=== PATIENT | male | born 1960 | race Caucasian/White ===

== ENCOUNTER 2017-12-25 09:46 | Outpatient (CLI) | payer MEDICAID, SELFPAY ==
--- NOTE | 2017-12-25 09:30 | SATEXT_ITS ---
Assessment: Senthil presents for nutritional counseling for underweight. His dietary recall shows that he eats very inconsistently and eats foods with poor nutrient value. He drinks sugar sweetened beverages and may have just a bag of Milky Ways all day long. Once in a while, Juan reports that if he is hungry, he will have a sandwich. He does not have top dentures and cannot find any that fit well. He does not like any fruits whatsoever. He likes only a few vegetables. Juan is 73 and 121.3 lbs. Nutritional Diagnosis: Underweight related inadequate intake of energy as evidenced by BMI of 17 kg/m2. Intervention: Discussed with Juan and with his caregiver present the importance of increasing the nutrient value of what he consumes even if he doesn 't gain weight. Suggested not filling up on SSB's so that he would have room for foods. Suggested that Juan take leisurely walks throughout the day to help increase his appetite. Provided written guidelines with examples of what the right amount for him is with the right proportions (2000 calories). Also provided pictures of well balanced meals. Suggested some simple changes to start with for the best chance of success. Juan did not verbalize a high motivation to comply or to make any changes. He did however take my phone number should he have any questions or concerns regarding his nutrition therapy. Monitoring and Evaluation: Senthil did not want to make a follow up appointment at this time so he will self monitor and evaluate his progress. He is encouraged to follow up with me at any point for nutritional counseling. Thank you for the referral.
== END 2017-12-25 10:06 ==
PROVIDERS: PCP Specialist/Technologist Athletic Trainer; Visit Provider Dietitian, Registered
DX: R63.6 Underweight (principal); Z68.1 Body mass index [BMI] 19.9 or less, adult; Z71.3 Dietary counseling and surveillance
CPT/HCPCS: 97802

== ENCOUNTER 2018-02-20 09:01 | Outpatient (REF) | payer MEDICAID, SELFPAY ==
[2018-02-20 21:03] LABS: HCT 36.7 % (40.0-50.0); HGB 11.9 g/dL (13.5-17.5)
[2018-02-20 21:16] LABS: Anion Gap 7.3 mmol/L (3-11); BUN 31 mg/dL (7-18); CO2 30.7 mmol/L (21.0-32.0); CREATININE 2.22 mg/dL (0.70-1.30); Calcium 9.5 mg/dL (8.5-10.1); Chloride 103 mmol/L (98-107); Cholesterol 224 mg/dL (50-200); Estimated GFR 30.91 (mL/min/1.73m2); Glucose 94 mg/dL (70-100); HDL Cholesterol 64 mg/dL (40-60); LDL CHOLESTEROL 134 mg/dL (<100); Magnesium 1.6 mg/dL (1.8-2.4); Potassium 5.6 mmol/L (3.5-5.1); Sodium 141 mmol/L (136-145); TSH (W/Ref FT4) 2.42 uIU/mL (0.358-3.74); Triglyceride 165 mg/dL (30-150)
== END 2018-02-20 09:21 ==
LOC: NCHCN 09:01
PROVIDERS: PCP Specialist/Technologist Athletic Trainer; Visit Provider Specialist/Technologist Athletic Trainer
DX: R63.6 Underweight (principal); R79.89 Other specified abnormal findings of blood chemistry; E87.5 Hyperkalemia; E78.5 Hyperlipidemia, unspecified; K21.9 Gastro-esophageal reflux disease without esophagitis
CPT/HCPCS: 80048; 80061; 83721; 83735; 84443; 85014; 85018

== ENCOUNTER 2018-03-06 08:31 | Outpatient (REF) | payer MEDICAID, SELFPAY ==
[2018-03-06 20:17] LABS: Iron 95 ug/dL (50-175); Total Iron Binding Capacity 310 ug/dL (250-450); Transferrin Sat 31 % (20-55)
[2018-03-06 20:34] LABS: HCT 33.9 % (40.0-50.0); HGB 11.2 g/dL (13.5-17.5); Mean Corpuscular Volume 96.9 fL (80-95); Mean Platelet Volume 9.4 fL (8.0-11.0); Platelet Count 483 x1000/uL (130-400); RBC Distribution Width 15.2 % (11.8-14.1); White Blood Cell Count 6.62 k/cumm (4.4-10.8)
[2018-03-06 21:03] LABS: ALT 33 U/L (12-78); AST 23 U/L (15-37); Albumin 3.7 g/dL (3.4-5.0); Alkaline Phosphatase 69 U/L (46-116); Anion Gap 7.9 mmol/L (3-11); BUN 34 mg/dL (7-18); Bilirubin, Total 0.4 mg/dL (0.2-1.0); CO2 30.1 mmol/L (21.0-32.0); CREATININE 1.65 mg/dL (0.70-1.30); Calcium 9.5 mg/dL (8.5-10.1); Chloride 102 mmol/L (98-107); Estimated GFR 43.53 (mL/min/1.73m2); Ferritin 266 ng/mL (8-388); Glucose 80 mg/dL (70-100); Potassium 5.1 mmol/L (3.5-5.1); Sodium 140 mmol/L (136-145); Vitamin B12 414 pg/mL (193-986)
[2018-03-07 20:39] LABS: Reticulocyte 1.1 % (0.5-2.4)
[2018-03-11 16:36] LABS: Erythropoietin 16.3 mIU/mL (2.6 - 18.5)
== END 2018-03-06 08:51 ==
LOC: NCHCN 08:31
PROVIDERS: PCP Specialist/Technologist Athletic Trainer; Visit Provider Specialist/Technologist Athletic Trainer
DX: D64.9 Anemia, unspecified (principal); N28.9 Disorder of kidney and ureter, unspecified
CPT/HCPCS: 80053; 82668; 85027; 82607; 82728; 82746; 83540; 83550; 85045

== ENCOUNTER 2018-03-13 00:52 | Outpatient (CLI) | payer MEDICAID, SELFPAY ==
--- NOTE | 2018-03-13 13:20 | DI.US_ITS ---
SYMPTOM/DIAGNOSIS: RENAL INSUFFICIENCY N28.9 RENAL ULTRASOUND: The kidneys are normal in size and parenchymal thickness and show normal parenchymal echogenicity. No stones or hydronephrosis is seen. There is no evidence of a sb-nephric collection or mass. There is an 11 mm cyst at the lower pole of the left kidney. There is an 8 mm cyst at the upper pole of the right kidney and an 8 mm cyst near the mid portion of the right kidney. The bladder was empty. IMPRESSION: Small bilateral renal cysts.
== END 2018-03-13 01:12 ==
PROVIDERS: PCP Specialist/Technologist Athletic Trainer; Visit Provider Specialist/Technologist Athletic Trainer
DX: N28.9 Disorder of kidney and ureter, unspecified (principal); N28.1 Cyst of kidney, acquired
CPT/HCPCS: 76770

== ENCOUNTER 2018-04-30 00:46 | Outpatient (CLI) | payer MEDICAID, SELFPAY ==
--- NOTE | 2018-04-30 13:00 | DI.CTLCSR_ITS ---
SYMPTOMS/DIAGNOSIS: TOBACCO SMOKER, F17.200, [id number] HISTORY SMOKING, ASYMPTOMATIC CT SCAN OF THE CHEST: CT scan of the chest was performed according to the lung cancer screening protocol. There is atherosclerosis of the thoracic aorta. The heart size is within normal limits. No significant pericardial effusion is seen. No significant thoracic adenopathy, pleural effusion or pneumothorax is identified. Mild emphysematous changes are present in the lungs. No pulmonary nodules are seen. No infiltrates are present. The tracheobronchial tree is unremarkable. There are moderate degenerative changes seen in the thoracolumbar spine. IMPRESSION: 1. COPD. 2. No pulmonary nodules. Lung-RAD Category: 1- Negative Lung- RAD Management of Findings: Continue annual LDCT screening in 12 months
== END 2018-04-30 01:06 ==
PROVIDERS: PCP Specialist/Technologist Athletic Trainer; Visit Provider Specialist/Technologist Athletic Trainer
DX: Z12.2 Encounter for screening for malignant neoplasm of respiratory organs (principal); F17.200 Nicotine dependence, unspecified, uncomplicated; J44.9 Chronic obstructive pulmonary disease, unspecified
CPT/HCPCS: G0297

== ENCOUNTER 2018-07-06 12:03 | Emergency (ER) | payer MEDICAID, SELFPAY ==
--- NOTE | 2018-07-06 12:17 | NUR.NOTE ---
pt noticed drainage from his right ear 2 days ago ear pain 5/10 temp 99.5
[2018-07-06 12:18] VITALS: BP 129/91; PULSE 70; RESP 16; TEMP 37.5; O2SAT 98
--- NOTE | 2018-07-06 12:21 | W.ED.GENAD ---
Discharge Plan Disposition Patient Disposition: HOME Condition: Stable Discharge Details Chief Complaint: EarProblem Clinical Impression: Otitis media of right ear, Otitis externa of right ear Primary Care Provider: Musa Stewart ED Provider: Sabine Spann Home Meds and New Rx's Prescriptions: New amoxicillin-pot clavulanate [Augmentin] 875-125 mg tablet 1 tab PO BID 10 Days Qty: 20 RF: 0 Cipro HC 0.2-1 % drops,suspension 3 drp OT BID 10 Days RF: 0 Continued simvastatin 20 MG tablet 20 mg PO DAILY RF: 0 mirtazapine 30 MG tablet 60 mg PO DAILY RF: 0 albuterol sulfate [Proventil HFA] 6.7 GM HFA aerosol inhaler 2 puff Inhalation PRN PRNRF: 0 ranitidine HCl [Zantac] 150 MG tablet 150 mg PO BID Qty: 60 RF: 0 multivitamin [Daily Multi-Vitamin] 1 EACH tablet 1 tab PO DAILY RF: 0 quetiapine [Seroquel] 50 MG tablet 50 mg PO HS RF: 0 Combivent Respimat 120 PUFF mist 2 puff Inhalation QID RF: 0 omeprazole 20 MG capsule,delayed release(DR/EC) 40 mg PO DAILY RF: 0 metoprolol succinate [Toprol XL] 50 MG tablet extended release 24 hr 50 mg PO DAILY RF: 0 sucralfate 1 GM tablet 1 gm PO BID RF: 0 bupropion HCl 300 MG tablet extended release 24 hr 300 mg PO DAILY RF: 0 Symbicort 10.2 GM HFA aerosol inhaler 1 inh Inhalation BID RF: 0 cyclobenzaprine 10 MG tablet 10 mg PO Q8H Qty: 9 RF: 0 Ibuprofen 400 MG Tablet 400 mg PO Q4H PRNQty: 18 RF: 0 Discharge Instructions Instructions: Otitis Externa (ED), Otitis Media (ED) Additional Instructions: Alternate Tylenol and Motrin as needed and directed for pain. Take the antibiotics until finished. Follow-up with your primary care doctor next week for reevaluation and for referral to ENT if her symptoms do not improve or worsen. Return immediately to the emergency department with any new concerning symptoms. Referrals: Ziggy Alejo MD [ [facility] STAFF PHYSICIAN] - Discharge Data Discharge Physician: Sabine Spann Medical Decision Making 58-year-old male presents with right ear pain and drainage since yesterday. Recently finished amoxicillin for a right ear infection. Vitals within normal limits. Low-grade temp at 99.5. Right ear with tenderness palpation of the tragus as well as with pulling on the auricle. He has mild edema in the right ear canal as well as a serous effusion noted in the right TM. No lymphadenopathy. Remainder of ENT exam within normal limits. Right mastoid nontender to palpation. Appears consistent with likely an otitis media and otitis externa. As patient failed outpatient amoxicillin treatment, will give a prescription for Augmentin as well as for Cipro HC otic drops. Patient instructed to alternate Tylenol and Motrin, take the medication as directed, follow-up with primary care doctor next week and for referral to ENT if symptoms do not improve or worsen. He is instructed return to the emergency department any concerns per HPI General Mode of arrival: ambulatory. Date/Time Provider Initiated Documentation: 07/06/18 12:19. Limitations to Documentation: no limitations. Information obtained by: patient. HPI Narrative: Patient is a 58-year-old male presents with right ear pain and drainage since yesterday. Patient states he had a similar presentation of symptoms more than 1 month ago was seen by his primary care doctor and diagnosed with ear infection and given amoxicillin. He states after taking the amoxicillin the drainage improved but the ear pain never fully improved until it became worse yesterday and now the drainage returned. He states the drainage is yellow in color. He denies any known fever, coughing, sore throat, shortness of breath, vomiting or diarrhea. He states he has been eating and drinking normally. Related Data Home Medications Medication Instructions Recorded Confirmed albuterol sulfate [Proventil HFA] 2 puff INHALATION PRN PRN 05/15/14 07/06/18 mirtazapine 60 mg PO DAILY 05/15/14 07/06/18 simvastatin 20 mg PO DAILY 05/15/14 07/06/18 ranitidine HCl [Zantac] 150 mg PO BID #60 tab 02/07/15 07/06/18 Combivent Respimat 2 puff INHALATION QID 06/10/15 07/06/18 multivitamin [Daily Multi-Vitamin] 1 tab PO DAILY 06/10/15 07/06/18 omeprazole 40 mg PO DAILY 06/10/15 04/17/17 quetiapine [Seroquel] 50 mg PO HS 06/10/15 07/06/18 Symbicort 1 inh INHALATION BID 05/30/16 07/06/18 bupropion HCl 300 mg PO DAILY 05/30/16 04/17/17 metoprolol succinate [Toprol XL] 50 mg PO DAILY 06/17/16 07/06/18 Ibuprofen 400 mg PO Q4H PRN #18 tablet 04/03/17 04/17/17 cyclobenzaprine 10 mg PO Q8H #9 tab 04/03/17 07/06/18 sucralfate 1 gm PO BID 04/17/17 07/06/18 amoxicillin-pot clavulanate 1 tab PO BID 10 Days #20 tab 07/06/18 [Augmentin] ciprofloxacin-hydrocortisone 3 drp OT BID 10 Days ml 07/06/18 [Cipro HC] Previous Rx's Medication Instructions Recorded ranitidine HCl [Zantac] 150 mg PO BID #60 tab 02/07/15 Ibuprofen 400 mg PO Q4H PRN #18 tablet 04/03/17 cyclobenzaprine 10 mg PO Q8H #9 tab 04/03/17 amoxicillin-pot clavulanate 1 tab PO BID 10 Days #20 tab 07/06/18 [Augmentin] ciprofloxacin-hydrocortisone 3 drp OT BID 10 Days ml 07/06/18 [Cipro HC] Allergies Allergy/AdvReac Type Severity Reaction Status Date / Time No Known Allergies Allergy Unverified 07/06/18 12:20 General Stated Complaint: EarProblem KEVIN: 4 Review of Systems Review of Systems All systems reviewed & are unremarkable except as noted in HPI and below Constitutional Reports as per HPI, Denies chills and Denies fever(s) Eyes Denies blurry vision ENT Denies dizziness, Denies sore throat and Denies throat swelling Cardiovascular Denies chest pain and Denies dyspnea Respiratory Denies cough and Denies dyspnea Gastrointestinal Denies abdominal pain, Denies diarrhea and Denies vomiting Genitourinary Denies hematuria and Denies dysuria Musculoskeletal Denies back pain and Denies numbness Integumentary/Breasts Denies lesions and Denies rash Neurologic Denies dizziness, Denies focal weakness and Denies numbness Allergic/Immunologic Denies throat swelling PFSH Medical History Alcohol abuse (Chronic) COPD (chronic obstructive pulmonary disease) (Chronic) Depression (Chronic) SVT (supraventricular tachycardia) (Chronic) Surgical History No significant past surgical history (Acute) Social History Smoking/Tobacco Use Status: Current every day Tobacco Type: cigarettes Smoking cigarettes per day: 4 Years smoked: 30 Alcohol Intake: never Drug use: Never Do you feel safe at home: Yes Do you feel safe in your relationship?: Yes Exam Const General: cooperative, healthy appearing and no acute distress HENMT Head: normal to inspection Ears: EAC abnormal erythema on the right, edema on the right and otic discharge other (yellowish clear), TM abnormal wth effusion serous on the right, erythematous on the right and other and other (Tenderness to palpation of the tragus as well as with pulling on auricle.) General nose exam: external nose normal Face and sinus: normal facial exam Mouth: oral mucosae normal Teeth and gingiva: dentition normal Throat: posterior oropharynx normal Eyes General: appearance normal, both eyes and all related structures Neck Neck: normal visual inspection and no lymphadenopathy Resp Effort & Inspection: normal respiratory effort and able to speak in complete sentences Cardio Rate: regular rate Skin General skin exam: no rashes or lesions noted Neuro General: alert, awake and oriented x3 Motor: muscle tone normal throughout Extrem General: normal to inspection and full ROM Psych Appearance: grossly normal Affect: normal affect Course Vital Signs Temperature 99.5 F 07/06/18 12:18 Pulse 70 07/06/18 12:18 Respiratory Rate 16 07/06/18 12:18 Blood Pressure 129/91 H 07/06/18 12:18 Pulse Oximetry 98 07/06/18 12:18 Temperature 99.5 F 07/06/18 12:18 Temperature Source Skin 07/06/18 12:18 Pulse 70 07/06/18 12:18 Respiratory Rate 16 07/06/18 12:18 Blood Pressure 129/91 H 07/06/18 12:18 Blood Pressure Position Sitting 07/06/18 12:18 Pulse Oximetry 98 07/06/18 12:18 Oxygen Delivery Method Room Air 07/06/18 12:18 Oxygen Flow Rate 0 07/06/18 12:18 Pain Level 5 07/06/18 12:18
== END 2018-07-06 12:54 | disposition home or self-care (01) ==
PROVIDERS: Emergency Provider Physician Assistant; PCP Specialist/Technologist Athletic Trainer
DX: H66.91 Otitis media, unspecified, right ear (principal); H60.501 Unspecified acute noninfective otitis externa, right ear
CPT/HCPCS: 99283

== ENCOUNTER 2018-07-18 11:27 | Outpatient (REF) | payer MEDICAID, SELFPAY ==
[2018-07-18 21:29] LABS: Abs Immature Grans 0.02 k/cumm (0.0-0.09); Absolute Basophil Count 0.03 k/cumm (0.0-0.2); Absolute Eosinophil Count 0.15 k/cumm (0.0-0.7); Absolute Lymphocyte Count 1.64 k/cumm (1.2-3.4); Absolute Monocyte Count 0.71 k/cumm (0.11-0.7); Absolute Neutrophil Count 4.32 k/cumm (1.2-6.7); Basophils % 0.4; Eosinophils % 2.2; HGB 12.9 g/dL (13.5-17.5); Immature Grans % 0.3; Lymphocytes % 23.9; Mean Corp. HGB Concentration 33.1 g/dL (32.0-36.0); Mean Corpuscular Hemoglobin 31.5 pg (27.0-33.0); Mean Corpuscular Volume 95.1 fL (80-95); Mean Platelet Volume 9.1 fL (8.0-11.0); Monocytes % 10.3; Neutrophils % 62.9; Platelet Count 494 x1000/uL (130-400); RBC Distribution Width 13.9 % (11.8-14.1); White Blood Cell Count 6.87 k/cumm (4.4-10.8)
== END 2018-07-18 11:47 ==
LOC: NCHCN 11:27
PROVIDERS: PCP Specialist/Technologist Athletic Trainer; Visit Provider Specialist/Technologist Athletic Trainer
DX: D64.9 Anemia, unspecified (principal); H65.191 Other acute nonsuppurative otitis media, right ear; H61.22 Impacted cerumen, left ear
CPT/HCPCS: 85025

== ENCOUNTER 2018-12-12 16:39 | Outpatient (REF) | payer MEDICAID, SELFPAY | END 2018-12-12 16:59 | LOC: LBN 16:39 | PROVIDERS: PCP Specialist/Technologist Athletic Trainer; Visit Provider Otolaryngology | DX: H66.11 Chronic tubotympanic suppurative otitis media, right ear (principal) | CPT/HCPCS: 87077; 87070; 87186 ==

== ENCOUNTER 2018-12-27 09:45 | Outpatient (REF) | payer MEDICAID, SELFPAY ==
[2018-12-27 19:13] LABS: Abs Immature Grans 0.01 k/cumm (0.0-0.09); Absolute Basophil Count 0.05 k/cumm (0.0-0.2); Absolute Eosinophil Count 0.28 k/cumm (0.0-0.7); Absolute Lymphocyte Count 1.32 k/cumm (1.2-3.4); Absolute Monocyte Count 0.87 k/cumm (0.11-0.7); Absolute Neutrophil Count 4.72 k/cumm (1.2-6.7); Basophils % 0.7; Eosinophils % 3.9; HCT 34.1 % (40.0-50.0); HGB 11.2 g/dL (13.5-17.5); Immature Grans % 0.1; Lymphocytes % 18.2; Mean Corp. HGB Concentration 32.8 g/dL (32.0-36.0); Mean Corpuscular Hemoglobin 31.4 pg (27.0-33.0); Mean Corpuscular Volume 95.5 fL (80-95); Neutrophils % 65.1; Platelet Count 492 x1000/uL (130-400); RBC 3.57 m/cumm (4.50-6.00); RBC Distribution Width 15.4 % (11.8-14.1); White Blood Cell Count 7.25 k/cumm (4.4-10.8)
[2018-12-27 19:38] LABS: Anion Gap 11.1 mmol/L (3-11); BUN 26 mg/dL (7-18); CO2 25.9 mmol/L (21.0-32.0); CREATININE 2.13 mg/dL (0.70-1.30); Calcium 9.4 mg/dL (8.5-10.1); Chloride 105 mmol/L (98-107); Glucose 97 mg/dL (70-100); Magnesium 1.6 mg/dL (1.8-2.4); Potassium 4.9 mmol/L (3.5-5.1); Sodium 142 mmol/L (136-145); TSH (W/Ref FT4) 2.35 uIU/mL (0.36-3.74)
== END 2018-12-27 10:05 ==
LOC: NCHCN 09:45
PROVIDERS: PCP Specialist/Technologist Athletic Trainer; Visit Provider Specialist/Technologist Athletic Trainer
DX: D64.9 Anemia, unspecified (principal); I10 Essential (primary) hypertension; N28.9 Disorder of kidney and ureter, unspecified; E83.42 Hypomagnesemia
CPT/HCPCS: 80048; 83735; 84443; 85025

== ENCOUNTER 2019-04-04 13:53 | Outpatient (REF) | payer MEDICAID, SELFPAY ==
[2019-04-04 19:07] LABS: Abs Immature Grans 0.01 k/cumm (0.0-0.09); Absolute Basophil Count 0.03 k/cumm (0.0-0.2); Absolute Eosinophil Count 0.17 k/cumm (0.0-0.7); Absolute Lymphocyte Count 2.15 k/cumm (1.2-3.4); Absolute Monocyte Count 1.04 k/cumm (0.11-0.7); Absolute Neutrophil Count 4.98 k/cumm (1.2-6.7); Basophils % 0.4; HCT 37.4 % (40.0-50.0); HGB 12.4 g/dL (13.5-17.5); Immature Grans % 0.1; Lymphocytes % 25.7; Mean Corp. HGB Concentration 33.2 g/dL (32.0-36.0); Mean Corpuscular Hemoglobin 31.1 pg (27.0-33.0); Mean Corpuscular Volume 93.7 fL (80-95); Mean Platelet Volume 8.8 fL (8.0-11.0); Monocytes % 12.4; Neutrophils % 59.4; Platelet Count 528 x1000/uL (130-400); RBC 3.99 m/cumm (4.50-6.00); RBC Distribution Width 14.6 % (11.8-14.1); White Blood Cell Count 8.38 k/cumm (4.4-10.8)
[2019-04-04 19:12] LABS: ALT 26 U/L (16-63); AST 26 U/L (15-37); Albumin 4.1 g/dL (3.4-5.0); Alkaline Phosphatase 80 U/L (46-116); BUN 29 mg/dL (7-18); Bilirubin, Total 0.4 mg/dL (0.2-1.0); CREATININE 1.88 mg/dL (0.70-1.30); Calcium 9.7 mg/dL (8.5-10.1); Chloride 101 mmol/L (98-107); Estimated GFR 37.31 (mL/min/1.73m2); Glucose 67 mg/dL (74-106); Potassium 4.3 mmol/L (3.5-5.1); Sodium 140 mmol/L (136-145); Total Protein 7.7 g/dL (6.4-8.2)
== END 2019-04-04 14:13 ==
LOC: NCHCN 13:53
PROVIDERS: PCP Specialist/Technologist Athletic Trainer; Visit Provider Specialist/Technologist Athletic Trainer
DX: D64.9 Anemia, unspecified (principal); E83.42 Hypomagnesemia; R79.89 Other specified abnormal findings of blood chemistry; I10 Essential (primary) hypertension
CPT/HCPCS: 80053; 83735; 85025

== ENCOUNTER 2019-05-01 13:05 | Outpatient (REF) | payer MEDICAID, SELFPAY ==
[2019-05-01 19:32] LABS: HCT 38.4 % (40.0-50.0); HGB 12.4 g/dL (13.5-17.5); Mean Corp. HGB Concentration 32.3 g/dL (32.0-36.0); Mean Corpuscular Hemoglobin 30.8 pg (27.0-33.0); Mean Corpuscular Volume 95.3 fL (80-95); Mean Platelet Volume 9.3 fL (8.0-11.0); Platelet Count 543 x1000/uL (130-400); RBC 4.03 m/cumm (4.50-6.00); RBC Distribution Width 14.5 % (11.8-14.1); White Blood Cell Count 6.81 k/cumm (4.4-10.8)
[2019-05-01 19:37] LABS: Anion Gap 5.6 mmol/L (3-11); BUN 21 mg/dL (7-18); CO2 32.4 mmol/L (21.0-32.0); CREATININE 1.53 mg/dL (0.70-1.30); Calcium 9.4 mg/dL (8.5-10.1); Chloride 102 mmol/L (98-107); Estimated GFR 47.32 (mL/min/1.73m2); Glucose 86 mg/dL (74-106); Potassium 4.7 mmol/L (3.5-5.1); Sodium 140 mmol/L (136-145)
== END 2019-05-01 13:25 ==
LOC: NCHCN 13:05
PROVIDERS: PCP Specialist/Technologist Athletic Trainer; Visit Provider Specialist/Technologist Athletic Trainer
DX: D64.9 Anemia, unspecified (principal); R79.89 Other specified abnormal findings of blood chemistry
CPT/HCPCS: 80048; 85027; 83735

== ENCOUNTER 2019-09-19 09:42 | Outpatient (REF) | payer MEDICAID, SELFPAY ==
[2019-09-19 19:43] LABS: HCT 38.1 % (40.0-50.0); HGB 12.5 g/dL (13.5-17.5)
[2019-09-19 19:56] LABS: ALT 31 U/L (16-63); AST 25 U/L (15-37); Albumin 3.9 g/dL (3.4-5.0); Alkaline Phosphatase 95 U/L (46-116); Anion Gap 8.3 mmol/L (3-11); BUN 30 mg/dL (7-18); Bilirubin, Total 0.3 mg/dL (0.2-1.0); CO2 28.7 mmol/L (21.0-32.0); CREATININE 2.18 mg/dL (0.70-1.30); Calcium 9.2 mg/dL (8.5-10.1); Calculated LDL 144 mg/dL (<100); Chloride 106 mmol/L (98-107); Cholesterol 222 mg/dL (<200); Estimated GFR 31.33 (mL/min/1.73m2); Glucose 83 mg/dL (74-106); HDL Cholesterol 55 mg/dL (40-60); Potassium 4.4 mmol/L (3.5-5.1); Sodium 143 mmol/L (136-145); Total Protein 7.4 g/dL (6.4-8.2); Triglyceride 118 mg/dL (<150)
== END 2019-09-19 10:02 ==
LOC: NCHCN 09:42
PROVIDERS: PCP Specialist/Technologist Athletic Trainer; Visit Provider Nurse Practitioner Family
DX: D64.9 Anemia, unspecified (principal); E83.42 Hypomagnesemia; R79.89 Other specified abnormal findings of blood chemistry; I10 Essential (primary) hypertension
CPT/HCPCS: 80053; 80061; 85014; 85018

== ENCOUNTER 2020-01-06 14:48 | Emergency (ER) | payer MEDICAID, SELFPAY ==
[2020-01-06 14:49] VITALS: BP 135/70; PULSE 84; RESP 12; TEMP 36.9; O2SAT 98
[2020-01-06 14:54] VITALS: BP 135/70; PULSE 83; PULSE 85; RESP 11; O2SAT 98
[2020-01-06 14:55] VITALS: PULSE 83; RESP 11; O2SAT 98
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
[2020-01-06 15:00] VITALS: PULSE 87; RESP 11; O2SAT 98
[2020-01-06 15:01] VITALS: BP 107/71; PULSE 84; PULSE 86; RESP 8; O2SAT 97
[2020-01-06] MEDS: Normal Saline 1,000 ML 150 ML IV (15:02)
[2020-01-06 15:06] LABS: Abs Immature Grans 0.05 10^3/uL (0.0-0.06); Absolute Basophil Count 0.04 10^3/uL (0.0-0.2); Absolute Eosinophil Count 0.04 10^3/uL (0.0-0.7); Absolute Lymphocyte Count 2.03 10^3/uL (1.2-3.4); Absolute Monocyte Count 0.98 10^3/uL (0.1-0.8); Basophils % 0.4; Eosinophils % 0.4; HCT 34.5 % (40.0-50.0); HGB 11.4 g/dL (13.5-17.5); Immature Grans % 0.5; Lymphocytes % 21.3; MCV 96.9 fL (80-95); MPV 8.6 fL (8.0-11.0); Monocytes % 10.3; Neutrophils % 67.1; Nucleated RBC 0 %; Platelet Count 451 10^3/uL (130-400); RBC 3.56 10^6/uL (4.36-5.78); RDW 14.6 % (11.8-14.1); RDW-SD 52.5 fL; WBC 9.54 10^3/uL (4.4-10.8)
--- NOTE | 2020-01-06 15:07 | NUR.NOTE ---
Nursing Note: [facility] hospice case manager Ishan Pedersen [phone]
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
[2020-01-06 15:27] LABS: Acetaminophen < 2 ug/mL (10-30); Salicylate 2.8 mg/dL (2.8-20.0)
[2020-01-06 15:28] LABS: ALT 28 U/L (16-63); AST 27 U/L (15-37); Alkaline Phosphatase 78 U/L (46-116); Anion Gap 16.6 mmol/L (3-11); BUN 40 mg/dL (7-18); Bilirubin, Total 0.8 mg/dL (0.2-1.0); CO2 22.4 mmol/L (21.0-32.0); CREATININE 2.49 mg/dL (0.70-1.30); Chloride 99 mmol/L (98-107); ETHANOL BLOOD < 3.0 mg/dL (<3); Estimated GFR 26.88 (mL/min/1.73m2); Glucose 72 mg/dL (74-106); Potassium 3.7 mmol/L (3.5-5.1); Sodium 138 mmol/L (136-145); TSH 2.85 uIU/mL (0.36-3.74); Total Protein 7.6 g/dL (6.4-8.2)
--- NOTE | 2020-01-06 16:00 | NUR.NOTE ---
Nursing Note: Patient tells me he has done this before , taking off and not telling anyone.Denies being suicidal and denies that being the reason he took off not telling anyone. Patient was appropriately dressed for being outside and out overnight.
--- NOTE | 2020-01-06 16:14 | PDOC.MHCN_ITS ---
Date of service: 01/06/20 Time of Service: 17:29 Mental Health Crisis Note Presenting Issue How did you arrive at the ED and why did you come: Senthil arrived to [facility] ER today via ambulance because he made statements of SI. Precipitating Factors Senthil endorses depression and although he makes statements of SI he has no plan of action, and the means he had was his 4-moeller and he threw those in the roman. He is showing forward thinking as well. Disposition BEHAVIOR: Senthil when I tried to zoom was facing the wall crying and not engaging. I came in and he was able to engage and follow directions. He answered questions and was being oppositional but we were able to compromise. EYE CONTACT: Eye contact was fair to poor. MOOD: Senthil struggles this time of year every year. He feels depressed additionally due to the stressor's COVID has placed on him like losing his job. AFFECT: Affect is flat and tearful APPETITE: Senthil reports that he has not eaten since Sunday. SLEEP(trouble falling/staying asleep: Senthil endorses having a lot of nightmares. Plan Senthil agreed to go to a respite home in [facility] and re-assess tomorrow. He will work with his case manger on trying ot find more employment. This plan was shared with and agreed upon by [employer] Supervisor and ER Doctor. Signature Clinician's Name/Title: Jen Lambert MS, [facility] Emergency Services Clinician
--- NOTE | 2020-01-06 17:30 | NUR.NOTE ---
Nursing Note: Mental Health here to evaluate patient.Had attempted to do eval. using face time but patient had difficulty holding ipad.
--- NOTE | 2020-01-06 17:39 | NUR.NOTE ---
Nursing Note: Referral for follow up to PCP faxed to [facility]. Ángela Leiva
[2020-01-06] MEDS: QUEtiapine 25 MG TAB 50 MG PO (18:01)
[2020-01-07 02:09] LABS: COVID-19 RT-PCR UVMMC Result Negative (Negative)
--- NOTE | 2020-01-07 15:47 | NUR.NOTE ---
This nurse attempted to call patient regard negative COVID results. Attempted to call twice and number was not in service. Nursing Note:
--- NOTE | 2020-01-09 09:14 | NUR.NOTE ---
Nursing Note: attempted to call pt at provided cell phone, not accepting calls. Contacted nurse case manager at [facility], given number to phone provider Talha Ko- [phone]. Called at 0916, spoke with pt and gave negative COVID results by phone.
== END 2020-01-06 18:05 | disposition home or self-care (01) ==
PROVIDERS: Emergency Provider Emergency Medicine; PCP Specialist/Technologist Athletic Trainer
DX: F32.89 Other specified depressive episodes (principal); R45.851 Suicidal ideations; N18.9 Chronic kidney disease, unspecified; Z91.128 Patient's intentional underdosing of medication regimen for other reason; J44.9 Chronic obstructive pulmonary disease, unspecified; F17.210 Nicotine dependence, cigarettes, uncomplicated; Z03.818 Encounter for observation for suspected exposure to other biological agents ruled out
CPT/HCPCS: 80053; 96360; 96361; 99285; U0003; 80320; 80329; 84443; 85025; 99284

== ENCOUNTER 2020-04-05 03:13 | Outpatient (CLI) | payer MEDICAID, SELFPAY ==
--- NOTE | 2020-04-23 08:58 | ZIOP_ITS ---
Date of service: 04/23/20 Time of Service: 08:58 14 Day Chinese Herbalist Referring Provider:: Siena Indications:: Dizziness Note: This is a 14-day event monitor ordered for symptoms of dizziness Predominant rhythm was sinus with an average heart rate of 72 bpm. Minimum heart rate was 56, maximum 165, sinus tachycardia. There were rare ventricular ectopic beats. There was 1 slow 5 beat ventricular run, rate 89 There were very rare atrial premature beats. There were rare self-limited atrial runs generally 4-5 beats in duration. These were asymptomatic There was no atrial fibrillation, no pauses greater than 3 seconds, no high- grade AV block Patient symptoms corresponded to sinus rhythm in the 80s
== END 2020-04-05 03:33 ==
PROVIDERS: PCP Nurse Practitioner Family; Visit Provider Nurse Practitioner Family
DX: R42 Dizziness and giddiness
CPT/HCPCS: 0296T

== ENCOUNTER 2020-04-08 01:44 | Outpatient (CLI) | payer MEDICAID, SELFPAY ==
--- NOTE | 2020-04-08 07:35 | DI.US_ITS ---
APPROVED REPORT EXAM: Comprehensive 2D, Doppler, and color-flow Echocardiogram Patient Location: Out-Patient Survey Party Chief: Elsa Morfin RDCS (AE) Indications: Bicuspid aortic valve, Aortic valve stenosis, Dizziness Other Information Study Quality: Fair. Technically limited study due to inability to position patient. Conclusion Technically difficult study Normal left ventricular wall thickness and chamber size. Estimated ejection fraction is 55 to 60%. Wall motion is normal Normal right ventricular size and systolic function Both atria are normal in size The aortic valve is heavily calcified. It is probably functionally bicuspid. There is mild aortic s tenosis. Peak gradient is 25, mean 15 mmHg. Calculated aortic valve area is 1.91 cm???. There is n o aortic regurgitation Mildly thickened mitral leaflets with prolapse of anterior leaflet. There is mild to moderate eccent ira mitral regurgitation Structurally normal tricuspid and pulmonic valves Mild tricuspid regurgitation. Normal estimated right ventricular systolic pressure The ascending aorta is mildly dilated measuring 3.82 cm Wall motion Left Ventricle The left ventricle is normal size. The left ventricular systolic function is normal. The left ventric ular ejection fraction is within the normal range. There is normal left ventricular wall thickness. T here is normal LV segmental wall motion. There is no ventricular septal defect visualized. LVEF is 55 -60%. Right Ventricle The right ventricle is normal size. The right ventricular systolic function is normal. The RVSP is 19 .9 mmHg. Atria The left atrium size is normal. The right atrium size is normal. The interatrial septum is intact wit h no evidence for an atrial septal defect. Aortic Valve Aortic valve is calcified. Number of aortic valve leaflets could not be assessed. Mild aortic stenosi s. Peak aortic valve gradient is 25.1mmHg. Highest mean aortic valve gradient is 15.8mmHg. Calculated STEPHANIE by the continuity equation is 1.91cm2. No aortic regurgitation is present. Mitral Valve Mildly thickened mitral leaflets No evidence of mitral valve stenosis. Mild to moderate mitral regurg itation. Eccentric jet Prolapse of anterior leaflet Tricuspid Valve The tricuspid valve is normal in structure. There is no tricuspid valve stenosis. Mild tricuspid regu rgitation. Pulmonic Valve The pulmonary valve is normal in structure. There is no pulmonic valvular stenosis. There is no pulmo cristóbal valvular regurgitation. Great Vessels The aortic root is normal in size. The ascending aorta is mildly dilated. Aortic arch is not visualiz ed. IVC is normal in size and collapses >50% with inspiration. Pericardium There is no pericardial effusion. 2D Dimensions IVSD d PLAX 0.90 cm M: 0.6-1.2 LV Vol A2C d MOD 104.0 mL LVPW d PLAX 0.92 cm M: 0.6 - 1.2 LV Vol A4C d MOD 90.9 mL LVID d PLAX 4.25 cm M: 4.2 - 5.8 LA vol/ BSA A2C s A-L 14.5 mL/m2 LVDs 3.00 cm M: 2.5 - 4.0 LA vol/ BSA A4C s A-L 23.0 mL/m2 Ao Root d 3.17 cm M: 3.1 - 3.7 LA Vol/ BSA Biplane s A-L 19.4 mL/m2 RA Area A4C 11.53 cm2 LA Area A4C s MOD 15.14 cm2 RA Vol/ BSA A4C s A-L 15.6 mL/m2 LA Area A2C s MOD 11.36 cm2 Ao Asc Diam d 3.82 cm M: 2.6 - 3.4 LV EF A4C MOD 64.3 % LV EF Teichholz 55.0 % LV EF A2C MOD 55.6 % LVEF (Menon's) 58.07 % M: 52 - 72 LV EF Biplane MOD 58.1 % LV Volume 79.53 mL M: 62 - 150 SV 58.40 mL LV Volume Index 46.23 mL/m2 M: 34 - 74 SV Index 33.97 mL/m2 LV Vol Biplane MOD 100.6 mL FS 28.30 % M-Mode TAPSE 2.60 cm (M/F) >1.7 LV Diastology MV E' medial 0.053 (>0.07 m/s) MV E' lateral 0.051 (>0.1 m/s) Aortic Valve LVOT Area 4.35 cm2 AoV Area Vmax 1.91 cm2 LVOT Vmax 1.10 m/s AoV Area/ BSA (Vmax) 1.11 cm2/m2 LVOT Mean Tenzin. 0.82 m/s STEPHANIE Mean Tenzin. 1.85 cm2 LVOT Peak Grad 4.8 mmHg STEPHANIE Mean Tenzin. Index 1.08 cm2/m2 LVOT Mean Grad 2.9 mmHg LVOT VTI 0.234 m LVOT Diam s 2.35 cm AoV Vmax 2.50 m/s Velocity Ratio 0.44 AoV Mean Tenzin. 1.93 m/s AoV Peak Grad 25.1 mmHg LVOT SV 101.92 mL AoV Mean Grad 15.8 mmHg AoV VTI 0.623 m AoV Area VTI 1.64 cm2 AoV Area/ BSA (VTI) 0.95 cm/m2 Mitral Valve MV VTI 0.150 m MV VTI Annulus 0.151 m MV Area VTI 6.87 (4.0-6.0 cm2) Pulmonary Valve PV Vmax 0.75 (0.5-1.5 m/s) RVOT Peak Gr. 0.87 mmHg PV Peak Grad 2.2 mmHg RVOT Mean Gr. 0.45 mmHg PV Mean Grad 1.2 mmHg RVOT VTI 0.085 m PV VTI 0.138 m RVOT Vmax 0.47 m/s Tricuspid Valve TR Peak Grad 16.8 mmHg TR Vmax 2.05 m/s RA Pressure 3.00 mmHg RVSP (TR) 19.9 mmHg
== END 2020-04-08 02:04 ==
PROVIDERS: PCP Nurse Practitioner Family; Visit Provider Nurse Practitioner Family
DX: I08.3 Combined rheumatic disorders of mitral, aortic and tricuspid valves (principal)
CPT/HCPCS: 93306

== ENCOUNTER 2020-08-26 10:32 | Outpatient (REF) | payer MEDICAID, SELFPAY ==
[2020-08-26 15:06] LABS: HCT 34.1 % (40.0-50.0); HGB 11.1 g/dL (13.5-17.5); MCH 31.6 pg (27.0-33.0); MCHC 32.6 % (32.0-36.0); MCV 97.2 fL (80-95); MPV 9.3 fL (8.0-11.0); Platelet Count 440 10^3/uL (130-400); RBC 3.51 10^6/uL (4.36-5.78); RDW 15.1 % (11.8-14.1); RDW-SD 53.9 fL; WBC 7.29 10^3/uL (4.4-10.8)
[2020-08-26 15:16] LABS: Anion Gap 12.3 mmol/L (3-11); BUN 23 mg/dL (7-18); CO2 27.7 mmol/L (21.0-32.0); Calcium 9.3 mg/dL (8.5-10.1); Calculated LDL 104 mg/dL (<100); Chloride 103 mmol/L (98-107); Cholesterol 183 mg/dL (<200); Estimated GFR 34.49 (mL/min/1.73m2); Glucose 86 mg/dL (74-106); HDL Cholesterol 69 mg/dL (40-60); Potassium 4.1 mmol/L (3.5-5.1); Sodium 143 mmol/L (136-145); Triglyceride 53 mg/dL (<150)
[2020-08-26 15:38] LABS: Vitamin D 25 Total 49.3 ng/mL (30-100)
== END 2020-08-26 10:33 | disposition home or self-care (01) ==
LOC: NCHCN 10:32
PROVIDERS: PCP Nurse Practitioner Family; Visit Provider Nurse Practitioner Family
DX: N18.30 Chronic kidney disease, stage 3 unspecified (principal); E78.5 Hyperlipidemia, unspecified
CPT/HCPCS: 80048; 80061; 82306; 85027

== ENCOUNTER 2020-12-28 02:40 | Outpatient (CLI) | payer MEDICAID, SELFPAY ==
--- NOTE | 2020-12-28 11:42 | W.NUTCONSULT ---
Date of service: 12/28/20 Time of Service: 11:42 Nutritional Consult ASSESSMENT: Spoke to Kirsten Llanos on phone ([phone]). PMH: COPD, Depression. She reports that Senthil's weight is down to 115 lbs, 5'6 BMI 18.5. Has lost about 10 lbs since July 2020 when she became home provider. She offers balanced meals during day, home cooking mostly and snacks between meals. Senthil has very poor appetite. Home provider attributes depression/mental state for decrease in po intake. She is unable to get him to eat a significant amount, even when she makes meals that he requests. Meds: include 60 mg mirtazapine, 50 mg Seroquel. Kirsten is providing high calorie snacks such as chocolate milk, muffins, cookies but Senthil typically refuses. Weight loss most likely due to increased caloric needs with SOB and COPD and depression and triggered by recent move. Will need to address depression and appetite GERALD as at high nutritional risk for severe malnutrition. NUTRITIONAL DIAGNOSIS: Malnutrition as evidenced by low BMI and significant weight loss in last 6 months INTERVENTION: consider adding marinol as appetite stimulant MONITORING AND EVALUATION: monthly weights at MD office Time Spent in Nutritional Counseling and Treatment: 15
[2020-12-28] MEDS: Albuterol HFA 18 GM 200 PUFF INH IH (15:14)
[2020-12-28] MEDS: Inhaler, Assist Device 1 EACH MC (15:14)
--- NOTE | 2020-12-28 15:55 | W.PFT ---
Date of service: 12/28/20 Time of Service: 13:58 Pulmonary Function Test Result Requesting Provider Jayde Wren Indications: COPD Interpretation Spirometry: There is no airflow limitation. There is no significant bronchodilator response Lung Volumes: There is air trapping Diffusion Capacity: The diffusion is reduced Airway Pressure: Airways resistance is normal Impression No obstructive lung disease. There is some evidence of air trapping in addition to a decreased diffusion. This may represent emphysema or pulmonary vasculate disease. Clinical Correlation therefore is recommended.
== END 2020-12-28 02:41 | disposition home or self-care (01) ==
LOC: RT 02:40
PROVIDERS: PCP Nurse Practitioner Family; Visit Provider Nurse Practitioner Family
DX: J44.9 Chronic obstructive pulmonary disease, unspecified (principal); E43 Unspecified severe protein-calorie malnutrition
CPT/HCPCS: 94060; 94726; 94729

== ENCOUNTER 2021-05-19 18:32 | Outpatient (REF) | payer MEDICAID, SELFPAY ==
[2021-05-19 20:55] LABS: Anion Gap 9.4 mmol/L (3-11); BUN 42 mg/dL (7-18); CO2 24.6 mmol/L (21.0-32.0); CREATININE 2.1 mg/dL (0.70-1.30); Calcium 8.9 mg/dL (8.5-10.1); Chloride 110 mmol/L (98-107); Estimated GFR 32.49 (mL/min/1.73m2); Glucose 103 mg/dL (74-106); Sodium 144 mmol/L (136-145); TSH 1.13 uIU/mL (0.36-3.74); Vitamin B12 329 pg/mL (193-986)
== END 2021-05-19 18:33 | disposition home or self-care (01) ==
LOC: NCHCN 18:32
PROVIDERS: PCP Nurse Practitioner Family; Visit Provider Nurse Practitioner Family
DX: I10 Essential (primary) hypertension (principal); Z00.00 Encounter for general adult medical examination without abnormal findings
CPT/HCPCS: 80048; 82607; 84443

== ENCOUNTER 2021-12-16 01:26 | Outpatient (CLI) | payer MEDICAID, SELFPAY ==
[2021-12-16 09:36] LABS: Bilirubin Negative (Negative); Blood Negative (Negative); Clarity Clear (Clear); Glucose Negative (Negative); Ketones Negative (Negative); Leukocyte Esterase Negative (Negative); Nitrite Negative (Negative); Specific Gravity >= 1.030 (1.005-1.025); Urobilinogen 0.2 EU/dL (Up TO 0.2)
[2021-12-16 09:40] LABS: Abs Immature Grans 0.08 10^3/uL (0.0-0.06); Absolute Basophil Count 0.09 10^3/uL (0.0-0.2); Absolute Eosinophil Count 0.22 10^3/uL (0.0-0.7); Absolute Lymphocyte Count 2.92 10^3/uL (1.2-3.4); Absolute Monocyte Count 1.07 10^3/uL (0.1-0.8); Absolute Neutrophil Count 7.25 10^3/uL (1.2-6.7); Basophils % 0.8; Eosinophils % 1.9; HCT 36.2 % (40.0-50.0); HGB 12.1 g/dL (13.5-17.5); Immature Grans % 0.7; Lymphocytes % 25.1; MCH 31.6 pg (27.0-33.0); MCHC 33.4 % (32.0-36.0); MCV 95 fL (80-95); MPV 8.2 fL (8.0-11.0); Monocytes % 9.2; Neutrophils % 62.3; Platelet Count 440 10^3/uL (130-400); RBC 3.83 10^6/uL (4.36-5.78); RDW 14.5 % (11.8-14.1); RDW-SD 49.8 fL; WBC 11.63 10^3/uL (4.4-10.8)
[2021-12-16 09:46] LABS: COMMENT (LAB VIEW ONLY) 182.64 mg/dL; Prot/Crea Ur Ratio 0.21
[2021-12-16 11:02] LABS: Anion Gap 7.4 mmol/L (3-11); BUN 36 mg/dL (7-18); CO2 25.6 mmol/L (21.0-32.0); CREATININE 2.2 mg/dL (0.70-1.30); Calcium 9.2 mg/dL (8.5-10.1); Chloride 104 mmol/L (98-107); Estimated GFR 33.66 (mL/min/1.73m2); Glucose 92 mg/dL (74-106); PHOSPHORUS 3.6 mg/dL (2.6-4.7); Potassium 3.8 mmol/L (3.5-5.1); Sodium 137 mmol/L (136-145)
[2021-12-19 05:08] LABS: Vitamin D 25 Total 45.5 ng/mL (30-100)
[2021-12-19 10:49] LABS: Parathyroid Hormone,Intact 41 pg/mL (19-88)
== END 2021-12-16 01:27 | disposition home or self-care (01) ==
PROVIDERS: PCP Nurse Practitioner Family; Visit Provider Nurse Practitioner
DX: N18.32 Chronic kidney disease, stage 3b (principal)
CPT/HCPCS: 36415; 80048; 82306; 81003; 82565; 83970; 84100; 84156; 85025

== ENCOUNTER 2022-05-20 21:42 | Emergency (ER) | payer MEDICAID, SELFPAY ==
[2022-05-20 21:47] VITALS: BP 151/76; PULSE 78; RESP 18; TEMP 36.5; O2SAT 98
--- NOTE | 2022-05-20 22:10 | W.ED.GENAD ---
Discharge Plan Disposition Patient Disposition: Home Condition: Stable Discharge Details Clinical Impression: Anxiety and depression Primary Care Provider: Jayde Wren ED Provider: Kleber De La O Home Meds and New Rx's Prescriptions: Continued aspirin [Adult Aspirin Regimen] 81 mg tablet,delayed release (DR/EC) 81 mg PO DAILY fluoxetine 10 mg capsule 30 mg PO DAILY ferrous gluconate 324 mg (38 mg iron) tablet 324 mg PO DAILY ondansetron HCl 4 mg tablet 4 mg PO Q6H megestrol 400 mg/10 mL (10 mL) suspension 200 mg PO QID Qty: 1000 5RF Rx Instructions: 5mL by mouth four times a day Spiriva Respimat 2.5 mcg/actuation mist 2 puff inhalation DAILY Qty: 12 3RF simvastatin 20 MG tablet 20 mg PO DAILY mirtazapine 30 MG tablet 60 mg PO DAILY albuterol sulfate [Proventil HFA] 6.7 GM HFA aerosol inhaler 2 puff Inhalation PRN PRN multivitamin [Daily Multi-Vitamin] 1 EACH tablet 1 tab PO DAILY quetiapine [Seroquel] 50 MG tablet 50 mg PO HS omeprazole 20 MG capsule,delayed release(DR/EC) 40 mg PO DAILY metoprolol succinate [Toprol XL] 50 MG tablet extended release 24 hr 50 mg PO DAILY sucralfate 1 GM tablet 1 g PO BID bupropion HCl 300 MG tablet extended release 24 hr 300 mg PO DAILY Discharge Instructions Additional Instructions: follow up with your primary care provider as needed if you feel more ill, have difficulty breathing or severe pain return to the emergency department Medical Decision Making 62 yo male with hx of developmental delay, htn, hld, ckd, who comes in with complaint he doesn't want to live with the people he lives with anymore. HE states that he doesn't like his living situation because he argues with the other people in his house a lot. He left the house today and PD found him in the [place], he did not want to go back to his residence so made the statement he was going to swallow a knife so was brought here. Pt caox4 in no distress speaking clearly and has normal gait. HE denies si/hi, states he made the knife statement eralier specifically so he would not be brought back to his residence and wouldn't actually dothis. He has no focal deficits, full negative ros. Given he has no complaints and reassuring exam he is medically cleared to speak with [facility]. pt evaluated by [facility] and cleared and also spoke with his care takers and he is in agreement to return home, his home care assistant will come to pick him up Differential Diagnosis Differential Diagnosis: social issuess, depression HPI General Mode of arrival: ambulatory. Date/Time Provider Initiated Documentation: 05/20/22 21:43. Limitations to Documentation: no limitations. Information obtained by: patient. History of Present Illness 62 year old M presents to the emergency department with the chief complaint of doesn't like his living situation, Patient started experiencing this day(s) (1) and it has been constant. No relieving factors improve symptom(s), No exacerbating factors reported . Patient notes no other symptoms.. Patient did receive the following treatments prior to arrival, none Related Data Home Medications Medication Instructions Recorded Confirmed albuterol sulfate 90 mcg/actuation 2 puff inhalation PRN PRN 05/15/14 05/10/22 aerosol inhaler (Proventil HFA) mirtazapine 30 mg tablet 60 mg PO DAILY 05/15/14 05/10/22 simvastatin 20 mg tablet 20 mg PO DAILY 05/15/14 05/10/22 multivitamin (Daily Multi-Vitamin 1 tab PO DAILY 06/10/15 05/10/22 tablet) omeprazole 20 mg capsule,delayed 40 mg PO DAILY dyspepsia, 06/10/15 05/10/22 release abdominal pain quetiapine 50 mg tablet (Seroquel) 50 mg PO HS 06/10/15 05/10/22 bupropion HCl 300 mg 24 hr tablet, 300 mg PO DAILY 05/30/16 05/10/22 extended release metoprolol succinate 50 mg 50 mg PO DAILY 06/17/16 05/10/22 tablet,extended release 24 hr (Toprol XL) sucralfate 1 gram tablet 1 g PO BID 04/17/17 05/10/22 aspirin 81 mg tablet,delayed 81 mg PO DAILY 03/22/20 05/10/22 release (Adult Aspirin Regimen) fluoxetine 10 mg capsule 30 mg PO DAILY 03/22/20 05/10/22 ferrous gluconate 324 mg (38 mg 324 mg PO DAILY 12/31/20 05/10/22 iron) tablet ondansetron HCl 4 mg tablet 4 mg PO Q6H 12/31/20 05/10/22 megestrol 400 mg/10 mL (10 mL) 200 mg (5 mL) PO QID Cachexia 02/28/21 05/10/22 oral suspension #1,000 mL tiotropium bromide 2.5 2 puff inhalation DAILY #12 grams 01/17/22 05/10/22 mcg/actuation mist for inhalation (Spiriva Respimat) Previous Rx's Medication Instructions Recorded megestrol 400 mg/10 mL (10 mL) 200 mg (5 mL) PO QID Cachexia 02/28/21 oral suspension #1,000 mL tiotropium bromide 2.5 2 puff inhalation DAILY #12 grams 01/17/22 mcg/actuation mist for inhalation (Spiriva Respimat) Allergies Allergy/AdvReac Type Severity Reaction Status Date / Time varenicline AdvReac Intermediate Depression Verified 05/10/22 13:33 General Stated Complaint: GenMedical KEVIN: 2 Review of Systems All systems reviewed & are unremarkable except as noted in HPI and below Constitutional Constitutional: Denies chills, Denies fever(s) and Denies weakness Cardiovascular Cardiovascular: Denies chest pain and Denies dyspnea Respiratory Respiratory: Denies cough and Denies dyspnea Gastrointestinal Gastrointestinal: Denies abdominal pain, Denies nausea and Denies vomiting Genitourinary Genitourinary: Denies dysuria Musculoskeletal Musculoskeletal: Denies joint swelling Integumentary/Breasts Skin/Breast: Denies rash Neurologic Neurologic: Denies weakness Psychiatric Psychiatric: Denies depression PFSH All Active Problems (Updated 05/20/22 @ 23:04 by Kleber De La O MD) Cachexia (Acute) COPD (chronic obstructive pulmonary disease) (Chronic) Anxiety and depression (Chronic) Renal insufficiency (Chronic) GERD (gastroesophageal reflux disease) (Chronic) Anemia (Chronic) Chronic kidney disease, stage 3 (Acute) Aortic valve stenosis (Chronic) Poor nutrition (Acute) Sleep disturbance (Acute) Hiatal hernia (Chronic) Appetite impaired (Acute) Weight loss (Acute) Aortic valve disease (Acute) Conductive hearing loss, unilateral, right ear, with unrestricted hearing on the contralateral side (Acute) Central perforation of tympanic membrane, right ear (Acute) 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 (Acute) Abdominal pain (Acute) Arrhythmia (Acute) Constipation (Acute) PSVT (paroxysmal supraventricular tachycardia) (Acute) UTI (urinary tract infection) (Acute) Suicidal ideation (Acute) Depression (Acute) Medical History (Updated 05/20/22 @ 23:04 by Kleber De La O MD) Alcohol abuse COPD (chronic obstructive pulmonary disease) Depression Dizziness Essential hypertension Hyperlipidemia SVT (supraventricular tachycardia) Syncope Surgical History No significant past surgical history Social History (Updated 12/31/20 @ 15:31 by Verónica Foster) Smoking/Tobacco Use Status: Current every day Tobacco Type: cigarettes Years smoked: 30 Smoking risk assessment performed?: Yes Alcohol Intake: never Drug use: Occasionally Substance use type: marijuana Details: Pot calms his nerves and helps him sleep. 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 Exam Const General: no acute distress Orientation: alert HENMT Head: normal to inspection Ears: external ears normal General nose exam: external nose normal Mouth: moist mucous membranes Eyes General: appearance normal, both eyes and all related structures Neck Neck: normal visual inspection Resp Effort & Inspection: normal respiratory effort and able to speak in complete sentences Cardio Rate: regular rate Skin General skin exam: no rashes or lesions noted Neuro General: patient alert and patient oriented x3 Extrem General: normal to inspection Psych Mental Status: mental status grossly normal Course Vital Signs Vital signs: Vital Signs Temperature 36.5 C 05/20/22 21:47 Pulse 78 05/20/22 21:47 Respiratory Rate 18 05/20/22 21:47 Blood Pressure 151/76 H 05/20/22 21:47 Pulse Oximetry 98 05/20/22 21:47 Temperature 36.5 C 05/20/22 21:47 Temperature Source Oral 05/20/22 21:47 Pulse 78 05/20/22 21:47 Respiratory Rate 18 05/20/22 21:47 Blood Pressure 151/76 H 05/20/22 21:47 Blood Pressure Position Sitting 05/20/22 21:47 Pulse Oximetry 98 05/20/22 21:47 Oxygen Delivery Method Room Air 05/20/22 21:47 Oxygen Flow Rate 0 05/20/22 21:47 Pain Level 0 05/20/22 21:47
--- NOTE | 2022-05-20 23:08 | PDOC.MHPN2 ---
Date of service: 05/20/22 Time of Service: 23:05 Mental Health Emergency Note Release [facility] release signed:: Yes Reason for Visit Senthil was brought in by the [facility] Police due to him not wanting to return to his home with his home provider. At the time, Senthil was endorsing suicidal ideation to the troopers. In the last 2 weeks has the pt presented for ES prior to today?: Unknown Client Information Client is: [facility] Well Housed: Yes Non Suicidal Self Injury Current: No History: No Safety Risk/Harm to Self or Others Current Ideation to Harm Self or Others: No Risk: Does risk to harm exist?: No Risk: Low Risk Duty to warn indicated: No Asssessment/Mental Status Appearance: Disheveled Attitude: Passive Behavior: Gait disturbances Speech: Normal Affect: Cogruent with mood Mood: Stressed and Irritable Thought process: Goal directed Hallucinations: No evidence Delusions: No evidence Attention: Unremarkable Perception: Not impaired Orientation: Fully orientated Memory: Intact Insight: Fair Judgement: Fair Neurovegetative Symptoms Sleep: No change Appetitie: No change Interests: No change Energy: No change Libido: Not applicable Substance Use: Do you use nicotine?: No Have you used substances in the last 7 days?: No Additional Issues: Assaultive/Threatening Behavior: No Medical Concerns: No Client engaged in active self harm w/weapon: No Threatening to run away: No Child reported abuse/neglect: No Voluntarily presenting for services: Yes Domestic violence is a concern: No Extreme Psychosis or extreme behavior is present: No Impression This process description writer in addition to Cindy Degroot from [facility] at [facility] had a conversation with Senthil about tonzee's events. Senthil shared he left his home on foot and went into the [place] were [facility] located him. Senthil did not want to return home due to constantly arguing with home provider. Senthil denied suicidal or homicidal ideation to this process description writer. Senthil reports fleeting thoughts of wanting to be with his fmaily, which are all , but does not have any intention or plans.Senthil reports If I wanted to kill myself I would have a long time ago At this time, Senthil is not in a mental health crisis. This process description writer and Cindy worked on a plan with Senthil for him to return home and slowly address the living situation tomorrow 05/21 and Monday 05/22. Resources Reosurces reviewed and given:: NK Plan/Disposition Recommended Disposition: NK Services (follow up with [facility] ) [facility] Services: Other. Plan: Senthil will be discharged home with follow up from his team at [facility]. Cindy will call the home provider and then update [facility] with details of when he will be picked up. Kirk will discuss with group home supervisor and team tomorrow and Sunday to create a [place] [facility] [place] plan for Senthil. Person reported agreement to plan: Yes Reports/communication Outcome discussed with: ED/Personnel
== END 2022-05-21 01:33 | disposition home or self-care (01) ==
PROVIDERS: Emergency Provider Emergency Medicine; PCP Nurse Practitioner Family
DX: F41.9 Anxiety disorder, unspecified (principal); F32.A Depression, unspecified
CPT/HCPCS: 99285; 99284

== ENCOUNTER 2022-05-26 00:42 | Outpatient (CLI) | payer MEDICAID, SELFPAY ==
--- NOTE | 2022-05-26 13:30 | DI.CTLCSR_ITS ---
Exam(s) CT CHEST LUNG CANCER SCREEN EXAM: CT CHEST LUNG CANCER SCREEN CLINICAL HISTORY: SCREENING FOR LUNG CA,SMOKER, F17.200,F17.210 TECHNIQUE: Imaging Protocol: Axial computed tomography images with coronal and sagittal reformatted images were created and reviewed. Low dose screening protocol. COMPARISON: CR PORTABLE CHEST ONE VIEW from 05/30/2016 CR CHEST 2 VIEWS PA,LAT from 06/17/[address] CHEST WO CONTRAST from 12/20/2020 FINDINGS: Tracheobronchial tree: No bronchiectasis or mucus plugging.. Mediastinum and Staci: No dominant adenopathy or fluid collection. Pulmonary parenchyma: Scarring inferior lingula. No consolidation or dominant measurable mass. Mild greatest at the lung apices. Emphysematous changes. Lung Nodules: No suspicious nodules. Pleura: No effusion. No pneumothorax. Heart: The heart is not dilated. Marked coronary artery calcifications are seen. aortic valvular ca lcifications suspected. Mild pericardial thickening is noted anteriorly. Aorta: Ascending aorta 4.4 cm. Descending aorta 2.5 cm. Mild atherosclerotic changes. Upper abdomen: Unremarkable. Bones: Degenerative changes. Soft Tissues: Unremarkable. IMPRESSION: No suspicious pulmonary nodules. Lung RADS Cat 1 - Negative: No nodules and definitely benign nodules Lung-RADS 1.0 CATEGORIES: Category 0 - Prior chest CT exam(s) being located for comparison. Category 1 - Annual screening in 12 months. No nodules or definitely benign nodules. Category 2 - Annual screening in 12 months. Benign appearance. Nodules with low likelihood of becomin g active cancer. Category 3 - 6-month follow-up. Probably benign. Short-term follow-up suggested. Nodules with low lik elihood of becoming active cancer. Category 4A - 3-month follow-up and CT/PET if >8 mm in size. Suspicious finding. Findings which requi re additional testing. Category 4B - Findings which require additional testing and tissue sampling. Category 4X - Category 3 or 4 nodules with additional features or imaging findings that increases the suspicion of malignancy. Modifier S- Potentially clinically significant findings (non lung cancer) RADIATION DOSE DELIVERED: 85.62mGy.cm Total DLP DATA REPOSITORY: All CT scans at this facility are submitted to the National Radiology Data Registry (NRDR) Dose Index Registry (DIR) with the [employer] (ACR). RADIATION OPTIMIZATION: All CT scans at this facility use at least one of these dose optimization te tyler: automated exposure control; mA and/or kV adjustment per patient size (includes targeted exa ms where dose is matched to clinical indication); or iterative reconstruction.
== END 2022-05-26 01:02 ==
LOC: DI 00:43
PROVIDERS: PCP Nurse Practitioner Family; Visit Provider Nurse Practitioner Family
DX: Z12.2 Encounter for screening for malignant neoplasm of respiratory organs (principal); F17.210 Nicotine dependence, cigarettes, uncomplicated
CPT/HCPCS: 71271

== ENCOUNTER 2022-06-09 16:42 | Outpatient (REF) | payer MEDICAID, SELFPAY ==
[2022-06-09 18:50] LABS: HCT 33.9 % (40.0-50.0); HGB 11.2 g/dL (13.5-17.5); MCH 31.7 pg (27.0-33.0); MCV 96 fL (80-95); MPV 8.7 fL (8.0-11.0); Platelet Count 482 10^3/uL (130-400); RBC 3.53 10^6/uL (4.36-5.78); RDW 14.3 % (11.8-14.1); RDW-SD 50.6 fL; WBC 10.37 10^3/uL (4.4-10.8)
[2022-06-09 19:03] LABS: Anion Gap 9.3 mmol/L (3-11); BUN 23 mg/dL (7-18); CO2 25.7 mmol/L (21.0-32.0); CREATININE 1.8 mg/dL (0.70-1.30); Calcium 9.3 mg/dL (8.5-10.1); Chloride 107 mmol/L (98-107); Estimated GFR 42.56 (mL/min/1.73m2); Glucose 89 mg/dL (74-106); Potassium 3.8 mmol/L (3.5-5.1); Sodium 142 mmol/L (136-145)
== END 2022-06-09 16:43 | disposition home or self-care (01) ==
LOC: NCHCN 16:42
PROVIDERS: PCP Nurse Practitioner Family; Visit Provider Nurse Practitioner Family
DX: N18.30 Chronic kidney disease, stage 3 unspecified (principal); R63.4 Abnormal weight loss; F17.210 Nicotine dependence, cigarettes, uncomplicated
CPT/HCPCS: 80048; 85027

== ENCOUNTER 2022-08-07 11:22 | Inpatient (IN) | payer MEDICAID, SELFPAY ==
[2022-08-07 11:33] VITALS: BP 129/95; PULSE 75; RESP 20; TEMP 36.6; O2SAT 98
--- NOTE | 2022-08-07 12:30 | W.ED.GENAD ---
Discharge Plan Disposition Patient Disposition: Admit to [facility] Condition: Poor Discharge Details Chief Complaint: Abd Prob Clinical Impression: Abdominal pain, Cachexia, Pancreatitis, Acute cholecystitis Admit Date/Time: 08/07/22 16:00 Admit Provider: Digna Price Attending Provider: Digna Price Primary Care Provider: Jayde Wren ED Provider: Veronica Morelos Discharge Data Discharge Date/Time-TO BE ENTERED AT DEPARTURE: 08/07/22 17:10 Medical Decision Making Patient is a pleasant 62-year-old male with past medical history significant for developmental delay, hypertension, hyperlipidemia, chronic kidney disease, GERD, anxiety, COPD, cachexia, aortic valve disease, with chief complaint of nausea, vomiting and diarrhea. He reports that the vomiting and diarrhea began about 3 weeks ago. States that without 2 days ago began having abdominal discomfort has been keeping him awake at night. Reports that this is periumbilical. Denies any fevers. No blood in the emesis or bowel movements. 1 watery bowel movement today. 3 episodes of emesis. No change in urinary habits, denies any dysuria. On exam, patient appears chronically ill, pale and cachectic. Lungs are clear. Abdominal exam is concerning for periumbilical pain with some voluntary guarding. No pain over McBurney's point. He does have some epigastric discomfort. He does report some mild discomfort that radiates into his back. He has 2+ distal pulses and no lower extremity edema. No pain in the right upper quadrant, negative Corral sign. No CVA tenderness. Differentials at this time include pancreatitis, gastroenteritis, GB issue although not as much in RUQ, obstruction, diverticulitis vs. other. Will hydrate the patient, obtain labs and imaging. Labs reviewed. Concerning for elevated lactate. His LFT also suggest obstructive pathology and he has an elevated lipase. Will change from CT to US for further evaluation of this befor [facility] US tech goes home. Patient resting comfortably. PANCREAS: Normal where visualized. LIVER: Normal. Hepatopedal flow in the Portal Vein. The liver measures in 16.8 cm length. GALLBLADDER: No evidence of cholelithiasis. There is bowel wall thickening and heterogeneity noted.? There is pericholecystic fluid present.? Gallbladder sludge is present within the gallbladder neck and body. BILIARY SYSTEM: Common bile duct measures < 7 mm. No intrahepatic biliary ductal dilation. CORRAL'S SIGN: Positive RIGHT KIDNEY: Kidney is normal in size.? No evidence of renal calculi. No evidence of hydronephrosis. No renal mass or cyst identified. ASCITES: There is abdominal ascites present.? ABDOMINAL AORTA AND IVC: Visualized portions normal caliber. There is a pleural effusion present. IMPRESSION: 1. Findings most suspicious for acute acalculous cholecystitis.? 2. Pleural effusions are present. 3. Abdominal ascites. Give no stones and periumbilical pain, will also obtain the CT. Will obtain non-con as patient has decreased GFR. Patient continues to be resting comfortably. Has remained NPO. ABDOMEN: Lung Bases: There are small to moderate size bilateral pleural effusions and subjacent infiltrates.? Cardiomegaly.? Coronary artery calcifications are present.? There is a small pericardial effusion present.? There is an infiltrate in the right lower lobe.? There is also infiltrate in the left lingula.? Liver: Normal density. No measurable mass. Gallbladder and biliary tract: There is intermediate density material in the gallbladder.? There is pericholecystic fluid.? Pancreas: Normal density, no abnormal calcifications or inflammatory process. Spleen: Calcified granulomas.? Kidneys: Normal size, contour and axis.No radiodense stones or obstructive uropathy. No masses seen. Adrenal glands: No mass is seen. Lymph nodes: Within normal limits.? Abdominal Aorta: Abdominal portion non-dilated. Atherosclerosis. PELVIS:? Bladder:Symmetric distention, no gross wall thickening. Bowel: No obstruction or bowel wall thickening. There is diverticulosis of the colon but no evidence of acute diverticulitis.? There is no evidence of appendicitis. Peritoneal cavity: There is a small amount of abdominal pelvic ascites.? No free air.? Reproductive organs: Unremarkable as visualized.? Bones: Within normal limits. There is an old healed left iliac bone fracture.? There are old healed left rib fractures. Soft Tissues: Within normal limits. IMPRESSION: 1. Small to moderate bilateral pleural effusions and bilateral basilar infiltrates suspicious for pneumonia and or atelectasis.? Please correlate clinically. 2. Intermediate density material seen within the gallbladder with pericholecystic fluid.? Acute cholecystitis cannot be excluded.? Right upper quadrant ultrasound may be obtained for further evaluation. 3. Abdominal pelvic ascites. 4. Colonic diverticulosis, but no evidence of acute diverticulitis. 5. Cardiomegaly.? Coronary artery calcifications. consulted with Dr. Bautista, she would admit the patient with plan for echo and surgery tomorrow for cholecystectomy. Discussed this plan with the patient who is in agreement. Surgery admiteed patient. He did request some food, as no procedure today, nursing staff did give small amount of food. HPI General Date/Time Provider Initiated Documentation: 08/07/22 12:20. Limitations to Documentation: no limitations. Information obtained by: patient, RN notes reviewed and old records reviewed. History of Present Illness 62 year old M presents to the emergency department with the chief complaint of abdominal pain, described as moderate, Quality is described as aching, and is localized to the abdomen. Patient reports no radiation. Patient started experiencing this week(s) and it has been intermittent. No relieving factors improve symptom(s), Eating worsens symptoms . Patient notes chest pain (when pain increases, can radiate toward his chest), loss of appetite, malaise and nausea/vomiting; denies cough, diaphoresis, fever/chills, headaches, rash and shortness of breath. Patient did receive the following treatments prior to arrival, none Related Data Home Medications Medication Instructions Recorded Confirmed albuterol sulfate 90 mcg/actuation 2 puff inhalation PRN PRN 05/15/14 08/07/22 aerosol inhaler (Proventil HFA) mirtazapine 30 mg tablet 60 mg PO DAILY 05/15/14 08/07/22 simvastatin 20 mg tablet 20 mg PO DAILY 05/15/14 08/07/22 multivitamin (Daily Multi-Vitamin 1 tab PO DAILY 06/10/15 08/07/22 tablet) omeprazole 20 mg capsule,delayed 40 mg PO DAILY dyspepsia, 06/10/15 08/07/22 release abdominal pain quetiapine 50 mg tablet (Seroquel) 100 mg PO HS 06/10/15 08/10/22 bupropion HCl 300 mg 24 hr tablet, 300 mg PO DAILY 05/30/16 08/07/22 extended release metoprolol succinate 50 mg 50 mg PO DAILY 06/17/16 08/07/22 tablet,extended release 24 hr (Toprol XL) aspirin 81 mg tablet,delayed 81 mg PO DAILY 03/22/20 08/07/22 release (Adult Aspirin Regimen) ferrous gluconate 324 mg (38 mg 324 mg PO DAILY 12/31/20 08/07/22 iron) tablet ondansetron HCl 4 mg tablet 4 mg PO Q6H 12/31/20 08/07/22 megestrol 400 mg/10 mL (10 mL) 200 mg (5 mL) PO QID Cachexia 02/28/21 08/07/22 oral suspension #1,000 mL tiotropium bromide 2.5 2 puff inhalation DAILY #12 grams 01/17/22 08/07/22 mcg/actuation mist for inhalation (Spiriva Respimat) acetylcysteine 600 mg capsule 1,200 mg PO BID 08/10/22 08/10/22 fluoxetine 40 mg capsule 40 mg PO DAILY 08/10/22 08/10/22 magnesium oxide 400 mg (241.3 mg 200 mg PO DAILY 08/10/22 08/10/22 magnesium) tablet tamsulosin 0.4 mg capsule 0.4 mg PO DAILY 08/10/22 08/10/22 Previous Rx's Medication Instructions Recorded megestrol 400 mg/10 mL (10 mL) 200 mg (5 mL) PO QID Cachexia 02/28/21 oral suspension #1,000 mL tiotropium bromide 2.5 2 puff inhalation DAILY #12 grams 01/17/22 mcg/actuation mist for inhalation (Spiriva Respimat) Allergies Allergy/AdvReac Type Severity Reaction Status Date / Time varenicline AdvReac Intermediate Depression Verified 05/10/22 13:33 General Stated Complaint: Abd Prob KEVIN: 3 Review of Systems Constitutional Constitutional: Reports as per HPI, Denies chills, Denies fever(s) and Denies headache(s) ENT Ears, Nose, Mouth, and Throat: Denies headache(s) Cardiovascular Cardiovascular: Reports as per HPI and Denies dyspnea Respiratory Respiratory: Reports as per HPI, Denies cough and Denies dyspnea Gastrointestinal Gastrointestinal: Reports as per HPI Genitourinary Genitourinary: Denies system reviewed and no additional complaints, except as documented (patient denies any change in urinary habits) Musculoskeletal Musculoskeletal: Reports as per HPI and Denies back pain Integumentary/Breasts Skin/Breast: Reports as per HPI and Denies rash Neurologic Neurologic: Reports as per HPI and Denies headache(s) PFSH All Active Problems (Updated 08/14/22 @ 05:15 by TRISH Mckeon) Acute cholecystitis (Acute) Bilateral pleural effusion (Acute) Cardiomyopathy (Acute) Abdominal ascites (Acute) Pancreatitis (Chronic) Cachexia (Acute) COPD (chronic obstructive pulmonary disease) (Chronic) Anxiety and depression (Chronic) Renal insufficiency (Chronic) GERD (gastroesophageal reflux disease) (Chronic) Anemia (Chronic) Chronic kidney disease, stage 3 (Acute) Aortic valve stenosis (Chronic) Poor nutrition (Acute) Sleep disturbance (Acute) Hiatal hernia (Chronic) Appetite impaired (Acute) Weight loss (Acute) Aortic valve disease (Acute) Conductive hearing loss, unilateral, right ear, with unrestricted hearing on the contralateral side (Acute) Central perforation of tympanic membrane, right ear (Acute) 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 (Acute) Abdominal pain (Acute) Arrhythmia (Acute) Constipation (Acute) PSVT (paroxysmal supraventricular tachycardia) (Acute) UTI (urinary tract infection) (Acute) Suicidal ideation (Acute) Depression (Acute) Medical History Alcohol abuse COPD (chronic obstructive pulmonary disease) Depression Dizziness Essential hypertension Hyperlipidemia SVT (supraventricular tachycardia) Syncope Surgical History No significant past surgical history Social History Smoking/Tobacco Use Status: Current every day Tobacco Type: cigarettes Years smoked: 30 Smoking risk assessment performed?: Yes Alcohol Intake: never Drug use: Occasionally Substance use type: marijuana Details: Pot calms his nerves and helps him sleep. 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 Exam Const General: cooperative, comfortable, no acute distress, well developed and ill appearing chronically Nutritional Appearance: cachectic Orientation: alert and awake HENMT Head: normal to inspection Mouth: mucous membranes dry Eyes General: appearance normal, both eyes and all related structures Resp Effort & Inspection: normal respiratory effort, able to speak in complete sentences and no respiratory distress Auscultation: clear to auscultation bilaterally, no rales, no rhonchi and no wheezes Cardio Rate: regular rate Rhythm: regular rhythm Heart Sounds: S1 normal and S2 normal GI Inspection: normal to inspection Palpation: soft, hepatosplenomegaly present, no aortic enlargement, guarding (voluntary guarding in prep for palpation over the periumbilical area), no masses, not rigid and tender in the RUQ and periumbilically; Corral's sign negative, psoas sign negative and with no rebound tenderness Percussion: dullness to percussion Auscultation: hypoactive bowel sounds Back/Spine/Pelvis Back: no CVA tenderness Skin General skin exam: no rashes or lesions noted Trauma: no lacerations or abrasions Neuro General: patient alert and patient awake Cognition: normal cognition Speech: speech normal Psych Appearance: grossly normal and well kempt Mental Status: mental status grossly normal Speech and Movement: speech and movement normal Course Vital Signs Vital signs: Vital Signs Temperature 36.6 C 08/07/22 11:33 Pulse 75 08/07/22 11:33 Respiratory Rate 20 08/07/22 11:33 Blood Pressure 129/95 H 08/07/22 11:33 Pulse Oximetry 98 08/07/22 11:33 Temperature 36.6 C 08/07/22 11:33 Pulse 75 08/07/22 11:33 Respiratory Rate 20 08/07/22 11:33 Blood Pressure 129/95 H 08/07/22 11:33 Blood Pressure Position Sitting 08/07/22 11:33 Pulse Oximetry 98 08/07/22 11:33 Oxygen Delivery Method Room Air 08/07/22 11:33 Oxygen Flow Rate 0 08/07/22 11:33
--- NOTE | 2022-08-07 12:52 | DI.CT_ITS ---
Exam(s) CT ABDOMEN PELVIS WO EXAM: CT ABDOMEN PELVIS WO CLINICAL HISTORY: central pain, N/V/D. TECHNIQUE: Imaging Protocol: Axial computed tomography images with coronal and sagittal reformatted images were created and reviewed. COMPARISON: CT ABD PELVIS WITH CONTRAST from 02/05/2015 FINDINGS: The examination is limited due to patient motion artifact. ABDOMEN: Lung Bases: There are small to moderate size bilateral pleural effusions and subjacent infiltrates. Cardiomegaly. Coronary artery calcifications are present. There is a small pericardial effusion pre sent. There is an infiltrate in the right lower lobe. There is also infiltrate in the left lingula. Liver: Normal density. No measurable mass. Gallbladder and biliary tract: There is intermediate density material in the gallbladder. There is p ericholecystic fluid. Pancreas: Normal density, no abnormal calcifications or inflammatory process. Spleen: Calcified granulomas. Kidneys: Normal size, contour and axis.No radiodense stones or obstructive uropathy. No masses seen. Adrenal glands: No mass is seen. Lymph nodes: Within normal limits. Abdominal Aorta: Abdominal portion non-dilated. Atherosclerosis. PELVIS: Bladder:Symmetric distention, no gross wall thickening. Bowel: No obstruction or bowel wall thickening. There is diverticulosis of the colon but no evidence of acute diverticulitis. There is no evidence of appendicitis. Peritoneal cavity: There is a small amount of abdominal pelvic ascites. No free air. Reproductive organs: Unremarkable as visualized. Bones: Within normal limits. There is an old healed left iliac bone fracture. There are old healed l eft rib fractures. Soft Tissues: Within normal limits. IMPRESSION: 1. Small to moderate bilateral pleural effusions and bilateral basilar infiltrates suspicious for pne umonia and or atelectasis. Please correlate clinically. 2. Intermediate density material seen within the gallbladder with pericholecystic fluid. Acute ashley cystitis cannot be excluded. Right upper quadrant ultrasound may be obtained for further evaluation. 3. Abdominal pelvic ascites. 4. Colonic diverticulosis, but no evidence of acute diverticulitis. 5. Cardiomegaly. Coronary artery calcifications. 6. Findings were discussed with Veronica oMrelos at 3:53 p.m. on 08/07/2022. RADIATION DOSE DELIVERED: 1,383.36mGy.cm Total DLP DATA REPOSITORY: All CT scans at this facility are submitted to the National Radiology Data Registry (NRDR) Dose Index Registry (DIR) with the [employer] (A[employer]). RADIATION OPTIMIZATION: All CT scans at this facility use at least one of these dose optimization te chniques: automated exposure control; mA and/or kV adjustment per patient size (includes targeted exa ms where dose is matched to clinical indication); or iterative reconstruction.
--- NOTE | 2022-08-07 12:55 | RT.EKG_ITS ---
APPROVED REPORT Exam: Resting ECG Reason for Exam: abdominal pain, dehydration Patient Location: E HR:77 bpm ECG Measurements Heart Rate 77 AXIS KS 73 P 33 QRSd 100 QRS -54 QT 477 T [id number] QTc 540 Conclusion Sinus rhythm...normal P axis, V-rate 60- 99 LAD, consider left anterior fascicular block...axis(240,-40), S>R II III aVF Anteroseptal infarct, age indeterminate...Q >35mS, T neg, V1-V2 Prolonged QT interval...QTc >500mS st dep laterally v4-6
[2022-08-07] MEDS: MORPHine 10 MG/ML VIAL 4 MG IVP (13:43)
[2022-08-07] MEDS: Lactated Ringers 1,000 ML 1000 ML IV (13:46)
[2022-08-07] MEDS: Ondansetron 4 MG/2 ML VIAL IVP (13:47)
[2022-08-07 13:49] LABS: Abs Immature Grans 0.05 10^3/uL (0.0-0.06); Absolute Basophil Count 0.04 10^3/uL (0.0-0.2); Absolute Eosinophil Count 0.01 10^3/uL (0.0-0.7); Absolute Monocyte Count 1.09 10^3/uL (0.1-0.8); Absolute Neutrophil Count 5.44 10^3/uL (1.2-6.7); Basophils % 0.5; Eosinophils % 0.1; HCT 35.4 % (40.0-50.0); HGB 11.3 g/dL (13.5-17.5); Immature Grans % 0.6; Lactate 2.9 mmol/L (0.6-1.4); Lymphocytes % 14.2; MCHC 31.9 % (32.0-36.0); MCV 100 fL (80-95); MPV 11.3 fL (8.0-11.0); Monocytes % 14.1; Neutrophils % 70.5; Nucleated RBC 0.6 % (0.0-0.3); Platelet Count 291 10^3/uL (130-400); RBC 3.53 10^6/uL (4.36-5.78); RDW 18.8 % (11.8-14.1); RDW-SD 67.1 fL; WBC 7.73 10^3/uL (4.4-10.8)
[2022-08-07 14:07] VITALS: BP 131/91; PULSE 77; RESP 16; O2SAT 94
[2022-08-07 14:08] LABS: AST 332 U/L (15-37); Albumin 3.7 g/dL (3.4-5.0); Alkaline Phosphatase 237 U/L (46-116); Anion Gap 14.7 mmol/L (3-11); BUN 36 mg/dL (7-18); Bilirubin, Total 1.7 mg/dL (0.2-1.0); CO2 21.3 mmol/L (21.0-32.0); CREATININE 2.1 mg/dL (0.70-1.30); Calcium 9.1 mg/dL (8.5-10.1); Chloride 106 mmol/L (98-107); Estimated GFR 35.37 (mL/min/1.73m2); Glucose 115 mg/dL (74-106); Magnesium 1.9 mg/dL (1.8-2.4); Potassium 4.1 mmol/L (3.5-5.1); Sodium 142 mmol/L (136-145); Total Protein 7.3 g/dL (6.4-8.2); Troponin I < 50 ng/L (<or=60)
[2022-08-07 14:10] LABS: Lipase > 375 U/L (16-77)
[2022-08-07 15:13] LABS: ALT 1245 U/L (16-63)
--- NOTE | 2022-08-07 15:30 | DI.US_ITS ---
Exam(s) US ABDOMEN LIMITED EXAM: US ABDOMEN LIMITED CLINICAL HISTORY: central abdominal pain, obstructive lab pattern TECHNIQUE: Ultrasound abdomen performed using standard protocol. COMPARISON: CT CT ABDOMEN PELVIS WO from 08/07/2022 FINDINGS: PANCREAS: Normal where visualized. LIVER: Normal. Hepatopedal flow in the Portal Vein. The liver measures in 16.8 cm length. GALLBLADDER: No evidence of cholelithiasis. There is bowel wall thickening and heterogeneity noted. There is pericholecystic fluid present. Gallbladder sludge is present within the gallbladder neck an d body. BILIARY SYSTEM: Common bile duct measures < 7 mm. No intrahepatic biliary ductal dilation. CHAMBERS'S SIGN: Positive RIGHT KIDNEY: Kidney is normal in size. No evidence of renal calculi. No evidence of hydronephrosis. No renal mass or cyst identified. ASCITES: There is abdominal ascites present. ABDOMINAL AORTA AND IVC: Visualized portions normal caliber. There is a pleural effusion present. IMPRESSION: 1. Findings most suspicious for acute acalculous cholecystitis. 2. Pleural effusions are present. 3. Abdominal ascites. 4. Findings were discussed with Veronica Morelos at 4:10 p.m. on 08/07/2022. DATA REPOSITORY:
[2022-08-07 15:54] VITALS: BP 136/90; PULSE 80; RESP 16; O2SAT 98
[2022-08-07 17:17] VITALS: BP 125/84; PULSE 82; RESP 22; TEMP 36.3; O2SAT 97
--- NOTE | 2022-08-07 18:00 | HPE_ITS ---
Date of service: 08/07/22 Time of Service: 18:00 Assessment and Plan Assessment and plan (1) Acute acalculous cholecystitis: Status: Acute Assessment and plan: Mr. Mcgowan is a 62-year-old gentleman who comes in with abdominal pain for weeks worse in the last 2 days. He complains of periumbilical pain and diarrhea. CT scan and ultrasound show pericholecystic fluid, abdominal ascites. There is no mention of cirrhosis although the patient does have a history of alcohol abuse. Patient states that he has been sober for 8 years. There are no stones within the gallbladder or in the common bile duct. Common bile duct is normal in size. They do see some sludge. His LFTs are all elevated as is his lipase. I discussed these findings with the patient. For now we will keep him n.p.o. to rest his pancreas. Recheck his labs in the morning. He should probably have his gallbladder removed but will need an echo as his last one was 2 years ago where he was noted to have mild aortic stenosis. As long as his echo is okay we will have anesthesia look at his chart and see if they are agreeable to proceed with laparoscopic cholecystectomy possible open. I am a little bit worried about him having cirrhosis due to the fact that he has ascites. Discussed the plan with the patient. His only question was when he could eat. Hopefully tomorrow I can start him on some clear liquids and we will go from there. (2) Pancreatitis: Status: Chronic History of Present Illness Consults Consult date: 08/07/22 Requesting physician: Veronica Morelos Narrative: Mr. Mcgowan is a pleasant 62-year-old male with past medical history significant for developmental delay, hypertension, hyperlipidemia, chronic kidney disease, GERD, anxiety, COPD, cachexia, aortic valve disease, who comes to the ER today with chief complaint of nausea, vomiting and diarrhea.? He reports that the vomiting and diarrhea began about 3 weeks ago.? States that about 2 days ago he began having abdominal discomfort that has been keeping him awake at night.? Reports that this is periumbilical.? Denies any fevers.? No blood in the emesis or bowel movements.? 1 watery bowel movement today.? 3 episodes of emesis.? No change in urinary habits, denies any dysuria. Work-up in the emergency department shows a normal white count. His LFTs were elevated. Total bilirubin 1.7, AST 332, ALT 1245, alk phos 237 and lipase more than 375. His creatinine was 2.1 today with a BUN of 36. This creatinine seems pretty baseline for him. Electrolytes are normal. I reviewed the CT scan of the abdomen and pelvis. It revealed bilateral pleural effusions, cardiomegaly, small pericardial effusion there were some infiltrates noted. Gallbladder was noted to have some pericholecystic fluid the pancreas appeared normal. An ultrasound was also done which I reviewed and this shows gallbladder wall thickening and pericholecystic fluid. There is gallbladder sludge no concrete stones. Common bile duct is normal in size and there is no intrahepatic biliary ductal dilatation. The pancreas looks normal where visualized. There is also abdominal ascites. I saw the patient on MedSurg. Patient was comfortable laying in bed. His only complaint is that he was n.p.o. and could not drink anything. Review of Systems Constitutional Constitutional: Denies fever(s), Denies headache(s) and Reports poor appetite Eyes Eyes: Denies change in vision ENT Ears, Nose, Mouth, and Throat: Denies change in voice, Denies dysphagia, Denies headache(s) and Denies hoarseness Cardiovascular Cardiovascular: Denies chest pain, Denies chest pain at rest, Denies irregular heart rhythm, Denies palpitations and Denies dyspnea Respiratory Respiratory: Denies cough and Denies dyspnea Gastrointestinal Gastrointestinal: Reports as per HPI and Denies dysphagia Genitourinary Genitourinary: Denies difficulty urinating and Denies urinary incontinence Musculoskeletal Musculoskeletal: Reports system reviewed and no additional complaints, except as documented Integumentary/Breasts Skin/Breast: Reports system reviewed and no additional complaints, except as documented Neurologic Neurologic: Reports system reviewed and no additional complaints, except as documented and Denies headache(s) Psychiatric Psychiatric: Reports system reviewed and no additional complaints, except as documented Endocrine Endocrine: Reports system reviewed and no additional complaints, except as documented and Denies palpitations Hematologic/Lymphatic Hematologic/Lymphatic: Reports system reviewed and no additional complaints, except as documented PFSH All Active Problems (Updated 08/07/22 @ 18:11 by Digna Price MD) Pancreatitis (Chronic) Acute acalculous cholecystitis (Acute) Cachexia (Acute) COPD (chronic obstructive pulmonary disease) (Chronic) Anxiety and depression (Chronic) Renal insufficiency (Chronic) GERD (gastroesophageal reflux disease) (Chronic) Anemia (Chronic) Chronic kidney disease, stage 3 (Acute) Aortic valve stenosis (Chronic) Poor nutrition (Acute) Sleep disturbance (Acute) Hiatal hernia (Chronic) Appetite impaired (Acute) Weight loss (Acute) Aortic valve disease (Acute) Conductive hearing loss, unilateral, right ear, with unrestricted hearing on the contralateral side (Acute) Central perforation of tympanic membrane, right ear (Acute) 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 (Acute) Abdominal pain (Acute) Arrhythmia (Acute) Constipation (Acute) PSVT (paroxysmal supraventricular tachycardia) (Acute) UTI (urinary tract infection) (Acute) Suicidal ideation (Acute) Depression (Acute) Medical History Alcohol abuse COPD (chronic obstructive pulmonary disease) Depression Dizziness Essential hypertension Hyperlipidemia SVT (supraventricular tachycardia) Syncope Surgical History No significant past surgical history Social History Smoking/Tobacco Use Status: Current every day Tobacco Type: cigarettes Years smoked: 30 Smoking risk assessment performed?: Yes Alcohol Intake: never Drug use: Occasionally Substance use type: marijuana Details: Pot calms his nerves and helps him sleep. 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 Meds Allergies and Home Medications Allergies Allergy/AdvReac Type Severity Reaction Status Date / Time varenicline AdvReac Intermediate Depression Verified 05/10/22 13:33 Home Medications Medication Instructions Recorded Confirmed Type albuterol sulfate 90 mcg/actuation 2 puff inhalation PRN PRN 05/15/14 08/07/22 History aerosol inhaler (Proventil HFA) mirtazapine 30 mg tablet 60 mg PO DAILY 05/15/14 08/07/22 History simvastatin 20 mg tablet 20 mg PO DAILY 05/15/14 08/07/22 History multivitamin (Daily Multi-Vitamin 1 tab PO DAILY 06/10/15 08/07/22 History tablet) omeprazole 20 mg capsule,delayed 40 mg PO DAILY dyspepsia, 06/10/15 08/07/22 History release abdominal pain quetiapine 50 mg tablet (Seroquel) 50 mg PO HS 06/10/15 08/07/22 History bupropion HCl 300 mg 24 hr tablet, 300 mg PO DAILY 05/30/16 08/07/22 History extended release metoprolol succinate 50 mg 50 mg PO DAILY 06/17/16 08/07/22 History tablet,extended release 24 hr (Toprol XL) sucralfate 1 gram tablet 1 g PO BID 04/17/17 08/07/22 History aspirin 81 mg tablet,delayed 81 mg PO DAILY 03/22/20 08/07/22 History release (Adult Aspirin Regimen) fluoxetine 10 mg capsule 30 mg PO DAILY 03/22/20 08/07/22 History ferrous gluconate 324 mg (38 mg 324 mg PO DAILY 12/31/20 08/07/22 History iron) tablet ondansetron HCl 4 mg tablet 4 mg PO Q6H 12/31/20 08/07/22 History megestrol 400 mg/10 mL (10 mL) 200 mg (5 mL) PO QID Cachexia 02/28/21 08/07/22 Rx oral suspension #1,000 mL tiotropium bromide 2.5 2 puff inhalation DAILY #12 grams 01/17/22 08/07/22 Rx mcg/actuation mist for inhalation (Spiriva Respimat) Exam Const General: cooperative Nutritional Appearance: cachectic Orientation: alert and oriented x3 HENMT Head: normocephalic and atraumatic Resp Effort & Inspection: normal respiratory effort Auscultation: diminished lung sounds bilaterally in the lower lung cadet (with crackles) Cardio Rate: regular rate Rhythm: regular rhythm Heart Sounds: no gallops, no murmurs and no rubs GI Palpation: soft, no hepatosplenomegaly and tender periumbilically Results Imaging Abdomen CT scan report/results: report reviewed and image reviewed CT scan - pelvis: report reviewed and image reviewed Abdominal ultrasound report/results: report reviewed and image reviewed Labs 08/07/22 13:35 08/07/22 13:35 Labs: Laboratory Results - last 24 hr 08/07/22 08/07/22 08/07/22 13:35 13:35 13:35 WBC 7.73 RBC 3.53 L Hgb 11.3 L Hct 35.4 L MCV 100 H MCH 32.0 MCHC 31.9 L RDW 18.8 H Plt Count 291 MPV 11.3 H Immature Gran % 0.6 Neutrophils % 70.5 Lymphocytes % 14.2 Monocytes % 14.1 Eosinophils % 0.1 Basophils % 0.5 Nucleated RBC % 0.6 H Absolute Neutrophils 5.44 Absolute Lymphocytes 1.10 L Absolute Monocytes 1.09 H Absolute Eosinophils 0.01 Absolute Basophils 0.04 VBG Lactate 2.9 H* Sodium 142 Potassium 4.1 Chloride 106 Carbon Dioxide 21.3 Anion Gap 14.7 H BUN 36 H Creatinine 2.1 H Est GFR (CKD-EPI 2020) 35.37 Glucose 115 H Calcium 9.1 Magnesium 1.9 Total Bilirubin 1.7 H AST 332 H ALT 1245 H Alkaline Phosphatase 237 H Troponin I < 50 Total Protein 7.3 Albumin 3.7 Lipase > 375 H Last Vital Signs Temp 97.3 F L 08/07/22 17:17 Pulse 82 08/07/22 17:17 Resp 22 08/07/22 17:17 BP 125/84 08/07/22 17:17 Pulse Ox 97 08/07/22 17:17 Time Spent Time spent with Patient: <40 minutes Time was spent: preparing to see the patient(eg.review tests), obtaining and/or reviewing separately otained hiistory, ordering medications,tests, procedures, indepentently interpreting results and counseling the patient
[2022-08-07] MEDS: Normal Saline Flush 10 ML SYR IVP (18:09)
[2022-08-07] MEDS: Pantoprazole 40 MG VIAL IVP (18:09)
[2022-08-07] MEDS: PIPERACILLIN/TAZO 3.375 GM in Normal Saline 50 ML IVPB ×2 (18:10→23:49)
[2022-08-07] MEDS: Enoxaparin 40 MG/0.4 ML SYR SC (18:10)
[2022-08-07] MEDS: Lactated Ringers 1,000 ML 80 ML IV (19:19)
[2022-08-07] MEDS: Ondansetron 4 MG TAB PO (19:28)
[2022-08-07] MEDS: Sucralfate 1 GM TAB PO (19:29)
[2022-08-07] MEDS: QUEtiapine 50 MG TAB PO (22:12)
[2022-08-07 22:34] LABS: Bilirubin Small (Negative); Blood Negative (Negative); Clarity Sl Cloudy (Clear); Glucose Negative (Negative); Ketones Negative (Negative); Leukocyte Esterase Negative (Negative); Nitrite Negative (Negative); Specific Gravity >= 1.030 (1.005-1.025); pH 5.5 (5-8)
[2022-08-07 22:52] LABS: Epithelial Cells Rare HPF (Negative)
[2022-08-07 22:53] LABS: Bacteria Moderate HPF (Negative); Mucus Negative (Negative)
[2022-08-07 22:54] LABS: C & S Indicated? Yes; Casts 5-10 Hyaline LPF (Negative)
[2022-08-07 23:38] VITALS: BP 124/82; PULSE 82; RESP 20; TEMP 36.3; O2SAT 91
--- NOTE | 2022-08-08 | DI.MRI_ITS ---
Exam(s) MR ABDOMEN WO EXAM: MR ABDOMEN WO CLINICAL HISTORY: Cirrhosis ?, pancreatic mass ? TECHNIQUE: Multiplanar multisequence MRI was performed as well as MRCP. No IV contrast. COMPARISON: CT CT ABDOMEN PELVIS WO from 08/07/2022 FINDINGS: VISUALIZED LUNG BASES: Bilateral pleural effusions again noted, seen on yesterday's CT scan. Collaps ed left lower lobe also again evident. There is mild ascites again evident in both sides of the upper abdomen, LIVER: There are no discrete focal hepatic lesions identified. No dilated intrahepatic ducts BILIARY/MRCP: There is pericholecystic fluid also noted. No obvious intraluminal gallstones.CBD is n ot dilated, measuring 5 mm.. There are no obvious calculi seen within the dilated CBD. PANCREAS: There is no evidence of pancreatic mass nor dilatation of the pancreatic duct.No pancreatic masses. No immediate peripancreatic fluid collections. SPLEEN: Spleen is not enlarged and there are no intrasplenic lesions. ADRENALS: There are no significant adrenal masses. KIDNEYS: No solid renal masses. No hydronephrosis.Tiny exophytic cyst seen off the lateral cortex of the left kidney. ABDOMINAL AORTA: Not enlarged and there is no significant para-aortic adenopathy. ANTERIOR ABDOMINAL WALL/GI: There is no evidence of significant anterior abdominal wall hernia in the field of view of this study.Is no evidence of obvious bowel obstruction. OSSEOUS: There are no lytic osseous lesions in the field of view of this study. IMPRESSION: 1. There are prominent bilateral pleural effusions. Left lower lobe volume loss/collapse noted, as e vident on yesterday's CT scan. 2. There is some ascites evident in both sides of the upper abdomen. Some fluid is also seen around the gallbladder. No obvious gallstones in the gallbladder lumen nor in the nondilated CBD. There is no dilatation of the biliary tree, both intra and extrahepatic. 3. If clinically indicated nuclear hepatobiliary imaging study (HIDA scan) can be performed to determ ine if there is acute acalculous cholecystitis. DATA REPOSITORY:
--- NOTE | 2022-08-08 | DI.US_ITS ---
APPROVED REPORT EXAM: Comprehensive 2D, Doppler, and color-flow Echocardiogram Patient Location: In-Patient Edger Liner: Filiberto Cooper RDMS, RVT Indications: Aortic Stenosis Other Information Study Quality: Fair. Technically limited study due to body habitus, inability to position patient exa m done bedside supine. Conclusion Technically difficult study Normal left ventricular wall thickness and chamber size. Ejection fraction is 40 to 45% with global hypokinesis Right ventricle appears grossly normal in size, mild right ventricular hypokinesis Both atria are moderately enlarged The aortic valve is calcified. There is no hemodynamically significant aortic stenosis. There is t race aortic regurgitation Mitral l annular calcification with mild mitral regurgitation mild to moderate tricuspid regurgitation with estimated right ventricular systolic pressure of 38 mm Hg Dilated ascending aorta measuring 4.24 cm Wall motion Left Ventricle The left ventricle is normal size. Left ventricular systolic function is moderately decreased. There is normal left ventricular wall thickness. There is global hypokinesis of the left ventricle. There i s no ventricular septal defect visualized. LVEF is 40-45%. Right Ventricle Right ventricle is grossly normal in size. Right ventricle is moderately hypokinetic. The RVSP is 38. 2 mmHg. Atria Left atrium is moderately dilated. Right atrium is moderately dilated. The interatrial septum is inta ct with no evidence for an atrial septal defect. Aortic Valve Aortic valve is calcified. Number of aortic valve leaflets could not be assessed. No hemodynamically significant valvular aortic stenosis. Trace aortic regurgitation. Mitral Valve Mild mitral annular calcification. No evidence of mitral valve stenosis. Mild mitral regurgitation. Tricuspid Valve The tricuspid valve is normal in structure. There is no tricuspid valve stenosis. Mild to moderate t ricuspid regurgitation. Pulmonic Valve The pulmonary valve is normal in structure. There is no pulmonic valvular stenosis. Mild pulmonic reg urgitation. Great Vessels Aortic root is mildly dilated. The ascending aorta is moderate to severely dilated. The IVC collapse s <50% with inspiration. Pericardium There is no pericardial effusion. 2D Dimensions IVSD d PLAX 0.84 cm M: 0.6-1.2 LV Vol A2C d MOD 160.8 mL LVPW d PLAX 0.84 cm M: 0.6 - 1.2 LV Vol A4C d MOD 162.9 mL LVID d PLAX 5.04 cm M: 4.2 - 5.8 LA vol/ BSA A4C s A-L 71.4 mL/m2 LVDs 4.40 cm M: 2.5 - 4.0 LA Area A4C s MOD 32.08 cm2 Ao Root d 3.92 cm M: 3.1 - 3.7 LV EF A4C MOD 35.6 % RA Area A4C 22.08 cm2 LV EF A2C MOD 30.0 % RA Vol/ BSA A4C s A-L 46.5 mL/m2 LV EF Biplane MOD 35.7 % Ao Asc Diam d 4.24 cm M: 2.6 - 3.4 SV 61.00 mL LV EF Teichholz 25.8 % SV Index 34.47 mL/m2 LVEF (Menon's) 35.75 % M: 52 - 72 LV Volume 133.54 mL M: 62 - 150 LV Volume Index 75.44 mL/m2 M: 34 - 74 LV Vol Biplane MOD 170.7 mL FS 12.00 % M-Mode TAPSE 1.64 cm (M/F) >1.7 LV Diastology MV E' medial 0.046 (>0.07 m/s) MV E Vmax 0.61 (0.4-1.3 m/s) LV E/e MED 13.05 (<14) MV E' lateral 0.068 (>0.1 m/s) LV E/e LAT 8.85 (<14) MV E/E' medial 13.05 MV E/E' lateral 8.86 Aortic Valve LVOT Area 3.98 cm2 AoV Area Vmax 1.29 cm2 LVOT Vmax 0.66 m/s AoV Area/ BSA (Vmax) 0.73 cm2/m2 LVOT Mean Tenizn. 0.50 m/s STEPHANIE Mean Tenzin. 1.28 cm2 LVOT Peak Grad 1.8 mmHg STEPHANIE Mean Tenzin. Index 0.72 cm2/m2 LVOT Mean Grad 1.1 mmHg LVOT VTI 0.110 m LVOT Diam s 2.20 cm AoV Vmax 2.05 m/s Velocity Ratio 0.32 AoV Mean Tenzin. 1.55 m/s AoV Peak Grad 16.8 mmHg LVOT SV 43.71 mL AoV Mean Grad 10.5 mmHg AoV VTI 0.396 m AoV Area VTI 1.10 cm2 AoV Area/ BSA (VTI) 0.62 cm/m2 Mitral Valve MV DT 198 (160-240 msec) MR Vmax 4.99 m/s MV PHT 57 msec MR VTI 1.663 m MV Area PHT 3.83 cm2 MR Peak Grad 99.6 mmHg MV VTI 0.232 m MR Mean Grad 64.9 mmHg MV Area VTI 1.88 (4.0-6.0 cm2) Pulmonary Valve PV Vmax 1.33 (0.5-1.5 m/s) RVOT Peak Gr. 0.39 mmHg PV Peak Grad 7.1 mmHg RVOT Mean Gr. 0.25 mmHg PV Mean Grad 5.4 mmHg RVOT VTI 0.057 m PV VTI 0.254 m RVOT Vmax 0.31 m/s Tricuspid Valve TR Peak Grad 30.2 mmHg TR Vmax 2.75 m/s RA Pressure 8.00 mmHg RVSP (TR) 38.2 mmHg
[2022-08-08] MEDS: PIPERACILLIN/TAZO 3.375 GM in Normal Saline 50 ML IVPB ×3 (05:35→17:43)
[2022-08-08] MEDS: Normal Saline Flush 10 ML SYR IVP ×4 (05:38→20:21)
[2022-08-08] MEDS: Ondansetron 4 MG TAB PO ×3 (06:36→20:19)
[2022-08-08 06:57] LABS: Abs Immature Grans 0.06 10^3/uL (0.0-0.06); Absolute Basophil Count 0.07 10^3/uL (0.0-0.2); Absolute Eosinophil Count 0.03 10^3/uL (0.0-0.7); Absolute Monocyte Count 1.27 10^3/uL (0.1-0.8); Absolute Neutrophil Count 5.46 10^3/uL (1.2-6.7); Basophils % 0.9; Eosinophils % 0.4; HCT 31.7 % (40.0-50.0); HGB 10.1 g/dL (13.5-17.5); Immature Grans % 0.7; Lymphocytes % 14.8; MCH 31.9 pg (27.0-33.0); MCHC 31.9 % (32.0-36.0); MCV 100 fL (80-95); MPV 10.2 fL (8.0-11.0); Monocytes % 15.7; Neutrophils % 67.5; Platelet Count 268 10^3/uL (130-400); RBC 3.17 10^6/uL (4.36-5.78); RDW 18.6 % (11.8-14.1); RDW-SD 66.1 fL; WBC 8.09 10^3/uL (4.4-10.8)
[2022-08-08 07:15] VITALS: BP 133/82; PULSE 74; RESP 20; TEMP 36.7; O2SAT 95
[2022-08-08 07:21] LABS: ALT 791 U/L (16-63); AST 184 U/L (15-37); Albumin 2.8 g/dL (3.4-5.0); Alkaline Phosphatase 174 U/L (46-116); Anion Gap 11.3 mmol/L (3-11); BUN 33 mg/dL (7-18); Bilirubin, Total 1.4 mg/dL (0.2-1.0); CO2 23.7 mmol/L (21.0-32.0); Calcium 8.7 mg/dL (8.5-10.1); Chloride 111 mmol/L (98-107); Glucose 97 mg/dL (74-106); Potassium 4.2 mmol/L (3.5-5.1); Sodium 146 mmol/L (136-145); Total Protein 5.9 g/dL (6.4-8.2)
[2022-08-08 07:26] LABS: Lipase > 375 U/L (16-77)
[2022-08-08] MEDS: Tiotropium Bromide-Respimat 10 PUFF INH 2 PUFF IH (08:40)
[2022-08-08] MEDS: FLUoxetine 10 MG TAB 30 MG PO (09:42)
[2022-08-08] MEDS: Sucralfate 1 GM TAB PO ×2 (09:42→20:19)
[2022-08-08] MEDS: buPROPion-XL 150 MG TABCR 300 MG PO (09:42)
[2022-08-08] MEDS: Mirtazapine 15 MG TAB 60 MG PO (09:42)
[2022-08-08] MEDS: Metoprolol CR 50 MG TABCR PO (09:42)
--- NOTE | 2022-08-08 09:45 | NUR.NOTE ---
Nursing Note: Patient's AM medications late due to patient getting ECHO done.
--- NOTE | 2022-08-08 10:01 | W.PM.PROGNOT ---
Date of Service Date of service: 08/08/22 Time of Service: 10:02 Assessment and Plan Assessment and plan (1) Pancreatitis: Status: Chronic (2) Acute acalculous cholecystitis: Status: Acute (3) Cachexia: Status: Acute (4) COPD (chronic obstructive pulmonary disease): Status: Chronic (5) Anxiety and depression: Status: Chronic (6) Renal insufficiency: Status: Chronic (7) GERD (gastroesophageal reflux disease): Status: Chronic (8) Anemia: Status: Chronic (9) Chronic kidney disease, stage 3: Status: Acute (10) Aortic valve stenosis: Status: Chronic (11) Poor nutrition: Status: Acute (12) Hiatal hernia: Status: Chronic (13) PSVT (paroxysmal supraventricular tachycardia): Status: Acute (14) Alcohol abuse: (15) COPD (chronic obstructive pulmonary disease): (16) Essential hypertension: (17) Hyperlipidemia: (18) SVT (supraventricular tachycardia): Subjective Subjective Interval history since last seen: Pt is doing well. no headaches. No CP or SOB. no productive cough. no dysuria. no leg pain or swelling. Objective Last Vital Signs Temp 36.7 C 08/08/22 07:15 Pulse 74 08/08/22 07:15 Resp 20 08/08/22 07:15 BP 133/82 08/08/22 07:15 Pulse Ox 95 08/08/22 07:15 Laboratory Results - last 24 hr 08/07/22 08/07/22 08/07/22 13:35 13:35 13:35 WBC 7.73 RBC 3.53 L Hgb 11.3 L Hct 35.4 L MCV 100 H MCH 32.0 MCHC 31.9 L RDW 18.8 H Plt Count 291 MPV 11.3 H Immature Gran % 0.6 Neutrophils % 70.5 Lymphocytes % 14.2 Monocytes % 14.1 Eosinophils % 0.1 Basophils % 0.5 Nucleated RBC % 0.6 H Absolute Neutrophils 5.44 Absolute Lymphocytes 1.10 L Absolute Monocytes 1.09 H Absolute Eosinophils 0.01 Absolute Basophils 0.04 VBG Lactate 2.9 H* Sodium 142 Potassium 4.1 Chloride 106 Carbon Dioxide 21.3 Anion Gap 14.7 H BUN 36 H Creatinine 2.1 H Est GFR (CKD-EPI 2020) 35.37 Glucose 115 H Calcium 9.1 Magnesium 1.9 Total Bilirubin 1.7 H AST 332 H ALT 1245 H Alkaline Phosphatase 237 H Troponin I < 50 Total Protein 7.3 Albumin 3.7 Lipase > 375 H Urine Color Urine Clarity Urine pH Ur Specific Ren[place] Urine Protein Urine Ketones Urine Blood Urine Nitrite Urine Bilirubin Urine Urobilinogen Ur Leukocyte Esterase Urine RBC Urine WBC Ur Epithelial Cells Urine Crystals Urine Bacteria Urine Casts Urine Mucus Ur Culture Indicated? Urine Glucose 08/07/22 08/08/22 08/08/22 22:20 06:45 06:45 WBC 8.09 RBC 3.17 L Hgb 10.1 L Hct 31.7 L MCV 100 H MCH 31.9 MCHC 31.9 L RDW 18.6 H Plt Count 268 MPV 10.2 Immature Gran % 0.7 Neutrophils % 67.5 Lymphocytes % 14.8 Monocytes % 15.7 Eosinophils % 0.4 Basophils % 0.9 Nucleated RBC % 0.0 Absolute Neutrophils 5.46 Absolute Lymphocytes 1.20 Absolute Monocytes 1.27 H Absolute Eosinophils 0.03 Absolute Basophils 0.07 VBG Lactate Sodium 146 H Potassium 4.2 Chloride 111 H Carbon Dioxide 23.7 Anion Gap 11.3 H BUN 33 H Creatinine 2.0 H Est GFR (CKD-EPI 2020) 37.50 Glucose 97 Calcium 8.7 Magnesium Total Bilirubin 1.4 H AST 184 H ALT 791 H Alkaline Phosphatase 174 H Troponin I Total Protein 5.9 L Albumin 2.8 L Lipase > 375 H Urine Color Yellow Urine Clarity Sl Cloudy Urine pH 5.5 Ur Specific Ren[place]rew >= 1.030 H Urine Protein 30 H Urine Ketones Negative Urine Blood Negative Urine Nitrite Negative Urine Bilirubin Small H Urine Urobilinogen 1.0 H Ur Leukocyte Esterase Negative Urine RBC 3-5 H Urine WBC 5-10 Ur Epithelial Cells Rare Urine Crystals Urine Bacteria Moderate Urine Casts 5-10 Hyaline Urine Mucus Negative Ur Culture Indicated? Yes Urine Glucose Negative 08/08/22 06:45 WBC RBC Hgb Hct MCV MCH MCHC RDW Plt Count MPV Immature Gran % Neutrophils % Lymphocytes % Monocytes % Eosinophils % Basophils % Nucleated RBC % Absolute Neutrophils Absolute Lymphocytes Absolute Monocytes Absolute Eosinophils Absolute Basophils VBG Lactate 2.0 H Sodium Potassium Chloride Carbon Dioxide Anion Gap BUN Creatinine Est GFR (CKD-EPI 2020) Glucose Calcium Magnesium Total Bilirubin AST ALT Alkaline Phosphatase Troponin I Total Protein Albumin Lipase Urine Color Urine Clarity Urine pH Ur Specific [place] Urine Protein Urine Ketones Urine Blood Urine Nitrite Urine Bilirubin Urine Urobilinogen Ur Leukocyte Esterase Urine RBC Urine WBC Ur Epithelial Cells Urine Crystals Urine Bacteria Urine Casts Urine Mucus Ur Culture Indicated? Urine Glucose
[2022-08-08] MEDS: Lactated Ringers 1,000 ML 80 ML IV (11:12)
--- NOTE | 2022-08-08 13:49 | W.PM.PROGNOT ---
Date of Service Date of service: 08/08/22 Time of Service: 13:58 Assessment and Plan Assessment and plan (1) Pancreatitis: Status: Chronic Assessment and plan: Senthil is doing OK. He still having some pain. LFT's are maybe slightly better. Lipase not improved. Pain about the same. I am concerned about the fact that he has ascitis. He does have a hx of alcohol abuse. He has been sober for 8-10 years. His clinical picture doesnt support cholecystitis at this time I have discussed this with the patient and recommended an MRI I will advance his diet to clear liquids MRI hopefully tomorrow (2) Cachexia: Status: Acute (3) GERD (gastroesophageal reflux disease): Status: Chronic (4) Chronic kidney disease, stage 3: Status: Acute (5) Abdominal ascites: Status: Acute Subjective Subjective Interval history since last seen: Senthil is doing well. He complains of pain due to hunger. NO N/V. No improvement really in his labs. Exam Resp Effort & Inspection: normal respiratory effort Auscultation: clear to auscultation bilaterally Cardio Rate: regular rate Rhythm: regular rhythm Heart Sounds: no gallops, no murmurs and no rubs GI Palpation: soft, no hepatosplenomegaly and tender (periumbilical, no guarding, no rebound) Auscultation: normal bowel sounds Objective Last Vital Signs Temp 98.1 F 08/08/22 07:15 Pulse 74 08/08/22 07:15 Resp 20 08/08/22 07:15 BP 133/82 08/08/22 07:15 Pulse Ox 95 08/08/22 07:15 Laboratory Results - last 24 hr 08/07/22 08/07/22 08/07/22 13:35 13:35 13:35 WBC 7.73 RBC 3.53 L Hgb 11.3 L Hct 35.4 L MCV 100 H MCH 32.0 MCHC 31.9 L RDW 18.8 H Plt Count 291 MPV 11.3 H Immature Gran % 0.6 Neutrophils % 70.5 Lymphocytes % 14.2 Monocytes % 14.1 Eosinophils % 0.1 Basophils % 0.5 Nucleated RBC % 0.6 H Absolute Neutrophils 5.44 Absolute Lymphocytes 1.10 L Absolute Monocytes 1.09 H Absolute Eosinophils 0.01 Absolute Basophils 0.04 VBG Lactate 2.9 H* Sodium 142 Potassium 4.1 Chloride 106 Carbon Dioxide 21.3 Anion Gap 14.7 H BUN 36 H Creatinine 2.1 H Est GFR (CKD-EPI 2020) 35.37 Glucose 115 H Calcium 9.1 Magnesium 1.9 Total Bilirubin 1.7 H AST 332 H ALT 1245 H Alkaline Phosphatase 237 H Troponin I < 50 Total Protein 7.3 Albumin 3.7 Lipase > 375 H Urine Color Urine Clarity Urine pH Ur Specific [place] Urine Protein Urine Ketones Urine Blood Urine Nitrite Urine Bilirubin Urine Urobilinogen Ur Leukocyte Esterase Urine RBC Urine WBC Ur Epithelial Cells Urine Crystals Urine Bacteria Urine Casts Urine Mucus Ur Culture Indicated? Urine Glucose 08/07/22 08/08/22 08/08/22 22:20 06:45 06:45 WBC 8.09 RBC 3.17 L Hgb 10.1 L Hct 31.7 L MCV 100 H MCH 31.9 MCHC 31.9 L RDW 18.6 H Plt Count 268 MPV 10.2 Immature Gran % 0.7 Neutrophils % 67.5 Lymphocytes % 14.8 Monocytes % 15.7 Eosinophils % 0.4 Basophils % 0.9 Nucleated RBC % 0.0 Absolute Neutrophils 5.46 Absolute Lymphocytes 1.20 Absolute Monocytes 1.27 H Absolute Eosinophils 0.03 Absolute Basophils 0.07 VBG Lactate Sodium 146 H Potassium 4.2 Chloride 111 H Carbon Dioxide 23.7 Anion Gap 11.3 H BUN 33 H Creatinine 2.0 H Est GFR (CKD-EPI 2020) 37.50 Glucose 97 Calcium 8.7 Magnesium Total Bilirubin 1.4 H AST 184 H ALT 791 H Alkaline Phosphatase 174 H Troponin I Total Protein 5.9 L Albumin 2.8 L Lipase > 375 H Urine Color Yellow Urine Clarity Sl Cloudy Urine pH 5.5 Ur Specific [place] >= 1.030 H Urine Protein 30 H Urine Ketones Negative Urine Blood Negative Urine Nitrite Negative Urine Bilirubin Small H Urine Urobilinogen 1.0 H Ur Leukocyte Esterase Negative Urine RBC 3-5 H Urine WBC 5-10 Ur Epithelial Cells Rare Urine Crystals Urine Bacteria Moderate Urine Casts 5-10 Hyaline Urine Mucus Negative Ur Culture Indicated? Yes Urine Glucose Negative 08/08/22 06:45 WBC RBC Hgb Hct MCV MCH MCHC RDW Plt Count MPV Immature Gran % Neutrophils % Lymphocytes % Monocytes % Eosinophils % Basophils % Nucleated RBC % Absolute Neutrophils Absolute Lymphocytes Absolute Monocytes Absolute Eosinophils Absolute Basophils VBG Lactate 2.0 H Sodium Potassium Chloride Carbon Dioxide Anion Gap BUN Creatinine Est GFR (CKD-EPI 2020) Glucose Calcium Magnesium Total Bilirubin AST ALT Alkaline Phosphatase Troponin I Total Protein Albumin Lipase Urine Color Urine Clarity Urine pH Ur Specific [place] Urine Protein Urine Ketones Urine Blood Urine Nitrite Urine Bilirubin Urine Urobilinogen Ur Leukocyte Esterase Urine RBC Urine WBC Ur Epithelial Cells Urine Crystals Urine Bacteria Urine Casts Urine Mucus Ur Culture Indicated? Urine Glucose Time Spent with Patient Time Spent with Patient: <25 minutes Time was spent: obtaining and/or reviewing separately [facility] hiistory, ordering medications,tests, procedures, indepentently interpreting results and counseling the patient
--- NOTE | 2022-08-08 14:32 | PDOC.CMIN ---
- If Service Date Differs Date of service: 08/08/22 Time of Service: 14:32 Care Management Initial Assess REASON FOR HOSPITALIZATION:: Acute cholcystitis and Pancreatitis PAST MEDICAL HISTORY/PAST SURGICAL HISTORY:: Medical History . Alcohol abuse. COPD (chronic obstructive pulmonary disease). Depression. Dizziness. Essential hypertension. Hyperlipidemia. SVT (supraventricular tachycardia). Syncope. Surgical History . No significant past surgical history PREVIOUS FUNCTIONAL STATUS/SOCIAL/FAMILY SUPPORTS:: Resides with home providers, Kalia Bermudez and Ángela Dailey in [place], [place]. He has service supports through [facility] IDDs program: Kamila Perry and Kirk Lu (Manufacture Specialist P#[phone]). CURRENT FUNCTIONAL STATUS:: Senthil was lying in bed, pleasant in interaction. He reported feeling well cared for and was requesting some pants to wear under his gown; [employer] OPERATOR provided. He provided verbal permission for this technical writer and medical staff to discuss plan of care and treatment planning with Kirk, his light fixture servicer at [facility]; CM noted contact information on white board and coordinated outreach from Surgeon; Dr. Price left a VM for Kirk. Has patient been provided with info about the portal/API?: No Did the patient sign up for the portal?: No CODE STATUS:: Full Code INSURANCE COVERAGE / FINANCIAL ISSUES:: Medicaid CURRENT HOME/COMMUNITY SERVICES/EQUIPMENT:: [facility]: IDDS services, home provider. PRIMARY CARE PHYSICIAN:: Jayde Wren POTENTIAL DISCHARGE NEEDS:: Follow up appointments. PATIENT/FAMILY EDUCATION NEEDS:: Review discharge instructions, discuss Ask Me Three. ANTICIPATED BARRIERS TO DISCHARGE:: None identified. TRANSPORTATION:: Via private vehicle with home provider, Kalia. PLAN:: Senthil continues to be closely monitored and treated, undetermined plan at this time. CM continues to follow.
[2022-08-08 15:55] VITALS: BP 130/83; PULSE 79; RESP 20; TEMP 36.7; O2SAT 94
[2022-08-08] MEDS: MORPHine 2 MG/ML SYR IVP ×2 (16:09→20:18)
--- NOTE | 2022-08-08 16:59 | CHAPLAIN ---
Senthil was in bed when I visited. When I introduced myself, he just said no and then said he wasn't interested in speaking with me.
[2022-08-08] MEDS: Enoxaparin 40 MG/0.4 ML SYR SC (17:44)
[2022-08-08] MEDS: Pantoprazole 40 MG VIAL IVP (20:15)
[2022-08-08] MEDS: QUEtiapine 50 MG TAB PO (22:21)
[2022-08-08 23:51] VITALS: BP 131/89; PULSE 84; RESP 18; TEMP 36.6; O2SAT 98
[2022-08-09] MEDS: PIPERACILLIN/TAZO 3.375 GM in Normal Saline 50 ML IVPB ×4 (00:17→17:58)
[2022-08-09 04:28] LABS: Lactate 1.2 mmol/L (0.6-1.4)
[2022-08-09 04:50] LABS: ALT 646 U/L (16-63); AST 117 U/L (15-37); Albumin 2.7 g/dL (3.4-5.0); Alkaline Phosphatase 165 U/L (46-116); Anion Gap 9.7 mmol/L (3-11); BUN 29 mg/dL (7-18); Bilirubin, Total 1.2 mg/dL (0.2-1.0); CO2 27.3 mmol/L (21.0-32.0); Chloride 110 mmol/L (98-107); Glucose 104 mg/dL (74-106); Potassium 3.3 mmol/L (3.5-5.1); Sodium 147 mmol/L (136-145)
[2022-08-09 04:59] LABS: CREATININE 2.2 mg/dL (0.70-1.30); Calcium 8.3 mg/dL (8.5-10.1); Estimated GFR 33.45 (mL/min/1.73m2)
[2022-08-09 05:00] LABS: Lipase > 375 U/L (16-77)
[2022-08-09] MEDS: Lactated Ringers 1,000 ML 80 ML IV ×2 (06:10→17:49)
[2022-08-09] MEDS: Ondansetron 4 MG TAB PO ×3 (06:16→19:56)
[2022-08-09] MEDS: Tiotropium Bromide-Respimat 10 PUFF INH 2 PUFF IH (07:44)
[2022-08-09 08:00] VITALS: BP 147/94; PULSE 73; RESP 18; TEMP 36.3; O2SAT 97
[2022-08-09] MEDS: Sucralfate 1 GM TAB PO ×2 (08:25→19:56)
[2022-08-09] MEDS: Mirtazapine 15 MG TAB 60 MG PO (08:25)
[2022-08-09] MEDS: FLUoxetine 10 MG TAB 30 MG PO (08:25)
[2022-08-09] MEDS: buPROPion-XL 150 MG TABCR 300 MG PO (08:25)
[2022-08-09] MEDS: Metoprolol CR 50 MG TABCR PO (08:26)
[2022-08-09 08:27] VITALS: TEMP 36.3
[2022-08-09] MEDS: ACETAMINOPHEN 1,000 MG/100 ML BTL 400 MG IVPB (08:27)
[2022-08-09] MEDS: Normal Saline Flush 10 ML SYR IVP (08:28)
--- NOTE | 2022-08-09 10:11 | W.PM.PROGNOT ---
Date of Service Date of service: 08/09/22 Time of Service: 10:11 Assessment and Plan Assessment and plan (1) Pancreatitis: Status: Chronic Assessment and plan: Pain is moderately controlled, however continues to have LUQ pain LFTs slowly improving Lipase continues to be elevated Continue with clears Incontinent of BMs x 2 per nsg. Awaiting Hepatitis panel I saw and examined Senthil and I agree with Whitney's notes. Did well through today, and is tolerating his liquid diet with only a small amount of abdominal pain. MRCP is negative for choledocholithiasis. Lipase remains elevated. This does seem more consistent with acute pancreatitis rather than cholecystitis. I will repeat his liver tests tomorrow, and check a triglyceride level to rule that out as a source of pancreatitis. I will advance his diet a little bit tonight. (2) Cachexia: Status: Acute (3) GERD (gastroesophageal reflux disease): Status: Chronic (4) Chronic kidney disease, stage 3: Status: Acute (5) Abdominal ascites: Status: Acute Subjective Subjective Interval history since last seen: Arrive with the patient sitting up in bed. He describes that he continues to have pain in his LUQ that radiates inferiorly and to his umbilicus. Also of note he describes feeling dizzy today. Per nsg patient was incontinent of BMs x 2 (last evening and this morning). Patient states he is tolerating a clear liquid diet. Denies any nausea or vomiting. Exam Const General: cooperative, healthy appearing and comfortable Orientation: alert and oriented x3 GI Inspection: normal to inspection and non-distended Palpation: soft, no guarding, not rigid and tender Other: No signs or peritonitis Objective Last Vital Signs Temp 36.3 C L 08/09/22 08:27 Pulse 73 08/09/22 08:00 Resp 18 08/09/22 08:00 BP 147/94 H 08/09/22 08:00 Pulse Ox 97 08/09/22 08:00 Laboratory Results - last 24 hr 08/09/22 08/09/22 04:12 04:12 VBG Lactate 1.2 Sodium 147 H Potassium 3.3 L Chloride 110 H Carbon Dioxide 27.3 Anion Gap 9.7 BUN 29 H Creatinine 2.2 H Est GFR (CKD-EPI 2020) 33.45 Glucose 104 Calcium 8.3 L Total Bilirubin 1.2 H AST 117 H ALT 646 H Alkaline Phosphatase 165 H Total Protein 6.0 L Albumin 2.7 L Lipase > 375 H Time Spent with Patient Time Spent with Patient: 25-34 minutes Time was spent: preparing to see the patient(eg.review tests), obtaining and/or reviewing separately otained hiistory, ordering medications,tests, procedures, indepentently interpreting results and counseling the patient
--- NOTE | 2022-08-09 12:14 | PDOC.CMPRO ---
- If Service Date Differs Date of service: 08/09/22 Time of Service: 12:14 Care Management Progress Note S/O: Per report, Senthil continues to have pain and has felt dizzy today, which is being closely monitored by nursing. He is tolerating a clear liquid diet, which will be slowly advanced, as tolerated. CM will continue to follow. A: Senthil is a 62 year old male admitted to [facility] on 08/07/22 for acute cholecystitis and pancreatitis. P: Anticipate Senthil will return home in the care of his home care providers, Kalia and Ángela, who will provide transportation via private vehicle. He will follow up with his PCP and discharge plan of care. CM will continue to follow.
[2022-08-09 14:57] VITALS: BP 132/94; PULSE 78; RESP 18; TEMP 36.1; O2SAT 99
[2022-08-09] MEDS: Pantoprazole 40 MG VIAL IVP (17:48)
[2022-08-09] MEDS: Enoxaparin 40 MG/0.4 ML SYR SC (17:49)
[2022-08-09] MEDS: Albuterol HFA 8 GM 60 PUFF INH IH (20:42)
[2022-08-09] MEDS: QUEtiapine 50 MG TAB PO (20:55)
[2022-08-09 21:14] LABS: Triglyceride 66 mg/dL (<150)
[2022-08-09 23:02] VITALS: BP 137/91; PULSE 80; RESP 18; TEMP 36.5; O2SAT 95
--- NOTE | 2022-08-10 | DI.CT_ITS ---
Exam(s) CT CHEST PE CTA EXAM: CT CHEST PE CTA CLINICAL HISTORY: SOB/pancreatitis. TECHNIQUE: Imaging Protocol: Axial CT angiography was performed with multi-slice acquisition and mu lti-planar and/or 3D reconstructions. CONTRAST MATERIAL: Intravenous: Omnipaque 350 contrast volume:60 mL COMPARISON: CT CT ABDOMEN PELVIS WO from 08/07/2022 FINDINGS: The examination is limited due to patient motion artifact. Tracheobronchial tree: Patent where visualized. Pulmonary parenchyma: There are large bilateral pleural effusions and areas of subjacent consolidatio n. There also areas of infiltrate in the dependent portions of the right upper and left lingula. No architectural distortion. Pulmonary Arteries: No evidence of filling defect to suggest pulmonary emboli. Mediastinum and Staci: No dominant adenopathy or fluid collection. The esophagus is unremarkable. Visualized thyroid gland: Unremarkable. Pleura: There is no pneumothorax. Heart: Cardiomegaly. There is contrast seen in the right heart and IVC suspicious for right heart fa ilure. Coronary artery calcifications are present. No pericardial effusion. Aorta: The ascending thoracic aorta measures 4.2 x 4.4 cm. The thoracic aorta is not opacified well. Atherosclerosis is present. Upper abdomen: There is a small amount of abdominal ascites. Soft tissues: Unremarkable. Bones: Within normal limits for the patient's age.Old rib fractures. IMPRESSION: 1. There is no evidence of a pulmonary embolism or thoracic aortic aneurysm. 2. Large pleural effusions and bilateral infiltrates. The infiltrates may represent atelectasis or p neumonia. 3. Findings suggestive of right heart failure. Cardiomegaly. 4. Thoracic aorta measures 4.2 x 4.4 cm. 5. Small amount of abdominal ascites. RADIATION DOSE DELIVERED: 251.4mGy.cm Total DLP DATA REPOSITORY: All CT scans at this facility are submitted to the National Radiology Data Registry (NRDR) Dose Index Registry (DIR) with the [employer] (ACR). RADIATION OPTIMIZATION: All CT scans at this facility use at least one of these dose optimization te chniques: automated exposure control; mA and/or kV adjustment per patient size (includes targeted exa ms where dose is matched to clinical indication); or iterative reconstruction.
[2022-08-10] MEDS: Ondansetron 4 MG TAB PO ×3 (01:31→13:05)
[2022-08-10] MEDS: Melatonin 3 MG TAB PO (01:32)
[2022-08-10] MEDS: PIPERACILLIN/TAZO 3.375 GM in Normal Saline 50 ML IVPB ×4 (01:47→17:51)
[2022-08-10 06:34] LABS: HCT 31.7 % (40.0-50.0); HGB 9.8 g/dL (13.5-17.5); MCH 30.9 pg (27.0-33.0); MCHC 30.9 % (32.0-36.0); MCV 100 fL (80-95); MPV 9.9 fL (8.0-11.0); Platelet Count 338 10^3/uL (130-400); RBC 3.17 10^6/uL (4.36-5.78); RDW 18.8 % (11.8-14.1); RDW-SD 67.2 fL; WBC 7.28 10^3/uL (4.4-10.8)
[2022-08-10 07:18] LABS: Lipase > 375 U/L (16-77)
[2022-08-10 07:21] LABS: ALT 495 U/L (16-63); AST 75 U/L (15-37); Albumin 2.6 g/dL (3.4-5.0); Alkaline Phosphatase 144 U/L (46-116); Anion Gap 11.4 mmol/L (3-11); BUN 25 mg/dL (7-18); Bilirubin, Total 0.9 mg/dL (0.2-1.0); CO2 24.6 mmol/L (21.0-32.0); CREATININE 2.1 mg/dL (0.70-1.30); Calcium 8.3 mg/dL (8.5-10.1); Chloride 110 mmol/L (98-107); Estimated GFR 35.37 (mL/min/1.73m2); Ferritin 722 ng/mL (26-388); Glucose 102 mg/dL (74-106); Sodium 146 mmol/L (136-145); Total Protein 5.7 g/dL (6.4-8.2)
[2022-08-10 07:35] LABS: Folate 9.8 ng/mL (8.6-20.0); Vitamin B12 1598 pg/mL (193-986)
[2022-08-10 07:48] VITALS: BP 147/92; PULSE 71; RESP 18; TEMP 36.4; O2SAT 99
--- NOTE | 2022-08-10 08:01 | PGE_ITS ---
Date of Service Date of service: 08/10/22 Time of Service: 08:01 Assessment and Plan Assessment and plan (1) Pancreatitis: Status: Chronic Assessment and plan: Pain is moderately controlled, however continues to have LUQ pain LFTs slowly improving Lipase continues to be elevated Continue with soft diet Awaiting Hepatitis panel Potassium 3 today, will attempt PO K+ repletion, however if he continues to refuse. Will proceed with IV Encouraged activity OOB Continue Pulmonary toilet pt c/o SOB D dimer ~4500 CT ches: no PE. Lg b/l pleural effusion R heart failure -B/l thorocentisis in am -echo in chart consulted hosp. rec lasix tonight. RN's noted pt ate well yesterday, but not well today. Pt c/o SOB. pulse ox is 97% and no tachycardia or tachypnea. mesh worker with him jl-she stated he does sign his own consents and does not require guardianship. He does have large pleural effusions bilaterally. We talked about doing thoracentesis to improve those and this would improve his breathing, if he does not have any response to the Lasix. He is regular also stated that patient has very low p.o. intake at home and was on Megace for appetite. -still no clear etiology for pancreatitis. cholesterol stable. calcium normal no sign of biliary Dx on US. no tumors in pancreas on MRI. Pt has not had ETOH in 9 yrs I reviewed his meds and no risk of pancreatitis. continue conservative care (2) Cachexia: Status: Acute (3) GERD (gastroesophageal reflux disease): Status: Chronic (4) Chronic kidney disease, stage 3: Status: Acute (5) Abdominal ascites: Status: Acute Subjective Subjective Interval history since last seen: Patient reports he is feeling about the same. He is tolerating the post op diet. Denies any nausea or vomiting. Exam Const General: cooperative, healthy appearing and comfortable Orientation: alert and oriented x3 GI Inspection: normal to inspection and non-distended Palpation: soft, no guarding, not rigid and tender Other: No signs or peritonitis Objective Last Vital Signs Temp 36.4 C L 08/10/22 07:48 Pulse 71 08/10/22 07:48 Resp 18 08/10/22 07:48 BP 147/92 H 08/10/22 07:48 Pulse Ox 99 08/10/22 07:48 Laboratory Results - last 24 hr 08/09/22 08/10/22 08/10/22 04:12 06:00 06:00 WBC RBC Hgb Hct MCV MCH MCHC RDW Plt Count MPV Sodium 146 H Potassium 3.0 L Chloride 110 H Carbon Dioxide 24.6 Anion Gap 11.4 H BUN 25 H Creatinine 2.1 H Est GFR (CKD-EPI 2020) 35.37 Glucose 102 Calcium 8.3 L Ferritin 722 H Total Bilirubin 0.9 AST 75 H ALT 495 H Alkaline Phosphatase 144 H Total Protein 5.7 L Albumin 2.6 L Triglycerides 66 Lipase > 375 H Vitamin B12 Folate 08/10/22 08/10/22 06:00 06:00 WBC 7.28 RBC 3.17 L Hgb 9.8 L Hct 31.7 L MCV 100 H MCH 30.9 MCHC 30.9 L RDW 18.8 H Plt Count 338 MPV 9.9 Sodium Potassium Chloride Carbon Dioxide Anion Gap BUN Creatinine Est GFR (CKD-EPI 2020) Glucose Calcium Ferritin Total Bilirubin AST ALT Alkaline Phosphatase Total Protein Albumin Triglycerides Lipase Vitamin B12 1598 H Folate 9.8 Time Spent with Patient Time Spent with Patient: 35-49 minutes Time was spent: preparing to see the patient(eg.review tests), obtaining and/or reviewing separately otained hiistory, ordering medications,tests, procedures, referring, communicating with other health urgent care physician assistant, indepentently interpreting results, counseling the patient and care coordination
[2022-08-10] MEDS: Mirtazapine 15 MG TAB 60 MG PO (08:33)
[2022-08-10] MEDS: Sucralfate 1 GM TAB PO (08:33)
[2022-08-10] MEDS: buPROPion-XL 150 MG TABCR 300 MG PO (08:34)
[2022-08-10] MEDS: Potassium Chloride 20 MEQ TABCR 40 MEQ PO (08:34)
[2022-08-10] MEDS: Metoprolol CR 50 MG TABCR PO (08:34)
[2022-08-10] MEDS: FLUoxetine 10 MG TAB 30 MG PO (08:34)
[2022-08-10 08:57] VITALS: O2SAT 96
[2022-08-10] MEDS: Tiotropium Bromide-Respimat 10 PUFF INH 2 PUFF IH (08:58)
[2022-08-10] MEDS: Lactated Ringers 1,000 ML 80 ML IV (09:37)
[2022-08-10 11:16] LABS: Hepatitis A Antibody IgM Negative (Negative); Hepatitis B Core Antibody Negative (Negative); Hepatitis B surface Ag Negative (Negative); Hepatitis C Ab w Rflx HCV PCR Negative (Negative)
[2022-08-10 11:19] VITALS: BP 136/92; PULSE 86; RESP 18; TEMP 36; O2SAT 95
[2022-08-10] MEDS: LORazepam 0.5 MG TAB PO (11:33)
[2022-08-10 12:47] LABS: Lab Add On Test DONE
[2022-08-10 13:43] LABS: D-Dimer 4167 ng/mlFEU (<500)
[2022-08-10 15:17] VITALS: BP 130/90; PULSE 80; RESP 24; TEMP 36.1; O2SAT 91
--- NOTE | 2022-08-10 15:31 | CMPROGNOTE_ITS ---
- If Service Date Differs Date of service: 08/10/22 Time of Service: 15:31 Care Management Progress Note S/O: Per report, Senthil is not feeling much better but he is tolerating post op diet, which is being closely monitored by nursing. CM will continue to follow. A: Senthil is a 62 year old male admitted to [facility] on 08/07/22 for acute cholecystitis and pancreatitis. P: Anticipate Senthil will return home in the care of his home care providers, Kalia and Ángela, who will provide transportation via private vehicle. He will follow up with his PCP and discharge plan of care. CM will continue to follow.
[2022-08-10] MEDS: Normal Saline - Diluent 50 ML VIAL IJ (15:37)
[2022-08-10] MEDS: Normal Saline Flush 10 ML SYR IVP (15:38)
[2022-08-10] MEDS: Omnipaque 350 MG/ML 500 ML BTL-Imaging package IJ (15:38)
[2022-08-10 15:49] VITALS: RESP 20; O2SAT 97
--- NOTE | 2022-08-10 16:41 | PHA.REVIEW2 ---
Pharmacy Admission Review - Admission Clinical Review (Last Reviewed 08/07/22 @ 18:07 by Digna Price MD) Abdominal ascites (Acute) Acute acalculous cholecystitis (Acute) Cachexia (Acute) Chronic kidney disease, stage 3 (Acute) varenicline Adverse Reaction (Intermediate, Verified 05/10/22 13:33) Depression Resuscitation Status Full Code Height 5 ft 3 in Weight 61.518 kg - Renal Dosing Renal Dosing: BUN 25 mg/dL (7-18) H 08/10/22 06:00 Creatinine 2.1 mg/dL (0.70-1.30) H 08/10/22 06:00 Medications needing adjustments: Reviewed List of meds needing interventions: eCrCl 32.5 ml/min, all orders ok - Anticoagulation Anticoagulation: Hgb 9.8 g/dL (13.5-17.5) L 08/10/22 06:00 Hct 31.7 % (40.0-50.0) L 08/10/22 06:00 Plt Count 338 10^3/uL (130-400) 08/10/22 06:00 Creatinine 2.1 mg/dL (0.70-1.30) H 08/10/22 06:00 DVT Prophylaxis: Reviewed Medications: Enoxaparin - Opiate Usage Evaluate Pain Scale/Pains Meds: Reviewed (morphin 2mg IVP prn) Scheduled Bowel Reg ordered if on Opiates?: No - Relevant Labs Sodium 146 mmol/L (136-145) H 08/10/22 06:00 Potassium 3.0 mmol/L (3.5-5.1) L 08/10/22 06:00 Chloride 110 mmol/L (98-107) H 08/10/22 06:00 Magnesium 1.9 mg/dL (1.8-2.4) 08/07/22 13:35 Electrolytes, C-Reactive P, ESR: Reviewed - DM Control DM Control: Glucose 102 mg/dL (74-106) 08/10/22 06:00 DM Control: N/A - Cardiac Review Cardiac Review: Troponin I < 50 ng/L (<or=60) 08/07/22 13:35 BP, HR, EF%: Reviewed - Qtc Review QTc: Not Reviewed - IV to PO Switch IV Medications: Reviewed - Home Meds Home Med List reviewed: Intervened Relevent Home Meds Not ordered & why?: adjusted a few doses -- mirtazapine, seroquel, fluoxetine, magox, NAC - will notify MD to review Medication adherence barriers identified?: brent nava @ [place]
[2022-08-10] MEDS: Furosemide 40 MG/4 ML VIAL IVP (17:24)
[2022-08-10] MEDS: Enoxaparin 40 MG/0.4 ML SYR SC (17:24)
[2022-08-10] MEDS: Pantoprazole 40 MG VIAL IVP (17:24)
[2022-08-10] MEDS: MORPHine 2 MG/ML SYR IVP (20:10)
--- NOTE | 2022-08-11 | DI.RAD_ITS ---
Exam(s) XR PORTABLE CHEST AP EXAM: XR PORTABLE CHEST AP CLINICAL HISTORY: s/p thoro. TECHNIQUE: 2D digital imaging was performed. COMPARISON: CT CT CHEST LUNG CANCER SCREEN from 05/26/2022 FINDINGS: Single AP portable view. Heart size is upper normal. The mediastinum is not widened. There is some infiltrate in the right lung base. Possible small right pleural effusion. Also atelec tasis in left lung base. Left costophrenic angle is not included in the field of view of this study. No evidence of pulmonary edema. IMPRESSION: Right lower lobe infiltrate. Left lower lobe atelectasis versus early infiltrate. Probable small right pleural effusion. DATA REPOSITORY: RADIATION DOSE DELIVERED:
[2022-08-11] MEDS: PIPERACILLIN/TAZO 3.375 GM in Normal Saline 50 ML IVPB ×4 (00:03→17:09)
[2022-08-11 00:39] VITALS: BP 138/88; PULSE 87; RESP 24; TEMP 36.6; O2SAT 92
[2022-08-11 07:26] VITALS: BP 137/85; PULSE 76; RESP 18; TEMP 36.6; O2SAT 98
[2022-08-11 07:51] LABS: ALT 479 U/L (16-63); AST 89 U/L (15-37); Albumin 2.9 g/dL (3.4-5.0); Alkaline Phosphatase 141 U/L (46-116); Anion Gap 12.5 mmol/L (3-11); BUN 22 mg/dL (7-18); Bilirubin, Total 1.1 mg/dL (0.2-1.0); CO2 23.5 mmol/L (21.0-32.0); CREATININE 2.1 mg/dL (0.70-1.30); Calcium 8.7 mg/dL (8.5-10.1); Chloride 107 mmol/L (98-107); Estimated GFR 35.37 (mL/min/1.73m2); Glucose 95 mg/dL (74-106); Potassium 3.4 mmol/L (3.5-5.1); Sodium 143 mmol/L (136-145); Total Protein 6.5 g/dL (6.4-8.2)
[2022-08-11 07:55] LABS: Lipase > 375 U/L (16-77)
[2022-08-11 08:28] LABS: NT-proBNP > 35000 pg/mL (<300)
[2022-08-11] MEDS: Tiotropium Bromide-Respimat 10 PUFF INH 2 PUFF IH (08:31)
[2022-08-11 08:32] VITALS: O2SAT 95
[2022-08-11] MEDS: Pantoprazole 40 MG TABCR PO (11:37)
[2022-08-11] MEDS: Potassium Chloride 20 MEQ TABCR PO (11:37)
[2022-08-11] MEDS: Ondansetron O.D.T. 4 MG TABEF PO ×2 (11:37→20:13)
[2022-08-11] MEDS: buPROPion-XL 150 MG TABCR 300 MG PO (11:37)
[2022-08-11] MEDS: Sucralfate 1 GM TAB PO ×2 (11:37→20:13)
[2022-08-11] MEDS: FLUoxetine 10 MG TAB 30 MG PO (11:37)
[2022-08-11] MEDS: Metoprolol CR 50 MG TABCR PO (11:37)
[2022-08-11 11:38] VITALS: BP 146/90; PULSE 92; RESP 20; O2SAT 96
--- NOTE | 2022-08-11 11:44 | MCONE_ITS ---
Date of service: 08/11/22 Time of Service: 11:45 Assessment and Plan Assessment and plan (1) Abdominal ascites: Status: Acute Assessment and plan: No prior dx of cirrhosis. H/O alcohol abuse syndrome. No gross appearance of cirrhosis on CT/US Total bilirubin 1.7 >> 1.1. AST and ALT improving. Considered hepatic congestion from potential right sided heart failure but LFTs initially were higher than typical for that situation. LFTs are improving. (2) Pancreatitis: Status: Chronic Assessment and plan: Clinically improving. (3) Acute acalculous cholecystitis: Status: Acute Assessment and plan: Gen surg considering cholecystectomy after further evaluation. On Zosyn. (4) COPD (chronic obstructive pulmonary disease): Status: Chronic Assessment and plan: No exacerbation. (5) Chronic kidney disease, stage 3: Status: Acute Assessment and plan: Creatinine 2.1 appears to be in his baseline range. Monitor during diureses. (6) Essential hypertension: Assessment and plan: SBP in the 130-140's. On metoprolol (7) Hyperlipidemia: Assessment and plan: Simvastatin held d/t elevated liver enzymes. (8) Alcohol abuse: Assessment and plan: In remission for 8 years. (9) Cardiomyopathy: Status: Acute Assessment and plan: New finding with decreased EF of 40-45%. NTProBNP >79020. + pleural effusions; surgery planning thoracentesis. Likely related to CHF. Initial troponin on admission was negative. Today troponin only slightly above baseline at 62. No CP. No segmental wall motion abnormality on echo; has global hypokinesis. Doubt ACS event but could consider NM stress test. Lasix 40mg IV BID. History of Present Illness History of Present Illness Chief Complaint: Abd pain Narrative: This is a 62 yo male that presented to [facility] with several weeks of abd pain that had worsened. He was found to have pancreatitis by lab and perichoecystic fluid and abd ascites. No mention of a cirrhotic appearing liver. He has a history of alcohol abuse but endorsed being sober for 8 years. No gallstones noted, no biliary ductal dilitation. +sludge noted. He has an elevated NTProBNP and bilateral pleural effusions. Echocardiogram showed a reduced EF of 40-45% with global hypokinesis. No hemodynamically significant aortic stenosis. Tr aortic regurgitation. There is consideration for a cholecystectomy. His pancreatitis appears to be improving clinically. He has not had any episodes of CP/palpitations. No h/o known CAD. + h/o HTN and HLD. + COPD w/o current exacerbation; stable on RA. PFSH All Active Problems (Updated 08/11/22 @ 14:20 by Kareem Purcell MD) Cardiomyopathy (Acute) Abdominal ascites (Acute) Pancreatitis (Chronic) Acute acalculous cholecystitis (Acute) Cachexia (Acute) COPD (chronic obstructive pulmonary disease) (Chronic) Anxiety and depression (Chronic) Renal insufficiency (Chronic) GERD (gastroesophageal reflux disease) (Chronic) Anemia (Chronic) Chronic kidney disease, stage 3 (Acute) Aortic valve stenosis (Chronic) Poor nutrition (Acute) Sleep disturbance (Acute) Hiatal hernia (Chronic) Appetite impaired (Acute) Weight loss (Acute) Aortic valve disease (Acute) Conductive hearing loss, unilateral, right ear, with unrestricted hearing on the contralateral side (Acute) Central perforation of tympanic membrane, right ear (Acute) 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 (Acute) Abdominal pain (Acute) Arrhythmia (Acute) Constipation (Acute) PSVT (paroxysmal supraventricular tachycardia) (Acute) UTI (urinary tract infection) (Acute) Suicidal ideation (Acute) Depression (Acute) Medical History Alcohol abuse COPD (chronic obstructive pulmonary disease) Depression Dizziness Essential hypertension Hyperlipidemia SVT (supraventricular tachycardia) Syncope Surgical History No significant past surgical history Social History Smoking/Tobacco Use Status: Current every day Tobacco Type: cigarettes Years smoked: 30 Smoking risk assessment performed?: Yes Alcohol Intake: never Drug use: Occasionally Substance use type: marijuana Details: Pot calms his nerves and helps him sleep. 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 Exam Narrative Exam Narrative: Lying on Right side with covers over his head. Arousable and conversant. Const General: cooperative, healthy appearing and comfortable Nutritional Appearance: average body habitus Orientation: alert and oriented x3 Eyes General: appearance normal, both eyes and all related structures Sclera: sclerae normal Resp Effort & Inspection: normal respiratory effort Auscultation: lung sounds not diminished and rales bilaterally (Bases) Cardio Jugular venous pressure: no JVD Rate: regular rate Rhythm: regular rhythm Heart Sounds: S1 normal and S2 normal GI Inspection: normal to inspection and non-distended Palpation: soft, no guarding and tender Other: No signs or peritonitis Skin General skin exam: no rashes or lesions noted Neuro General: patient alert, patient oriented x3 and no focal motor deficits Cranial Nerves: facial strength normal Extrem General: no pedal edema Results Last Vital Signs Temp 36.6 C 08/11/22 07:26 Pulse 92 H 08/11/22 11:38 Resp 20 08/11/22 11:38 BP 146/90 H 08/11/22 11:38 Pulse Ox 96 08/11/22 11:38 Labs 08/10/22 06:00 08/11/22 06:27 Labs: Laboratory Results - last 24 hr 08/09/22 08/10/22 08/10/22 04:12 12:56 Unknown D-Dimer 4167 H Sodium Potassium Chloride Carbon Dioxide Anion Gap BUN Creatinine Est GFR (CKD-EPI 2020) Glucose Calcium Total Bilirubin AST ALT Alkaline Phosphatase NT-Pro-B Natriuret Pep Total Protein Albumin Lipase Hepatitis A IgM Ab Negative Hep Bs Antigen Negative Hep B Core Total Ab Negative Hepatitis C Antibody Negative Add-On Test Request DONE 08/11/22 06:27 D-Dimer Sodium 143 Potassium 3.4 L Chloride 107 Carbon Dioxide 23.5 Anion Gap 12.5 H BUN 22 H Creatinine 2.1 H Est GFR (CKD-EPI 2020) 35.37 Glucose 95 Calcium 8.7 Total Bilirubin 1.1 H AST 89 H ALT 479 H Alkaline Phosphatase 141 H NT-Pro-B Natriuret Pep > 05215 H Total Protein 6.5 Albumin 2.9 L Lipase > 375 H Hepatitis A IgM Ab Hep Bs Antigen Hep B Core Total Ab Hepatitis C Antibody Add-On Test Request
[2022-08-11 11:59] LABS: Troponin I 62 ng/L (<or=60)
[2022-08-11 12:32] LABS: Procalcitonin 0.1 ng/mL
--- NOTE | 2022-08-11 14:45 | PAPNONF_PTH ---
PATIENT: Senthil Mcgowan LOC: U#:[id number] AGE/SX: 62/M [facility]: Digna Price MD : [id number] BED: A DIS: 08/15/2022 SPEC #: [id number] RECD: 08/11/22 17:42 STATUS: SOUT REQ #: [id number] AJ: 08/11/22 14:[address]: Digna Price DEPT: [facility] Cytology RECD BY: Xiomara Chávez ENTERED: 08/11/22 17:43 SP TYPE: NUPUR BLAS DR: Jayde Wren Tissues: 1 - BODY FLUID CYTO(NOT S/U/N/EM)[facility] Procedures: BODY FLUID CYTO(NOT SPU/UR/NIP/ENDOM)[facility] Comments: [id number] (TOTAL VOLUME = 60 ml, SENT FRESH) (REFRIGERATED)
--- NOTE | 2022-08-11 15:14 | W.PM.OP ---
Date of service: 08/11/22 Time of Service: 15:14 Operative Note Operative Note DATE OF PROCEDURE: 08/11/22 PRE-OP DIAGNOSIS: Bilateral thoracentesis PROCEDURE: Bilateral thoracentesis SURGEON: Catherine Santiago ANESTHESIA TYPE: Local By Surgeon Refer to Anesthesia Record ESTIMATED BLOOD LOSS: 2 PATHOLOGY: other COMPLICATIONS: None Patient was transported to: floor Patient's condition: stable Procedure Description: REPORT OF OPERATION Operative Note Operative Note Pt is here today for bilateral thoracentesis for symptoms of shortness of breath.? Chest x-ray was reviewed prior to beginning the procedure.? Informed consent was obtained explaining risks and benefits of the procedure, including but not limited to bleeding, infection, pneumothorax, recurrence, complications of anesthesia, and other unforetold complications. Timeout is performed prior to beginning the procedure. ? PROCEDURE:? The patient is brought to the procedure room and placed in the seated position.? Ultrasound is used to localize the pocket on the both sides of the chest.? The area is marked and then prepped and draped in the usual sterile fashion using a ChloraPrep scrub solution.? 10 cc's of 1% Lidocaine is used to anesthetize the T10 interspace. ? The small krista is made with a #11 blade.? The needle and catheter is then inserted over the top of the rib, aspirating as it is inserted.? The needle is then removed.? The catheter is then hooked up to the Vacutainer system and 1100 cc's of straw-colored fluid is evacuated from either chest.? The catheter is removed; pressure is held.? Sterile compression dressing is applied. -Pleural fluid from both sides of the chest is sent for culture. ? Ultrasound shows good lung slide up to the apex of the lung, and no air. Pt is given instructions in wound care, activity, medications, and warning signs: SOB, increasing in pain, chest pain, redness or temperature- if these occur, come to ED.
--- NOTE | 2022-08-11 15:25 | W.PM.PROGNOT ---
Date of Service Date of service: 08/11/22 Time of Service: 15:26 Assessment and Plan Assessment and plan (1) Cardiomyopathy: Status: Acute (2) Bilateral pleural effusion: Status: Acute Assessment and plan: -1100cc from each lung Fluid from either side sent for culture Portable chest x-ray shows no pneumonia (3) Pancreatitis: Status: Chronic Assessment and plan: -Etiology of pancreatitis is unknown - LFTs are improving. - Status at lipase is unknown -Patient has no appetite and is unable to eat. We will place a PICC line and consider starting TPN in a.m. if patient's appetite does not improve Continue supportive care (4) Cachexia: Status: Acute (5) COPD (chronic obstructive pulmonary disease): Status: Chronic (6) Renal insufficiency: Status: Chronic (7) GERD (gastroesophageal reflux disease): Status: Chronic (8) Anemia: Status: Chronic (9) Chronic kidney disease, stage 3: Status: Acute (10) Aortic valve stenosis: Status: Chronic (11) Poor nutrition: Status: Acute (12) Sleep disturbance: Status: Acute (13) Hiatal hernia: Status: Chronic (14) Aortic valve disease: Status: Acute (15) Essential hypertension: (16) Hyperlipidemia: Subjective Subjective Interval history since last seen: Patient states he cannot eat because of pain and nausea. He is still feeling short of breath today. He denies any chest pain. Exam Const General: cooperative and no acute distress Nutritional Appearance: overweight Orientation: alert, awake and oriented x3 Other: L: Decreased breath sounds at bases. Otherwise no wheezing C: reg rate and rthymn Abdom soft + BS. no distention or peritontisis LE-no edema and muscle wasting Objective Last Vital Signs Temp 36.6 C 08/11/22 07:26 Pulse 92 H 08/11/22 11:38 Resp 20 08/11/22 11:38 BP 146/90 H 08/11/22 11:38 Pulse Ox 96 08/11/22 11:38 Laboratory Results - last 24 hr 08/11/22 08/11/22 08/11/22 06:27 11:30 11:30 Sodium 143 Potassium 3.4 L Chloride 107 Carbon Dioxide 23.5 Anion Gap 12.5 H BUN 22 H Creatinine 2.1 H Est GFR (CKD-EPI 2020) 35.37 Glucose 95 Calcium 8.7 Total Bilirubin 1.1 H AST 89 H ALT 479 H Alkaline Phosphatase 141 H Troponin I 62 H* NT-Pro-B Natriuret Pep > 93837 H Total Protein 6.5 Albumin 2.9 L Lipase > 375 H Procalcitonin 0.1 Fluid Source Fluid pH 08/11/22 15:03 Sodium Potassium Chloride Carbon Dioxide Anion Gap BUN Creatinine Est GFR (CKD-EPI 2020) Glucose Calcium Total Bilirubin AST ALT Alkaline Phosphatase Troponin I NT-Pro-B Natriuret Pep Total Protein Albumin Lipase Procalcitonin Fluid Source Cancelled Fluid pH Cancelled Time Spent with Patient Time Spent with Patient: >50 minutes Time was spent: preparing to see the patient(eg.review tests), obtaining and/or reviewing separately otained hiistory, ordering medications,tests, procedures, referring, communicating with other health customer care voice consultant, indepentently interpreting results, counseling the patient and care coordination
[2022-08-11 15:29] VITALS: BP 146/97; PULSE 81; RESP 20; TEMP 36.3; O2SAT 96
--- NOTE | 2022-08-11 15:42 | NUR.NOTE ---
Patient returned from PACU. Vital signs taken and stable. Dressing to bilateral back cdi. No needs voiced currently. Bed low/locked side rails up x2, call light in reach and bed alarm on. Nursing Note:
[2022-08-11] MEDS: Furosemide 40 MG/4 ML VIAL IVP (16:54)
[2022-08-11] MEDS: Enoxaparin 40 MG/0.4 ML SYR SC (17:00)
[2022-08-11 17:06] LABS: Source: Pleural
[2022-08-11 17:14] LABS: Clarity Cloudy; Nucleated Cells 335 uL (0); Source Pleural
[2022-08-11 17:16] LABS: Mononuclear Cells 73 %; Polynuclear Cells 27 %
[2022-08-11] MEDS: LORazepam 2 MG/ML VIAL 1 MG IVP (18:12)
--- NOTE | 2022-08-11 19:00 | DI.RAD_ITS ---
Exam(s) XR PORTABLE CHEST AP POST LINE EXAM: XR PORTABLE CHEST AP POST LINE CLINICAL HISTORY: confirm PICC line placement. TECHNIQUE: 2D digital imaging was performed. COMPARISON: CR XR PORTABLE CHEST AP from 08/11/2022 FINDINGS: Single AP portable view. There has been interval placement of a left PICC line. Distal tip is in the lower SVC at SVC-RA junc tion. Heart size is upper normal. The mediastinum is not widened. There is persistent infiltrate in both lung bases. Small right pleural effusion. IMPRESSION: Persistent infiltrates. Small right pleural effusion. PICC line position is with distal tip at SVC-RA junction. DATA REPOSITORY: RADIATION DOSE DELIVERED:
--- NOTE | 2022-08-11 19:24 | DI.VRAD_ITS ---
Addendum created by Anne Wiggins MD on 08/11/2022 7:33:49 PM EDT: The positioning of the PICC is satisfactory.Findings were discussed with RN Roldan Rodgers at 08/11/2022 19:33 EDT. Initial report created on 08/11/2022 7:22:56 PM EDT: PROCEDURE INFORMATION: Exam: XR Chest Exam date and time: 08/11/2022 19:12 Age: 62 years old Clinical indication: Device placement; Picc; Additional info: Picc placement TECHNIQUE: Imaging protocol: Radiologic exam of the chest. Views: 1 view. COMPARISON: CR XR PORTABLE CHEST AP 08/11/2022 15:08 FINDINGS: Tubes, catheters and devices: Left arm PICC tip projecting over the SVC. Lungs: Right greater than left interstitial and airspace opacities mild and worsening. Favor compressive atelectasis in the right lung base, increasing, left lung base, increasing. Pneumonia also possible depending on the clinical scenario. Pleural spaces: Moderate right and small left pleural effusions, similar. No pneumothorax. Heart/Mediastinum: Moderate cardiomegaly with mild vascular congestion, the latter slightly worsened. Bones/joints: No acute fracture. IMPRESSION: 1. Left arm PICC tip projecting over the SVC. 2. Probable CHF as above, worsening. Bibasilar atelectasis and or pneumonia worsening Dictated and Authenticated by: Anne Wiggins MD. Ordering:GRISELDA Alexander MD
[2022-08-11 20:12] VITALS: BP 132/92; PULSE 89; RESP 16; TEMP 36.3; O2SAT 92
[2022-08-11] MEDS: DOXYCYCLINE 100 MG in Normal Saline 100 ML IVPB (20:19)
[2022-08-11] MEDS: LORazepam 0.5 MG TAB PO (21:51)
[2022-08-11] MEDS: QUEtiapine 50 MG TAB PO (21:51)
[2022-08-11] MEDS: Mirtazapine 15 MG TAB 45 MG PO (21:51)
[2022-08-11] MEDS: Melatonin 3 MG TAB PO (21:52)
[2022-08-12] MEDS: PIPERACILLIN/TAZO 3.375 GM in Normal Saline 50 ML IVPB ×3 (00:31→11:39)
[2022-08-12] MEDS: Ondansetron O.D.T. 4 MG TABEF PO ×3 (01:52→21:06)
[2022-08-12 06:42] LABS: HCT 32.1 % (40.0-50.0); HGB 9.9 g/dL (13.5-17.5); MCH 31.3 pg (27.0-33.0); MCHC 30.8 % (32.0-36.0); MCV 102 fL (80-95); MPV 10.2 fL (8.0-11.0); Platelet Count 397 10^3/uL (130-400); RBC 3.16 10^6/uL (4.36-5.78); RDW-SD 70.2 fL
[2022-08-12 07:32] VITALS: BP 153/92; PULSE 72; RESP 20; TEMP 36.6; O2SAT 95
[2022-08-12] MEDS: Tiotropium Bromide-Respimat 10 PUFF INH 2 PUFF IH (07:58)
[2022-08-12 08:04] LABS: Lipase > 375 U/L (16-77); NT-proBNP > 35000 pg/mL (<300)
[2022-08-12] MEDS: Pantoprazole 40 MG TABCR PO (08:25)
[2022-08-12] MEDS: Metoprolol CR 50 MG TABCR PO (08:25)
[2022-08-12] MEDS: FLUoxetine 10 MG TAB 30 MG PO (08:25)
[2022-08-12] MEDS: Potassium Chloride 20 MEQ TABCR PO (08:25)
[2022-08-12] MEDS: buPROPion-XL 150 MG TABCR 300 MG PO (08:25)
[2022-08-12] MEDS: Sucralfate 1 GM TAB PO ×2 (08:25→21:06)
[2022-08-12] MEDS: Furosemide 40 MG/4 ML VIAL IVP ×2 (08:26→17:15)
[2022-08-12] MEDS: DOXYCYCLINE 100 MG in Normal Saline 100 ML IVPB ×2 (08:26→21:27)
[2022-08-12] MEDS: Tamsulosin 0.4 MG CAPCR PO (08:28)
[2022-08-12 10:12] LABS: ALT 480 U/L (16-63); AST 162 U/L (15-37); Alkaline Phosphatase 182 U/L (46-116); Anion Gap 14.9 mmol/L (3-11); BUN 21 mg/dL (7-18); Bilirubin, Total 1.1 mg/dL (0.2-1.0); CO2 26.1 mmol/L (21.0-32.0); CREATININE 2.2 mg/dL (0.70-1.30); Calcium 8.8 mg/dL (8.5-10.1); Chloride 109 mmol/L (98-107); Estimated GFR 33.45 (mL/min/1.73m2); Glucose 96 mg/dL (74-106); Potassium 3.1 mmol/L (3.5-5.1); Sodium 150 mmol/L (136-145); Total Protein 6.7 g/dL (6.4-8.2)
--- NOTE | 2022-08-12 12:15 | W.PM.PROGNOT ---
Date of Service Date of service: 08/12/22 Time of Service: 12:15 Assessment and Plan Assessment and plan (1) Abdominal ascites: Status: Acute Assessment and plan: He continues to have clinical features of pancreatitis, and his lipase remains elevated. I do not see any obvious cause at this point. We will continue with supportive therapy. I will stop the antibiotics today, as I am not exactly sure what we are treating. I will repeat labs again tomorrow. Again, I reminded Senthil of the importance of total parenteral nutrition since he has any meaningful calories by mouth. He is also in for stress test on Sunday, to continue work-up of his newly diagnosed heart failure Subjective Subjective Interval history since last seen: Senthil underwent placement of a PICC line yesterday for TPN. He remains a bit depressed about his situation this morning. He is declining TPN today. I explained to him the importance of this. I think he has an understanding, but he continues to decline it. This is his abdomen continues to feel uncomfortable. Exam GI Other: His abdomen is soft and nondistended. He has some mild tenderness in the mid epigastrium, but it is about the same or less than previous. Objective Last Vital Signs Temp 97.9 F 08/12/22 07:32 Pulse 72 08/12/22 07:32 Resp 20 08/12/22 07:32 BP 153/92 H 08/12/22 07:32 Pulse Ox 95 08/12/22 07:32 Laboratory Results - last 24 hr 08/11/22 08/11/22 08/11/22 11:30 14:30 14:30 WBC RBC Hgb Hct MCV MCH MCHC RDW Plt Count MPV Sodium Potassium Chloride Carbon Dioxide Anion Gap BUN Creatinine Est GFR (CKD-EPI 2020) Glucose Calcium Total Bilirubin AST ALT Alkaline Phosphatase NT-Pro-B Natriuret Pep Total Protein Albumin Lipase Procalcitonin 0.1 Fluid Source Pleural Pleural Fluid Color Yellow Fluid Clarity Cloudy Fluid pH 6.0 Fluid WBC 335 Fld Polynuclear WBCs % 27 Fluid Mononuclear Cell 73 Fluid Other Cells Path Cons Comment 08/11/22 08/11/22 08/12/22 15:03 16:37 06:06 WBC 7.50 RBC 3.16 L Hgb 9.9 L Hct 32.1 L MCV 102 H MCH 31.3 MCHC 30.8 L RDW 19.0 H Plt Count 397 MPV 10.2 Sodium Potassium Chloride Carbon Dioxide Anion Gap BUN Creatinine Est GFR (CKD-EPI 2020) Glucose Calcium Total Bilirubin AST ALT Alkaline Phosphatase NT-Pro-B Natriuret Pep Total Protein Albumin Lipase Procalcitonin Fluid Source Cancelled Cancelled Fluid Color Cancelled Fluid Clarity Cancelled Fluid pH Cancelled Fluid WBC Cancelled Fld Polynuclear WBCs % Cancelled Fluid Mononuclear Cell Cancelled Fluid Other Cells Cancelled Path Cons Comment Cancelled 08/12/22 08/12/22 06:06 09:50 WBC RBC Hgb Hct MCV MCH MCHC RDW Plt Count MPV Sodium 150 H Potassium 3.1 L Chloride 109 H Carbon Dioxide 26.1 Anion Gap 14.9 H BUN 21 H Creatinine 2.2 H Est GFR (CKD-EPI 2020) 33.45 Glucose 96 Calcium 8.8 Total Bilirubin 1.1 H AST 162 H ALT 480 H Alkaline Phosphatase 182 H NT-Pro-B Natriuret Pep > 25359 H Total Protein 6.7 Albumin 3.0 L Lipase > 375 H Procalcitonin Fluid Source Fluid Color Fluid Clarity Fluid pH Fluid WBC Fld Polynuclear WBCs % Fluid Mononuclear Cell Fluid Other Cells Path Cons Comment Time Spent with Patient Time Spent with Patient: 25-34 minutes Time was spent: preparing to see the patient(eg.review tests) and counseling the patient
[2022-08-12 15:33] VITALS: BP 124/79; PULSE 81; RESP 16; TEMP 36.8; O2SAT 98
[2022-08-12] MEDS: Enoxaparin 40 MG/0.4 ML SYR SC (17:15)
[2022-08-12] MEDS: QUEtiapine 50 MG TAB PO (21:06)
[2022-08-12] MEDS: Mirtazapine 15 MG TAB 45 MG PO (21:06)
[2022-08-12 22:29] VITALS: BP 116/74; PULSE 88; RESP 16; TEMP 36; O2SAT 91
[2022-08-12 22:32] LABS: Albumin, Body FLuid <1.0 g/dL (See Note)
[2022-08-12 22:41] LABS: Legionella Ag Detection Urine Negative (Negative)
[2022-08-12 22:42] LABS: Glucose, Fluid 85 mg/dL (See Note)
[2022-08-13 00:53] VITALS: O2SAT 94
[2022-08-13 06:57] LABS: ALT 362 U/L (16-63); AST 99 U/L (15-37); Albumin 2.7 g/dL (3.4-5.0); Alkaline Phosphatase 161 U/L (46-116); Anion Gap 10.3 mmol/L (3-11); BUN 17 mg/dL (7-18); Bilirubin, Total 0.9 mg/dL (0.2-1.0); CO2 30.7 mmol/L (21.0-32.0); CREATININE 2.1 mg/dL (0.70-1.30); Calcium 8.4 mg/dL (8.5-10.1); Chloride 106 mmol/L (98-107); Estimated GFR 35.37 (mL/min/1.73m2); Glucose 104 mg/dL (74-106); Sodium 147 mmol/L (136-145)
[2022-08-13 07:04] LABS: Potassium 2.6 mmol/L (3.5-5.1)
[2022-08-13 07:18] LABS: Lipase > 375 U/L (16-77)
[2022-08-13 07:37] LABS: NT-proBNP > 35000 pg/mL (<300)
[2022-08-13] MEDS: buPROPion-XL 150 MG TABCR 300 MG PO (08:40)
[2022-08-13] MEDS: Sucralfate 1 GM TAB PO ×2 (08:41→19:42)
[2022-08-13] MEDS: Potassium Chloride 20 MEQ TABCR PO (08:41)
[2022-08-13] MEDS: FLUoxetine 10 MG TAB 30 MG PO (08:41)
[2022-08-13] MEDS: Ondansetron O.D.T. 4 MG TABEF PO ×2 (08:42→19:43)
[2022-08-13] MEDS: Pantoprazole 40 MG TABCR PO (08:42)
[2022-08-13] MEDS: POTASSIUM CHLORIDE 10 MEQ/100 ML BAG 100 MEQ IVPB ×3 (08:42→11:32)
[2022-08-13] MEDS: Normal Saline Flush 10 ML SYR IVP ×2 (08:43→15:40)
[2022-08-13] MEDS: Furosemide 40 MG/4 ML VIAL IVP ×2 (08:44→15:40)
[2022-08-13] MEDS: Tamsulosin 0.4 MG CAPCR PO (08:44)
[2022-08-13] MEDS: Tiotropium Bromide-Respimat 10 PUFF INH 2 PUFF IH (09:07)
--- NOTE | 2022-08-13 12:01 | W.PM.PROGNOT ---
Date of Service Date of service: 08/13/22 Time of Service: 12:01 Assessment and Plan Assessment and plan (1) Abdominal ascites: Status: Acute Assessment and plan: Were continuing with supportive therapies at this time. Clinically, his exam and appetite suggest improvement in his pancreatitis. However, the cause remains unclear to me, and the lipase is still greater than 375. He has a myocardial perfusion study planned for tomorrow to help better delineate his cardiac function. Subjective Subjective Interval history since last seen: Senthil says he is feeling a little better today. He says he ate some food yesterday, and is looking forward to eating his lunch today. He says he still has abdominal discomfort, but maybe is a little better than in the previous days. He denies any nausea or vomiting. Exam GI Other: Abdomen is soft and nondistended. He is mildly tender. Again, this seems better than previous days. Objective Last Vital Signs Temp 96.8 F L 08/12/22 22:29 Pulse 88 08/12/22 22:29 Resp 16 08/12/22 22:29 BP 116/74 08/12/22 22:29 Pulse Ox 94 08/13/22 00:53 Laboratory Results - last 24 hr 08/13/22 08/13/22 08/13/22 06:00 06:00 06:00 Sodium 147 H Potassium 2.6 L* Chloride 106 Carbon Dioxide 30.7 Anion Gap 10.3 BUN 17 Creatinine 2.1 H Est GFR (CKD-EPI 2020) 35.37 Glucose 104 Calcium 8.4 L Total Bilirubin 0.9 AST 99 H ALT 362 H Alkaline Phosphatase 161 H NT-Pro-B Natriuret Pep > 93719 H Total Protein 6.0 L Albumin 2.7 L Lipase Cancelled > 375 H Time Spent with Patient Time Spent with Patient: <25 minutes Time was spent: preparing to see the patient(eg.review tests) and counseling the patient
[2022-08-13 15:38] VITALS: BP 117/65; PULSE 75; RESP 17; TEMP 36.3; O2SAT 96
[2022-08-13] MEDS: Enoxaparin 40 MG/0.4 ML SYR SC (17:02)
[2022-08-13] MEDS: Protein Nutritional Supplement 16 GM 1 OUNCE PACKET PO (19:44)
[2022-08-13] MEDS: Mirtazapine 15 MG TAB 45 MG PO (21:11)
[2022-08-13] MEDS: QUEtiapine 50 MG TAB PO (21:12)
[2022-08-14 06:17] VITALS: BP 117/86; PULSE 64; RESP 14; TEMP 37.6; O2SAT 94
[2022-08-14 07:12] LABS: ALT 273 U/L (16-63); AST 66 U/L (15-37); Albumin 2.4 g/dL (3.4-5.0); Alkaline Phosphatase 147 U/L (46-116); BUN 15 mg/dL (7-18); Bilirubin, Total 0.8 mg/dL (0.2-1.0); CREATININE 1.8 mg/dL (0.70-1.30); Calcium 7.8 mg/dL (8.5-10.1); Chloride 103 mmol/L (98-107); Estimated GFR 42.56 (mL/min/1.73m2); Glucose 121 mg/dL (74-106); Sodium 145 mmol/L (136-145); Total Protein 5.6 g/dL (6.4-8.2)
[2022-08-14 07:25] LABS: Potassium 2.2 mmol/L (3.5-5.1)
[2022-08-14 07:27] LABS: Lipase > 375 U/L (16-77)
[2022-08-14 07:34] VITALS: BP 136/88; PULSE 91; RESP 17; TEMP 36.8; O2SAT 94
[2022-08-14] MEDS: Tiotropium Bromide-Respimat 10 PUFF INH 2 PUFF IH (08:04)
[2022-08-14] MEDS: Potassium Chloride 20 MEQ TABCR 40 MEQ PO ×2 (08:13→20:07)
[2022-08-14] MEDS: Potassium Chloride 20 MEQ TABCR PO (08:14)
[2022-08-14] MEDS: FLUoxetine 10 MG TAB 30 MG PO (08:15)
[2022-08-14] MEDS: buPROPion-XL 150 MG TABCR 300 MG PO (08:15)
[2022-08-14] MEDS: Ondansetron O.D.T. 4 MG TABEF PO ×3 (08:15→20:07)
[2022-08-14] MEDS: Sucralfate 1 GM TAB PO ×2 (08:16→20:07)
[2022-08-14] MEDS: Pantoprazole 40 MG TABCR PO (08:17)
[2022-08-14] MEDS: Tamsulosin 0.4 MG CAPCR PO (08:18)
[2022-08-14] MEDS: Normal Saline Flush 10 ML SYR IVP (08:18)
[2022-08-14] MEDS: POTASSIUM CHLORIDE 20 MEQ/100 ML BAG 50 MEQ IVPB ×2 (11:57→16:33)
[2022-08-14 12:04] LABS: Lab Add On Test DONE
[2022-08-14 12:13] LABS: Magnesium 0.8 mg/dL (1.8-2.4)
--- NOTE | 2022-08-14 12:27 | W.NUTCONSULT ---
Date of service: 08/14/22 Time of Service: 12:27 Nutritional Consult ASSESSMENT: Senthil is a high nutritional risk in view of extended period of poor po intake. PMH: developmental delay, COPD, ascites, cardiomyopathy and pancreatitis. Lipase remains > 375. Following low fat meal plan with frequent meal refusals- receives ensure clears, does not like. Nursing states he has also refused TPN to be started over weekend. NUTRITIONAL DIAGNOSIS: malnutrition in view of poor po intake secondary to pancreatitis, cachexia INTERVENTION: If TPN considered and accepted, recommend: 4.24/D10 2000 ml, 20% lipids 250 ml. standard electrolytes, additives MONITORING AND EVALUATION: labs, weight, po intake Time Spent in Nutritional Counseling and Treatment: 30
--- NOTE | 2022-08-14 12:30 | DI.NM_ITS ---
APPROVED REPORT Exam: Pharmacologic Patient Location: In-Patient Room/Bed: 212 Stress Nurse: Elsie Mcclain RN Ordering Provider:BRAD NAJERA, Contact Number: BMI: 23.91 Baseline Rhythm: Sinus Tachycardia Comment: Inferior leads showing 1mm depression at rest, LVH, repolarization abnormality Indications: New evidence of heart failure Medical History Medical History: Cardiomyopathy, cachexia, COPD, anxiety, depression, CKD stage 3, PSVT, hearing loss , anemia, GERD, hx etoh use, HTN, HLD, developemental delay, copd, asthma Cardiac Medications: Lasix, protonix, lovenox, potassium, megace, zofran, spiriva respimat, albuterol , Toprol XL, mirtazapine, simvastatin, ASA, fluoxetine, flomax, Bupropion Allergies: Varenicline Cardiac Risk Factors: +Family history, HTN, HLD, COPD, current daily smoker, asthma Previous Cardiac Procedures: None Pretest Chest Pain Characteristics: None Exercise History: Sedentary Physical Disabilities: Unsteady gait, balance Lung Sounds: Bilateral lungs with trace crackles at bases, scattered wheeze, right w/ crackles to mid field Heart Sounds: Regular Stress Test Details Test: Pharmacologic stress testing performed using 0.4 mg of regadenoson per 5 mL given IV over 10 s econds. Reason for pharmacologic stress test: physical limitation. Nuclear Acquisition: Rest Tc-99m/Stress Tc-99m 1 day Rest Isotope: Tc-99m Sestamibi. Dose: 10.0 Date: 08/14/2022 Injection Time: 12:00 Stress Isotope: Tc-99m Sestamibi. Dose: 30.0 Date: 08/14/2022 Injection Time: 14:30 HR Resting HR Supine: 102 bpm Max Heart Rate (APMHR): 160.153686 bpm Target HR (85% APMHR): 136.723112 bpm Max HR Achieved: 124 bpm % of APMHR: 77.50 Recovery HR: 105 bpm BP Resting BP Supine: 115/86 mmHg Max BP: 115/86 mmHg Recovery BP: 110/62 mmHg ECG Resting ECG: Sinus Tachycardia, Resting ST abnormality Ectopy: None Comment: Inferior leads w/ resting ST depression, 1mm Stress ECG: Sinus Tachycardia ST Change: Nondiagnostic resting ST abnormalities Arrhythmia: 1 PVC Recovery ECG: Sinus tachycardia, ST abnormality Recovery ST Change: Nondiagnostic resting ST abnormalities Recovery Arrhythmia: None Clinical Stress Symptoms: Mild shortness of breath Angina Score: None Rate Pressure Product: [id number] Stress ECG Conclusion 1. The resting electrocardiogram showed sinus tachycardia, left ventricular hypertrophy with repolari zation abnormalities 2. Patient underwent testing using pharmacologic stress with regadenoson 3. Peak heart rate achieved was 78% of predicted for age 4. The electrocardiographic portion of the test was nondiagnostic 5. See MPI report Stress Test Summary STAGE HR BP SpO2 Symptoms NOTES Supine 101 115/86 91% 1 min post Lexiscan injection 112 114/68 mild shortness of breath 3 min post Lexiscan injection 110 112/64 shortness of breath resolved 6 min post Lexiscan injection 105 110/62 93% Inpatient presented to stress lab from having resting images done in [facility]. Patient 12 lead showed sinus tachycardiac w/ resting ST depressions in inferior leads. Patient was asymptomatic, vital signs stable. Situation and 12 lead reviewed with prior to proceeding with stress test. Per Dr.Dow lock, proceeded w/ laying lexiscan test. Patient reported only mld shortness of breath with test. Tolera garcía well. No adverse signs or symptoms reported or observed. MPI Conclusion Myocardial perfusion shows no evidence of ischemia or prior infarction EF is 17% with global hypokinesis Radiologist Interpretation Radiologist agrees with Assessment Coordinator's Interpretation. bilateral pleural effusions noted on ct images Radiologist Interpretation by: Madeline Hernandez MD Interpretation Date/Time: 08/14/2022 17:07:48
--- NOTE | 2022-08-14 12:40 | W.PM.PROGNOT ---
Date of Service Date of service: 08/14/22 Time of Service: 12:42 Assessment and Plan Assessment and plan (1) Pancreatitis: Status: Chronic (2) Abdominal ascites: Status: Acute Assessment and plan: Were continuing with supportive therapies at this time. Clinically, his exam and appetite suggest improvement in his pancreatitis. However, the cause remains unclear to me, and the lipase is still greater than 375. He has a myocardial perfusion study planned for tomorrow to help better delineate his cardiac function. Subjective Subjective Interval history since last seen: Neyda tells me that he is doing well. He has no abdominal pain. He has had no fevers. His potassium is quite low today looking at his labs. He has had a quite a bit of liquid stools. He is still not eating which is a chronic issue with him Exam Const General: cooperative and comfortable Nutritional Appearance: thin Orientation: alert and oriented x3 HENMT Head: normocephalic and atraumatic Resp Effort & Inspection: normal respiratory effort Auscultation: clear to auscultation bilaterally Cardio Rate: regular rate Rhythm: regular rhythm GI Inspection: normal to inspection Palpation: soft and nontender Objective Last Vital Signs Temp 98.2 F 08/14/22 07:34 Pulse 91 H 08/14/22 07:34 Resp 17 08/14/22 07:34 BP 136/88 08/14/22 07:34 Pulse Ox 94 08/14/22 07:34 Laboratory Results - last 24 hr 08/11/22 08/11/22 08/11/22 14:30 14:30 14:30 Sodium Potassium Chloride Carbon Dioxide Anion Gap BUN Creatinine Est GFR (CKD-EPI 2020) Glucose Calcium Magnesium Total Bilirubin AST ALT Alkaline Phosphatase Total Protein Albumin Lipase Fluid Glucose 85 Fluid Albumin <1.0 Urine Legionella Ag Path Cons Comment See Comment Add-On Test Request 08/11/22 08/14/22 08/14/22 19:54 06:24 06:24 Sodium 145 Potassium 2.2 L* Chloride 103 Carbon Dioxide 35.0 H Anion Gap 7.0 BUN 15 Creatinine 1.8 H Est GFR (CKD-EPI 2020) 42.56 Glucose 121 H Calcium 7.8 L Magnesium Total Bilirubin 0.8 AST 66 H ALT 273 H Alkaline Phosphatase 147 H Total Protein 5.6 L Albumin 2.4 L Lipase > 375 H Fluid Glucose Fluid Albumin Urine Legionella Ag Negative Path Cons Comment Add-On Test Request 08/14/22 08/14/22 06:24 06:24 Sodium Potassium Chloride Carbon Dioxide Anion Gap BUN Creatinine Est GFR (CKD-EPI 2020) Glucose Calcium Magnesium 0.8 L Total Bilirubin AST ALT Alkaline Phosphatase Total Protein Albumin Lipase Fluid Glucose Fluid Albumin Urine Legionella Ag Path Cons Comment Add-On Test Request DONE Time Spent with Patient Time Spent with Patient: 25-34 minutes Time was spent: obtaining and/or reviewing separately otained hiistory, indepentently interpreting results and counseling the patient
[2022-08-14 14:42] LABS: C Diff PCR Negative (Negative)
[2022-08-14] MEDS: Regadenoson 0.4 MG/5 ML SYR IVP (15:03)
[2022-08-14 15:28] VITALS: BP 127/89; PULSE 133; RESP 17; TEMP 36.9; O2SAT 96
[2022-08-14] MEDS: Protein Nutritional Supplement 16 GM 1 OUNCE PACKET PO ×2 (16:35→20:08)
--- NOTE | 2022-08-14 16:51 | CMPROGNOTE_ITS ---
Date of service: 08/14/22 Time of Service: 16:51 Care Management Progress Note Progress Note Text Progress Note Text: S/O: Senthil is showing improvement and is working toward discharge, per MD. CM updated healthcare advisory services manager, Kirk. CM will continue to follow. A: Senthil is a 62 year old male admitted to [facility] on 08/07/22 for acute cholecystitis and pancreatitis. P: Anticipate Senthil will return home in the care of his home care providers, Kalia and Ángela, who will provide transportation via private vehicle. He will follow up with his PCP and discharge plan of care. CM will continue to follow. MH Services (Omit if N/A) Current MH Services: Other (IDDs)
[2022-08-14] MEDS: Enoxaparin 40 MG/0.4 ML SYR SC (18:11)
--- NOTE | 2022-08-14 19:20 | W.PM.PROGNOT ---
Date of Service Date of service: 08/14/22 Time of Service: 19:21 Assessment and Plan Assessment and plan (1) Cardiomyopathy: Status: Acute Assessment and plan: New finding with decreased EF of 40-45% per echo. S/p thoracenthesis and paracenthesis. Await results of MPI stress test. I think he could be switched to PO furosemide at this time. (2) Tachycardia: Status: Acute Assessment and plan: Resume metoprolol. H/o SVT. Consider resuming tele. (3) Abdominal ascites: Status: Acute Assessment and plan: I agree that congestive hepatopathy needs to be considered. Clinically much better. No indication for paracenthesis at this time. (4) Acute acalculous cholecystitis: Status: Suspected Assessment and plan: Abx have been d/c'ed. Defer to general surgery team. (5) Pancreatitis: Status: Chronic Assessment and plan: Clinically improving. No pain today. Tolerating regular diet. (6) COPD (chronic obstructive pulmonary disease): Status: Chronic Assessment and plan: Not in acute exacerbation. (7) Chronic kidney disease, stage 3: Status: Acute Assessment and plan: Cr has actually improved to 1.8. WIll monitor now with the decreased dose of diuretics. (8) Essential hypertension: Assessment and plan: Resume metoprolol (HR is up as well). (9) Hyperlipidemia: Assessment and plan: Continue to hold simvastatin (10) Alcohol abuse: Assessment and plan: In remission for 8 years. Not at risk for EtOH w/d. (11) Hypokalemia: Status: Acute Assessment and plan: Replete. Recheck in am (12) Hypomagnesemia: Status: Acute Assessment and plan: Replete. Recheck in am. Subjective Subjective Interval history since last seen: Mr Mcgowan is eating dinner. He has been tachycardic on his vital signs; however, he has no symptoms of it. Denies dizziness, chest pain, shortness of breath, palpitations, nausea. He is eating an egg salad sandwich, an that is not making him have abdominal pain. He is s/p MPI stress test today; final results are not yet available. Exam Narrative Exam Narrative: General: Pleasant middle-aged male who is eating an egg salad sandwich sitting up in bed, A&OX3, NAD HEENT: EOMI, MMM Heart: seemingly RRR, tachycardic, no m/r/g Lungs: CTAB Abdomen: soft, nontender, nondistended Extremities: trace edema BLEs Objective Last Vital Signs Temp 36.9 C 08/14/22 15:28 Pulse 133 H 08/14/22 15:28 Resp 17 08/14/22 15:28 BP 127/89 08/14/22 15:28 Pulse Ox 96 08/14/22 15:28 Laboratory Results - last 24 hr 08/11/22 08/11/22 08/11/22 14:30 14:30 14:30 Sodium Potassium Chloride Carbon Dioxide Anion Gap BUN Creatinine Est GFR (CKD-EPI 2020) Glucose Calcium Magnesium Total Bilirubin AST ALT Alkaline Phosphatase Total Protein Albumin Lipase Fluid Glucose 85 Fluid Albumin <1.0 Stl C.difficile Tox PCR Urine Legionella Ag Path Cons Comment See Comment Add-On Test Request 08/11/22 08/14/22 08/14/22 19:54 06:24 06:24 Sodium 145 Potassium 2.2 L* Chloride 103 Carbon Dioxide 35.0 H Anion Gap 7.0 BUN 15 Creatinine 1.8 H Est GFR (CKD-EPI 2020) 42.56 Glucose 121 H Calcium 7.8 L Magnesium Total Bilirubin 0.8 AST 66 H ALT 273 H Alkaline Phosphatase 147 H Total Protein 5.6 L Albumin 2.4 L Lipase > 375 H Fluid Glucose Fluid Albumin Stl C.difficile Tox PCR Urine Legionella Ag Negative Path Cons Comment Add-On Test Request 08/14/22 08/14/22 08/14/22 06:24 06:24 13:13 Sodium Potassium Chloride Carbon Dioxide Anion Gap BUN Creatinine Est GFR (CKD-EPI 2020) Glucose Calcium Magnesium 0.8 L Total Bilirubin AST ALT Alkaline Phosphatase Total Protein Albumin Lipase Fluid Glucose Fluid Albumin Stl C.difficile Tox PCR Negative Urine Legionella Ag Path Cons Comment Add-On Test Request DONE Time Spent with Patient Time Spent with Patient: 25-34 minutes Time was spent: preparing to see the patient(eg.review tests), obtaining and/or reviewing separately otained hiistory, ordering medications,tests, procedures, referring, communicating with other health pharmacy customer care specialist, indepentently interpreting results, counseling the patient and care coordination
[2022-08-14 19:55] LABS: Potassium 3.3 mmol/L (3.5-5.1)
[2022-08-14] MEDS: MAGNESIUM SULFATE 4 GM/100 ML BAG IVPB (20:06)
[2022-08-14] MEDS: Metoprolol 25 MG TAB PO (20:07)
[2022-08-14] MEDS: Mirtazapine 15 MG TAB 45 MG PO (21:47)
[2022-08-14] MEDS: QUEtiapine 50 MG TAB PO (21:47)
[2022-08-14 21:54] VITALS: BP 124/82; PULSE 108; RESP 18; TEMP 37; O2SAT 95
[2022-08-14 22:42] LABS: Streptococcus Pneumoniae Ag, U Negative (Negative)
[2022-08-15] MEDS: Melatonin 3 MG TAB PO (00:53)
[2022-08-15] MEDS: LORazepam 0.5 MG TAB PO (00:53)
[2022-08-15 07:10] LABS: HCT 32.5 % (40.0-50.0); HGB 10.5 g/dL (13.5-17.5); MCH 31.8 pg (27.0-33.0); MCHC 32.3 % (32.0-36.0); MCV 99 fL (80-95); MPV 9.6 fL (8.0-11.0); Platelet Count 388 10^3/uL (130-400); RDW 18.5 % (11.8-14.1); RDW-SD 65.9 fL; WBC 8.84 10^3/uL (4.4-10.8)
--- NOTE | 2022-08-15 07:17 | PGE_ITS ---
Date of Service Date of service: 08/15/22 Time of Service: 07:17 Assessment and Plan Assessment and plan (1) Pancreatitis: Status: Chronic Assessment and plan: -labs continue to slowly improve pt ate 50% of tray. still c/o nausea but no vomting. Pt does not eat well at baseline. Unclear if this is do to GI problem or behavioral. -cont low fat diet -F/u in 2 wks for labs -referral to GI at [facility] same home meds (2) Abdominal ascites: Status: Acute Assessment and plan: Morning labs are pending No pain at this time tolerating low fat diet Etiology of Pancreatitis unclear, however symptomatically improving Possible d/c home later today Will require out patient follow up with surgical services Subjective Subjective Interval history since last seen: Arrive with Senthil resting comfortably in bed. He denies having any pain. Exam Const General: cooperative, healthy appearing and comfortable Orientation: alert and oriented x3 Resp Effort & Inspection: normal respiratory effort, no audible wheezes and no cough GI Inspection: normal to inspection Palpation: soft and nontender Objective Last Vital Signs Temp 37 C 08/14/22 21:54 Pulse 108 H 08/14/22 21:54 Resp 18 08/14/22 21:54 BP 124/82 08/14/22 21:54 Pulse Ox 95 08/14/22 21:54 Laboratory Results - last 24 hr 08/11/22 08/11/22 08/11/22 14:30 14:30 14:30 Sodium Potassium Chloride Carbon Dioxide Anion Gap BUN Creatinine Est GFR (CKD-EPI 2020) Glucose Calcium Magnesium Total Bilirubin AST ALT Alkaline Phosphatase Total Protein Albumin Lipase Fluid Glucose 85 Fluid Albumin <1.0 Stl C.difficile Tox PCR Urine Legionella Ag Path Cons Comment See Comment Add-On Test Request 08/11/22 08/14/22 08/14/22 19:54 06:24 06:24 Sodium 145 Potassium 2.2 L* Chloride 103 Carbon Dioxide 35.0 H Anion Gap 7.0 BUN 15 Creatinine 1.8 H Est GFR (CKD-EPI 2020) 42.56 Glucose 121 H Calcium 7.8 L Magnesium Total Bilirubin 0.8 AST 66 H ALT 273 H Alkaline Phosphatase 147 H Total Protein 5.6 L Albumin 2.4 L Lipase > 375 H Fluid Glucose Fluid Albumin Stl C.difficile Tox PCR Urine Legionella Ag Negative Path Cons Comment Add-On Test Request 08/14/22 08/14/22 08/14/22 06:24 06:24 13:13 Sodium Potassium Chloride Carbon Dioxide Anion Gap BUN Creatinine Est GFR (CKD-EPI 2020) Glucose Calcium Magnesium 0.8 L Total Bilirubin AST ALT Alkaline Phosphatase Total Protein Albumin Lipase Fluid Glucose Fluid Albumin Stl C.difficile Tox PCR Negative Urine Legionella Ag Path Cons Comment Add-On Test Request DONE 08/14/22 19:35 Sodium Potassium 3.3 L D Chloride Carbon Dioxide Anion Gap BUN Creatinine Est GFR (CKD-EPI 2020) Glucose Calcium Magnesium Total Bilirubin AST ALT Alkaline Phosphatase Total Protein Albumin Lipase Fluid Glucose Fluid Albumin Stl C.difficile Tox PCR Urine Legionella Ag Path Cons Comment Add-On Test Request Time Spent with Patient Time Spent with Patient: <25 minutes Time was spent: other (Patient seen by TRISH and Dr. Santiago)
[2022-08-15 07:53] LABS: ALT 227 U/L (16-63); AST 54 U/L (15-37); Albumin 2.4 g/dL (3.4-5.0); Alkaline Phosphatase 131 U/L (46-116); Anion Gap 8.5 mmol/L (3-11); BUN 18 mg/dL (7-18); Bilirubin, Direct 0.3 mg/dL (0.0-0.2); Bilirubin, Total 0.6 mg/dL (0.2-1.0); CO2 29.5 mmol/L (21.0-32.0); CREATININE 1.6 mg/dL (0.70-1.30); Calcium 7.8 mg/dL (8.5-10.1); Chloride 106 mmol/L (98-107); Estimated GFR 49.02 (mL/min/1.73m2); Glucose 101 mg/dL (74-106); Potassium 3.6 mmol/L (3.5-5.1); Sodium 144 mmol/L (136-145); Total Protein 5.7 g/dL (6.4-8.2)
[2022-08-15 07:57] VITALS: BP 126/88; PULSE 94; RESP 17; TEMP 36.2; O2SAT 95
[2022-08-15] MEDS: Potassium Chloride 20 MEQ TABCR 40 MEQ PO (08:35)
[2022-08-15] MEDS: Normal Saline Flush 10 ML SYR IVP (08:37)
[2022-08-15] MEDS: Tiotropium Bromide-Respimat 10 PUFF INH 2 PUFF IH (09:04)
[2022-08-15 09:51] LABS: Amylase, BF 66 U/L
[2022-08-15 09:56] LABS: Lipase, BF 39 U/L
[2022-08-15] MEDS: Spironolactone 25 MG TAB PO (10:24)
--- NOTE | 2022-08-15 13:57 | DSE_ITS ---
Date of service: 08/15/22 Time of Service: 13:58 DS: Diagnosis Discharge Diagnosis (1) Pancreatitis: Status: Chronic (2) Abdominal ascites: Status: Acute Discharge Plan Disposition Patient Disposition: Home Condition: Improving Discharge Details Reason For Visit: Acute Cholecystitis and Pancreatitis Admit Date/Time: 08/07/22 16:00 Admit Provider: Digna Price Attending Provider: Digan Price Primary Care Provider: Jayde Wren Hospital Course Hospital Course: see addendum Home Meds and New Rx's Prescriptions: New Bio-K plus 50 billion cell capsule,delayed release(DR/EC) 1 cap PO DAILY Qty: 60 0RF Rx Instructions: ok to substitute for what pt insurance company covers/pharmacy stock Continued aspirin [Adult Aspirin Regimen] 81 mg tablet,delayed release (DR/EC) 81 mg PO DAILY ondansetron HCl 4 mg tablet 4 mg PO Q6H megestrol 400 mg/10 mL (10 mL) suspension 200 mg PO QID Qty: 1000 5RF Rx Instructions: 5mL by mouth four times a day Spiriva Respimat 2.5 mcg/actuation mist 2 puff inhalation DAILY Qty: 12 3RF simvastatin 20 MG tablet 20 mg PO DAILY mirtazapine 30 MG tablet 60 mg PO DAILY albuterol sulfate [Proventil HFA] 6.7 GM HFA aerosol inhaler 2 puff Inhalation PRN PRN multivitamin [Daily Multi-Vitamin] 1 EACH tablet 1 tab PO DAILY quetiapine [Seroquel] 50 MG tablet 100 mg PO HS omeprazole 20 MG capsule,delayed release(DR/EC) 40 mg PO DAILY metoprolol succinate [Toprol XL] 50 MG tablet extended release 24 hr 50 mg PO DAILY fluoxetine 40 mg capsule 40 mg PO DAILY magnesium oxide 400 mg (241.3 mg magnesium) tablet 200 mg PO DAILY tamsulosin 0.4 mg capsule 0.4 mg PO DAILY acetylcysteine 600 mg capsule 1,200 mg PO BID bupropion HCl 300 MG tablet extended release 24 hr 300 mg PO DAILY Discontinued ferrous gluconate 324 mg (38 mg iron) tablet 324 mg PO DAILY Discharge Instructions Additional Instructions: -Follow-up with Dr. Price in 2 weeks. -low fat diet. No pork/dairy/nuts or nut butters/avacadoes for 2 wks -no straining to move bowels -pain meds are very constipating: if you do not move your bowels daily take a dose of OTC Miralax -It is ok to shower or bath as you normally do -Protein supplements daily. You may find that your appetite is smaller. Eat 3-6 small meals throughout the day. It is important to drink lots of water after surgery, 6-10 glasses a day. -If you were given an incentive spirometry (breathing electroplating laborer?), continue to do this 10x/hour while awake. -We do want you up walking, at least 5-6 times per day. This is very important to prevent pneumonia and blood clots. You can climb stairs, take them slowly. -You may find that you are very tired after being in the hospital- this is normal. Activity:: Activity as Tolerated Equipment/Supplies:: No Equipment Needed Diet:: low fat Discharge Orders Discharge Orders: Discharge Order (Routine); Ordered 08/15/22 Ordered By: Catherine Santiago DS: Summary Time Spent with Patient providing and/or coordinating discharge services: Less than 30 minutes Status at Discharge Functional status at discharge: independent ambulation Overall status at discharge: patient is progressing back to baseline Mental Status: mental status grossly normal and other (quiet) Speech and Movement: speech and movement normal Mood: other (quiet) Affect: blunted Exam Psych Mental Status: mental status grossly normal and other (quiet) Speech and Movement: speech and movement normal Mood: other (quiet) Affect: blunted DS: Data Vitals/I&O Vitals and I&O: Vital Signs Temperature 36.2 C L 08/15/22 07:57 Temperature Source Tympanic 08/15/22 07:57 Pulse 94 H 08/15/22 07:57 Pulse Rhythm Regular 08/15/22 08:43 Respiratory Rate 17 08/15/22 07:57 Respiratory Effort Normal 08/15/22 08:43 Respiratory Depth Normal 08/15/22 08:43 Respiratory Pattern Normal 08/15/22 08:43 Blood Pressure 126/88 08/15/22 07:57 Blood Pressure Position Sitting 08/07/22 11:33 Pulse Oximetry 95 08/15/22 07:57 Oxygen Delivery Method Room Air 08/15/22 07:57 Oxygen Flow Rate 0 08/15/22 07:57 Pain Level 0 08/14/22 08:32 Comment HR called over radio 08/14/22 15:28 Intake & Output 08/14/22 08/15/22 08/15/22 23:59 11:59 23:59 Intake Total 100 / 350 450 / 450 Output Total 50 / 700 200 / 200 Balance 50 / -350 250 / 250 Intake: IV 100 / 100 100 / 100 Oral 350 / 350 Output: Urine 50 / 700 200 / 200 Other: Urine Color Yellow Yellow Urine Appearance Clear Clear Voiding Methods Toilet Data Completed and Pending Labs on day of discharge: Labs from last 24 hours 08/15/22 08/15/22 08/14/22 06:27 06:27 19:35 WBC 8.84 RBC 3.30 L Hgb 10.5 L Hct 32.5 L MCV 99 H MCH 31.8 MCHC 32.3 RDW 18.5 H Plt Count 388 MPV 9.6 Sodium 144 Potassium 3.6 3.3 L D Chloride 106 Carbon Dioxide 29.5 Anion Gap 8.5 BUN 18 Creatinine 1.6 H Est GFR (CKD-EPI 2020) 49.02 Glucose 101 Calcium 7.8 L Magnesium 2.0 Total Bilirubin 0.6 Conjugated Bilirubin 0.3 H AST 54 H ALT 227 H Alkaline Phosphatase 131 H Total Protein 5.7 L Albumin 2.4 L Fluid Type Fluid Amylase Fluid Lipase Stl C.difficile Tox PCR Ur Strep pneumoniae Ag 08/14/22 08/11/22 08/11/22 13:13 19:54 14:30 WBC RBC Hgb Hct MCV MCH MCHC RDW Plt Count MPV Sodium Potassium Chloride Carbon Dioxide Anion Gap BUN Creatinine Est GFR (CKD-EPI 2020) Glucose Calcium Magnesium Total Bilirubin Conjugated Bilirubin AST ALT Alkaline Phosphatase Total Protein Albumin Fluid Type SEE BELOW Fluid Amylase Fluid Lipase 39 Stl C.difficile Tox PCR Negative Ur Strep pneumoniae Ag Negative 08/11/22 14:30 WBC RBC Hgb Hct MCV MCH MCHC RDW Plt Count MPV Sodium Potassium Chloride Carbon Dioxide Anion Gap BUN Creatinine Est GFR (CKD-EPI 2020) Glucose Calcium Magnesium Total Bilirubin Conjugated Bilirubin AST ALT Alkaline Phosphatase Total Protein Albumin Fluid Type SEE BELOW Fluid Amylase 66 Fluid Lipase Stl C.difficile Tox PCR Ur Strep pneumoniae Ag Preliminary micro results at discharge 08/11/22 14:30 Body Fluid Culture - Preliminary Pleural 08/11/22 14:30 Body Fluid Culture - Preliminary Pleural 08/11/22 14:30 Anaerobic Culture - Preliminary Pleural 08/11/22 14:30 Anaerobic Culture - Preliminary Pleural PFSH All Active Problems Hypomagnesemia (Acute) Hypokalemia (Acute) Tachycardia (Acute) Acute cholecystitis (Acute) Bilateral pleural effusion (Acute) Cardiomyopathy (Acute) Abdominal ascites (Acute) Pancreatitis (Chronic) Cachexia (Acute) COPD (chronic obstructive pulmonary disease) (Chronic) Anxiety and depression (Chronic) Renal insufficiency (Chronic) GERD (gastroesophageal reflux disease) (Chronic) Anemia (Chronic) Chronic kidney disease, stage 3 (Acute) Aortic valve stenosis (Chronic) Poor nutrition (Acute) Sleep disturbance (Acute) Hiatal hernia (Chronic) Appetite impaired (Acute) Weight loss (Acute) Aortic valve disease (Acute) Conductive hearing loss, unilateral, right ear, with unrestricted hearing on the contralateral side (Acute) Central perforation of tympanic membrane, right ear (Acute) 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 (Acute) Abdominal pain (Acute) Arrhythmia (Acute) Constipation (Acute) PSVT (paroxysmal supraventricular tachycardia) (Acute) UTI (urinary tract infection) (Acute) Suicidal ideation (Acute) Depression (Acute) Medical History Alcohol abuse COPD (chronic obstructive pulmonary disease) Depression Dizziness Essential hypertension Hyperlipidemia SVT (supraventricular tachycardia) Syncope Surgical History No significant past surgical history Social History Smoking/Tobacco Use Status: Current every day Tobacco Type: cigarettes Years smoked: 30 Smoking risk assessment performed?: Yes Alcohol Intake: never Drug use: Occasionally Substance use type: marijuana Details: Pot calms his nerves and helps him sleep. Do you feel safe at home: Yes Do you feel safe in your relationship?: Yes Additional Social history: Lives with a drawbridge operator from [employer]. Time Spent with Patient Time Spent with Patient: <45 minutes Time was spent: preparing to see the patient(eg.review tests), obtaining and/or reviewing separately otained hiistory, ordering medications,tests, procedures, referring, communicating with other health hospice care consultant, indepentently interpreting results, counseling the patient and care coordination
--- NOTE | 2022-08-15 14:28 | W.PM.DS.N ---
Date of service: 08/15/22 Time of Service: 14:30 DS: Diagnosis Discharge Diagnosis (1) Pancreatitis: Status: Chronic (2) Abdominal ascites: Status: Acute Discharge Plan Disposition Patient Disposition: Home Condition: Improving Discharge Details Reason For Visit: Acute Cholecystitis and Pancreatitis Admit Date/Time: 08/07/22 16:00 Admit Provider: Digna Price Attending Provider: Digna Price Primary Care Provider: Jayde Wren Hospital Course Hospital Course: see addendum Home Meds and New Rx's Prescriptions: New Bio-K plus 50 billion cell capsule,delayed release(DR/EC) 1 cap PO DAILY Qty: 60 0RF Rx Instructions: ok to substitute for what pt insurance company covers/pharmacy stock Continued aspirin [Adult Aspirin Regimen] 81 mg tablet,delayed release (DR/EC) 81 mg PO DAILY ondansetron HCl 4 mg tablet 4 mg PO Q6H megestrol 400 mg/10 mL (10 mL) suspension 200 mg PO QID Qty: 1000 5RF Rx Instructions: 5mL by mouth four times a day Spiriva Respimat 2.5 mcg/actuation mist 2 puff inhalation DAILY Qty: 12 3RF simvastatin 20 MG tablet 20 mg PO DAILY mirtazapine 30 MG tablet 60 mg PO DAILY albuterol sulfate [Proventil HFA] 6.7 GM HFA aerosol inhaler 2 puff Inhalation PRN PRN multivitamin [Daily Multi-Vitamin] 1 EACH tablet 1 tab PO DAILY quetiapine [Seroquel] 50 MG tablet 100 mg PO HS omeprazole 20 MG capsule,delayed release(DR/EC) 40 mg PO DAILY metoprolol succinate [Toprol XL] 50 MG tablet extended release 24 hr 50 mg PO DAILY fluoxetine 40 mg capsule 40 mg PO DAILY magnesium oxide 400 mg (241.3 mg magnesium) tablet 200 mg PO DAILY tamsulosin 0.4 mg capsule 0.4 mg PO DAILY acetylcysteine 600 mg capsule 1,200 mg PO BID bupropion HCl 300 MG tablet extended release 24 hr 300 mg PO DAILY Discontinued ferrous gluconate 324 mg (38 mg iron) tablet 324 mg PO DAILY Discharge Instructions Additional Instructions: -Follow-up with Dr. Price in 2 weeks. -low fat diet. No pork/dairy/nuts or nut butters/avacadoes for 2 wks -no straining to move bowels -pain meds are very constipating: if you do not move your bowels daily take a dose of OTC Miralax -It is ok to shower or bath as you normally do -Protein supplements daily. You may find that your appetite is smaller. Eat 3-6 small meals throughout the day. It is important to drink lots of water after surgery, 6-10 glasses a day. -If you were given an incentive spirometry (breathing manager disaster recovery?), continue to do this 10x/hour while awake. -We do want you up walking, at least 5-6 times per day. This is very important to prevent pneumonia and blood clots. You can climb stairs, take them slowly. -You may find that you are very tired after being in the hospital- this is normal. f/u Dr. Price 08/29 at 9:30am. -ensure breeze daily Stand Alone Forms: Nursing Discharge Form Referrals: Digna Price MD [ [facility] STAFF PHYSICIAN] - 08/29/22 9:15 am Activity:: Activity as Tolerated Equipment/Supplies:: No Equipment Needed Diet:: low fat Discharge Orders Discharge Orders: Discharge Order (Routine); Ordered 08/15/22 Ordered By: Catherine Santiago DS: Summary Time Spent with Patient providing and/or coordinating discharge services: Less than 30 minutes Status at Discharge Functional status at discharge: independent ambulation Overall status at discharge: patient is progressing back to baseline Mental Status: other (pt normal ) Speech and Movement: delayed speech Mood: other (pt normal ) Affect: blunted Exam Psych Mental Status: other (pt normal ) Speech and Movement: delayed speech Mood: other (pt normal ) Affect: blunted DS: Data Vitals/I&O Vitals and I&O: Vital Signs Temperature 36.2 C L 08/15/22 07:57 Temperature Source Tympanic 08/15/22 07:57 Pulse 94 H 08/15/22 07:57 Pulse Rhythm Regular 08/15/22 08:43 Respiratory Rate 17 08/15/22 07:57 Respiratory Effort Normal 08/15/22 08:43 Respiratory Depth Normal 08/15/22 08:43 Respiratory Pattern Normal 08/15/22 08:43 Blood Pressure 126/88 08/15/22 07:57 Blood Pressure Position Sitting 08/07/22 11:33 Pulse Oximetry 95 08/15/22 07:57 Oxygen Delivery Method Room Air 08/15/22 07:57 Oxygen Flow Rate 0 08/15/22 07:57 Pain Level 0 08/14/22 08:32 Comment HR called over radio 08/14/22 15:28 Intake & Output 08/14/22 08/15/22 08/15/22 23:59 11:59 23:59 Intake Total 100 / 350 450 / 450 Output Total 50 / 700 200 / 200 Balance 50 / -350 250 / 250 Intake: IV 100 / 100 100 / 100 Oral 350 / 350 Output: Urine 50 / 700 200 / 200 Other: Urine Color Yellow Yellow Urine Appearance Clear Clear Voiding Methods Toilet Data Completed and Pending Labs on day of discharge: Labs from last 24 hours 08/15/22 08/15/22 08/14/22 06:27 06:27 19:35 WBC 8.84 RBC 3.30 L Hgb 10.5 L Hct 32.5 L MCV 99 H MCH 31.8 MCHC 32.3 RDW 18.5 H Plt Count 388 MPV 9.6 Sodium 144 Potassium 3.6 3.3 L D Chloride 106 Carbon Dioxide 29.5 Anion Gap 8.5 BUN 18 Creatinine 1.6 H Est GFR (CKD-EPI 2020) 49.02 Glucose 101 Calcium 7.8 L Magnesium 2.0 Total Bilirubin 0.6 Conjugated Bilirubin 0.3 H AST 54 H ALT 227 H Alkaline Phosphatase 131 H Total Protein 5.7 L Albumin 2.4 L Fluid Type Fluid Amylase Fluid Lipase Stl C.difficile Tox PCR Ur Strep pneumoniae Ag 08/14/22 08/11/22 08/11/22 13:13 19:54 14:30 WBC RBC Hgb Hct MCV MCH MCHC RDW Plt Count MPV Sodium Potassium Chloride Carbon Dioxide Anion Gap BUN Creatinine Est GFR (CKD-EPI 2020) Glucose Calcium Magnesium Total Bilirubin Conjugated Bilirubin AST ALT Alkaline Phosphatase Total Protein Albumin Fluid Type SEE BELOW Fluid Amylase Fluid Lipase 39 Stl C.difficile Tox PCR Negative Ur Strep pneumoniae Ag Negative 08/11/22 14:30 WBC RBC Hgb Hct MCV MCH MCHC RDW Plt Count MPV Sodium Potassium Chloride Carbon Dioxide Anion Gap BUN Creatinine Est GFR (CKD-EPI 2020) Glucose Calcium Magnesium Total Bilirubin Conjugated Bilirubin AST ALT Alkaline Phosphatase Total Protein Albumin Fluid Type SEE BELOW Fluid Amylase 66 Fluid Lipase Stl C.difficile Tox PCR Ur Strep pneumoniae Ag Preliminary micro results at discharge 08/11/22 14:30 Body Fluid Culture - Preliminary Pleural 08/11/22 14:30 Body Fluid Culture - Preliminary Pleural 08/11/22 14:30 Anaerobic Culture - Preliminary Pleural 08/11/22 14:30 Anaerobic Culture - Preliminary Pleural PFSH All Active Problems Hypomagnesemia (Acute) Hypokalemia (Acute) Tachycardia (Acute) Acute cholecystitis (Acute) Bilateral pleural effusion (Acute) Cardiomyopathy (Acute) Abdominal ascites (Acute) Pancreatitis (Chronic) Cachexia (Acute) COPD (chronic obstructive pulmonary disease) (Chronic) Anxiety and depression (Chronic) Renal insufficiency (Chronic) GERD (gastroesophageal reflux disease) (Chronic) Anemia (Chronic) Chronic kidney disease, stage 3 (Acute) Aortic valve stenosis (Chronic) Poor nutrition (Acute) Sleep disturbance (Acute) Hiatal hernia (Chronic) Appetite impaired (Acute) Weight loss (Acute) Aortic valve disease (Acute) Conductive hearing loss, unilateral, right ear, with unrestricted hearing on the contralateral side (Acute) Central perforation of tympanic membrane, right ear (Acute) 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 (Acute) Abdominal pain (Acute) Arrhythmia (Acute) Constipation (Acute) PSVT (paroxysmal supraventricular tachycardia) (Acute) UTI (urinary tract infection) (Acute) Suicidal ideation (Acute) Depression (Acute) Medical History Alcohol abuse COPD (chronic obstructive pulmonary disease) Depression Dizziness Essential hypertension Hyperlipidemia SVT (supraventricular tachycardia) Syncope Surgical History No significant past surgical history Social History Smoking/Tobacco Use Status: Current every day Tobacco Type: cigarettes Years smoked: 30 Smoking risk assessment performed?: Yes Alcohol Intake: never Drug use: Occasionally Substance use type: marijuana Details: Pot calms his nerves and helps him sleep. Do you feel safe at home: Yes Do you feel safe in your relationship?: Yes Additional Social history: Lives with a automation engineer from [employer]. Time Spent with Patient Time Spent with Patient: <45 minutes Time was spent: preparing to see the patient(eg.review tests), ordering medications,tests, procedures, referring, communicating with other health wild animal caretaker, indepentently interpreting results and care coordination
--- NOTE | 2022-08-15 14:59 | W.PM.PROGNOT ---
Date of Service Date of service: 08/15/22 Time of Service: 14:59 Subjective Subjective Interval history since last seen: From the hospitalist stand point, the patient should be discharged with furosemide 40 mg PO daily and spironolactone 25 mg PO daily. He should have bloodwork checked in 1 week. He should follow up with cardiology. Objective Last Vital Signs Temp 36.2 C L 08/15/22 07:57 Pulse 94 H 08/15/22 07:57 Resp 17 08/15/22 07:57 BP 126/88 08/15/22 07:57 Pulse Ox 95 08/15/22 07:57 Laboratory Results - last 24 hr 08/11/22 08/11/22 08/11/22 14:30 14:30 19:54 WBC RBC Hgb Hct MCV MCH MCHC RDW Plt Count MPV Sodium Potassium Chloride Carbon Dioxide Anion Gap BUN Creatinine Est GFR (CKD-EPI 2020) Glucose Calcium Magnesium Total Bilirubin Conjugated Bilirubin AST ALT Alkaline Phosphatase Total Protein Albumin Fluid Type SEE BELOW SEE BELOW Fluid Amylase 66 Fluid Lipase 39 Ur Strep pneumoniae Ag Negative 08/14/22 08/15/22 08/15/22 19:35 06:27 06:27 WBC 8.84 RBC 3.30 L Hgb 10.5 L Hct 32.5 L MCV 99 H MCH 31.8 MCHC 32.3 RDW 18.5 H Plt Count 388 MPV 9.6 Sodium 144 Potassium 3.3 L D 3.6 Chloride 106 Carbon Dioxide 29.5 Anion Gap 8.5 BUN 18 Creatinine 1.6 H Est GFR (CKD-EPI 2020) 49.02 Glucose 101 Calcium 7.8 L Magnesium 2.0 Total Bilirubin 0.6 Conjugated Bilirubin 0.3 H AST 54 H ALT 227 H Alkaline Phosphatase 131 H Total Protein 5.7 L Albumin 2.4 L Fluid Type Fluid Amylase Fluid Lipase Ur Strep pneumoniae Ag Time Spent with Patient Time Spent with Patient: <25 minutes Time was spent: obtaining and/or reviewing separately otained hiistory, ordering medications,tests, procedures, referring, communicating with other health health care marketing specialist, indepentently interpreting results and care coordination
[2022-08-15] MEDS: Bacitracin 1 PACKET TP (15:09)
[2022-08-15 15:35] VITALS: BP 130/94; PULSE 103; RESP 18; TEMP 36.9; O2SAT 97
== END 2022-08-15 16:52 | disposition home or self-care (01) | DRG 445 ==
LOC: ER 12:20 → MS 21:43
PROVIDERS: Family Medicine; Internal Medicine; Surgery; Admitting Provider Surgery; Emergency Provider Physician Assistant; PCP Nurse Practitioner Family; Visit Provider Surgery
PROC: 0W9B3ZX Drainage of Left Pleural Cavity, Percutaneous Approach, Diagnostic (ICD-10-PCS; CPT 32554; principal; 2022-08-11 13:00)
DX: K81.0 Acute cholecystitis (principal); I13.0 Hypertensive heart and chronic kidney disease with heart failure and stage 1 through stage 4 chronic kidney disease, or unspecified chronic kidney disease; I42.9 Cardiomyopathy, unspecified; J90 Pleural effusion, not elsewhere classified; R18.8 Other ascites; K86.1 Other chronic pancreatitis; R64 Cachexia; I47.1 Supraventricular tachycardia; F89 Unspecified disorder of psychological development; E78.5 Hyperlipidemia, unspecified; K21.9 Gastro-esophageal reflux disease without esophagitis; J44.9 Chronic obstructive pulmonary disease, unspecified; I35.0 Nonrheumatic aortic (valve) stenosis; Z68.24 Body mass index [BMI] 24.0-24.9, adult; F41.8 Other specified anxiety disorders; D64.9 Anemia, unspecified; N18.30 Chronic kidney disease, stage 3 unspecified; K44.9 Diaphragmatic hernia without obstruction or gangrene; G47.9 Sleep disorder, unspecified; K59.00 Constipation, unspecified; F12.90 Cannabis use, unspecified, uncomplicated; F17.210 Nicotine dependence, cigarettes, uncomplicated; F10.11 Alcohol abuse, in remission; E83.42 Hypomagnesemia; I50.9 Heart failure, unspecified
CPT/HCPCS: 32555; 36415; 36569; 71045; 71275; 78452; 80048; 80053; 80076; 82042; 83690; 84145; 85027; 86704; 86709; 86803; 87340; 87449; 87493; 89051; 93005; 94640; 96361; 96374; 96375; 99285; J1650; 74176; 74181; 76705; 81003; 81015; 81373; 82150; 82607; 82728; 82746; 83605; 83735; 83880; 83986; 84132; 84478; 84484; 85025; 85379; 87070; 87075; 87086; 87205; 87899; 88104; 93010; 93017; 93306; 94664; 94760; 99222; 99232; J0131; J1940; J2060; J2270; J2405; J2543; J2785; J3475; J3480; J8597; J9999

== ENCOUNTER 2022-08-17 12:36 | Inpatient (IN) | payer MEDICAID, SELFPAY ==
[2022-08-17] VITALS (84 sets, daily range): BP systolic 117–157; BP diastolic 44–126; PULSE 0–161; RESP 16–37; TEMP 36.5–36.8; O2SAT 81–100
--- NOTE | 2022-08-17 | DI.CT_ITS ---
Exam(s) CT ABDOMEN PELVIS CTA EXAM: CT ABDOMEN PELVIS CTA CLINICAL HISTORY: ? mesenteric ischemia, ?portal vein thrombosis. TECHNIQUE: Imaging Protocol: Axial CT angiography was performed with multi-slice acquisition and m ulti-planar and/or 3D reconstructions. CONTRAST MATERIAL: Intravenous: Omnipaque 350 Contrast volume:structured data in ml Oral: / no COMPARISON: CT ABD PELVIS WITH CONTRAST from 02/05/[address] CHEST PE CTA from 08/10/[address] CHEST/ABD/PEL WO from 08/17/2022 FINDINGS: Exam mildly limited by respiratory motion. Vascular Structures: Heart markedly enlarged. Reflux contrast into the IVC, consistent with heart failure. Celiac Harrison/SMA: No evidence of stenosis. Renal Arteries: Left: No evidence of stenosis. Right: diminutive caliber. Calcification at origin. Aorta: No aneurysm. No dissection. Severe atherosclerotic changes. Venous structures: Not opacified. Portal vein not opacified Pelvis: Iliac Arteries: No evidence of stenosis. Common Femoral Arteries: Moderate stenosis right common femoral artery. Soft Tissues: Lung bases:Bilateral pleural effusions, stable from prior. Adjacent compressive atelectasis. Liver: Heterogeneous enhancement consistent with passive venous congestion secondary to heart failure . No measurable mass. Gallbladder and biliary tract: Significant motion at level of the gallbladder. Gallbladder not well e valuated. No radiodense calculus or dilation. Pancreas: Normal density, no abnormal calcifications or inflammatory process. Spleen: Normal. Kidneys: Extremely patchy perfusion which could be secondary due to very early phase of IV contrast i njection. Pyelonephritis could be considered.. No radiodense stones or obstructive uropathy. No sisi s seen. Adrenal glands: No masses seen. Bladder: Decompressed by Noriega catheter. Bowel: No obstruction or bowel wall thickening. No findings to suggest ischemia. Peritoneal cavity: Ascites noted in pelvis of fluid extends into both inguinal canals.. Bones: Old pelvic fractures Lymph nodes: Within normal limits. IMPRESSION: No findings to suggest mesenteric ischemia. Severe cardiac enlargement and heart failure. Bilateral pleural effusions. Ascites in pelvis. Severe stenosis right renal artery. Extremely patchy perfusion of the kidneys could represent early phase of enhancement. Pyelonephritis versus renal infarction be considered. Clinical correlation recommended. RADIATION DOSE DELIVERED: 916.91mGy.cm Total DLP DATA REPOSITORY: All CT scans at this facility are submitted to the National Radiology Data Registry (NRDR) Dose Index Registry (DIR) with the [employer] (A[employer]). RADIATION OPTIMIZATION: All CT scans at this facility use at least one of these dose optimization te chniques: automated exposure control; mA and/or kV adjustment per patient size (includes targeted exa ms where dose is matched to clinical indication); or iterative reconstruction.
--- NOTE | 2022-08-17 | DI.RAD_ITS ---
Exam(s) XR PORTABLE CHEST AP EXAM: XR PORTABLE CHEST AP CLINICAL HISTORY: s/p thoro TECHNIQUE: 2D digital imaging was performed. COMPARISON: CR,XR XR PORTABLE CHEST AP POST LINE from 08/11/[address] CHEST/ABD/PEL WO from 08/17/2022 FINDINGS: There is poor penetration at the lung bases. Leads overlie the lower lung cadet. There has been in terval decrease in size of the previously noted right pleural effusion. No pneumothorax. Patchy inf iltrate seen in the right upper and right lower lobe. Left pleural effusion present, larger when com pared with prior. Increased densities noted at the left lung base. IMPRESSION: No evidence of pneumothorax status post thoracentesis. Decrease in size of right pleural effusion. Bilateral infiltrates. Small left pleural effusion. DATA REPOSITORY: RADIATION DOSE DELIVERED:
[2022-08-17 13:24] LABS: Abs Immature Grans 0.11 10^3/uL (0.0-0.06); Absolute Basophil Count 0.07 10^3/uL (0.0-0.2); Absolute Eosinophil Count 0.01 10^3/uL (0.0-0.7); Absolute Lymphocyte Count 1.56 10^3/uL (1.2-3.4); Absolute Monocyte Count 1.09 10^3/uL (0.1-0.8); Basophils % 0.6; Eosinophils % 0.1; HGB 11.9 g/dL (13.5-17.5); Immature Grans % 0.9; Lymphocytes % 12.9; MCH 31.6 pg (27.0-33.0); MCHC 30.5 % (32.0-36.0); MCV 103 fL (80-95); MPV 9.6 fL (8.0-11.0); Neutrophils % 76.5; Platelet Count 404 10^3/uL (130-400); RBC 3.77 10^6/uL (4.36-5.78); RDW 18.8 % (11.8-14.1); RDW-SD 70.7 fL; WBC 12.13 10^3/uL (4.4-10.8)
[2022-08-17 13:33] LABS: Absolute Neutrophil Count 9.28 10^3/uL (1.2-6.7)
[2022-08-17 13:39] LABS: ETHANOL BLOOD < 3.0 mg/dL (<10)
[2022-08-17 13:42] LABS: ALT 402 U/L (16-63); AST 344 U/L (15-37); Albumin 3.4 g/dL (3.4-5.0); Alkaline Phosphatase 152 U/L (46-116); Anion Gap 18.4 mmol/L (3-11); BUN 35 mg/dL (7-18); Bilirubin, Total 1.4 mg/dL (0.2-1.0); CO2 18.6 mmol/L (21.0-32.0); CREATININE 2.8 mg/dL (0.70-1.30); Calcium 9.5 mg/dL (8.5-10.1); Chloride 101 mmol/L (98-107); Estimated GFR 25.05 (mL/min/1.73m2); Glucose 138 mg/dL (74-106); Magnesium 1.8 mg/dL (1.8-2.4); Potassium 5.2 mmol/L (3.5-5.1); Sodium 138 mmol/L (136-145); Total Protein 7.5 g/dL (6.4-8.2)
[2022-08-17 13:43] LABS: Troponin I 180 ng/L (<or=60)
--- NOTE | 2022-08-17 13:45 | RT.EKG_ITS ---
APPROVED REPORT Exam: Resting ECG Reason for Exam: dizzy Patient Location: E HR:123 bpm ECG Measurements Heart Rate 123 AXIS WA 103 P 0 QRSd 91 QRS -68 QT 356 T 118 QTc 510 Conclusion Sinus tachycardia...rate> 99 Left anterior fascicular block...axis(240,-40), init forces inf Low voltage, extremity leads...all extremity leads <0.5mV Prolonged QT interval...QTc >500mS. Sinus. 1mm ST depression in V5-6. No STEMI. I have reviewed and interpreted ECG and agree with software generated interpretation.
--- NOTE | 2022-08-17 13:57 | W.ED.GENAD ---
Discharge Plan Disposition Patient Disposition: Admit to [facility] Discharge Details Clinical Impression: Nausea vomiting and diarrhea, Abdominal pain, Ascites, Chest pain, Pleural effusion Primary Care Provider: Jayde Wren ED Provider: Sabine Spann Home Meds and New Rx's Prescriptions: No Action aspirin [Adult Aspirin Regimen] 81 mg tablet,delayed release (DR/EC) 81 mg PO DAILY ondansetron HCl 4 mg tablet 4 mg PO Q6H megestrol 400 mg/10 mL (10 mL) suspension 200 mg PO QID Qty: 1000 5RF Rx Instructions: 5mL by mouth four times a day Spiriva Respimat 2.5 mcg/actuation mist 2 puff inhalation DAILY Qty: 12 3RF simvastatin 20 MG tablet 20 mg PO DAILY mirtazapine 30 MG tablet 60 mg PO DAILY albuterol sulfate [Proventil HFA] 6.7 GM HFA aerosol inhaler 2 puff Inhalation PRN PRN multivitamin [Daily Multi-Vitamin] 1 EACH tablet 1 tab PO DAILY quetiapine [Seroquel] 50 MG tablet 100 mg PO HS omeprazole 20 MG capsule,delayed release(DR/EC) 40 mg PO DAILY metoprolol succinate [Toprol XL] 50 MG tablet extended release 24 hr 50 mg PO DAILY fluoxetine 40 mg capsule 40 mg PO DAILY magnesium oxide 400 mg (241.3 mg magnesium) tablet 200 mg PO DAILY tamsulosin 0.4 mg capsule 0.4 mg PO DAILY acetylcysteine 600 mg capsule 1,200 mg PO BID Bio-K plus 50 billion cell capsule,delayed release(DR/EC) 1 cap PO DAILY Qty: 60 0RF Rx Instructions: ok to substitute for what pt insurance company covers/pharmacy stock spironolactone 25 mg Tablet 25 mg PO DAILY Qty: 14 0RF furosemide 40 mg Tablet 40 mg PO DAILY Qty: 10 0RF bupropion HCl 300 MG tablet extended release 24 hr 300 mg PO DAILY Medical Decision Making 1250 -- 62yo M yo hypertension, hyperlipidemia, GERD, COPD, former alcohol abuse, depression, developmental delay presents for worsening of his nausea, vomiting, diarrhea, dizziness, chest and abdominal pain for the past 10 days. Patient was discharged from here 2 days ago after admitted for acute acalculous cholecystitis and pancreatitis. Blood pressure hypertensive at 157/102. Heart rate bradycardic in the 50s. He is afebrile. He appears uncomfortable but nontoxic. His lungs are clear throughout. His abdomen is soft but tender diffusely, worse in the epigastrium. Differential diagnosis includes cholecystitis, PUD, GERD, hepatitis, gastroenteritis, UTI, pneumonia, ACS, pneumonia. Will obtain screening labs, CT chest abdomen and pelvis. Labs reviewed. White blood cell count 12.13 which is increased from his recent admission. Potassium 5.2, creatinine 2.8 which is up from his usual baseline, bicarb 18.6, anion gap 18.4, AST, ALT and alk phos had been downtrending but are now rising again. His troponin is elevated at 180. His EKG notes a rate of 123, sinus with ST depression in lateral leads but no acute ST elevation. His lipase is greater than 375. Case discussed with Dr. Santiago that surgery was unaware of the source of his symptoms and multiple lab abnormalities but was not determined to be his gallbladder. Recommends admission to medicine and will order HIDA scan for the morning. Radiology is requesting no opiates and n.p.o. after midnight in prep for HIDA scan. 1600 --CT abdomen/pelvis notes: IMPRESSION: 1. Cardiomegaly.? Bilateral moderate size pleural effusions right slightly larger than left.? No pericardial effusion.? Bilateral upper lobe infiltrates.? Both infectious as well as pulmonary edema considerations here, possibly combination both. 2. There is moderate amount of ascites in the dependent aspect of the pelvis.? The gall bladder is difficult to assess because of abundant respiratory motion artifact but does not appear normal and may be the culprit for the free fluid.? Recommend gallbladder ultrasound.? Common hepatic duct is not obviously dilated.? There is no evidence of obvious pancreatitis 3. Sigmoid diverticulosis but no obvious acute diverticulitis. 4. Multiple healed left rib fractures as well as left pelvic iliac bone fracture. D/w radiologist who notes that the gallbladder does not look normal and recommends gallbladder US. D/w Dr. Santiago and she does not feel that a repeat ultrasound is necessary as there is plan for HIDA scan in the morning. As patient has no report of fever or productive new cough, does not appear consistent with acute pneumonia at this time but continue to monitor. 1700 -- D/w hospitalist who accepts pt for admission. Dr. Jansen would like Lasix drip secondary to his bilateral pleural effusions and ascites on CT. We will also place a urinary catheter. Patient is complaining of pain, okay with plan for IV Tylenol and will also give a dose of IV Ativan. Medical Records Medical records reviewed: Yes I reviewed the patient's medical records. Imaging Data Radiologic Study: Radiologist's impression: CT CHEST/ABD/PEL WO CLINICAL HISTORY: ? chest pain, sob, abd pain, vomiting, diarrhea. ? TECHNIQUE:? Imaging Protocol: Axial computed tomography images with coronal and sagittal reformatted images were created and reviewed CONTRAST MATERIAL:? Intravenous: none Oral: None COMPARISON:? CT CT CHEST PE CTA from 08/10/2022 CR,XR XR PORTABLE CHEST AP POST LINE from 08/11/2022 FINDINGS: CHEST: LUNGS: There are almost symmetrical size bilateral pleural effusions moderate size, right slightly larger than.? There are areas of infiltrate in the supra-parahilar regions of both upper lobes.? Also in the lingular segment of the left lung and right middle lobe medial segment.? Increased markings also noted in both lower lobes but there is some volume loss in the basal segments of the lower lobes related to the bilateral pleural effusions.? There are no significant focal findings in the trachea and mainstem bronchi. MEDIASTINUM: No obvious hilar nor mediastinal adenopathy. Visualized thyroid unremarkable. CARDIAC: There is cardiomegaly.? Coronary artery calcification.? No pericardial effusion.? Diameter of the ascending thoracic aorta is prominent, measuring 4.4 cm.Cannot assess for dissection is a there is no IV contrast. OSSEOUS: There are multiple healed left-sided rib fractures.? Ribs are somewhat blurred due to respiratory motion artifact. ABDOMEN: There is a mild amount of ascites.? This is mostly pooling in the dependent aspect of the pelvis. LIVER: There are no obvious focal hepatic lesions evident of this noninfused study.? GALLBLADDER/BILIARY: Gallbladder cannot be assessed accurately given the amount of respiratory motion artifact here.? However, it does not appear unremarkable and should be further study with ultrasound if clinically indicated.? No obvious gross dilatation of the CBD evident. PANCREAS: No evidence of obvious pancreatic mass nor dilatation of the pancreatic duct.? SPLEEN: Spleen is not enlarged.? Some perisplenic fluid is noted. ADRENALS: There are no significant adrenal masses. KIDNEYS: No calculi nor hydronephrosis. No obvious solid renal masses. No cysts evident. ABDOMINAL AORTA: Calcified but not enlarged.? Common iliac arteries are also calcified but not enlarged. LYMPH NODES: There is no retroperitoneal nor para-aortic adenopathy. ABDOMINAL WALL/GI: No evidence of significant anterior abdominal wall nor inguinal hernia.? No evidence of bowel obstruction. PELVIS:? LYMPH NODES: There is no intrapelvic nor inguinal adenopathy. GI: Appendix stenosis is separate structure.? No obvious swollen appendix.? There is sigmoid diverticulosis.? No obvious acute diverticulitis. URINARY BLADDER: No calculi nor obvious masses evident REPRODUCTIVE: Prostate calcified.? Not enlarged.? Seminal vesicles unremarkable.? Scrotal hydroceles noted. OSSEOUS: Healed left pelvic iliac fracture.? No acute fractures.? No osseous lesions. IMPRESSION: 1. Cardiomegaly.? Bilateral moderate size pleural effusions right slightly larger than left.? No pericardial effusion.? Bilateral upper lobe infiltrates.? Both infectious as well as pulmonary edema considerations here, possibly combination both. 2. There is moderate amount of ascites in the dependent aspect of the pelvis.? The gall bladder is difficult to assess because of abundant respiratory motion artifact but does not appear normal and may be the culprit for the free fluid.? Recommend gallbladder ultrasound.? Common hepatic duct is not obviously dilated.? There is no evidence of obvious pancreatitis 3. Sigmoid diverticulosis but no obvious acute diverticulitis. 4. Multiple healed left rib fractures as well as left pelvic iliac bone fracture. Lab Data Lab results reviewed: Yes I reviewed the patient's lab results. Labs: 08/17/22 17:57 Blood Blood Culture - Pending 08/17/22 17:17 Blood Blood Culture - Pending Laboratory Tests Range/Units 08/17/22 08/17/22 08/17/22 13:14 13:14 13:14 WBC (4.4-10.8) 10^3/uL 12.13 H RBC (4.36-5.78) 10^6/uL 3.77 L Hgb (13.5-17.5) g/dL 11.9 L Hct (40.0-50.0) % 39.0 L MCV (80-95) fL 103 H D MCH (27.0-33.0) pg 31.6 MCHC (32.0-36.0) % 30.5 L RDW (11.8-14.1) % 18.8 H Plt Count (130-400) 10^3/uL 404 H MPV (8.0-11.0) fL 9.6 Immature Gran % 0.9 Neutrophils % 76.5 Lymphocytes % 12.9 Monocytes % 9.0 Eosinophils % 0.1 Basophils % 0.6 Nucleated RBC % (0.0-0.3) % 0.0 Absolute Neutrophils (1.2-6.7) 10^3/uL 9.28 H Absolute Lymphocytes (1.2-3.4) 10^3/uL 1.56 Absolute Monocytes (0.1-0.8) 10^3/uL 1.09 H Absolute Eosinophils (0.0-0.7) 10^3/uL 0.01 Absolute Basophils (0.0-0.2) 10^3/uL 0.07 VBG pH (7.31-7.41) VBG pCO2 (41-51) mmHg VBG pO2 mmHg VBG HCO3 (23-28) mmol/L VBG Total CO2 (24-29) mmol/L VBG O2 Saturation % VBG Base Excess (-2-3) mmol/L VBG Lactate (0.6-1.4) mmol/L Sodium (136-145) mmol/L 138 Potassium (3.5-5.1) mmol/L 5.2 H D Chloride (98-107) mmol/L 101 Carbon Dioxide (21.0-32.0) mmol/L 18.6 L Anion Gap (3-11) mmol/L 18.4 H BUN (7-18) mg/dL 35 H Creatinine (0.70-1.30) mg/dL 2.8 H D Est GFR (CKD-EPI 2020) (mL/min/1.73m2) 25.05 Glucose (74-106) mg/dL 138 H Calcium (8.5-10.1) mg/dL 9.5 Magnesium (1.8-2.4) mg/dL 1.8 Total Bilirubin (0.2-1.0) mg/dL 1.4 H AST (15-37) U/L 344 H ALT (16-63) U/L 402 H Alkaline Phosphatase (46-116) U/L 152 H Creatine Kinase (39-308) U/L Troponin I (<or=60) ng/L 180 H* C-Reactive Protein (0.0-0.3) mg/dL NT-Pro-B Natriuret Pep (<300) pg/mL Total Protein (6.4-8.2) g/dL 7.5 Albumin (3.4-5.0) g/dL 3.4 Lipase (16-77) U/L Procalcitonin ng/mL TSH (0.36-3.74) uIU/mL Free T4 (0.76-1.46) ng/dL Urine Color (Yellow) Urine Clarity (Clear) Urine pH (5-8) Ur Specific [place] (1.005-1.025) Urine Protein (Negative) mg/dL Urine Ketones (Negative) mg/dL Urine Blood (Negative) Urine Nitrite (Negative) Urine Bilirubin (Negative) Urine Urobilinogen (Up to 0.2) mg/dL Ur Leukocyte Esterase (Negative) Urine RBC (0-2) HPF Urine WBC (0-5) HPF Ur Epithelial Cells (Negative) HPF Urine Crystals (Negative) HPF Urine Bacteria (Negative) HPF Urine Casts (Negative) LPF Urine Mucus (Negative) Ur Culture Indicated? Urine Glucose (Negative) mg/dL Acetaminophen (10-30) ug/mL Ethyl Alcohol (<10) mg/dL < 3.0 COVID-19 Source SARS-CoV-2 (PCR) (Negative) Influenza Type A (PCR) (Negative) Influenza Type B (PCR) (Negative) RSV (PCR) (Negative) Add-On Test Request Range/Units 08/17/22 08/17/22 08/17/22 13:14 13:16 14:34 WBC (4.4-10.8) 10^3/uL RBC (4.36-5.78) 10^6/uL Hgb (13.5-17.5) g/dL Hct (40.0-50.0) % MCV (80-95) fL MCH (27.0-33.0) pg MCHC (32.0-36.0) % RDW (11.8-14.1) % Plt Count (130-400) 10^3/uL MPV (8.0-11.0) fL Immature Gran % Neutrophils % Lymphocytes % Monocytes % Eosinophils % Basophils % Nucleated RBC % (0.0-0.3) % Absolute Neutrophils (1.2-6.7) 10^3/uL Absolute Lymphocytes (1.2-3.4) 10^3/uL Absolute Monocytes (0.1-0.8) 10^3/uL Absolute Eosinophils (0.0-0.7) 10^3/uL Absolute Basophils (0.0-0.2) 10^3/uL VBG pH (7.31-7.41) VBG pCO2 (41-51) mmHg VBG pO2 mmHg VBG HCO3 (23-28) mmol/L VBG Total CO2 (24-29) mmol/L VBG O2 Saturation % VBG Base Excess (-2-3) mmol/L VBG Lactate (0.6-1.4) mmol/L Sodium (136-145) mmol/L Potassium (3.5-5.1) mmol/L Chloride (98-107) mmol/L Carbon Dioxide (21.0-32.0) mmol/L Anion Gap (3-11) mmol/L BUN (7-18) mg/dL Creatinine (0.70-1.30) mg/dL Est GFR (CKD-EPI 2020) (mL/min/1.73m2) Glucose (74-106) mg/dL Calcium (8.5-10.1) mg/dL Magnesium (1.8-2.4) mg/dL Total Bilirubin (0.2-1.0) mg/dL AST (15-37) U/L ALT (16-63) U/L Alkaline Phosphatase (46-116) U/L Creatine Kinase (39-308) U/L Troponin I (<or=60) ng/L C-Reactive Protein (0.0-0.3) mg/dL NT-Pro-B Natriuret Pep (<300) pg/mL Total Protein (6.4-8.2) g/dL Albumin (3.4-5.0) g/dL Lipase (16-77) U/L > 375 H Procalcitonin ng/mL TSH (0.36-3.74) uIU/mL Free T4 (0.76-1.46) ng/dL Urine Color (Yellow) Urine Clarity (Clear) Urine pH (5-8) Ur Specific [place] (1.005-1.025) Urine Protein (Negative) mg/dL Urine Ketones (Negative) mg/dL Urine Blood (Negative) Urine Nitrite (Negative) Urine Bilirubin (Negative) Urine Urobilinogen (Up to 0.2) mg/dL Ur Leukocyte Esterase (Negative) Urine RBC (0-2) HPF Urine WBC (0-5) HPF Ur Epithelial Cells (Negative) HPF Urine Crystals (Negative) HPF Urine Bacteria (Negative) HPF Urine Casts (Negative) LPF Urine Mucus (Negative) Ur Culture Indicated? Urine Glucose (Negative) mg/dL Acetaminophen (10-30) ug/mL < 2 Ethyl Alcohol (<10) mg/dL COVID-19 Source Nasopharynx SARS-CoV-2 (PCR) (Negative) Negative Influenza Type A (PCR) (Negative) Negative Influenza Type B (PCR) (Negative) Negative RSV (PCR) (Negative) Negative Add-On Test Request Range/Units 08/17/22 08/17/22 08/17/22 14:35 16:15 16:15 WBC (4.4-10.8) 10^3/uL RBC (4.36-5.78) 10^6/uL Hgb (13.5-17.5) g/dL Hct (40.0-50.0) % MCV (80-95) fL MCH (27.0-33.0) pg MCHC (32.0-36.0) % RDW (11.8-14.1) % Plt Count (130-400) 10^3/uL MPV (8.0-11.0) fL Immature Gran % Neutrophils % Lymphocytes % Monocytes % Eosinophils % Basophils % Nucleated RBC % (0.0-0.3) % Absolute Neutrophils (1.2-6.7) 10^3/uL Absolute Lymphocytes (1.2-3.4) 10^3/uL Absolute Monocytes (0.1-0.8) 10^3/uL Absolute Eosinophils (0.0-0.7) 10^3/uL Absolute Basophils (0.0-0.2) 10^3/uL VBG pH (7.31-7.41) VBG pCO2 (41-51) mmHg VBG pO2 mmHg VBG HCO3 (23-28) mmol/L VBG Total CO2 (24-29) mmol/L VBG O2 Saturation % VBG Base Excess (-2-3) mmol/L VBG Lactate (0.6-1.4) mmol/L Sodium (136-145) mmol/L Potassium (3.5-5.1) mmol/L Chloride (98-107) mmol/L Carbon Dioxide (21.0-32.0) mmol/L Anion Gap (3-11) mmol/L BUN (7-18) mg/dL Creatinine (0.70-1.30) mg/dL Est GFR (CKD-EPI 2020) (mL/min/1.73m2) Glucose (74-106) mg/dL Calcium (8.5-10.1) mg/dL Magnesium (1.8-2.4) mg/dL Total Bilirubin (0.2-1.0) mg/dL AST (15-37) U/L ALT (16-63) U/L Alkaline Phosphatase (46-116) U/L Creatine Kinase (39-308) U/L Troponin I (<or=60) ng/L 188 H* C-Reactive Protein (0.0-0.3) mg/dL NT-Pro-B Natriuret Pep (<300) pg/mL > 71167 H Total Protein (6.4-8.2) g/dL Albumin (3.4-5.0) g/dL Lipase (16-77) U/L Procalcitonin ng/mL TSH (0.36-3.74) uIU/mL Free T4 (0.76-1.46) ng/dL Urine Color (Yellow) Urine Clarity (Clear) Urine pH (5-8) Ur Specific [place] (1.005-1.025) Urine Protein (Negative) mg/dL Urine Ketones (Negative) mg/dL Urine Blood (Negative) Urine Nitrite (Negative) Urine Bilirubin (Negative) Urine Urobilinogen (Up to 0.2) mg/dL Ur Leukocyte Esterase (Negative) Urine RBC (0-2) HPF Urine WBC (0-5) HPF Ur Epithelial Cells (Negative) HPF Urine Crystals (Negative) HPF Urine Bacteria (Negative) HPF Urine Casts (Negative) LPF Urine Mucus (Negative) Ur Culture Indicated? Urine Glucose (Negative) mg/dL Acetaminophen (10-30) ug/mL Ethyl Alcohol (<10) mg/dL COVID-19 Source Cancelled SARS-CoV-2 (PCR) (Negative) Cancelled Influenza Type A (PCR) (Negative) Cancelled Influenza Type B (PCR) (Negative) Cancelled RSV (PCR) (Negative) Cancelled Add-On Test Request Range/Units 08/17/22 08/17/22 08/17/22 16:15 16:15 17:03 WBC (4.4-10.8) 10^3/uL RBC (4.36-5.78) 10^6/uL Hgb (13.5-17.5) g/dL Hct (40.0-50.0) % MCV (80-95) fL MCH (27.0-33.0) pg MCHC (32.0-36.0) % RDW (11.8-14.1) % Plt Count (130-400) 10^3/uL MPV (8.0-11.0) fL Immature Gran % Neutrophils % Lymphocytes % Monocytes % Eosinophils % Basophils % Nucleated RBC % (0.0-0.3) % Absolute Neutrophils (1.2-6.7) 10^3/uL Absolute Lymphocytes (1.2-3.4) 10^3/uL Absolute Monocytes (0.1-0.8) 10^3/uL Absolute Eosinophils (0.0-0.7) 10^3/uL Absolute Basophils (0.0-0.2) 10^3/uL VBG pH (7.31-7.41) VBG pCO2 (41-51) mmHg VBG pO2 mmHg VBG HCO3 (23-28) mmol/L VBG Total CO2 (24-29) mmol/L VBG O2 Saturation % VBG Base Excess (-2-3) mmol/L VBG Lactate (0.6-1.4) mmol/L Sodium (136-145) mmol/L Potassium (3.5-5.1) mmol/L Chloride (98-107) mmol/L Carbon Dioxide (21.0-32.0) mmol/L Anion Gap (3-11) mmol/L BUN (7-18) mg/dL Creatinine (0.70-1.30) mg/dL Est GFR (CKD-EPI 2020) (mL/min/1.73m2) Glucose (74-106) mg/dL Calcium (8.5-10.1) mg/dL Magnesium (1.8-2.4) mg/dL Total Bilirubin (0.2-1.0) mg/dL AST (15-37) U/L ALT (16-63) U/L Alkaline Phosphatase (46-116) U/L Creatine Kinase (39-308) U/L 126 Troponin I (<or=60) ng/L C-Reactive Protein (0.0-0.3) mg/dL 7.79 H NT-Pro-B Natriuret Pep (<300) pg/mL Total Protein (6.4-8.2) g/dL Albumin (3.4-5.0) g/dL Lipase (16-77) U/L Procalcitonin ng/mL TSH (0.36-3.74) uIU/mL 10.83 H Free T4 (0.76-1.46) ng/dL 1.28 Urine Color (Yellow) Urine Clarity (Clear) Urine pH (5-8) Ur Specific [place] (1.005-1.025) Urine Protein (Negative) mg/dL Urine Ketones (Negative) mg/dL Urine Blood (Negative) Urine Nitrite (Negative) Urine Bilirubin (Negative) Urine Urobilinogen (Up to 0.2) mg/dL Ur Leukocyte Esterase (Negative) Urine RBC (0-2) HPF Urine WBC (0-5) HPF Ur Epithelial Cells (Negative) HPF Urine Crystals (Negative) HPF Urine Bacteria (Negative) HPF Urine Casts (Negative) LPF Urine Mucus (Negative) Ur Culture Indicated? Urine Glucose (Negative) mg/dL Acetaminophen (10-30) ug/mL Ethyl Alcohol (<10) mg/dL COVID-19 Source SARS-CoV-2 (PCR) (Negative) Influenza Type A (PCR) (Negative) Influenza Type B (PCR) (Negative) RSV (PCR) (Negative) Add-On Test Request DONE DONE Range/Units 08/17/22 08/17/22 08/17/22 17:57 17:57 17:57 WBC (4.4-10.8) 10^3/uL RBC (4.36-5.78) 10^6/uL Hgb (13.5-17.5) g/dL Hct (40.0-50.0) % MCV (80-95) fL MCH (27.0-33.0) pg MCHC (32.0-36.0) % RDW (11.8-14.1) % Plt Count (130-400) 10^3/uL MPV (8.0-11.0) fL Immature Gran % Neutrophils % Lymphocytes % Monocytes % Eosinophils % Basophils % Nucleated RBC % (0.0-0.3) % Absolute Neutrophils (1.2-6.7) 10^3/uL Absolute Lymphocytes (1.2-3.4) 10^3/uL Absolute Monocytes (0.1-0.8) 10^3/uL Absolute Eosinophils (0.0-0.7) 10^3/uL Absolute Basophils (0.0-0.2) 10^3/uL VBG pH (7.31-7.41) 7.33 VBG pCO2 (41-51) mmHg 30 L VBG pO2 mmHg 30 VBG HCO3 (23-28) mmol/L 16 L VBG Total CO2 (24-29) mmol/L 15 L VBG O2 Saturation % 45 VBG Base Excess (-2-3) mmol/L -10 L VBG Lactate (0.6-1.4) mmol/L 10.9 H* Sodium (136-145) mmol/L Potassium (3.5-5.1) mmol/L Chloride (98-107) mmol/L Carbon Dioxide (21.0-32.0) mmol/L Anion Gap (3-11) mmol/L BUN (7-18) mg/dL Creatinine (0.70-1.30) mg/dL Est GFR (CKD-EPI 2020) (mL/min/1.73m2) Glucose (74-106) mg/dL Calcium (8.5-10.1) mg/dL Magnesium (1.8-2.4) mg/dL Total Bilirubin (0.2-1.0) mg/dL AST (15-37) U/L ALT (16-63) U/L Alkaline Phosphatase (46-116) U/L Creatine Kinase (39-308) U/L Troponin I (<or=60) ng/L C-Reactive Protein (0.0-0.3) mg/dL NT-Pro-B Natriuret Pep (<300) pg/mL Total Protein (6.4-8.2) g/dL Albumin (3.4-5.0) g/dL Lipase (16-77) U/L Procalcitonin ng/mL 0.4 TSH (0.36-3.74) uIU/mL Free T4 (0.76-1.46) ng/dL Urine Color (Yellow) Urine Clarity (Clear) Urine pH (5-8) Ur Specific [place] (1.005-1.025) Urine Protein (Negative) mg/dL Urine Ketones (Negative) mg/dL Urine Blood (Negative) Urine Nitrite (Negative) Urine Bilirubin (Negative) Urine Urobilinogen (Up to 0.2) mg/dL Ur Leukocyte Esterase (Negative) Urine RBC (0-2) HPF Urine WBC (0-5) HPF Ur Epithelial Cells (Negative) HPF Urine Crystals (Negative) HPF Urine Bacteria (Negative) HPF Urine Casts (Negative) LPF Urine Mucus (Negative) Ur Culture Indicated? Urine Glucose (Negative) mg/dL Acetaminophen (10-30) ug/mL Ethyl Alcohol (<10) mg/dL COVID-19 Source SARS-CoV-2 (PCR) (Negative) Influenza Type A (PCR) (Negative) Influenza Type B (PCR) (Negative) RSV (PCR) (Negative) Add-On Test Request Range/Units 08/17/22 18:37 WBC (4.4-10.8) 10^3/uL RBC (4.36-5.78) 10^6/uL Hgb (13.5-17.5) g/dL Hct (40.0-50.0) % MCV (80-95) fL MCH (27.0-33.0) pg MCHC (32.0-36.0) % RDW (11.8-14.1) % Plt Count (130-400) 10^3/uL MPV (8.0-11.0) fL Immature Gran % Neutrophils % Lymphocytes % Monocytes % Eosinophils % Basophils % Nucleated RBC % (0.0-0.3) % Absolute Neutrophils (1.2-6.7) 10^3/uL Absolute Lymphocytes (1.2-3.4) 10^3/uL Absolute Monocytes (0.1-0.8) 10^3/uL Absolute Eosinophils (0.0-0.7) 10^3/uL Absolute Basophils (0.0-0.2) 10^3/uL VBG pH (7.31-7.41) VBG pCO2 (41-51) mmHg VBG pO2 mmHg VBG HCO3 (23-28) mmol/L VBG Total CO2 (24-29) mmol/L VBG O2 Saturation % VBG Base Excess (-2-3) mmol/L VBG Lactate (0.6-1.4) mmol/L Sodium (136-145) mmol/L Potassium (3.5-5.1) mmol/L Chloride (98-107) mmol/L Carbon Dioxide (21.0-32.0) mmol/L Anion Gap (3-11) mmol/L BUN (7-18) mg/dL Creatinine (0.70-1.30) mg/dL Est GFR (CKD-EPI 2020) (mL/min/1.73m2) Glucose (74-106) mg/dL Calcium (8.5-10.1) mg/dL Magnesium (1.8-2.4) mg/dL Total Bilirubin (0.2-1.0) mg/dL AST (15-37) U/L ALT (16-63) U/L Alkaline Phosphatase (46-116) U/L Creatine Kinase (39-308) U/L Troponin I (<or=60) ng/L C-Reactive Protein (0.0-0.3) mg/dL NT-Pro-B Natriuret Pep (<300) pg/mL Total Protein (6.4-8.2) g/dL Albumin (3.4-5.0) g/dL Lipase (16-77) U/L Procalcitonin ng/mL TSH (0.36-3.74) uIU/mL Free T4 (0.76-1.46) ng/dL Urine Color (Yellow) Yellow Urine Clarity (Clear) Clear Urine pH (5-8) 5.0 Ur Specific [place] (1.005-1.025) >= 1.030 H Urine Protein (Negative) mg/dL 100 H Urine Ketones (Negative) mg/dL Negative Urine Blood (Negative) Negative Urine Nitrite (Negative) Negative Urine Bilirubin (Negative) Small H Urine Urobilinogen (Up to 0.2) mg/dL 0.2 Ur Leukocyte Esterase (Negative) Negative Urine RBC (0-2) HPF Negative Urine WBC (0-5) HPF Negative Ur Epithelial Cells (Negative) HPF Rare Urine Crystals (Negative) HPF Rare Amorphous Urine Bacteria (Negative) HPF Rare Urine Casts (Negative) LPF 0-2 Hyaline Urine Mucus (Negative) Negative Ur Culture Indicated? No Urine Glucose (Negative) mg/dL Negative Acetaminophen (10-30) ug/mL Ethyl Alcohol (<10) mg/dL COVID-19 Source SARS-CoV-2 (PCR) (Negative) Influenza Type A (PCR) (Negative) Influenza Type B (PCR) (Negative) RSV (PCR) (Negative) Add-On Test Request ECG Data Attestation: I personally reviewed and interpreted this ECG (s) as follows: Interpretation: #1 -- Rate of 123, sinus, left anterior fascicular block, prolonged QT, [address] depression in V5 and V6, no acute ST elevation. #2 -- Rate of 117, artifact, difficult to determine but appears sinus, no stemi. #3 -- Rate of 119, sinus, LAFB, no stemi. HPI General Mode of arrival: ambulatory. Date/Time Provider Initiated Documentation: 08/17/22 12:43. Limitations to Documentation: no limitations. Information obtained by: patient and RN/MD. HPI Narrative: Patient is a 62-year-old male with a history of former alcohol use, COPD, GERD, chronic kidney disease, depression, hypertension, hyperlipidemia presents for worsening of dizziness, nausea, vomiting, diarrhea, chest and abdominal pain since discharge from the hospital here 2 days ago. Patient was admitted earlier this month for what was thought to be acute acalculous cholecystitis and pancreatitis. He had a thoracentesis for bilateral pleural effusions but no evidence of gallstones and was not referred for cholecystectomy. Patient lives in a shared provider home currently due to his history of delay and mental health issues. There is a rn case manager hospice at bedside from [facility] [employer] that helps him with any services he needs. Patient states he vomited once which is mainly yellow. He states he has had multiple episodes of loose brown stool but denies any hematemesis, hematochezia or melena. He states his abdominal and chest pain extends from his epigastrium up to the center of his chest and is intermittent and sharp. He denies any radiation of pain to his back, jaw or arm. He has not taken medication for pain or nausea today. He denies any fever, new cough or urinary symptoms. He is admitting to shortness of breath that occurs with his chest pain and abdominal pain. Patient and rn case manager hospice at bedside report that patient does have chronic dizziness that has occurred for years and often occurs with marijuana use or when standing up too quickly. He states this is slightly worse than usual lately. He does not endorse a spinning sensation at times. Related Data Home Medications Medication Instructions Recorded Confirmed albuterol sulfate 90 mcg/actuation 2 puff inhalation PRN PRN 05/15/14 08/17/22 aerosol inhaler (Proventil HFA) mirtazapine 30 mg tablet 60 mg PO DAILY 05/15/14 08/17/22 simvastatin 20 mg tablet 20 mg PO DAILY 05/15/14 08/17/22 multivitamin (Daily Multi-Vitamin 1 tab PO DAILY 06/10/15 08/17/22 tablet) omeprazole 20 mg capsule,delayed 40 mg PO DAILY dyspepsia, 06/10/15 08/17/22 release abdominal pain quetiapine 50 mg tablet (Seroquel) 100 mg PO HS 06/10/15 08/17/22 bupropion HCl 300 mg 24 hr tablet, 300 mg PO DAILY 05/30/16 08/17/22 extended release metoprolol succinate 50 mg 50 mg PO DAILY 06/17/16 08/17/22 tablet,extended release 24 hr (Toprol XL) aspirin 81 mg tablet,delayed 81 mg PO DAILY 03/22/20 08/17/22 release (Adult Aspirin Regimen) ondansetron HCl 4 mg tablet 4 mg PO Q6H 12/31/20 08/17/22 megestrol 400 mg/10 mL (10 mL) 200 mg (5 mL) PO QID Cachexia 02/28/21 08/17/22 oral suspension #1,000 mL tiotropium bromide 2.5 2 puff inhalation DAILY #12 grams 01/17/22 08/17/22 mcg/actuation mist for inhalation (Spiriva Respimat) acetylcysteine 600 mg capsule 1,200 mg PO BID 08/10/22 08/17/22 fluoxetine 40 mg capsule 40 mg PO DAILY 08/10/22 08/17/22 magnesium oxide 400 mg (241.3 mg 200 mg PO DAILY 08/10/22 08/17/22 magnesium) tablet tamsulosin 0.4 mg capsule 0.4 mg PO DAILY 08/10/22 08/17/22 L. acidophilus,casei,rhamnosus 50 1 cap PO DAILY #60 caps 08/15/22 08/17/22 billion cell capsule,delayed release (Bio-K plus) furosemide 40 mg tablet 40 mg PO DAILY #10 tabs 08/15/22 08/17/22 spironolactone 25 mg tablet 25 mg PO DAILY #14 tabs 08/15/22 08/17/22 Previous Rx's Medication Instructions Recorded megestrol 400 mg/10 mL (10 mL) 200 mg (5 mL) PO QID Cachexia 02/28/21 oral suspension #1,000 mL tiotropium bromide 2.5 2 puff inhalation DAILY #12 grams 01/17/22 mcg/actuation mist for inhalation (Spiriva Respimat) L. acidophilus,casei,rhamnosus 50 1 cap PO DAILY #60 caps 08/15/22 billion cell capsule,delayed release (Bio-K plus) furosemide 40 mg tablet 40 mg PO DAILY #10 tabs 08/15/22 spironolactone 25 mg tablet 25 mg PO DAILY #14 tabs 08/15/22 Allergies Allergy/AdvReac Type Severity Reaction Status Date / Time varenicline AdvReac Intermediate Depression Verified 08/17/22 12:52 General Stated Complaint: GenMedical KEVIN: 3 Review of Systems All systems reviewed & are unremarkable except as noted in HPI and below Constitutional Constitutional: Reports as per HPI, Denies chills and Denies fever(s) Eyes Eyes: Denies blurry vision ENT Ears, Nose, Mouth, and Throat: Reports dizziness, Denies sore throat and Denies throat swelling Cardiovascular Cardiovascular: Reports chest pain and Reports dyspnea Respiratory Respiratory: Denies cough and Reports dyspnea Gastrointestinal Gastrointestinal: Reports abdominal pain, Reports diarrhea, Reports nausea and Reports vomiting Genitourinary Genitourinary: Denies hematuria and Denies dysuria Musculoskeletal Musculoskeletal: Denies back pain and Denies numbness Integumentary/Breasts Skin/Breast: Denies lesions and Denies rash Neurologic Neurologic: Reports dizziness, Denies localized weakness and Denies numbness Allergic/Immunologic Allergic/Immunologic: Denies throat swelling PFSH All Active Problems (Updated 08/17/22 @ 19:06 by Sabine Spann DO) Nausea vomiting and diarrhea (Acute) Abdominal pain (Acute) Ascites (Acute) Chest pain (Acute) Pleural effusion (Acute) Elevated lipase (Acute) Cardiomyopathy (Acute) Abdominal ascites (Acute) Pancreatitis (Chronic) Cachexia (Acute) COPD (chronic obstructive pulmonary disease) (Chronic) Anxiety and depression (Chronic) Renal insufficiency (Chronic) GERD (gastroesophageal reflux disease) (Chronic) Anemia (Chronic) Chronic kidney disease, stage 3 (Acute) Aortic valve stenosis (Chronic) Poor nutrition (Acute) Sleep disturbance (Acute) Hiatal hernia (Chronic) Appetite impaired (Acute) Weight loss (Acute) Aortic valve disease (Acute) Conductive hearing loss, unilateral, right ear, with unrestricted hearing on the contralateral side (Acute) Central perforation of tympanic membrane, right ear (Acute) 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 (Acute) Abdominal pain (Acute) Arrhythmia (Acute) Constipation (Acute) PSVT (paroxysmal supraventricular tachycardia) (Acute) UTI (urinary tract infection) (Acute) Suicidal ideation (Acute) Depression (Acute) Medical History Alcohol abuse COPD (chronic obstructive pulmonary disease) Depression Dizziness Essential hypertension Hyperlipidemia SVT (supraventricular tachycardia) Syncope Surgical History No significant past surgical history Social History Smoking/Tobacco Use Status: Current every day Tobacco Type: cigarettes Years smoked: 30 Smoking risk assessment performed?: Yes Alcohol Intake: never Drug use: Occasionally Substance use type: marijuana Details: Pot calms his nerves and helps him sleep. 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 Exam Const General: cooperative, uncomfortable and no acute distress Orientation: alert, awake and oriented x3 HENMT Head: normal to inspection Face and sinus: normal facial exam Mouth: mucous membranes dry Eyes General: appearance normal, both eyes and all related structures Pupils: PERRL EOM: EOM intact bilaterally Neck Neck: normal visual inspection and No submandibular swelling Lymphatic: no lymphadenopathy noted Chest Chest: normal inspection of the chest and no tenderness Resp Effort & Inspection: normal respiratory effort and able to speak in complete sentences Auscultation: clear to auscultation bilaterally Cardio Rate: tachycardic Rhythm: regular rhythm GI Inspection: normal to inspection Palpation: soft, not firm, not rigid and tender (diffuse, worse in epigastrium) Auscultation: normal bowel sounds Male General Exam: Yes normal external exam Back/Spine/Pelvis Thoracic/Lumbar Spine: thoracic and lumbar spine normal to inspection Skin General skin exam: no rashes or lesions noted Neuro General: patient alert, patient awake and patient oriented x3 Cognition: normal cognition Speech: speech normal Motor: muscle tone normal throughout Sensory Exam: no sensory deficits noted Extrem General: normal to inspection, full ROM and no edema Psych Appearance: grossly normal Mental Status: mental status grossly normal Speech and Movement: speech and movement normal Affect: normal affect Course Vital Signs Vital signs: Vital Signs Temperature 98.2 F 08/17/22 12:47 Pulse 51 L 08/17/22 12:47 Respiratory Rate 20 08/17/22 12:47 Blood Pressure 157/102 H 08/17/22 12:47 Pulse Oximetry 99 08/17/22 12:47 Temperature 98.2 F 08/17/22 12:47 Temperature Source Temporal Artery Scan 08/17/22 12:47 Pulse 51 L 08/17/22 12:47 Respiratory Rate 20 08/17/22 12:47 Blood Pressure 157/102 H 08/17/22 12:47 Blood Pressure Position Supine 08/17/22 12:47 Pulse Oximetry 99 08/17/22 12:47 Oxygen Delivery Method Room Air 08/17/22 12:47 Oxygen Flow Rate 0 08/17/22 12:47 Pain Level 10 08/17/22 12:47 Lab/Test Results Lab/Test Results: Laboratory Tests Range/Units 08/17/22 08/17/22 08/17/22 13:14 13:14 13:14 WBC (4.4-10.8) 10^3/uL 12.13 H RBC (4.36-5.78) 10^6/uL 3.77 L Hgb (13.5-17.5) g/dL 11.9 L Hct (40.0-50.0) % 39.0 L MCV (80-95) fL 103 H D MCH (27.0-33.0) pg 31.6 MCHC (32.0-36.0) % 30.5 L RDW (11.8-14.1) % 18.8 H Plt Count (130-400) 10^3/uL 404 H MPV (8.0-11.0) fL 9.6 Immature Gran % 0.9 Neutrophils % 76.5 Lymphocytes % 12.9 Monocytes % 9.0 Eosinophils % 0.1 Basophils % 0.6 Nucleated RBC % (0.0-0.3) % 0.0 Absolute Neutrophils (1.2-6.7) 10^3/uL 9.28 H Absolute Lymphocytes (1.2-3.4) 10^3/uL 1.56 Absolute Monocytes (0.1-0.8) 10^3/uL 1.09 H Absolute Eosinophils (0.0-0.7) 10^3/uL 0.01 Absolute Basophils (0.0-0.2) 10^3/uL 0.07 Sodium (136-145) mmol/L 138 Potassium (3.5-5.1) mmol/L 5.2 H D Chloride (98-107) mmol/L 101 Carbon Dioxide (21.0-32.0) mmol/L 18.6 L Anion Gap (3-11) mmol/L 18.4 H BUN (7-18) mg/dL 35 H Creatinine (0.70-1.30) mg/dL 2.8 H D Est GFR (CKD-EPI 2020) (mL/min/1.73m2) 25.05 Glucose (74-106) mg/dL 138 H Calcium (8.5-10.1) mg/dL 9.5 Magnesium (1.8-2.4) mg/dL 1.8 Total Bilirubin (0.2-1.0) mg/dL 1.4 H AST (15-37) U/L 344 H ALT (16-63) U/L 402 H Alkaline Phosphatase (46-116) U/L 152 H Troponin I (<or=60) ng/L 180 H* Total Protein (6.4-8.2) g/dL 7.5 Albumin (3.4-5.0) g/dL 3.4 Ethyl Alcohol (<10) mg/dL < 3.0
[2022-08-17 14:00] LABS: COVID-19 PCR Negative (Negative); Influenza A PCR Negative (Negative); Influenza B PCR Negative (Negative); RSV PCR Negative (Negative)
[2022-08-17 14:02] LABS: Source Nasopharynx
--- NOTE | 2022-08-17 14:15 | DI.CT_ITS ---
Exam(s) CT CHEST/ABD/PEL WO EXAM: CT CHEST/ABD/PEL WO CLINICAL HISTORY: chest pain, sob, abd pain, vomiting, diarrhea. TECHNIQUE: Imaging Protocol: Axial computed tomography images with coronal and sagittal reformatted images were created and reviewed CONTRAST MATERIAL: Intravenous: none Oral: None COMPARISON: CT CT CHEST PE CTA from 08/10/2022 CR,XR XR PORTABLE CHEST AP POST LINE from 08/11/2022 FINDINGS: CHEST: LUNGS: There are almost symmetrical size bilateral pleural effusions moderate size, right slightly la rger than. There are areas of infiltrate in the supra-parahilar regions of both upper lobes. Also i n the lingular segment of the left lung and right middle lobe medial segment. Increased markings als o noted in both lower lobes but there is some volume loss in the basal segments of the lower lobes re lated to the bilateral pleural effusions. There are no significant focal findings in the trachea and mainstem bronchi. MEDIASTINUM: No obvious hilar nor mediastinal adenopathy. Visualized thyroid unremarkable. CARDIAC: There is cardiomegaly. Coronary artery calcification. No pericardial effusion. Diameter o f the ascending thoracic aorta is prominent, measuring 4.4 cm.Cannot assess for dissection is a there is no IV contrast. OSSEOUS: There are multiple healed left-sided rib fractures. Ribs are somewhat blurred due to respir atory motion artifact. ABDOMEN: There is a mild amount of ascites. This is mostly pooling in the dependent aspect of the pelvis. LIVER: There are no obvious focal hepatic lesions evident of this noninfused study. GALLBLADDER/BILIARY: Gallbladder cannot be assessed accurately given the amount of respiratory motion artifact here. However, it does not appear unremarkable and should be further study with ultrasound if clinically indicated. No obvious gross dilatation of the CBD evident. PANCREAS: No evidence of obvious pancreatic mass nor dilatation of the pancreatic duct. SPLEEN: Spleen is not enlarged. Some perisplenic fluid is noted. ADRENALS: There are no significant adrenal masses. KIDNEYS: No calculi nor hydronephrosis. No obvious solid renal masses. No cysts evident. ABDOMINAL AORTA: Calcified but not enlarged. Common iliac arteries are also calcified but not enlarg ed. LYMPH NODES: There is no retroperitoneal nor para-aortic adenopathy. ABDOMINAL WALL/GI: No evidence of significant anterior abdominal wall nor inguinal hernia. No evidence of bowel obstruction. PELVIS: LYMPH NODES: There is no intrapelvic nor inguinal adenopathy. GI: Appendix stenosis is separate structure. No obvious swollen appendix. There is sigmoid divertic ulosis. No obvious acute diverticulitis. URINARY BLADDER: No calculi nor obvious masses evident REPRODUCTIVE: Prostate calcified. Not enlarged. Seminal vesicles unremarkable. Scrotal hydroceles noted. OSSEOUS: Healed left pelvic iliac fracture. No acute fractures. No osseous lesions. IMPRESSION: 1. Cardiomegaly. Bilateral moderate size pleural effusions right slightly larger than left. No sb cardial effusion. Bilateral upper lobe infiltrates. Both infectious as well as pulmonary edema cons iderations here, possibly combination both. 2. There is moderate amount of ascites in the dependent aspect of the pelvis. The gall bladder is di fficult to assess because of abundant respiratory motion artifact but does not appear normal and may be the culprit for the free fluid. Recommend gallbladder ultrasound. Common hepatic duct is not obv iously dilated. There is no evidence of obvious pancreatitis 3. Sigmoid diverticulosis but no obvious acute diverticulitis. 4. Multiple healed left rib fractures as well as left pelvic iliac bone fracture. RADIATION DOSE DELIVERED: 941.31mGy.cm Total DLP DATA REPOSITORY: All CT scans at this facility are submitted to the National Radiology Data Registry (NRDR) Dose Index Registry (DIR) with the [employer] ([employer]). RADIATION OPTIMIZATION: All CT scans at this facility use at least one of these dose optimization te chniques: automated exposure control; mA and/or kV adjustment per patient size (includes targeted exa ms where dose is matched to clinical indication); or iterative reconstruction.
[2022-08-17 14:27] LABS: Lipase > 375 U/L (16-77)
[2022-08-17] MEDS: Ondansetron 4 MG/2 ML VIAL IVP (14:38)
--- NOTE | 2022-08-17 14:40 | NUR.NOTE ---
Nursing Note: Nuc med called to let us know that the patient needed to be off all opioids and NPO after midnight for his scan tomorrow. Directions passed on to Dr Higuera
[2022-08-17 15:06] LABS: Acetaminophen < 2 ug/mL (10-30)
[2022-08-17] MEDS: Famotidine 20 MG/2 ML VIAL IVP (15:06)
--- NOTE | 2022-08-17 15:45 | RT.EKG_ITS ---
APPROVED REPORT Exam: Resting ECG Reason for Exam: chest pain Patient Location: E HR:117 bpm ECG Measurements Heart Rate 117 AXIS IL 114 P 0 QRSd 89 QRS 133 QT 336 T -33 QTc 470 Conclusion Pacemaker spikes or artifacts...timing non-diagnostic Sinus tachycardia...rate> 99 Right axis deviation...QRS axis ( 91,269) Low voltage, extremity leads...all extremity leads <0.5mV Anteroseptal infarct, old...Q >40mS, V1-V2 Nonspecific repol abnormality, diffuse leads...ST dep, T flat/neg, ant/lat/inf. Artifact. Difficult to determine rhythm, likely sinus. No STEMI. I have reviewed and interpreted ECG and agree with software generated interpretation.
[2022-08-17 16:38] LABS: Troponin I 188 ng/L (<or=60)
[2022-08-17 17:04] LABS: Lab Add On Test DONE
--- NOTE | 2022-08-17 17:04 | W.SURGCON ---
Date of service: 08/17/22 Time of Service: 17:04 Assessment and Plan Assessment and plan (1) Elevated lipase: Status: Acute Assessment and plan: PT was recently in the hospital w/ an elevated lipase. He had an US which showed sludge on 08/08. He had persistent pleural effusions/fluid in the pelvis/fluid around spleen and GB.on CT 51 and today 08/17. Pt does given a scenario of abdominal pain and nausea w/ eating and diarrhea. No fever or chills. However there is some blunting of the liver edge and questionable if the fluid could be from ascites which is causing the gallbladder wall to look thickened. He does not have stones, and he has a small amount of sludge. It would be difficult to think that this was triggering his elevated lipase/ lft's. I am more inclined to think that this is some acute hepatitides itself versus vascular congestion from heart failure. We will continue to treat for heart failure with albumin and gentle fluids over the night -We will check for C. difficile because he was on antibiotics biotics during his last stay. He is being covered with Zosyn with this today as well.. If there is no significant we will add probiotic -Lovenox is currently being held in case there is a procedure tomorrow. His INR is 1.6 I did review the case with IR at [facility]. They were not 100% convinced that this was due to his gallbladder. He certainly would be a candidate for tube placement if that is what it turns out to be. He does have a HIDA scan in the morning to see if he has cystic duct obstruction. With his IR of 1.6 I do not know if they would be willing to consider him. Unfortunately this information was not available when I originally spoke with them. He will get receive some vitamin K tonight in hopes of correcting this. -Medicine is going to give him fluids and albumin to see if we can pull some of the fluid intravascularly, and possibly help to correct his electrolytes. This document was created with voice activated software and may contain errors. 120 mins spent with the patient today. History of Present Illness Narrative: Who was admitted on 08/07 with abdominal pain nausea vomiting anorexia. Patient has a longstanding history of being a poor eater and is on Megace to try to get him to eat. He has a history of bipolar disease and a longstanding history of alcohol abuse, but he has been determined to be able to sign his own consents and make his own decisions. At the time of admission it was thought that this was due to gallbladder disease. He had some sludge that was visible on ultrasound. He had some pericholecystic fluid on CT and also some ascites in the abdomen. He had significantly elevated LFTs and a lipase. He had an MRCP which showed a normal common bile duct and normal pancreatic duct no masses in the pancreas no fluid around the p ancreas. There was concern for fluid overload and the hospitalist service was consulted. At that point he started to request food. We did allow him to eat. His LFTs were trending down and he was discharged home. Today he comes to the ER with pretty much the same picture. The hospitalist had discharged him with a regimen of diuretics, including a potassium sparing diuretic. His potassium is little high today and his creatinine is a little bumped today he had a noncontrasted CT scan done which was really diagnostic. There is a lot of respiratory artifact. His pleural effusions have recurred. He has diminished bowel sounds and complains of pretty significant abdominal pain wherever you touch him. But all he says he wants to do is go to sleep and he does not wish to do any additional testing. I Did consult with Dr. Jansen regarding his status; if this was truly something intra-abdominal going, on versus heart failure which was causing congestion of the liver. He does have large pleural effusions that have reaccumulated (he had bilateral thorocentisis a week ago). Patient agreed to allow the right effusion to be tapped which I thought was the larger of the 2. He got 800 cc of fluid out. It was sent for culture. ER nurses were able to get 2 IV lines for him tonight. So I think he has adequate IV access tonight. I did talk to IR at [facility]. They are not 100% of the convinced that this is gallbladder disease either. He is set up for a HIDA scan at 8 AM Sunday morning. Depending on what that shows they may be able to put in a cholecystotomy drain in on Sunday afternoon, if this is truly the etiology of his infection He did show to echo which has global hypokinesis and an EF of 45. He did have a nuclear stress test done which did show a EF of 17%. I did discuss the case with anesthesia, and confirming my sentiments that this was not someone that we can operate on safely here unless he was in an extremis. Review of Systems Unobtainable due to mental status (as much as able ) [facility] All Active Problems (Updated 08/17/22 @ 20:44 by Marnie Jansen MD) Proteinuria (Acute) Anasarca (Acute) Discharge planning issues (Acute) Bright red blood per rectum (Acute) DVT prophylaxis (Acute) Macrocytic anemia (Acute) Lactic acidosis (Acute) Transaminitis (Acute) Elevated TSH (Acute) Sepsis (Acute) Acute kidney injury superimposed on chronic kidney disease (Acute) Nausea vomiting and diarrhea (Acute) Abdominal pain (Acute) Ascites (Acute) Chest pain (Acute) Pleural effusion (Acute) Elevated lipase (Acute) Cardiomyopathy (Chronic) Abdominal ascites (Acute) Pancreatitis (Acute) Cachexia (Acute) COPD (chronic obstructive pulmonary disease) (Chronic) Anxiety and depression (Chronic) Renal insufficiency (Chronic) GERD (gastroesophageal reflux disease) (Chronic) Anemia (Chronic) Chronic kidney disease, stage 3 (Acute) Aortic valve stenosis (Chronic) Poor nutrition (Acute) Sleep disturbance (Acute) Hiatal hernia (Chronic) Appetite impaired (Acute) Weight loss (Acute) Aortic valve disease (Acute) Conductive hearing loss, unilateral, right ear, with unrestricted hearing on the contralateral side (Acute) Central perforation of tympanic membrane, right ear (Acute) 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 (Acute) Abdominal pain (Acute) Arrhythmia (Acute) Constipation (Acute) PSVT (paroxysmal supraventricular tachycardia) (Acute) UTI (urinary tract infection) (Acute) Suicidal ideation (Acute) Depression (Acute) Medical History Alcohol abuse COPD (chronic obstructive pulmonary disease) Depression Dizziness Essential hypertension Hyperlipidemia SVT (supraventricular tachycardia) Syncope Surgical History No significant past surgical history Social History Smoking/Tobacco Use Status: Current every day Tobacco Type: cigarettes Years smoked: 30 Smoking risk assessment performed?: Yes Alcohol Intake: never Drug use: Occasionally Substance use type: marijuana Details: Pot calms his nerves and helps him sleep. Do you feel safe at home: Yes Do you feel safe in your relationship?: Yes Additional Social history: Lives with a health and wellness director from [employer]. Exam Const Other: PHYSICAL EXAM GENERAL APPEARANCE: A & O x3 HEAD, EYES, EARS, NECK, THROAT: Head is normocephalic, pupils equal, round, reactive to light and accommodation, ocular movement intact, sclera clear and no jaundice. ?edentulous. No sore throat.? No jaw pain. No thrush NECK: no lymphadenopathy.? Trachea midline.? Neck supple.? No JVD LUNGS: normal respiration/normal chest excursion. ?decreased breath sounds at bases ?HEART: Regular rate and rhythm. no murmurs EXTREMITY: No edema or cyanosis.? no leg pain, redness, swelling.? ABDOMEN: no distention. decreased BS. Where ever I touch he c/o pain. But than he is asking for food and just wants to go to sleep. HENPA Other: - No jaundice. Edentulous. Abrasion under left eye +jvd he does not have any dentures Resp Effort & Inspection: normal respiratory effort and able to speak in complete sentences Auscultation: breath sounds absent (bilateral base) Cardio Jugular venous pressure: JVD pulsatile Rate: tachycardic Rhythm: regular rhythm GI Inspection: non-distended and no incisions Palpation: soft, guarding (upper abdomen ) and tender (diffuse) Auscultation: hypoactive bowel sounds Extrem General: no clubbing, cyanosis or edema and muscle atrophy Results Last Vital Signs Temp 36.8 C 08/17/22 12:47 Pulse 116 H 08/17/22 16:47 Resp 24 08/17/22 16:47 BP 134/78 08/17/22 16:47 Pulse Ox 95 08/17/22 15:20 Labs 08/18/22 05:53 08/18/22 05:53 Labs: Laboratory Results - last 24 hr 08/17/22 08/17/22 08/17/22 13:14 13:14 13:14 WBC 12.13 H RBC 3.77 L Hgb 11.9 L Hct 39.0 L MCV 103 H D MCH 31.6 MCHC 30.5 L RDW 18.8 H Plt Count 404 H MPV 9.6 Immature Gran % 0.9 Neutrophils % 76.5 Lymphocytes % 12.9 Monocytes % 9.0 Eosinophils % 0.1 Basophils % 0.6 Nucleated RBC % 0.0 Absolute Neutrophils 9.28 H Absolute Lymphocytes 1.56 Absolute Monocytes 1.09 H Absolute Eosinophils 0.01 Absolute Basophils 0.07 Sodium 138 Potassium 5.2 H D Chloride 101 Carbon Dioxide 18.6 L Anion Gap 18.4 H BUN 35 H Creatinine 2.8 H D Est GFR (CKD-EPI 2020) 25.05 Glucose 138 H Calcium 9.5 Magnesium 1.8 Total Bilirubin 1.4 H AST 344 H ALT 402 H Alkaline Phosphatase 152 H Troponin I 180 H* Total Protein 7.5 Albumin 3.4 Lipase Acetaminophen Ethyl Alcohol < 3.0 COVID-19 Source SARS-CoV-2 (PCR) Influenza Type A (PCR) Influenza Type B (PCR) RSV (PCR) 08/17/22 08/17/22 08/17/22 13:14 13:16 14:34 WBC RBC Hgb Hct MCV MCH MCHC RDW Plt Count MPV Immature Gran % Neutrophils % Lymphocytes % Monocytes % Eosinophils % Basophils % Nucleated RBC % Absolute Neutrophils Absolute Lymphocytes Absolute Monocytes Absolute Eosinophils Absolute Basophils Sodium Potassium Chloride Carbon Dioxide Anion Gap BUN Creatinine Est GFR (CKD-EPI 2020) Glucose Calcium Magnesium Total Bilirubin AST ALT Alkaline Phosphatase Troponin I Total Protein Albumin Lipase > 375 H Acetaminophen < 2 Ethyl Alcohol COVID-19 Source Nasopharynx SARS-CoV-2 (PCR) Negative Influenza Type A (PCR) Negative Influenza Type B (PCR) Negative RSV (PCR) Negative 08/17/22 08/17/22 14:35 16:15 WBC RBC Hgb Hct MCV MCH MCHC RDW Plt Count MPV Immature Gran % Neutrophils % Lymphocytes % Monocytes % Eosinophils % Basophils % Nucleated RBC % Absolute Neutrophils Absolute Lymphocytes Absolute Monocytes Absolute Eosinophils Absolute Basophils Sodium Potassium Chloride Carbon Dioxide Anion Gap BUN Creatinine Est GFR (CKD-EPI 2020) Glucose Calcium Magnesium Total Bilirubin AST ALT Alkaline Phosphatase Troponin I 188 H* Total Protein Albumin Lipase Acetaminophen Ethyl Alcohol COVID-19 Source Cancelled SARS-CoV-2 (PCR) Cancelled Influenza Type A (PCR) Cancelled Influenza Type B (PCR) Cancelled RSV (PCR) Cancelled
--- NOTE | 2022-08-17 17:15 | RT.EKG_ITS ---
APPROVED REPORT Exam: Resting ECG Reason for Exam: chest pain Patient Location: E HR:119 bpm ECG Measurements Heart Rate 119 AXIS WY 121 P 0 QRSd 99 QRS -72 QT 364 T 73 QTc 513 Conclusion Sinus tachycardia...rate> 99 Left anterior fascicular block...axis(240,-40), init forces inf Low voltage, extremity leads...all extremity leads <0.5mV Prolonged QT interval...QTc >500mS. Sinus. LAFB. Improvement in ST depression in lateral leads. No STEMI. I have reviewed and interpreted ECG and agree with software generated interpretation.
--- NOTE | 2022-08-17 17:22 | HPE_ITS ---
Date of service: 08/17/22 Time of Service: 17:22 Assessment and Plan Assessment and plan (1) Sepsis: Status: Acute Assessment and plan: As evidenced by leucocytosis, tachycardia, borderline elevated procalcitonin, elevated lactate, which is not specific, but notable. Sources: possibly intraabdominal such as cholecystitis, pneumonia, empyema, ?SBP. Started on empiric zosyn. Discussed with Devi Barnes and Pamela: the patient would benefit from a paracenthesis, if possible, as well as from thoracenthesis. Will hydrate with IVF as well as infuse albumin. Trend lactates. (2) Abdominal pain: Status: Acute Assessment and plan: In setting of elevated lactate, LFTs, lipase, anasarca, DDx: intraabdominal catastrophy such as mesenteric ischemia or potentially a portal vein thrombosis, pancreatitis (though dry CT was negative for this), cholecystitis, gastritis/PUD, congestive hepatopathy, malignancy. SBP slightly less likely because the pain is not diffuse. Discussed with Dr Barnes who recommends obtaining a CTA of the abdomen/pelvis, the final read for which is not yet back at this time. Preliminary read does not show an intraabdominal catastrophy. General surgery is planning on HIDA scan tomorrow to definitively rule out cholecystitis. (3) Nausea vomiting and diarrhea: Status: Acute Assessment and plan: Suspect this is related to the above process. Provide antiemetics. Imaging as above. (4) Chest pain: Status: Acute Assessment and plan: Degree of elevation of troponin is not suggestive of ACS - rather, demand ischemia. The patient had a negative MPI stress test earlier this week. He does have known CHFrEF w/ LVEF of 40-45% per echo, but no regional wall motion abnormalities were seen - hypokinesis was global. Continue cardiac monitoring. Would not start antiplatelet therapy at this time, especially due to the report of BRBPR in the ER. (5) Pleural effusion: Status: Acute Assessment and plan: As above - for thoracenthesis (6) Ascites: Status: Acute Assessment and plan: For attempted paracenthesis (7) Cardiomyopathy: Status: Chronic Assessment and plan: The patient comes in with evidence of fluid overload. His LVEF, as above, is 40-45% by echo (17% by MPI stress test). At this point, he is both in anasarca and intravascularly depleted. We will administer albumin as well as cautious IVF while monitoring respiratory status. (8) Pancreatitis: Status: Acute Assessment and plan: Elevated lipase and the location of abdominal pain do suggest acute pancreatitis. MRCP was negative, but was a noncontrast study on 08/08/22. I have asked for an add on triglyceride level, and it has not yet been done, so I have ordered it as STAT. Triglycerides were normal on prior admission. (9) Acute kidney injury superimposed on chronic kidney disease: Status: Acute Assessment and plan: CTA abdomen/pelvis (preliminary read) suggests severe R renal artery stenosis. However, I feel there is probably a more global issue as well with intravascular depletion and possibly cardiorenal syndrome contributing. Given the conundrum of fluid overload while simultanous intravascular depletion (but also lactic acidosis), decision was made to give albumin, but also IVF limited to 2L. Patel catheter. Checking fractional excrition of urea. Checking urine protein/creatinine ratio as does have proteinuria. CPK ok. If Cr has not improved, would seek advice of vascular surgery. (10) Elevated TSH: Status: Acute Assessment and plan: Start low dose levothyroxine. Also check morning cortisol to ensure there is not a co-existing adrenal insufficiency. (11) Right ventricular failure: Status: Suspected Assessment and plan: As reported by preliminary read of the CTA. The patient just had an echocardiogram that did not show this and only showed mild pulmonary hypertension. At this point, I am not sure that we can make this diagnosis by CT. Perhaps, the echo could be repeated. Meanwhile, I have ordered venous dopplers of LEs to ensure the patient does not have A DVT which could have caused a PE. (12) Transaminitis: Status: Acute Assessment and plan: As above: etiologies could be cholecystitis, pancreatitis, congestive hepatopathy, malignancy, acute liver injury in sepsis. Will trend. Also, hepatitis panel was obtained and is pending. (13) Lactic acidosis: Status: Acute Assessment and plan: In setting of an infectious process, however, also acute liver injury. Will trend while using antibiotics, albumin, and IV hydration. (14) Macrocytic anemia: Status: Acute Assessment and plan: Check anemia studies. (15) Bright red blood per rectum: Status: Acute Assessment and plan: 2 cc of bleeding does not seem like a hemodynamically significant bleed; ho wemai, will hold off of chemical DVT ppx for tonight and will monitor. Suspect this is due to a hemorrhoidal bleed. (16) Anasarca: Status: Acute Assessment and plan: Etiology is not clear, but it appears he does not have cirrhosis. He does have an elevated TSH, proteinuria, cardiomyopathy. Will start levothyroxine, assess urine protein/creatinine ratio, attempt to maintain volume status. (17) Proteinuria: Status: Acute Assessment and plan: As above (18) DVT prophylaxis: Status: Acute Assessment and plan: SCDs. Will hold chemical DVT ppx given bright red blood per rectum. (19) Discharge planning issues: Status: Acute Assessment and plan: Full code as discussed with the patient. Admit to the ICU Total Critical Care Time 90 minutes. History of Present Illness History of Present Illness Chief Complaint: epigastric pain radiating to the chest, nausea/vomiting, diarrhea Narrative: Mr Mcgowan is a 62 year old male with PMHx of CHFrEF w/ LVEF of 45% per echo 08/08/22 and 17% per MPI 08/14/22 (no ischemia seen on MPI), as well as h/o anasarca, requiring thoracentheses on last admission, elevated lipase and LFTs for a reason still under investigation, SVT, non-oxygen dependent COPD, HTN, Hyperlipidemia, distant history of alcohol abuse, who was discharged from [facility] surgical service on 08/15/22 after an admission for a question of pancreatitis and cholecystitis, where there was no clear evidence by workup that this was the case, who returned to [facility] ED today c/o epigastric and RUQ pain radiating to the chest and nausea. He has had billious emesis. He has had 4-5 liquid dark brown stools in the last 48 hrs. He reports a cough for the last month productive of white sputum. He was also noted to pass about 2 cc of bright red blood per rectum while in the ER. His ER workup revealed a new leucocytosis w/ WBC of 12, sinus tachycardia with HR of 116, TALIA on CKD with a Cr of 2.8 (up from baseline of about 2), worsening transaminitis with AST of 344 and ALT of 402, T. Bili of 1.4 (it was 0.6 on 08/15/22), a lipase which remains >375 u/L, and a troponin I of 180, increasing to 188 on recheck. His pro-BNP was >57209. His imaging reveals moderate bilateral pleural effusions, R>L with question of bilateral pneumonias, no evidence of pancreatitis, pancreatic mass, or dilatation of the pancreatic duct; the gallbladder could not be assessed given motion artifact. There was no acute intraabdominal process, though there was ascites. The case was discussed with general surgery, who plan on a HIDA scan tomorrow, but feel that clinically the etiology of the transaminitis and elevated lipase may not be the gallbladder or even surgical. Hospitalist admission was requested. Review of Systems All systems reviewed & are unremarkable except as noted in HPI and below PFSH All Active Problems (Updated 08/17/22 @ 20:44 by Marnie Jansen MD) Proteinuria (Acute) Anasarca (Acute) Discharge planning issues (Acute) Bright red blood per rectum (Acute) DVT prophylaxis (Acute) Macrocytic anemia (Acute) Lactic acidosis (Acute) Transaminitis (Acute) Elevated TSH (Acute) Sepsis (Acute) Acute kidney injury superimposed on chronic kidney disease (Acute) Nausea vomiting and diarrhea (Acute) Abdominal pain (Acute) Ascites (Acute) Chest pain (Acute) Pleural effusion (Acute) Elevated lipase (Acute) Cardiomyopathy (Chronic) Abdominal ascites (Acute) Pancreatitis (Acute) Cachexia (Acute) COPD (chronic obstructive pulmonary disease) (Chronic) Anxiety and depression (Chronic) Renal insufficiency (Chronic) GERD (gastroesophageal reflux disease) (Chronic) Anemia (Chronic) Chronic kidney disease, stage 3 (Acute) Aortic valve stenosis (Chronic) Poor nutrition (Acute) Sleep disturbance (Acute) Hiatal hernia (Chronic) Appetite impaired (Acute) Weight loss (Acute) Aortic valve disease (Acute) Conductive hearing loss, unilateral, right ear, with unrestricted hearing on the contralateral side (Acute) Central perforation of tympanic membrane, right ear (Acute) 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 (Acute) Abdominal pain (Acute) Arrhythmia (Acute) Constipation (Acute) PSVT (paroxysmal supraventricular tachycardia) (Acute) UTI (urinary tract infection) (Acute) Suicidal ideation (Acute) Depression (Acute) Medical History Alcohol abuse COPD (chronic obstructive pulmonary disease) Depression Dizziness Essential hypertension Hyperlipidemia SVT (supraventricular tachycardia) Syncope Surgical History No significant past surgical history Social History Smoking/Tobacco Use Status: Current every day Tobacco Type: cigarettes Years smoked: 30 Smoking risk assessment performed?: Yes Alcohol Intake: never Drug use: Occasionally Substance use type: marijuana Details: Pot calms his nerves and helps him sleep. Do you feel safe at home: Yes Do you feel safe in your relationship?: Yes Additional Social history: Lives with a public health microbiologist from [employer]. Meds Allergies and Home Medications Allergies Allergy/AdvReac Type Severity Reaction Status Date / Time varenicline AdvReac Intermediate Depression Verified 08/17/22 12:52 Home Medications Medication Instructions Recorded Confirmed Type albuterol sulfate 90 mcg/actuation 2 puff inhalation PRN PRN 05/15/14 08/17/22 History aerosol inhaler (Proventil HFA) mirtazapine 30 mg tablet 60 mg PO DAILY 05/15/14 08/17/22 History simvastatin 20 mg tablet 20 mg PO DAILY 05/15/14 08/17/22 History multivitamin (Daily Multi-Vitamin 1 tab PO DAILY 06/10/15 08/17/22 History tablet) omeprazole 20 mg capsule,delayed 40 mg PO DAILY dyspepsia, 06/10/15 08/17/22 History release abdominal pain quetiapine 50 mg tablet (Seroquel) 100 mg PO HS 06/10/15 08/17/22 History bupropion HCl 300 mg 24 hr tablet, 300 mg PO DAILY 05/30/16 08/17/22 History extended release metoprolol succinate 50 mg 50 mg PO DAILY 06/17/16 08/17/22 History tablet,extended release 24 hr (Toprol XL) aspirin 81 mg tablet,delayed 81 mg PO DAILY 03/22/20 08/17/22 History release (Adult Aspirin Regimen) ondansetron HCl 4 mg tablet 4 mg PO Q6H 12/31/20 08/17/22 History megestrol 400 mg/10 mL (10 mL) 200 mg (5 mL) PO QID Cachexia 02/28/21 08/17/22 Rx oral suspension #1,000 mL tiotropium bromide 2.5 2 puff inhalation DAILY #12 grams 01/17/22 08/17/22 Rx mcg/actuation mist for inhalation (Spiriva Respimat) acetylcysteine 600 mg capsule 1,200 mg PO BID 08/10/22 08/17/22 History fluoxetine 40 mg capsule 40 mg PO DAILY 08/10/22 08/17/22 History magnesium oxide 400 mg (241.3 mg 200 mg PO DAILY 08/10/22 08/17/22 History magnesium) tablet tamsulosin 0.4 mg capsule 0.4 mg PO DAILY 08/10/22 08/17/22 History L. acidophilus,casei,rhamnosus 50 1 cap PO DAILY #60 caps 08/15/22 08/17/22 Rx billion cell capsule,delayed release (Bio-K plus) furosemide 40 mg tablet 40 mg PO DAILY #10 tabs 08/15/22 08/17/22 Rx spironolactone 25 mg tablet 25 mg PO DAILY #14 tabs 08/15/22 08/17/22 Rx Exam Narrative Exam Narrative: General: pleasant but ill and weak appearing middle-aged male who is uncomfortable in bed Neurological: A&Ox3, no focal neurologic deficits Psychiatric: Appropriate speech pattern/content Skin: Visible skin pale, dry, intact HEENT: Atraumatic, normocephalic, EOMI, dry MM, clear oropharynx, no submandibular or cervical lymphadenopathy, no goiter, + JVD Cardiovascular: RRR, tachycardic, no m/r/g Lungs: Diminished breath sounds at B bases Gastrointestinal: soft, exquisitely tender in epigastrium and RUQ, nondistended, + BS Genitourinary: did not yet have a patel at the time of my exam Extremities: no edema BLEs, +1 pedal pulses B Results Imaging Additional studies: CT chest/abdomen/pelvis: 1. Cardiomegaly.? Bilateral moderate size pleural effusions right slightly larger than left.? No pericardial effusion.? Bilateral upper lobe infiltrates.? Both infectious as well as pulmonary edema considerations here, possibly combination both. 2. There is moderate amount of ascites in the dependent aspect of the pelvis.? The gall bladder is difficult to assess because of abundant respiratory motion artifact but does not appear normal and may be the culprit for the free fluid.? Recommend gallbladder ultrasound.? Common hepatic duct is not obviously dilated.? There is no evidence of obvious pancreatitis 3. Sigmoid diverticulosis but no obvious acute diverticulitis. 4. Multiple healed left rib fractures as well as left pelvic iliac bone fracture. EKG: HR 119, ST, lateral ST segment depressions, ? ST segment elevations in V3, LAFB, no acute ischemia Prior EKG was of poor quality. Labs 08/17/22 13:14 08/17/22 13:14 Labs: Laboratory Results - last 24 hr 08/17/22 08/17/22 08/17/22 13:14 13:14 13:14 WBC 12.13 H RBC 3.77 L Hgb 11.9 L Hct 39.0 L MCV 103 H D MCH 31.6 MCHC 30.5 L RDW 18.8 H Plt Count 404 H MPV 9.6 Immature Gran % 0.9 Neutrophils % 76.5 Lymphocytes % 12.9 Monocytes % 9.0 Eosinophils % 0.1 Basophils % 0.6 Nucleated RBC % 0.0 Absolute Neutrophils 9.28 H Absolute Lymphocytes 1.56 Absolute Monocytes 1.09 H Absolute Eosinophils 0.01 Absolute Basophils 0.07 Sodium 138 Potassium 5.2 H D Chloride 101 Carbon Dioxide 18.6 L Anion Gap 18.4 H BUN 35 H Creatinine 2.8 H D Est GFR (CKD-EPI 2020) 25.05 Glucose 138 H Calcium 9.5 Magnesium 1.8 Total Bilirubin 1.4 H AST 344 H ALT 402 H Alkaline Phosphatase 152 H Troponin I 180 H* Total Protein 7.5 Albumin 3.4 Lipase Acetaminophen Ethyl Alcohol < 3.0 COVID-19 Source SARS-CoV-2 (PCR) Influenza Type A (PCR) Influenza Type B (PCR) RSV (PCR) Add-On Test Request 08/17/22 08/17/22 08/17/22 13:14 13:16 14:34 WBC RBC Hgb Hct MCV MCH MCHC RDW Plt Count MPV Immature Gran % Neutrophils % Lymphocytes % Monocytes % Eosinophils % Basophils % Nucleated RBC % Absolute Neutrophils Absolute Lymphocytes Absolute Monocytes Absolute Eosinophils Absolute Basophils Sodium Potassium Chloride Carbon Dioxide Anion Gap BUN Creatinine Est GFR (CKD-EPI 2020) Glucose Calcium Magnesium Total Bilirubin AST ALT Alkaline Phosphatase Troponin I Total Protein Albumin Lipase > 375 H Acetaminophen < 2 Ethyl Alcohol COVID-19 Source Nasopharynx SARS-CoV-2 (PCR) Negative Influenza Type A (PCR) Negative Influenza Type B (PCR) Negative RSV (PCR) Negative Add-On Test Request 05/03/0108/17/22 08/17/22 14:35 16:15 17:03 WBC RBC Hgb Hct MCV MCH MCHC RDW Plt Count MPV Immature Gran % Neutrophils % Lymphocytes % Monocytes % Eosinophils % Basophils % Nucleated RBC % Absolute Neutrophils Absolute Lymphocytes Absolute Monocytes Absolute Eosinophils Absolute Basophils Sodium Potassium Chloride Carbon Dioxide Anion Gap BUN Creatinine Est GFR (CKD-EPI 2020) Glucose Calcium Magnesium Total Bilirubin AST ALT Alkaline Phosphatase Troponin I 188 H* Total Protein Albumin Lipase Acetaminophen Ethyl Alcohol COVID-19 Source Cancelled SARS-CoV-2 (PCR) Cancelled Influenza Type A (PCR) Cancelled Influenza Type B (PCR) Cancelled RSV (PCR) Cancelled Add-On Test Request DONE Last Vital Signs Temp 36.8 C 08/17/22 12:47 Pulse 116 H 08/17/22 16:47 Resp 24 08/17/22 16:47 BP 134/78 08/17/22 16:47 Pulse Ox 95 08/17/22 15:20 Time Spent Time spent with Patient: >75 minutes Time was spent: preparing to see the patient(eg.review tests), obtaining and/or reviewing separately otained hiistory, ordering medications,tests, procedures, referring, communicating with other health child care lead teacher, indepentently interpreting results, counseling the patient and care coordination
[2022-08-17 17:25] LABS: Lab Add On Test DONE
[2022-08-17] MEDS: ACETAMINOPHEN 1,000 MG/100 ML BTL 400 MG IVPB (17:25)
[2022-08-17] MEDS: LORazepam 2 MG/ML VIAL 0.5 MG IVP (17:25)
[2022-08-17 17:49] LABS: C-Reactive Protein 7.79 mg/dL (0.0-0.3); Creatine Kinase 126 U/L (39-308); FREE T4 1.28 ng/dL (0.76-1.46); NT-proBNP > 35000 pg/mL (<300); TSH 10.83 uIU/mL (0.36-3.74)
[2022-08-17 18:04] LABS: BE (Venous) -10 mmol/L (-2-3); HCO3 (Venous) 16 mmol/L (23-28); O2 Sat (Venous) 45 %; TCO2 (Venous) 15 mmol/L (24-29); pCO2 (Venous) 30 mmHg (41-51); pH (Venous) 7.33 (7.31-7.41); pO2 (Venous) 30 mmHg
[2022-08-17 18:18] LABS: Lactate 10.9 mmol/L (0.6-1.4)
[2022-08-17 18:49] LABS: Bilirubin Small (Negative); Blood Negative (Negative); Clarity Clear (Clear); Glucose Negative (Negative); Ketones Negative (Negative); Leukocyte Esterase Negative (Negative); Nitrite Negative (Negative); Specific Gravity >= 1.030 (1.005-1.025); Urobilinogen 0.2 mg/dL (Up to 0.2)
[2022-08-17 18:53] LABS: Bacteria Rare HPF (Negative); Epithelial Cells Rare HPF (Negative); RBC Negative HPF (0-2); WBC Negative HPF (0-5)
[2022-08-17 18:54] LABS: C & S Indicated? No; Casts 0-2 Hyaline LPF (Negative); Crystals Rare Amorphous HPF (Negative); Mucus Negative (Negative)
[2022-08-17 19:03] LABS: Procalcitonin 0.4 ng/mL
[2022-08-17] MEDS: Normal Saline - Diluent 50 ML VIAL IJ (19:19)
[2022-08-17] MEDS: Omnipaque 350 MG/ML 100 ML BTL IJ (19:19)
--- NOTE | 2022-08-17 20:07 | DI.VRAD_ITS ---
PROCEDURE INFORMATION: Exam: CTA Abdomen and Pelvis With Contrast Exam date and time: 08/17/2022 7:19 PM Age: 62 years old Clinical indication: Other: ? Mesenteric ischemia, ? portal vein thrombosis; Patient HX: PT poor historian TECHNIQUE: Imaging protocol: Computed tomographic angiography of the abdomen and pelvis with contrast. 3D rendering (Not supervised by radiologist): MIP and/or 3D reconstructed images were created by the technologist. Radiation optimization: All CT scans at this facility use at least one of these dose optimization techniques: automated exposure control; mA and/or kV adjustment per patient size (includes targeted exams where dose is matched to clinical indication); or iterative reconstruction. Contrast material: OMNI 350; Contrast volume: 100 ml; Contrast route: INTRAVENOUS (IV); COMPARISON: CT CHEST/ABD/PEL WO 08/17/2022 2:45 PM FINDINGS: Lungs: There is partially visualized consolidative atelectasis of the lower lungs. Pleural spaces: There are partially visualized bilateral pleural effusions. Heart: The heart is significantly enlarged. Reflux of contrast into the IVC, hepatic veins and right renal vein is compatible with right heart failure. Aorta: Moderate atherosclerotic calcification noted in the aorta and iliac arteries. No evidence of aortic aneurysm. Celiac trunk and mesenteric arteries: No occlusion or significant stenosis. Renal arteries: There is severe right renal artery stenosis. Right iliac arteries: No occlusion or significant stenosis. Right femoral/popliteal arteries: There is moderate stenosis of the right common femoral artery. Left iliac arteries: No occlusion or significant stenosis. Liver: No mass. Gallbladder and bile ducts: There is diffuse gallbladder wall thickening. No discrete calcified gallstones. Pancreas: Unremarkable. No mass. No ductal dilation. Spleen: Unremarkable. No splenomegaly. Adrenal glands: Unremarkable. No mass. Kidneys and ureters: Heterogeneous enhancement pattern noted throughout both kidneys. No discrete renal mass or hydronephrosis. Stomach and bowel: Mild sigmoid diverticulosis. No evidence of diverticulitis. No evidence of bowel obstruction. Appendix: No evidence of appendicitis. Intraperitoneal space: Moderate amount of free fluid noted in the pelvis. No free air. Lymph nodes: Unremarkable. No enlarged lymph nodes. Urinary bladder: Noriega catheter is present in the urinary bladder. Reproductive: Unremarkable as visualized. Bones/joints: Moderate degenerative changes noted in the lower spine. No acute fracture. Soft tissues: Findings compatible with right inguinal testis. IMPRESSION: 1. Severe right renal artery stenosis and moderate stenosis of the right common femoral artery. No other significant arterial stenosis or occlusion evident. 2. Significant patchy enhancement throughout both kidneys. Differential diagnosis would include sequela of multiple remote infarcts versus pyelonephritis, depending on clinical presentation 3. Significant cardiomegaly with evidence of right heart failure 4. Partially visualized bilateral pleural effusions and compressive atelectasis of the lower lungs. Moderate amount of free fluid in the pelvis also noted. Dictated and Authenticated by: Elias Beasley MD. Ordering:LATASHA Dye MD
--- NOTE | 2022-08-17 20:53 | W.PM.OP ---
Date of service: 08/17/22 Time of Service: 20:53 Operative Note Operative Note DATE OF PROCEDURE: 08/17/22 PRE-OP DIAGNOSIS: right pleural effusion POST-OP DIAGNOSIS: same PROCEDURE: right thorocentisis SURGEON: Catherine Santiago ANESTHESIA TYPE: Local By Surgeon Refer to Anesthesia Record ESTIMATED BLOOD LOSS: 3 PATHOLOGY: other COMPLICATIONS: None Patient was transported to: other Patient's condition: stable Procedure Description: Pt is here today for thoracentesis for symptoms of shortness of breath.? Chest x-ray was reviewed prior to beginning the procedure.? Informed consent was obtained explaining risks and benefits of the procedure, including but not limited to bleeding, infection, pneumothorax, recurrence, complications of anesthesia, and other unforetold complications. Timeout is performed prior to beginning the procedure. ? PROCEDURE:? The patient is brought to the procedure room and placed in the seated position.? Ultrasound is used to localize the pocket on the right posterior chest.? The area is marked and then prepped and draped in the usual sterile fashion using a ChloraPrep scrub solution.? 10 cc's of 1% Lidocaine is used to anesthetize the T10 interspace. ? The small krista is made with a #11 blade.? The needle and catheter is then inserted over the top of the rib, aspirating as it is inserted.? The needle is then removed.? The catheter is then hooked up to the Vacutainer system and 800 cc's of blood-tinged fluid is evacuated.? The catheter is removed; pressure is held.? Sterile compression dressing is applied. ? Ultrasound shows good lung slide up to the apex of the lung, and no air. Pt will be admitted to ICU
[2022-08-17 21:26] LABS: Lactate 13.7 mmol/L (0.6-1.4)
--- NOTE | 2022-08-17 21:27 | DI.VRAD_ITS ---
PROCEDURE INFORMATION: Exam: XR Chest Exam date and time: 08/17/2022 9:16 PM Age: 62 years old Clinical indication: Other: S/P thoro TECHNIQUE: Imaging protocol: Radiologic exam of the chest. Views: 1 view. COMPARISON: CT CHEST/ABD/PEL WO 08/17/2022 2:45 PM FINDINGS: Lungs: There has been interval development of dense left lower lobe consolidative atelectasis. Mild patchy infiltrate noted in the right mid to lower lung, improved from the prior study. Pleural spaces: Unremarkable. No pleural effusion. No pneumothorax. Heart/Mediastinum: Unremarkable. No cardiomegaly. Bones/joints: Moderate degenerative changes noted in the shoulders. IMPRESSION: Persistent bilateral pulmonary infiltrates, improved on the right and worsened in the left lower lung Dictated and Authenticated by: Elias Beasley MD. Ordering:GRISELDA Alexander MD
[2022-08-17 21:30] LABS: INR 1.6 (0.9-1.1); Prothrombin Time 16.1 sec (9.3-11.0)
[2022-08-17 21:35] LABS: Triglyceride 95 mg/dL (<150)
[2022-08-17] MEDS: Normal Saline 500 ML 30 ML IV (23:30)
[2022-08-17] MEDS: PIPERACILLIN/TAZO 3.375 GM in Normal Saline 50 ML IVPB (23:45)
[2022-08-17] MEDS: Phytonadione 10 MG/ML AMP SC (23:48)
[2022-08-17 23:49] LABS: *AMPHETAMINES SCREEN URINE Negative (Negative); *BARBITURATES SCREEN URINE Negative (Negative); *BENZODIAZEPINES SCREEN URINE Negative (Negative); Cannabinoids THC Negative (Negative); Cocaine Screen,Urine Negative (Negative); METHADONE URINE SCREEN Negative (Negative); OPIATES URINE SCREEN Negative (Negative)
[2022-08-17 23:53] LABS: COMMENT (LAB VIEW ONLY) 143.33 mg/dL; PROTEIN 183.4 mg/dL; Prot/Crea Ur Ratio 1.27; Tricyclic Antidepressants Positive (Negative)
[2022-08-18] VITALS (112 sets, daily range): BP systolic 115–146; BP diastolic 78–104; PULSE 93–133; RESP 12–34; TEMP 36.3–37; O2SAT 89–99
[2022-08-18] MEDS: ALBUMIN HUMAN 25 GM/100 ML BTL IVPB ×2 (00:08→07:54)
[2022-08-18] MEDS: QUEtiapine 100 MG TAB PO ×2 (01:21→01:52)
[2022-08-18] MEDS: Lactated Ringers 1,000 ML 250 ML IV (01:25)
[2022-08-18] MEDS: Pantoprazole 40 MG VIAL IVP ×2 (01:41→19:44)
[2022-08-18] MEDS: Normal Saline Flush 10 ML SYR IVP ×3 (01:44→19:23)
[2022-08-18] MEDS: ACETAMINOPHEN 1,000 MG/100 ML BTL 400 MG IVPB (03:42)
--- NOTE | 2022-08-18 03:55 | NUR.NOTE ---
Nursing Note: Patient continues to remain restless and uncomfortable with abdominal pain. MD notified, received order for Tylenol IVPB x 1. OOB to recliner per patient request for comfort.
[2022-08-18] MEDS: PIPERACILLIN/TAZO 3.375 GM in Normal Saline 50 ML IVPB ×3 (05:23→19:18)
[2022-08-18 06:06] LABS: Lactate 7.4 mmol/L (0.6-1.4)
[2022-08-18 06:09] LABS: Abs Immature Grans 0.11 10^3/uL (0.0-0.06); Absolute Basophil Count 0.04 10^3/uL (0.0-0.2); Absolute Lymphocyte Count 0.87 10^3/uL (1.2-3.4); Absolute Monocyte Count 0.77 10^3/uL (0.1-0.8); Basophils % 0.3; HCT 29.7 % (40.0-50.0); HGB 9.2 g/dL (13.5-17.5); Immature Grans % 0.9; Lymphocytes % 6.9; MCH 31.4 pg (27.0-33.0); MCV 101 fL (80-95); MPV 10.3 fL (8.0-11.0); Monocytes % 6.1; Neutrophils % 85.8; Nucleated RBC 0.3 % (0.0-0.3); Platelet Count 315 10^3/uL (130-400); RBC 2.93 10^6/uL (4.36-5.78); RDW 18.5 % (11.8-14.1); RDW-SD 67.3 fL; WBC 12.55 10^3/uL (4.4-10.8)
[2022-08-18 06:18] LABS: Absolute Neutrophil Count 10.77 10^3/uL (1.2-6.7)
[2022-08-18 06:21] LABS: Ammonia 68 umol/L (11-32)
[2022-08-18 06:33] LABS: Albumin 3.1 g/dL (3.4-5.0); Alkaline Phosphatase 106 U/L (46-116); Anion Gap 17.8 mmol/L (3-11); BUN 43 mg/dL (7-18); Bilirubin, Direct 0.8 mg/dL (0.0-0.2); Bilirubin, Total 1.5 mg/dL (0.2-1.0); C-Reactive Protein 8.11 mg/dL (0.0-0.3); CO2 18.2 mmol/L (21.0-32.0); CREATININE 3.3 mg/dL (0.70-1.30); Calcium 8.8 mg/dL (8.5-10.1); Chloride 102 mmol/L (98-107); Estimated GFR 20.56 (mL/min/1.73m2); Glucose 92 mg/dL (74-106); Magnesium 1.6 mg/dL (1.8-2.4); Potassium 5.2 mmol/L (3.5-5.1); Sodium 138 mmol/L (136-145)
[2022-08-18 06:36] LABS: Iron 94 ug/dL (65-175); Total Iron Binding Capacity 194 ug/dL (250-450); Transferrin Sat 48 % (20-55)
[2022-08-18 06:42] LABS: Lipase > 375 U/L (16-77)
[2022-08-18 06:44] LABS: Troponin I 142 ng/L (<or=60)
[2022-08-18 06:49] LABS: Folate 19.1 ng/mL (8.6-20.0)
[2022-08-18 06:57] LABS: AST 2852 U/L (15-37)
[2022-08-18 06:58] LABS: ALT 1672 U/L (16-63)
[2022-08-18 07:21] LABS: Vitamin B12 > 2000 pg/mL (193-986)
[2022-08-18] MEDS: Furosemide 100 MG/10 ML VIAL 80 MG IVP (07:48)
[2022-08-18 07:52] LABS: Ferritin > 2000 ng/mL (26-388)
--- NOTE | 2022-08-18 08:00 | DI.US_ITS ---
Exam(s) US EXTREMITY VENOUS BI EXAM: US EXTREMITY VENOUS BI CLINICAL HISTORY: Evidence of RV failure on CTA, ?DVT/PE. TECHNIQUE: Bilateral lower extremity venous ultrasound performed using grayscale, color-flow, and sp ectral Doppler analysis. COMPARISON: No exams were available for comparison FINDINGS: The bilateral common femoral, femoral and popliteal veins demonstrate normal compressibility, augment ation, and color Doppler. The posterior tibial veins are patent. IMPRESSION: Right: Negative for DVT Left: Negative for DVT DATA REPOSITORY:
--- NOTE | 2022-08-18 08:06 | NUR.NOTE ---
Dr. Jansen orders RN to give Albuterol and one liter of Lactated Ringer's at 07:[address] Webster then informs RN not to give LR, to give 80mg of Lasix IVP and Albumin. Same is conveyed to Dr. Jansen. Dr. Jansen approves of said course of treatment.Nursing Note:
--- NOTE | 2022-08-18 08:08 | NUR.NOTE ---
Ultrasound of lower extremities is commenced on patient. Lasix is given and Albumin is hanged.Nursing Note:
--- NOTE | 2022-08-18 08:10 | NUR.NOTE ---
Dr. Jansen orders RN to give 1 liter of Lactated Ringer's and Albumin. Dr. Webster tells RN not to give LR and to give 80mg of Lasix and Albumin. Same is conveyed to Dr. Jansen who agrees with Dr. Webster's plan of care.Nursing Note:
[2022-08-18 08:42] LABS: INR 1.8 (0.9-1.1); Prothrombin Time 18.5 sec (9.3-11.0)
[2022-08-18] MEDS: MAGNESIUM SULFATE 1 GM/100 ML BAG IVPB (08:56)
[2022-08-18 09:11] LABS: Hepatitis A Antibody IgM Negative (Negative); Hepatitis B Core Antibody Negative (Negative); Hepatitis B surface Ag Negative (Negative); Hepatitis C Ab w Rflx HCV PCR Negative (Negative)
[2022-08-18] MEDS: Tiotropium Bromide-Respimat 10 PUFF INH 2 PUFF IH (09:46)
--- NOTE | 2022-08-18 09:50 | PGE_ITS ---
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 LVEF of 40-45% per echo, RVSP of 38 mmHg, both atria dilated on echo from 08/08/22, with mild right ventricular hypokinesis. PE less likely, and venous dopplers were negative. Clinically and on my POCUS exam today, both ventricular functions appear worse than described in the echo. The patient's lactate actually got worse post-administration of IVF, suggesting a congestive hepatopathy etiology for the lactic acidosis. The patient was switched to a combination of albumin + furosemide and is now diuresing well. I have reached out to [facility] for recommendations on optimization of medications since there is no cardiology in house today. I think that this is the etiology for anasarca w/ B pleural effusion and ascites, TALIA w/ hyperkalemia, acute liver injury w/ lactic acidosis, coagulopathy. (2) Sepsis: Status: Acute Assessment and plan: As evidenced by leucocytosis, tachycardia, borderline elevated procalcitonin, elevated lactate, which is not specific, but notable. Sources: possibly intraabdominal, though less likely cholecystitis as discussed with Dr Santiago who also reviewed the images with [facility] who concurred, suspected pneumonia, ?empyema (studies pending), ?SBP (not enough fluid for a tap).. Continue empiric zosyn. Await blood cultures. Continue to trend lactates. (3) Abdominal pain: Status: Acute Assessment and plan: In setting of elevated lactate, LFTs, lipase, anasarca. CTA w/o evidence of acute process explaining the abdominal pain. Dr Santiago discussed the case with [facility] who do not feel that this is cholecystitis or that the patient would benefit from a cholecystostomy tube at this time. Congestive hepatopathy could be the source of pain. Continue diuresis. Will hold off of HIDA. (4) Renal artery stenosis: Status: Acute Assessment and plan: Will need follow up with vascular surgery. WIll discuss this case with them. (5) Nausea vomiting and diarrhea: Status: Resolved Assessment and plan: Continue PPI and carafate. Trial clear liquids. (6) Chest pain: Status: Acute Assessment and plan: With elevation of troponin which is borderline. L-sided chest pain has resolved, and it is now R-sided. R-sided CP could be due to the thoracenthesis yesterday. Degree of elevation of troponin is not suggestive of ACS - rather, demand ischemia. The patient had a negative MPI stress test earlier this week. He does have known CHFrEF w/ LVEF of 40-45% per echo, but no regional wall motion abnormalities were seen - hypokinesis was global. Continue cardiac monitoring. I have asked [facility] cardi[facility] for a consult. Would not start antiplatelet therapy at this time, especially due to the report of BRBPR in the ER. (7) Pleural effusion: Status: Acute Assessment and plan: As above -s/p thoracenthesis. Await studies. (8) Ascites: Status: Acute Assessment and plan: Diuresing. Not enough fluid for a paracenthesis, as per cardiology. (9) Pancreatitis: Status: Acute Assessment and plan: Elevated lipase and the location of abdominal pain do suggest acute pancreatitis. I am not sure if the etiology for that could also be congestive. Surgery is following. MRCP was negative, but was a noncontrast study on 08/08/22. Triglyceride level normal. Will try a clear liquid diet and monitor for worsening of pain. (10) Acute kidney injury superimposed on chronic kidney disease: Status: Acute Assessment and plan: CTA abdomen/pelvis (preliminary read) suggests severe R renal artery stenosis. Cardiorenal etiology is likely the more acute issue currently. I will discusss this with vascular surgery. Continue diuresis and recheck labs this afternoon. Await labs for fractional excretion of urea. CPK ok. (11) Elevated TSH: Status: Acute Assessment and plan: Started on low dose levothyroxine. Await morning cortisol to ensure there is not a co-existing adrenal insufficiency. (12) Transaminitis: Status: Acute Assessment and plan: I favor congestive hepatopathy at this point. Diurese and monitor the LFTs. (13) Lactic acidosis: Status: Acute Assessment and plan: In setting of an infectious process, however, also acute liver injury - probably more due to the latter. Will trend while using antibiotics, albumin, diuresing. (14) Macrocytic anemia: Status: Acute Assessment and plan: Appears to be due to chronic disease + / - blood loss. MOnitor H/H. (15) Bright red blood per rectum: Status: Acute Assessment and plan: 2 cc of bleeding does not seem like a hemodynamically significant bleed; laurie r, will hold off of chemical DVT ppx for tonight and will monitor. Suspect this is due to a hemorrhoidal bleed. No recurrences since the ICU. (16) Anasarca: Status: Acute Assessment and plan: Etiology is not clear, but it appears he does not have cirrhosis. Likely due to the CHF. He does have an elevated TSH, proteinuria, cardiomyopathy. Conitnue levothyroxine. Protein/creatinine is not in nephrotic range. Diurese. (17) Proteinuria: Status: Acute Assessment and plan: As above (18) Elevated troponin: Status: Acute Assessment and plan: As above (19) High anion gap metabolic acidosis: Status: Acute Assessment and plan: In setting of TALIA on CKD and lactic acidosis as well as volume expansion. Improving. Continue to monitor with diuresis. (20) Hyperkalemia: Status: Acute Assessment and plan: Monitor with diuresis on serial labs. (21) DVT prophylaxis: Status: Acute Assessment and plan: SCDs. Will hold chemical DVT ppx given bright red blood per rectum. (22) Discharge planning issues: Status: Acute Assessment and plan: Full code as discussed with the patient. Keep in ICU Total Critical Care Time 60 minutes. Discussed with Devi Barnes and Pamela Subjective Subjective Interval history since last seen: Mr Mcgowan states he continues to feel abdominal pain. He is short of breath. He is having R-sided chest pain. Denies nausea. Denies dizziness. His UOP over 12 hours overnight was 60 cc. S/p R-sided thoracenthesis w/ 800 cc of blood tinged fluid removed last night. Discussed wtih Dr Barnes: she feels this is biventricular failure, which is also my opinion. Diuretics were initiated. In discussion with the patient as to whether he would want to be transferred to a different hospital if indicated and/or would consider dialysis, he stated, well, yeah! I want to live! twice. Since initiation of furosemide bolus + drip, the patient is recorded to have put out 710 cc of urine. Exam Narrative Exam Narrative: General: pleasant but ill and weak appearing middle-aged male who is uncomfortable in bed HEENT: EOMI, MMM Cardiovascular: RRR, tachycardic, no m/r/g Lungs: Faint crackles 1/2 of the L lung, CTA on R. Gastrointestinal: soft, less tender in epigastrium and RUQ, nondistended, + BS Genitourinary: has a patel catheter Extremities: no edema BLEs, +1 pedal pulses B Objective Last Vital Signs Temp 36.8 C 08/18/22 08:50 Pulse 100 H 08/18/22 08:50 Resp 17 08/18/22 08:50 BP 130/98 H 08/18/22 08:50 Pulse Ox 92 08/18/22 08:50 Laboratory Results - last 24 hr 08/17/22 08/17/22 08/17/22 13:14 13:14 13:14 WBC 12.13 H RBC 3.77 L Hgb 11.9 L Hct 39.0 L MCV 103 H D MCH 31.6 MCHC 30.5 L RDW 18.8 H Plt Count 404 H MPV 9.6 Immature Gran % 0.9 Neutrophils % 76.5 Lymphocytes % 12.9 Monocytes % 9.0 Eosinophils % 0.1 Basophils % 0.6 Nucleated RBC % 0.0 Absolute Neutrophils 9.28 H Absolute Lymphocytes 1.56 Absolute Monocytes 1.09 H Absolute Eosinophils 0.01 Absolute Basophils 0.07 PT INR VBG pH VBG pCO2 VBG pO2 VBG HCO3 VBG Total CO2 VBG O2 Saturation VBG Base Excess VBG Lactate Sodium 138 Potassium 5.2 H D Chloride 101 Carbon Dioxide 18.6 L Anion Gap 18.4 H BUN 35 H Creatinine 2.8 H D Est GFR (CKD-EPI 2020) 25.05 Glucose 138 H Calcium 9.5 Magnesium 1.8 Iron TIBC Transferrin % Sat Ferritin Total Bilirubin 1.4 H Conjugated Bilirubin AST 344 H ALT 402 H Alkaline Phosphatase 152 H Ammonia Creatine Kinase Troponin I 180 H* C-Reactive Protein NT-Pro-B Natriuret Pep Total Protein 7.5 Albumin 3.4 Triglycerides Lipase Vitamin B12 Folate Procalcitonin TSH Free T4 Urine Color Urine Clarity Urine pH Ur Specific [place] Urine Protein Urine Ketones Urine Blood Urine Nitrite Urine Bilirubin Urine Urobilinogen Ur Leukocyte Esterase Urine RBC Urine WBC Ur Epithelial Cells Urine Crystals Urine Bacteria Urine Casts Urine Mucus Ur Culture Indicated? Ur Random Creatinine U Random Total Protein U [place] Prot/Creat Ratio Urine Glucose Urine Opiates Screen Urine Methadone Screen Acetaminophen Ur Barbiturates Screen Ur Tricyclics Screen Ur Amphetamines Screen U Benzodiazepines Scrn Urine Cocaine Screen Ur THC Screen Ethyl Alcohol < 3.0 COVID-19 Source SARS-CoV-2 (PCR) Influenza Type A (PCR) Influenza Type B (PCR) RSV (PCR) Add-On Test Request 08/17/22 08/17/22 08/17/22 13:14 13:16 14:34 WBC RBC Hgb Hct MCV MCH MCHC RDW Plt Count MPV Immature Gran % Neutrophils % Lymphocytes % Monocytes % Eosinophils % Basophils % Nucleated RBC % Absolute Neutrophils Absolute Lymphocytes Absolute Monocytes Absolute Eosinophils Absolute Basophils PT INR VBG pH VBG pCO2 VBG pO2 VBG HCO3 VBG Total CO2 VBG O2 Saturation VBG Base Excess VBG Lactate Sodium Potassium Chloride Carbon Dioxide Anion Gap BUN Creatinine Est GFR (CKD-EPI 2020) Glucose Calcium Magnesium Iron TIBC Transferrin % Sat Ferritin Total Bilirubin Conjugated Bilirubin AST ALT Alkaline Phosphatase Ammonia Creatine Kinase Troponin I C-Reactive Protein NT-Pro-B Natriuret Pep Total Protein Albumin Triglycerides Lipase > 375 H Vitamin B12 Folate Procalcitonin TSH Free T4 Urine Color Urine Clarity Urine pH Ur Specific [place] Urine Protein Urine Ketones Urine Blood Urine Nitrite Urine Bilirubin Urine Urobilinogen Ur Leukocyte Esterase Urine RBC Urine WBC Ur Epithelial Cells Urine Crystals Urine Bacteria Urine Casts Urine Mucus Ur Culture Indicated? Ur Random Creatinine U Random Total Protein U [place] Prot/Creat Ratio Urine Glucose Urine Opiates Screen Urine Methadone Screen Acetaminophen < 2 Ur Barbiturates Screen Ur Tricyclics Screen Ur Amphetamines Screen U Benzodiazepines Scrn Urine Cocaine Screen Ur THC Screen Ethyl Alcohol COVID-19 Source Nasopharynx SARS-CoV-2 (PCR) Negative Influenza Type A (PCR) Negative Influenza Type B (PCR) Negative RSV (PCR) Negative Add-On Test Request 08/17/22 08/17/22 08/17/22 14:35 16:15 16:15 WBC RBC Hgb Hct MCV MCH MCHC RDW Plt Count MPV Immature Gran % Neutrophils % Lymphocytes % Monocytes % Eosinophils % Basophils % Nucleated RBC % Absolute Neutrophils Absolute Lymphocytes Absolute Monocytes Absolute Eosinophils Absolute Basophils PT INR VBG pH VBG pCO2 VBG pO2 VBG HCO3 VBG Total CO2 VBG O2 Saturation VBG Base Excess VBG Lactate Sodium Potassium Chloride Carbon Dioxide Anion Gap BUN Creatinine Est GFR (CKD-EPI 2020) Glucose Calcium Magnesium Iron TIBC Transferrin % Sat Ferritin Total Bilirubin Conjugated Bilirubin AST ALT Alkaline Phosphatase Ammonia Creatine Kinase Troponin I 188 H* C-Reactive Protein NT-Pro-B Natriuret Pep > 17955 H Total Protein Albumin Triglycerides Lipase Vitamin B12 Folate Procalcitonin TSH Free T4 Urine Color Urine Clarity Urine pH Ur Specific [place] Urine Protein Urine Ketones Urine Blood Urine Nitrite Urine Bilirubin Urine Urobilinogen Ur Leukocyte Esterase Urine RBC Urine WBC Ur Epithelial Cells Urine Crystals Urine Bacteria Urine Casts Urine Mucus Ur Culture Indicated? Ur Random Creatinine U Random Total Protein U [place] Prot/Creat Ratio Urine Glucose Urine Opiates Screen Urine Methadone Screen Acetaminophen Ur Barbiturates Screen Ur Tricyclics Screen Ur Amphetamines Screen U Benzodiazepines Scrn Urine Cocaine Screen Ur THC Screen Ethyl Alcohol COVID-19 Source Cancelled SARS-CoV-2 (PCR) Cancelled Influenza Type A (PCR) Cancelled Influenza Type B (PCR) Cancelled RSV (PCR) Cancelled Add-On Test Request 08/17/22 08/17/22 08/17/22 16:15 16:15 17:03 WBC RBC Hgb Hct MCV MCH MCHC RDW Plt Count MPV Immature Gran % Neutrophils % Lymphocytes % Monocytes % Eosinophils % Basophils % Nucleated RBC % Absolute Neutrophils Absolute Lymphocytes Absolute Monocytes Absolute Eosinophils Absolute Basophils PT INR VBG pH VBG pCO2 VBG pO2 VBG HCO3 VBG Total CO2 VBG O2 Saturation VBG Base Excess VBG Lactate Sodium Potassium Chloride Carbon Dioxide Anion Gap BUN Creatinine Est GFR (CKD-EPI 2020) Glucose Calcium Magnesium Iron TIBC Transferrin % Sat Ferritin Total Bilirubin Conjugated Bilirubin AST ALT Alkaline Phosphatase Ammonia Creatine Kinase 126 Troponin I C-Reactive Protein 7.79 H NT-Pro-B Natriuret Pep Total Protein Albumin Triglycerides Lipase Vitamin B12 Folate Procalcitonin TSH 10.83 H Free T4 1.28 Urine Color Urine Clarity Urine pH Ur Specific [place] Urine Protein Urine Ketones Urine Blood Urine Nitrite Urine Bilirubin Urine Urobilinogen Ur Leukocyte Esterase Urine RBC Urine WBC Ur Epithelial Cells Urine Crystals Urine Bacteria Urine Casts Urine Mucus Ur Culture Indicated? Ur Random Creatinine U Random Total Protein U [place] Prot/Creat Ratio Urine Glucose Urine Opiates Screen Urine Methadone Screen Acetaminophen Ur Barbiturates Screen Ur Tricyclics Screen Ur Amphetamines Screen U Benzodiazepines Scrn Urine Cocaine Screen Ur THC Screen Ethyl Alcohol COVID-19 Source SARS-CoV-2 (PCR) Influenza Type A (PCR) Influenza Type B (PCR) RSV (PCR) Add-On Test Request DONE DONE 08/17/22 08/17/22 08/17/22 17:57 17:57 17:57 WBC RBC Hgb Hct MCV MCH MCHC RDW Plt Count MPV Immature Gran % Neutrophils % Lymphocytes % Monocytes % Eosinophils % Basophils % Nucleated RBC % Absolute Neutrophils Absolute Lymphocytes Absolute Monocytes Absolute Eosinophils Absolute Basophils PT INR VBG pH 7.33 VBG pCO2 30 L VBG pO2 30 VBG HCO3 16 L VBG Total CO2 15 L VBG O2 Saturation 45 VBG Base Excess -10 L VBG Lactate 10.9 H* Sodium Potassium Chloride Carbon Dioxide Anion Gap BUN Creatinine Est GFR (CKD-EPI 2020) Glucose Calcium Magnesium Iron TIBC Transferrin % Sat Ferritin Total Bilirubin Conjugated Bilirubin AST ALT Alkaline Phosphatase Ammonia Creatine Kinase Troponin I C-Reactive Protein NT-Pro-B Natriuret Pep Total Protein Albumin Triglycerides Lipase Vitamin B12 Folate Procalcitonin 0.4 TSH Free T4 Urine Color Urine Clarity Urine pH Ur Specific [place] Urine Protein Urine Ketones Urine Blood Urine Nitrite Urine Bilirubin Urine Urobilinogen Ur Leukocyte Esterase Urine RBC Urine WBC Ur Epithelial Cells Urine Crystals Urine Bacteria Urine Casts Urine Mucus Ur Culture Indicated? Ur Random Creatinine U Random Total Protein U [place] Prot/Creat Ratio Urine Glucose Urine Opiates Screen Urine Methadone Screen Acetaminophen Ur Barbiturates Screen Ur Tricyclics Screen Ur Amphetamines Screen U Benzodiazepines Scrn Urine Cocaine Screen Ur THC Screen Ethyl Alcohol COVID-19 Source SARS-CoV-2 (PCR) Influenza Type A (PCR) Influenza Type B (PCR) RSV (PCR) Add-On Test Request 08/17/22 08/17/22 08/17/22 18:37 21:15 21:15 WBC RBC Hgb Hct MCV MCH MCHC RDW Plt Count MPV Immature Gran % Neutrophils % Lymphocytes % Monocytes % Eosinophils % Basophils % Nucleated RBC % Absolute Neutrophils Absolute Lymphocytes Absolute Monocytes Absolute Eosinophils Absolute Basophils PT 16.1 H INR 1.6 H VBG pH VBG pCO2 VBG pO2 VBG HCO3 VBG Total CO2 VBG O2 Saturation VBG Base Excess VBG Lactate 13.7 H* Sodium Potassium Chloride Carbon Dioxide Anion Gap BUN Creatinine Est GFR (CKD-EPI 2020) Glucose Calcium Magnesium Iron TIBC Transferrin % Sat Ferritin Total Bilirubin Conjugated Bilirubin AST ALT Alkaline Phosphatase Ammonia Creatine Kinase Troponin I C-Reactive Protein NT-Pro-B Natriuret Pep Total Protein Albumin Triglycerides Lipase Vitamin B12 Folate Procalcitonin TSH Free T4 Urine Color Yellow Urine Clarity Clear Urine pH 5.0 Ur Specific [place] >= 1.030 H Urine Protein 100 H Urine Ketones Negative Urine Blood Negative Urine Nitrite Negative Urine Bilirubin Small H Urine Urobilinogen 0.2 Ur Leukocyte Esterase Negative Urine RBC Negative Urine WBC Negative Ur Epithelial Cells Rare Urine Crystals Rare Amorphous Urine Bacteria Rare Urine Casts 0-2 Hyaline Urine Mucus Negative Ur Culture Indicated? No Ur Random Creatinine U Random Total Protein U [place] Prot/Creat Ratio Urine Glucose Negative Urine Opiates Screen Urine Methadone Screen Acetaminophen Ur Barbiturates Screen Ur Tricyclics Screen Ur Amphetamines Screen U Benzodiazepines Scrn Urine Cocaine Screen Ur THC Screen Ethyl Alcohol COVID-19 Source SARS-CoV-2 (PCR) Influenza Type A (PCR) Influenza Type B (PCR) RSV (PCR) Add-On Test Request 08/17/22 08/17/22 08/17/22 21:15 21:19 23:00 WBC RBC Hgb Hct MCV MCH MCHC RDW Plt Count MPV Immature Gran % Neutrophils % Lymphocytes % Monocytes % Eosinophils % Basophils % Nucleated RBC % Absolute Neutrophils Absolute Lymphocytes Absolute Monocytes Absolute Eosinophils Absolute Basophils PT INR VBG pH VBG pCO2 VBG pO2 VBG HCO3 VBG Total CO2 VBG O2 Saturation VBG Base Excess VBG Lactate Sodium Potassium Chloride Carbon Dioxide Anion Gap BUN Creatinine Est GFR (CKD-EPI 2020) Glucose Calcium Magnesium Iron TIBC Transferrin % Sat Ferritin Total Bilirubin Conjugated Bilirubin AST ALT Alkaline Phosphatase Ammonia Creatine Kinase Troponin I C-Reactive Protein NT-Pro-B Natriuret Pep Total Protein Albumin Triglycerides 95 Lipase Vitamin B12 Folate Procalcitonin TSH Free T4 Urine Color Urine Clarity Urine pH Ur Specific [place] Urine Protein Urine Ketones Urine Blood Urine Nitrite Urine Bilirubin Urine Urobilinogen Ur Leukocyte Esterase Urine RBC Urine WBC Ur Epithelial Cells Urine Crystals Urine Bacteria Urine Casts Urine Mucus Ur Culture Indicated? Ur Random Creatinine U Random Total Protein U [place] Prot/Creat Ratio Urine Glucose Urine Opiates Screen Negative Urine Methadone Screen Negative Acetaminophen Ur Barbiturates Screen Negative Ur Tricyclics Screen Positive A Ur Amphetamines Screen Negative U Benzodiazepines Scrn Negative Urine Cocaine Screen Negative Ur THC Screen Negative Ethyl Alcohol COVID-19 Source SARS-CoV-2 (PCR) Influenza Type A (PCR) Influenza Type B (PCR) RSV (PCR) Add-On Test Request TNP 08/17/22 08/17/22 08/18/22 23:00 23:00 05:35 WBC RBC Hgb Hct MCV MCH MCHC RDW Plt Count MPV Immature Gran % Neutrophils % Lymphocytes % Monocytes % Eosinophils % Basophils % Nucleated RBC % Absolute Neutrophils Absolute Lymphocytes Absolute Monocytes Absolute Eosinophils Absolute Basophils PT INR VBG pH VBG pCO2 VBG pO2 VBG HCO3 VBG Total CO2 VBG O2 Saturation VBG Base Excess VBG Lactate Sodium Potassium Chloride Carbon Dioxide Anion Gap BUN Creatinine Est GFR (CKD-EPI 2020) Glucose Calcium Magnesium Iron 94 TIBC 194 L Transferrin % Sat 48 Ferritin Total Bilirubin Conjugated Bilirubin AST ALT Alkaline Phosphatase Ammonia Creatine Kinase Troponin I C-Reactive Protein NT-Pro-B Natriuret Pep Total Protein Albumin Triglycerides Lipase Vitamin B12 Folate Procalcitonin TSH Free T4 Urine Color Urine Clarity Urine pH Ur Specific [place] Urine Protein Urine Ketones Urine Blood Urine Nitrite Urine Bilirubin Urine Urobilinogen Ur Leukocyte Esterase Urine RBC Urine WBC Ur Epithelial Cells Urine Crystals Urine Bacteria Urine Casts Urine Mucus Ur Culture Indicated? Ur Random Creatinine 140.50 143.33 U Random Total Protein 183.4 U [place] Prot/Creat Ratio 1.27 Urine Glucose Urine Opiates Screen Urine Methadone Screen Acetaminophen Ur Barbiturates Screen Ur Tricyclics Screen Ur Amphetamines Screen U Benzodiazepines Scrn Urine Cocaine Screen Ur THC Screen Ethyl Alcohol COVID-19 Source SARS-CoV-2 (PCR) Influenza Type A (PCR) Influenza Type B (PCR) RSV (PCR) Add-On Test Request 08/18/22 08/18/22 08/18/22 05:53 05:53 05:53 WBC 12.55 H RBC 2.93 L Hgb 9.2 L D Hct 29.7 L MCV 101 H MCH 31.4 MCHC 31.0 L RDW 18.5 H Plt Count 315 MPV 10.3 Immature Gran % 0.9 Neutrophils % 85.8 Lymphocytes % 6.9 Monocytes % 6.1 Eosinophils % 0.0 Basophils % 0.3 Nucleated RBC % 0.3 Absolute Neutrophils 10.77 H Absolute Lymphocytes 0.87 L Absolute Monocytes 0.77 Absolute Eosinophils 0.00 Absolute Basophils 0.04 PT INR VBG pH VBG pCO2 VBG pO2 VBG HCO3 VBG Total CO2 VBG O2 Saturation VBG Base Excess VBG Lactate 7.4 H* Sodium 138 Potassium 5.2 H Chloride 102 Carbon Dioxide 18.2 L Anion Gap 17.8 H BUN 43 H Creatinine 3.3 H Est GFR (CKD-EPI 2020) 20.56 Glucose 92 Calcium 8.8 Magnesium 1.6 L Iron TIBC Transferrin % Sat Ferritin > 2000 H Total Bilirubin 1.5 H Conjugated Bilirubin 0.8 H AST 2852 H ALT 1672 H Alkaline Phosphatase 106 Ammonia Creatine Kinase Troponin I 142 H* C-Reactive Protein 8.11 H NT-Pro-B Natriuret Pep Total Protein 6.0 L Albumin 3.1 L Triglycerides Lipase > 375 H Vitamin B12 Folate Procalcitonin TSH Free T4 Urine Color Urine Clarity Urine pH Ur Specific [place] Urine Protein Urine Ketones Urine Blood Urine Nitrite Urine Bilirubin Urine Urobilinogen Ur Leukocyte Esterase Urine RBC Urine WBC Ur Epithelial Cells Urine Crystals Urine Bacteria Urine Casts Urine Mucus Ur Culture Indicated? Ur Random Creatinine U Random Total Protein U [place] Prot/Creat Ratio Urine Glucose Urine Opiates Screen Urine Methadone Screen Acetaminophen Ur Barbiturates Screen Ur Tricyclics Screen Ur Amphetamines Screen U Benzodiazepines Scrn Urine Cocaine Screen Ur THC Screen Ethyl Alcohol COVID-19 Source SARS-CoV-2 (PCR) Influenza Type A (PCR) Influenza Type B (PCR) RSV (PCR) Add-On Test Request 08/18/22 08/18/22 08/18/22 05:53 05:53 07:50 WBC RBC Hgb Hct MCV MCH MCHC RDW Plt Count MPV Immature Gran % Neutrophils % Lymphocytes % Monocytes % Eosinophils % Basophils % Nucleated RBC % Absolute Neutrophils Absolute Lymphocytes Absolute Monocytes Absolute Eosinophils Absolute Basophils PT INR VBG pH VBG pCO2 VBG pO2 VBG HCO3 VBG Total CO2 VBG O2 Saturation VBG Base Excess VBG Lactate Sodium Potassium Chloride Carbon Dioxide Anion Gap BUN Creatinine Est GFR (CKD-EPI 2020) Glucose Calcium Magnesium Iron TIBC Transferrin % Sat Ferritin Total Bilirubin Conjugated Bilirubin AST ALT Alkaline Phosphatase Ammonia 68 H Creatine Kinase Troponin I C-Reactive Protein NT-Pro-B Natriuret Pep Total Protein Albumin Triglycerides Lipase Vitamin B12 > 2000 H Folate 19.1 Procalcitonin TSH Free T4 Urine Color Urine Clarity Urine pH Ur Specific [place] Urine Protein Urine Ketones Urine Blood Urine Nitrite Urine Bilirubin Urine Urobilinogen Ur Leukocyte Esterase Urine RBC Urine WBC Ur Epithelial Cells Urine Crystals Urine Bacteria Urine Casts Urine Mucus Ur Culture Indicated? Ur Random Creatinine U Random Total Protein U [place] Prot/Creat Ratio Urine Glucose Urine Opiates Screen Urine Methadone Screen Acetaminophen Ur Barbiturates Screen Ur Tricyclics Screen Ur Amphetamines Screen U Benzodiazepines Scrn Urine Cocaine Screen Ur THC Screen Ethyl Alcohol COVID-19 Source SARS-CoV-2 (PCR) Influenza Type A (PCR) Influenza Type B (PCR) RSV (PCR) Add-On Test Request TNP 08/18/22 08:17 WBC RBC Hgb Hct MCV MCH MCHC RDW Plt Count MPV Immature Gran % Neutrophils % Lymphocytes % Monocytes % Eosinophils % Basophils % Nucleated RBC % Absolute Neutrophils Absolute Lymphocytes Absolute Monocytes Absolute Eosinophils Absolute Basophils PT 18.5 H INR 1.8 H VBG pH VBG pCO2 VBG pO2 VBG HCO3 VBG Total CO2 VBG O2 Saturation VBG Base Excess VBG Lactate Sodium Potassium Chloride Carbon Dioxide Anion Gap BUN Creatinine Est GFR (CKD-EPI 2020) Glucose Calcium Magnesium Iron TIBC Transferrin % Sat Ferritin Total Bilirubin Conjugated Bilirubin AST ALT Alkaline Phosphatase Ammonia Creatine Kinase Troponin I C-Reactive Protein NT-Pro-B Natriuret Pep Total Protein Albumin Triglycerides Lipase Vitamin B12 Folate Procalcitonin TSH Free T4 Urine Color Urine Clarity Urine pH Ur Specific [place] Urine Protein Urine Ketones Urine Blood Urine Nitrite Urine Bilirubin Urine Urobilinogen Ur Leukocyte Esterase Urine RBC Urine WBC Ur Epithelial Cells Urine Crystals Urine Bacteria Urine Casts Urine Mucus Ur Culture Indicated? Ur Random Creatinine U Random Total Protein U [place] Prot/Creat Ratio Urine Glucose Urine Opiates Screen Urine Methadone Screen Acetaminophen Ur Barbiturates Screen Ur Tricyclics Screen Ur Amphetamines Screen U Benzodiazepines Scrn Urine Cocaine Screen Ur THC Screen Ethyl Alcohol COVID-19 Source SARS-CoV-2 (PCR) Influenza Type A (PCR) Influenza Type B (PCR) RSV (PCR) Add-On Test Request Objective Narrative Objective Narrative: Venous doppler BLEs: Right: Negative for DVT Left: Negative for DVT Time Spent with Patient Time Spent with Patient: >50 minutes Time was spent: preparing to see the patient(eg.review tests), obtaining and/or reviewing separately otained hiistory, ordering medications,tests, procedures, referring, communicating with other health director of managed care, indepentently interpreting results, counseling the patient and care coordination
--- NOTE | 2022-08-18 10:00 | INITIAL_ITS ---
Date of service: 08/18/22 Time of Service: 10:00 Care Management Initial Assmt Initial Assessment REASON FOR HOSPITALIZATION:: Anasarca, Abdominal Pain PREVIOUS FUNCTIONAL STATUS/SOCIAL/FAMILY SUPPORTS:: Recently relocated to new apartment, overseen by home providers Claudia. Well supported by IDDs services at [facility]. rehabilitation coordinator Kirk Lu, well involved in care- release scanned to chart. CURRENT FUNCTIONAL STATUS:: Remains in ICU at this time, remains uncomfortable with abdominal pain and chest pain. CM continues to follow. ADVANCE DIRECTIVES:: COLST on file. Has patient been provided with info about the portal/API?: No Did the patient sign up for the portal?: No CODE STATUS:: DNR/DNI INSURANCE COVERAGE / FINANCIAL ISSUES:: Medicaid CURRENT HOME/COMMUNITY SERVICES/EQUIPMENT:: [facility] Senior Loss Control Specialist PRIMARY CARE PHYSICIAN:: Jayde Wren POTENTIAL DISCHARGE NEEDS:: Follow up appointments PATIENT/FAMILY EDUCATION NEEDS:: Review discharge instructions, discuss Ask Me Three. ANTICIPATED BARRIERS TO DISCHARGE:: None identified. TRANSPORTATION:: Via private vehicle with home providers. PLAN:: Anticipate Senthil will return home when ready per MD. He remains ICU status at this time, in kidney failure per MD. CM continues to follow. PFSH All Active Problems (Updated 08/18/22 @ 12:37 by Marnie Jansen MD) Biventricular heart failure (Acute) Leukocytosis (Acute) Renal artery stenosis (Acute) Elevated troponin (Acute) High anion gap metabolic acidosis (Acute) CHF exacerbation (Acute) Hyperkalemia (Acute) Proteinuria (Acute) Anasarca (Acute) Discharge planning issues (Acute) Bright red blood per rectum (Acute) DVT prophylaxis (Acute) Macrocytic anemia (Acute) Lactic acidosis (Acute) Transaminitis (Acute) Elevated TSH (Acute) Sepsis (Acute) Acute kidney injury superimposed on chronic kidney disease (Acute) Abdominal pain (Acute) Ascites (Acute) Chest pain (Acute) Pleural effusion (Acute) Elevated lipase (Acute) Cardiomyopathy (Chronic) Abdominal ascites (Acute) Pancreatitis (Acute) Cachexia (Acute) COPD (chronic obstructive pulmonary disease) (Chronic) Anxiety and depression (Chronic) Renal insufficiency (Chronic) GERD (gastroesophageal reflux disease) (Chronic) Anemia (Chronic) Chronic kidney disease, stage 3 (Acute) Aortic valve stenosis (Chronic) Poor nutrition (Acute) Sleep disturbance (Acute) Hiatal hernia (Chronic) Appetite impaired (Acute) Weight loss (Acute) Aortic valve disease (Acute) Conductive hearing loss, unilateral, right ear, with unrestricted hearing on the contralateral side (Acute) Central perforation of tympanic membrane, right ear (Acute) 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 (Acute) Abdominal pain (Acute) Arrhythmia (Acute) Constipation (Acute) PSVT (paroxysmal supraventricular tachycardia) (Acute) UTI (urinary tract infection) (Acute) Suicidal ideation (Acute) Depression (Acute) Medical History Alcohol abuse COPD (chronic obstructive pulmonary disease) Depression Dizziness Essential hypertension Hyperlipidemia SVT (supraventricular tachycardia) Syncope Surgical History No significant past surgical history Social History Smoking/Tobacco Use Status: Current every day Tobacco Type: cigarettes Years smoked: 30 Smoking risk assessment performed?: Yes Alcohol Intake: never Drug use: Occasionally Substance use type: marijuana Details: Pot calms his nerves and helps him sleep. Do you feel safe at home: Yes Do you feel safe in your relationship?: Yes Additional Social history: Lives with a radiology clerk from [facility] [employer]. Readmission Within the Past 30 Days Yes or No: Yes Date of First Admission Date of 1st Admission: 08/07/22 Date of this Admission Date of Admission: 08/17/22 This admission was: Through ED Assessment for Readmission Summary of readmission circumstances, based upon interviews: Home from 08/15-08/17. Re-presented to ED with Nausea vomiting and diarrhea, Abdominal pain, Ascites, Chest pain, Pleural effusion
[2022-08-18] MEDS: buPROPion-XL 150 MG TABCR 300 MG PO (10:02)
[2022-08-18] MEDS: FLUoxetine 20 MG CAP 40 MG PO (10:02)
[2022-08-18] MEDS: Mirtazapine 15 MG TAB 60 MG PO (10:03)
[2022-08-18 10:10] LABS: Lactate 4.7 mmol/L (0.6-1.4)
--- NOTE | 2022-08-18 10:20 | PUCC_ITS ---
General Date of Service Date of service: 08/18/22 Time of Service: 07:30 Reason for Admission to ICU: Elevated lactate nausea/vomiting Assessment and Plan Assessment and plan (1) Anasarca: Status: Acute (2) Proteinuria: Status: Acute (3) Bright red blood per rectum: Status: Acute (4) Lactic acidosis: Status: Acute (5) Sepsis: Status: Acute (6) Acute kidney injury superimposed on chronic kidney disease: Status: Acute (7) Hyperkalemia: Status: Acute (8) CHF exacerbation: Status: Acute (9) High anion gap metabolic acidosis: Status: Acute (10) Transaminitis: Status: Acute (11) Elevated lipase: Status: Acute (12) Pleural effusion: Status: Acute (13) Ascites: Status: Acute (14) Elevated troponin: Status: Acute (15) COPD (chronic obstructive pulmonary disease): Status: Chronic (16) Renal artery stenosis: Status: Acute (17) Leukocytosis: Status: Acute Assessment and plan: This is a 62 yo man admitted to the ICU for severe lactic acidosis, initially thought to be due to a gall bladder pathology. 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 His POCUS exam this morning found global hypokinesis with essentially stagnation of the septum as well as a dilated and plethoric IVC. He also has multi-organ failure consistent with a congestive process. I recommend diuresis and continued monitoring. If he is not improving with diuresis alone, dobutamine or milrinone can be considered for further care (or epinephrine infusion if blood pressure does not tolerate). Recommendations Pulmonary: COPD - continue PO NAC 1200mg bid - continue Spiriva - continue prn albuterol Pleural Effusion - diuresis as below Cardiac: Biventricular Failure - recommend diuresis to -1 to -2L in next 24 hours - bid lytes while actively diuresing - consider dobutamine/milrinone/epi if not improving - will need cardiology follow up as outpatient - 2g salt restriction - 2L fluid restriction Elevated troponin - due to heart failure Renal: Anion Gap metabolic acidosis - due to lactate - continue to monitor Lactic acidosis - has improved - no need to trend further unless a clinic change occurs Acute on chronic renal failure - congestive nephropathy - diuresis as above - s/p 80IV Lasix this morning - strict I&O's Renal Artery Stenosis - vascular surgery outpatient follow up Hyperkalemia - continue to monitor I&O: Intake & Output 08/15/22 08/16/22 08/17/22 08/18/22 23:59 23:59 23:59 23:59 Intake Total 100 / 300 1725.833 / 1725.833 Output Total 430 / 430 Balance 70 / 270 1295.833 / 1295.833 Weight 58.9 kg 60.3 kg Daily Fluid Goal:: Negative 1-2 L in 24 hours GI Nutrition: Ascites - diuresis as above Congestive hepatopathy - diuresis as above - trend LFT's Elevated Lipase - congestive? Lower GIB - monitor, anemia stable Date of Last Bowel Movement: 08/17/22 Infectious Disease: Sepsis? - on Zosyn - can continue for now - cholecystitis vs PNA Hematologic: Leukocytosis - reactive Neurologic: No acute concerns Endocrine: No acute concerns Lines: PIV Rojas Prophylaxis: Protonix - on at home Recommend starting heprain for DVT ppx Code Status: Resuscitation Status DNR/DNI Subjective Critical and life-threatening events over the past 24 hours: This is a 62 yo with heart failure and COPD who was recently admitted to the surgical service for pancreatitis (elevated lipase) vs cholecystitis. Please see H&P for more details. Today Senthil is stable from a vital signs perspective. He is tired, but easily abusable. His imaging is significant for pleural effusions, pulmonary edema, ascites, severe renal artery stenosis Exam Narrative Exam Narrative: Gen: NAD, normal respiratory effort, well-nourished HENT: PERRL, +JVD Chest: No respiratory distress, normal appearance of chest, bilateral crackles Heart: regular rate and rhythym, no murmurs, rubs or gallops Abdomen: Non-distended, soft, non tender Extremities: No clubbing, edema, cyanosis, rashes Neuro: AAOx3 , non focal Psych: cooperative, appropriate mental affect Most Recent VS/Results Last Vital Signs Temp 36.8 C 08/18/22 08:50 Pulse 100 H 08/18/22 08:50 Resp 17 08/18/22 08:50 BP 130/98 H 08/18/22 08:50 Pulse Ox 92 08/18/22 08:50 Laboratory Results - last 24 hr 08/17/22 08/17/22 08/17/22 13:14 13:14 13:14 WBC 12.13 H RBC 3.77 L Hgb 11.9 L Hct 39.0 L MCV 103 H D MCH 31.6 MCHC 30.5 L RDW 18.8 H Plt Count 404 H MPV 9.6 Immature Gran % 0.9 Neutrophils % 76.5 Lymphocytes % 12.9 Monocytes % 9.0 Eosinophils % 0.1 Basophils % 0.6 Nucleated RBC % 0.0 Absolute Neutrophils 9.28 H Absolute Lymphocytes 1.56 Absolute Monocytes 1.09 H Absolute Eosinophils 0.01 Absolute Basophils 0.07 PT INR VBG pH VBG pCO2 VBG pO2 VBG HCO3 VBG Total CO2 VBG O2 Saturation VBG Base Excess VBG Lactate Sodium 138 Potassium 5.2 H D Chloride 101 Carbon Dioxide 18.6 L Anion Gap 18.4 H BUN 35 H Creatinine 2.8 H D Est GFR (CKD-EPI 2020) 25.05 Glucose 138 H Calcium 9.5 Magnesium 1.8 Iron TIBC Transferrin % Sat Ferritin Total Bilirubin 1.4 H Conjugated Bilirubin AST 344 H ALT 402 H Alkaline Phosphatase 152 H Ammonia Creatine Kinase Troponin I 180 H* C-Reactive Protein NT-Pro-B Natriuret Pep Total Protein 7.5 Albumin 3.4 Triglycerides Lipase Vitamin B12 Folate Procalcitonin TSH Free T4 Urine Color Urine Clarity Urine pH Ur Specific [place] Urine Protein Urine Ketones Urine Blood Urine Nitrite Urine Bilirubin Urine Urobilinogen Ur Leukocyte Esterase Urine RBC Urine WBC Ur Epithelial Cells Urine Crystals Urine Bacteria Urine Casts Urine Mucus Ur Culture Indicated? Ur Random Creatinine U Random Total Protein U [place] Prot/Creat Ratio Urine Glucose Urine Opiates Screen Urine Methadone Screen Acetaminophen Ur Barbiturates Screen Ur Tricyclics Screen Ur Amphetamines Screen U Benzodiazepines Scrn Urine Cocaine Screen Ur THC Screen Ethyl Alcohol < 3.0 COVID-19 Source SARS-CoV-2 (PCR) Influenza Type A (PCR) Influenza Type B (PCR) RSV (PCR) Add-On Test Request 08/17/22 08/17/22 08/17/22 13:14 13:16 14:34 WBC RBC Hgb Hct MCV MCH MCHC RDW Plt Count MPV Immature Gran % Neutrophils % Lymphocytes % Monocytes % Eosinophils % Basophils % Nucleated RBC % Absolute Neutrophils Absolute Lymphocytes Absolute Monocytes Absolute Eosinophils Absolute Basophils PT INR VBG pH VBG pCO2 VBG pO2 VBG HCO3 VBG Total CO2 VBG O2 Saturation VBG Base Excess VBG Lactate Sodium Potassium Chloride Carbon Dioxide Anion Gap BUN Creatinine Est GFR (CKD-EPI 2020) Glucose Calcium Magnesium Iron TIBC Transferrin % Sat Ferritin Total Bilirubin Conjugated Bilirubin AST ALT Alkaline Phosphatase Ammonia Creatine Kinase Troponin I C-Reactive Protein NT-Pro-B Natriuret Pep Total Protein Albumin Triglycerides Lipase > 375 H Vitamin B12 Folate Procalcitonin TSH Free T4 Urine Color Urine Clarity Urine pH Ur Specific [place] Urine Protein Urine Ketones Urine Blood Urine Nitrite Urine Bilirubin Urine Urobilinogen Ur Leukocyte Esterase Urine RBC Urine WBC Ur Epithelial Cells Urine Crystals Urine Bacteria Urine Casts Urine Mucus Ur Culture Indicated? Ur Random Creatinine U Random Total Protein U [place] Prot/Creat Ratio Urine Glucose Urine Opiates Screen Urine Methadone Screen Acetaminophen < 2 Ur Barbiturates Screen Ur Tricyclics Screen Ur Amphetamines Screen U Benzodiazepines Scrn Urine Cocaine Screen Ur THC Screen Ethyl Alcohol COVID-19 Source Nasopharynx SARS-CoV-2 (PCR) Negative Influenza Type A (PCR) Negative Influenza Type B (PCR) Negative RSV (PCR) Negative Add-On Test Request 08/17/22 08/17/22 08/17/22 14:35 16:15 16:15 WBC RBC Hgb Hct MCV MCH MCHC RDW Plt Count MPV Immature Gran % Neutrophils % Lymphocytes % Monocytes % Eosinophils % Basophils % Nucleated RBC % Absolute Neutrophils Absolute Lymphocytes Absolute Monocytes Absolute Eosinophils Absolute Basophils PT INR VBG pH VBG pCO2 VBG pO2 VBG HCO3 VBG Total CO2 VBG O2 Saturation VBG Base Excess VBG Lactate Sodium Potassium Chloride Carbon Dioxide Anion Gap BUN Creatinine Est GFR (CKD-EPI 2020) Glucose Calcium Magnesium Iron TIBC Transferrin % Sat Ferritin Total Bilirubin Conjugated Bilirubin AST ALT Alkaline Phosphatase Ammonia Creatine Kinase Troponin I 188 H* C-Reactive Protein NT-Pro-B Natriuret Pep > 81758 H Total Protein Albumin Triglycerides Lipase Vitamin B12 Folate Procalcitonin TSH Free T4 Urine Color Urine Clarity Urine pH Ur Specific [place] Urine Protein Urine Ketones Urine Blood Urine Nitrite Urine Bilirubin Urine Urobilinogen Ur Leukocyte Esterase Urine RBC Urine WBC Ur Epithelial Cells Urine Crystals Urine Bacteria Urine Casts Urine Mucus Ur Culture Indicated? Ur Random Creatinine U Random Total Protein U [place] Prot/Creat Ratio Urine Glucose Urine Opiates Screen Urine Methadone Screen Acetaminophen Ur Barbiturates Screen Ur Tricyclics Screen Ur Amphetamines Screen U Benzodiazepines Scrn Urine Cocaine Screen Ur THC Screen Ethyl Alcohol COVID-19 Source Cancelled SARS-CoV-2 (PCR) Cancelled Influenza Type A (PCR) Cancelled Influenza Type B (PCR) Cancelled RSV (PCR) Cancelled Add-On Test Request 08/17/22 08/17/22 08/17/22 16:15 16:15 17:03 WBC RBC Hgb Hct MCV MCH MCHC RDW Plt Count MPV Immature Gran % Neutrophils % Lymphocytes % Monocytes % Eosinophils % Basophils % Nucleated RBC % Absolute Neutrophils Absolute Lymphocytes Absolute Monocytes Absolute Eosinophils Absolute Basophils PT INR VBG pH VBG pCO2 VBG pO2 VBG HCO3 VBG Total CO2 VBG O2 Saturation VBG Base Excess VBG Lactate Sodium Potassium Chloride Carbon Dioxide Anion Gap BUN Creatinine Est GFR (CKD-EPI 2020) Glucose Calcium Magnesium Iron TIBC Transferrin % Sat Ferritin Total Bilirubin Conjugated Bilirubin AST ALT Alkaline Phosphatase Ammonia Creatine Kinase 126 Troponin I C-Reactive Protein 7.79 H NT-Pro-B Natriuret Pep Total Protein Albumin Triglycerides Lipase Vitamin B12 Folate Procalcitonin TSH 10.83 H Free T4 1.28 Urine Color Urine Clarity Urine pH Ur Specific [place] Urine Protein Urine Ketones Urine Blood Urine Nitrite Urine Bilirubin Urine Urobilinogen Ur Leukocyte Esterase Urine RBC Urine WBC Ur Epithelial Cells Urine Crystals Urine Bacteria Urine Casts Urine Mucus Ur Culture Indicated? Ur Random Creatinine U Random Total Protein U [place] Prot/Creat Ratio Urine Glucose Urine Opiates Screen Urine Methadone Screen Acetaminophen Ur Barbiturates Screen Ur Tricyclics Screen Ur Amphetamines Screen U Benzodiazepines Scrn Urine Cocaine Screen Ur THC Screen Ethyl Alcohol COVID-19 Source SARS-CoV-2 (PCR) Influenza Type A (PCR) Influenza Type B (PCR) RSV (PCR) Add-On Test Request DONE DONE 08/17/22 08/17/22 08/17/22 17:57 17:57 17:57 WBC RBC Hgb Hct MCV MCH MCHC RDW Plt Count MPV Immature Gran % Neutrophils % Lymphocytes % Monocytes % Eosinophils % Basophils % Nucleated RBC % Absolute Neutrophils Absolute Lymphocytes Absolute Monocytes Absolute Eosinophils Absolute Basophils PT INR VBG pH 7.33 VBG pCO2 30 L VBG pO2 30 VBG HCO3 16 L VBG Total CO2 15 L VBG O2 Saturation 45 VBG Base Excess -10 L VBG Lactate 10.9 H* Sodium Potassium Chloride Carbon Dioxide Anion Gap BUN Creatinine Est GFR (CKD-EPI 2020) Glucose Calcium Magnesium Iron TIBC Transferrin % Sat Ferritin Total Bilirubin Conjugated Bilirubin AST ALT Alkaline Phosphatase Ammonia Creatine Kinase Troponin I C-Reactive Protein NT-Pro-B Natriuret Pep Total Protein Albumin Triglycerides Lipase Vitamin B12 Folate Procalcitonin 0.4 TSH Free T4 Urine Color Urine Clarity Urine pH Ur Specific [place] Urine Protein Urine Ketones Urine Blood Urine Nitrite Urine Bilirubin Urine Urobilinogen Ur Leukocyte Esterase Urine RBC Urine WBC Ur Epithelial Cells Urine Crystals Urine Bacteria Urine Casts Urine Mucus Ur Culture Indicated? Ur Random Creatinine U Random Total Protein U [place] Prot/Creat Ratio Urine Glucose Urine Opiates Screen Urine Methadone Screen Acetaminophen Ur Barbiturates Screen Ur Tricyclics Screen Ur Amphetamines Screen U Benzodiazepines Scrn Urine Cocaine Screen Ur THC Screen Ethyl Alcohol COVID-19 Source SARS-CoV-2 (PCR) Influenza Type A (PCR) Influenza Type B (PCR) RSV (PCR) Add-On Test Request 08/17/22 08/17/22 08/17/22 18:37 21:15 21:15 WBC RBC Hgb Hct MCV MCH MCHC RDW Plt Count MPV Immature Gran % Neutrophils % Lymphocytes % Monocytes % Eosinophils % Basophils % Nucleated RBC % Absolute Neutrophils Absolute Lymphocytes Absolute Monocytes Absolute Eosinophils Absolute Basophils PT 16.1 H INR 1.6 H VBG pH VBG pCO2 VBG pO2 VBG HCO3 VBG Total CO2 VBG O2 Saturation VBG Base Excess VBG Lactate 13.7 H* Sodium Potassium Chloride Carbon Dioxide Anion Gap BUN Creatinine Est GFR (CKD-EPI 2020) Glucose Calcium Magnesium Iron TIBC Transferrin % Sat Ferritin Total Bilirubin Conjugated Bilirubin AST ALT Alkaline Phosphatase Ammonia Creatine Kinase Troponin I C-Reactive Protein NT-Pro-B Natriuret Pep Total Protein Albumin Triglycerides Lipase Vitamin B12 Folate Procalcitonin TSH Free T4 Urine Color Yellow Urine Clarity Clear Urine pH 5.0 Ur Specific [place] >= 1.030 H Urine Protein 100 H Urine Ketones Negative Urine Blood Negative Urine Nitrite Negative Urine Bilirubin Small H Urine Urobilinogen 0.2 Ur Leukocyte Esterase Negative Urine RBC Negative Urine WBC Negative Ur Epithelial Cells Rare Urine Crystals Rare Amorphous Urine Bacteria Rare Urine Casts 0-2 Hyaline Urine Mucus Negative Ur Culture Indicated? No Ur Random Creatinine U Random Total Protein U [place] Prot/Creat Ratio Urine Glucose Negative Urine Opiates Screen Urine Methadone Screen Acetaminophen Ur Barbiturates Screen Ur Tricyclics Screen Ur Amphetamines Screen U Benzodiazepines Scrn Urine Cocaine Screen Ur THC Screen Ethyl Alcohol COVID-19 Source SARS-CoV-2 (PCR) Influenza Type A (PCR) Influenza Type B (PCR) RSV (PCR) Add-On Test Request 08/17/22 08/17/22 08/17/22 21:15 21:19 23:00 WBC RBC Hgb Hct MCV MCH MCHC RDW Plt Count MPV Immature Gran % Neutrophils % Lymphocytes % Monocytes % Eosinophils % Basophils % Nucleated RBC % Absolute Neutrophils Absolute Lymphocytes Absolute Monocytes Absolute Eosinophils Absolute Basophils PT INR VBG pH VBG pCO2 VBG pO2 VBG HCO3 VBG Total CO2 VBG O2 Saturation VBG Base Excess VBG Lactate Sodium Potassium Chloride Carbon Dioxide Anion Gap BUN Creatinine Est GFR (CKD-EPI 2020) Glucose Calcium Magnesium Iron TIBC Transferrin % Sat Ferritin Total Bilirubin Conjugated Bilirubin AST ALT Alkaline Phosphatase Ammonia Creatine Kinase Troponin I C-Reactive Protein NT-Pro-B Natriuret Pep Total Protein Albumin Triglycerides 95 Lipase Vitamin B12 Folate Procalcitonin TSH Free T4 Urine Color Urine Clarity Urine pH Ur Specific [place] Urine Protein Urine Ketones Urine Blood Urine Nitrite Urine Bilirubin Urine Urobilinogen Ur Leukocyte Esterase Urine RBC Urine WBC Ur Epithelial Cells Urine Crystals Urine Bacteria Urine Casts Urine Mucus Ur Culture Indicated? Ur Random Creatinine U Random Total Protein U [place] Prot/Creat Ratio Urine Glucose Urine Opiates Screen Negative Urine Methadone Screen Negative Acetaminophen Ur Barbiturates Screen Negative Ur Tricyclics Screen Positive A Ur Amphetamines Screen Negative U Benzodiazepines Scrn Negative Urine Cocaine Screen Negative Ur THC Screen Negative Ethyl Alcohol COVID-19 Source SARS-CoV-2 (PCR) Influenza Type A (PCR) Influenza Type B (PCR) RSV (PCR) Add-On Test Request [facility] 08/17/22 08/17/22 08/18/22 23:00 23:00 05:35 WBC RBC Hgb Hct MCV MCH MCHC RDW Plt Count MPV Immature Gran % Neutrophils % Lymphocytes % Monocytes % Eosinophils % Basophils % Nucleated RBC % Absolute Neutrophils Absolute Lymphocytes Absolute Monocytes Absolute Eosinophils Absolute Basophils PT INR VBG pH VBG pCO2 VBG pO2 VBG HCO3 VBG Total CO2 VBG O2 Saturation VBG Base Excess VBG Lactate Sodium Potassium Chloride Carbon Dioxide Anion Gap BUN Creatinine Est GFR (CKD-EPI 2020) Glucose Calcium Magnesium Iron 94 TIBC 194 L Transferrin % Sat 48 Ferritin Total Bilirubin Conjugated Bilirubin AST ALT Alkaline Phosphatase Ammonia Creatine Kinase Troponin I C-Reactive Protein NT-Pro-B Natriuret Pep Total Protein Albumin Triglycerides Lipase Vitamin B12 Folate Procalcitonin TSH Free T4 Urine Color Urine Clarity Urine pH Ur Specific [place] Urine Protein Urine Ketones Urine Blood Urine Nitrite Urine Bilirubin Urine Urobilinogen Ur Leukocyte Esterase Urine RBC Urine WBC Ur Epithelial Cells Urine Crystals Urine Bacteria Urine Casts Urine Mucus Ur Culture Indicated? Ur Random Creatinine 140.50 143.33 U Random Total Protein 183.4 U [place] Prot/Creat Ratio 1.27 Urine Glucose Urine Opiates Screen Urine Methadone Screen Acetaminophen Ur Barbiturates Screen Ur Tricyclics Screen Ur Amphetamines Screen U Benzodiazepines Scrn Urine Cocaine Screen Ur THC Screen Ethyl Alcohol COVID-19 Source SARS-CoV-2 (PCR) Influenza Type A (PCR) Influenza Type B (PCR) RSV (PCR) Add-On Test Request 08/18/22 08/18/22 08/18/22 05:53 05:53 05:53 WBC 12.55 H RBC 2.93 L Hgb 9.2 L D Hct 29.7 L MCV 101 H MCH 31.4 MCHC 31.0 L RDW 18.5 H Plt Count 315 MPV 10.3 Immature Gran % 0.9 Neutrophils % 85.8 Lymphocytes % 6.9 Monocytes % 6.1 Eosinophils % 0.0 Basophils % 0.3 Nucleated RBC % 0.3 Absolute Neutrophils 10.77 H Absolute Lymphocytes 0.87 L Absolute Monocytes 0.77 Absolute Eosinophils 0.00 Absolute Basophils 0.04 PT INR VBG pH VBG pCO2 VBG pO2 VBG HCO3 VBG Total CO2 VBG O2 Saturation VBG Base Excess VBG Lactate 7.4 H* Sodium 138 Potassium 5.2 H Chloride 102 Carbon Dioxide 18.2 L Anion Gap 17.8 H BUN 43 H Creatinine 3.3 H Est GFR (CKD-EPI 2020) 20.56 Glucose 92 Calcium 8.8 Magnesium 1.6 L Iron TIBC Transferrin % Sat Ferritin > 2000 H Total Bilirubin 1.5 H Conjugated Bilirubin 0.8 H AST 2852 H ALT 1672 H Alkaline Phosphatase 106 Ammonia Creatine Kinase Troponin I 142 H* C-Reactive Protein 8.11 H NT-Pro-B Natriuret Pep Total Protein 6.0 L Albumin 3.1 L Triglycerides Lipase > 375 H Vitamin B12 Folate Procalcitonin TSH Free T4 Urine Color Urine Clarity Urine pH Ur Specific [place] Urine Protein Urine Ketones Urine Blood Urine Nitrite Urine Bilirubin Urine Urobilinogen Ur Leukocyte Esterase Urine RBC Urine WBC Ur Epithelial Cells Urine Crystals Urine Bacteria Urine Casts Urine Mucus Ur Culture Indicated? Ur Random Creatinine U Random Total Protein U [place] Prot/Creat Ratio Urine Glucose Urine Opiates Screen Urine Methadone Screen Acetaminophen Ur Barbiturates Screen Ur Tricyclics Screen Ur Amphetamines Screen U Benzodiazepines Scrn Urine Cocaine Screen Ur THC Screen Ethyl Alcohol COVID-19 Source SARS-CoV-2 (PCR) Influenza Type A (PCR) Influenza Type B (PCR) RSV (PCR) Add-On Test Request 08/18/22 08/18/22 08/18/22 05:53 05:53 07:50 WBC RBC Hgb Hct MCV MCH MCHC RDW Plt Count MPV Immature Gran % Neutrophils % Lymphocytes % Monocytes % Eosinophils % Basophils % Nucleated RBC % Absolute Neutrophils Absolute Lymphocytes Absolute Monocytes Absolute Eosinophils Absolute Basophils PT INR VBG pH VBG pCO2 VBG pO2 VBG HCO3 VBG Total CO2 VBG O2 Saturation VBG Base Excess VBG Lactate Sodium Potassium Chloride Carbon Dioxide Anion Gap BUN Creatinine Est GFR (CKD-EPI 2020) Glucose Calcium Magnesium Iron TIBC Transferrin % Sat Ferritin Total Bilirubin Conjugated Bilirubin AST ALT Alkaline Phosphatase Ammonia 68 H Creatine Kinase Troponin I C-Reactive Protein NT-Pro-B Natriuret Pep Total Protein Albumin Triglycerides Lipase Vitamin B12 > 2000 H Folate 19.1 Procalcitonin TSH Free T4 Urine Color Urine Clarity Urine pH Ur Specific [place] Urine Protein Urine Ketones Urine Blood Urine Nitrite Urine Bilirubin Urine Urobilinogen Ur Leukocyte Esterase Urine RBC Urine WBC Ur Epithelial Cells Urine Crystals Urine Bacteria Urine Casts Urine Mucus Ur Culture Indicated? Ur Random Creatinine U Random Total Protein U [place] Prot/Creat Ratio Urine Glucose Urine Opiates Screen Urine Methadone Screen Acetaminophen Ur Barbiturates Screen Ur Tricyclics Screen Ur Amphetamines Screen U Benzodiazepines Scrn Urine Cocaine Screen Ur THC Screen Ethyl Alcohol COVID-19 Source SARS-CoV-2 (PCR) Influenza Type A (PCR) Influenza Type B (PCR) RSV (PCR) Add-On Test Request TNP 08/18/22 08/18/22 08:17 10:00 WBC RBC Hgb Hct MCV MCH MCHC RDW Plt Count MPV Immature Gran % Neutrophils % Lymphocytes % Monocytes % Eosinophils % Basophils % Nucleated RBC % Absolute Neutrophils Absolute Lymphocytes Absolute Monocytes Absolute Eosinophils Absolute Basophils PT 18.5 H INR 1.8 H VBG pH VBG pCO2 VBG pO2 VBG HCO3 VBG Total CO2 VBG O2 Saturation VBG Base Excess VBG Lactate 4.7 H* Sodium Potassium Chloride Carbon Dioxide Anion Gap BUN Creatinine Est GFR (CKD-EPI 2020) Glucose Calcium Magnesium Iron TIBC Transferrin % Sat Ferritin Total Bilirubin Conjugated Bilirubin AST ALT Alkaline Phosphatase Ammonia Creatine Kinase Troponin I C-Reactive Protein NT-Pro-B Natriuret Pep Total Protein Albumin Triglycerides Lipase Vitamin B12 Folate Procalcitonin TSH Free T4 Urine Color Urine Clarity Urine pH Ur Specific [place] Urine Protein Urine Ketones Urine Blood Urine Nitrite Urine Bilirubin Urine Urobilinogen Ur Leukocyte Esterase Urine RBC Urine WBC Ur Epithelial Cells Urine Crystals Urine Bacteria Urine Casts Urine Mucus Ur Culture Indicated? Ur Random Creatinine U Random Total Protein U [place] Prot/Creat Ratio Urine Glucose Urine Opiates Screen Urine Methadone Screen Acetaminophen Ur Barbiturates Screen Ur Tricyclics Screen Ur Amphetamines Screen U Benzodiazepines Scrn Urine Cocaine Screen Ur THC Screen Ethyl Alcohol COVID-19 Source SARS-CoV-2 (PCR) Influenza Type A (PCR) Influenza Type B (PCR) RSV (PCR) Add-On Test Request Review of Systems All systems reviewed & are unremarkable except as noted in HPI and below Time spent with patient Time spent in Critical Care: 60 Time spent in Critical care included: Performing procedures not included in c.c time, Coordination of care, Chart review, Documenting critically ill care, Time at immediate bedside and Discussing critically ill care with other medical staff Multi-Disciplinary Checklist Lines/Tubes CENTRAL LINE: no ARTERIAL LINE: no ROJAS: yes, Rojas Day#: 1 ENDOTRACHEAL TUBE: no ICU Maintenance GLUCOSE 140-180mg/dL: no, Reason/Intervention: slightly low NUTRITION AT GOAL: yes PRESSURE ULCER: no RESTRAINTS: no ANTIBIOTICS(if yes, consider Stewardship): Yes Social Issues FAMILY UPDATED: no, Reason/Intervention: defer to hospitalist team PT/OT: no, Reason/Intervention: not currently appropriate GOALS/DISPOSITION/SENIOR SECURITY ARCHITECT: yes CODE STATUS: DNR/DNI Prophylaxis DVT PROPHYLAXIS: no Reason/Intervention: GIB concern - recommended starting this GI PROPHYLAXIS: yes, Indication: home med Pocus Exam Limited Cardiac Exam DATE OF EXAM: 08/18/22 TIME OF EXAM: 07:45 PROVIDER THAT PERFORMED THE STUDY: Christine Barnes IS THIS A REPEAT EXAM DURING THIS ENCOUNTER: no REASON FOR EXAM: Congestive heart failure, Evaluation of LV function and Septic Shock VISUALIZED STRUCTURES: four chambers, left atrium, left ventricle, LVOT, right atrium, right ventricle, aortic valve, mitral valve, Interventricular septum and IVC VIEW OBTAINED: Apical 4-Chamber, Parasternal long-axis, Parasternal short-axis and Subxiphoid PERTINENT FINDINGS/IMPRESSION: LV dysfunction, Plethoric IVC, RV dilation and RV dysfunction; no IVC inspiratory collapsability and No pericardial effusion DIFFERENTIAL DIAGNOSES: Biventricular heart failure Exam complete
--- NOTE | 2022-08-18 12:15 | DI.RAD_ITS ---
Exam(s) XR PORTABLE CHEST AP EXAM: XR PORTABLE CHEST AP CLINICAL HISTORY: line placement. TECHNIQUE: 2D digital imaging was performed. COMPARISON: CR,XR XR PORTABLE CHEST AP from 08/17/2022 FINDINGS: Exam is limited due to positioning. A PICC line is been inserted via the left right arm. The tip pr ojects in the superior vena cava. No pneumothorax is seen. The heart is enlarged. There are increa sed densities seen in both lungs likely related to layering pleural effusions seen on prior chest CT. IMPRESSION: Satisfactory placement of PICC line. DATA REPOSITORY: RADIATION DOSE DELIVERED:
--- NOTE | 2022-08-18 12:38 | NUR.NOTE ---
Patient has Picc line placed. X-ray is taken to check placement.Nursing Note:
[2022-08-18 13:06] LABS: Lab Add On Test DONE
[2022-08-18 13:07] LABS: Lactate 3.3 mmol/L (0.6-1.4)
[2022-08-18] MEDS: Heparin 5,000 UNITS/ML VIAL 5000 UNITS SC (14:44)
--- NOTE | 2022-08-18 16:23 | W.PM.DS.N ---
Date of service: 08/18/22 Time of Service: 16:23 DS: Diagnosis Discharge Diagnosis (1) Multi-organ failure with heart failure: Status: Acute (2) Biventricular heart failure: Status: Acute (3) Acute liver failure: Status: Acute (4) Acute kidney injury superimposed on chronic kidney disease: Status: Acute (5) Elevated lipase: Status: Acute Asessment and Plan: ?pancreatitis from passive congestion due to CHF (6) Sepsis: Status: Acute (7) Pneumonia: Status: Acute (8) Anasarca: Status: Acute (9) Pleural effusion: Status: Acute (10) Ascites: Status: Acute (11) Renal artery stenosis: Status: Acute (12) Lactic acidosis: Status: Acute (13) High anion gap metabolic acidosis: Status: Acute (14) Elevated troponin: Status: Acute (15) Proteinuria: Status: Acute (16) Bright red blood per rectum: Status: Acute Asessment and Plan: likely hemorrhoidal bleed (17) Hyperkalemia: Status: Acute (18) COPD (chronic obstructive pulmonary disease): Status: Chronic (19) Nausea vomiting and diarrhea: Status: Resolved (20) Abdominal pain: Status: Acute (21) Chest pain: Status: Acute (22) Elevated TSH: Status: Acute (23) Macrocytic anemia: Status: Acute (24) PAD (peripheral artery disease): Status: Acute Asessment and Plan: R common femoral artery stenosis (moderate) Discharge Plan Disposition Patient Disposition: Transfer-Acute Inpatient Care Specific Acute In Facility: [facility] Condition: Serious Discharge Details Reason For Visit: Anasarca, Abdominal Pain Admit Date/Time: 08/17/22 17:10 Admit Provider: Marnie Jansen Attending Provider: Marnie Jansen Primary Care Provider: Jayde Wren Hospital Course Hospital Course: Mr Mcgowan is a 62 year old male with PMHx of CHFrEF w/ evidence of RV hypokinesis diagnosed by echo on 08/08/22, as well as h/o distant h/o EtOH abuse without known diagnosis of cirrhosis, SVT on metoprolol, previous diagnosis of aortic stenosis, not seen on the echo 08/08/22, CKD III, who was a patient on [facility] surgical service from 08/07/22 until 08/15/22 for suspected but ruled out cholecystitis and pancreatitis, but who had undergone an echo due to anasarca and an MPI stress test on that admission in preparation for a possible surgery, revealing no ischemia but an LVEF of 17%, who returned to [facility] ED on 08/17/22 complaining of worsening epigastric/RUQ abdominal pain, n/v, and diarrhea. The pain was radiating into his left chest. He also reported a cough productive of white sputum. He was also noted to pass about 2 cc of bright red blood per rectum while in the ER, per the ER provider. His ER workup revealed a new leucocytosis w/ WBC of 12, sinus tachycardia with HR of 110s-120s, TALIA on CKD with a Cr of 2.8 (up from baseline of about 1.8-2), worsening transaminitis with AST of 344 and ALT of 402, T. Bili of 1.4 (it was 0.6 on 08/15/22), a lipase which remains >375 u/L, and a troponin I of 180, increasing to 188 on recheck. His pro-BNP was >24212.? His dry CT of chest/abdomen/pelvis revealed moderate bilateral pleural effusions, R>L with question of bilateral pneumonias, no evidence of pancreatitis, pancreatic mass, or dilatation of the pancreatic duct; the gallbladder could not be assessed given motion artifact. There was no acute intraabdominal process, though there was ascites. The case was discussed with general surgery, who initially planned on a HIDA scan in the morning, but felt that clinically the etiology of the transaminitis and elevated lipase may not be the gallbladder or even surgical. Hospitalist admission was requested. The patient was initiated on empiric zosyn for pneumonia and the possible intraabdominal process. Lactic acid was obtained and was 10.9. Immediately, a concern about a possible intraabdominal catastrophy was raised, and a CTA of the abdomen/pelvis was ordered revealing no mesenteric ischemia/bowel infarction, though it did show a severe R renal artery stenosis as well as R common femoral artery stenosis (moderate). The case was discussed by general surgery with [facility] who agreed that the gallbladder was likely not infected and there was no role for a cholecystostomy tube at this time. Given the high lactate, the decision was made to use albumin and IVF to try to address the patient's intravascular depletion even though he was overall fluid overloaded. However, with these measures, his lactate went up to 13.7 just after 1 L of IVF. He underwent a R thoracenthesis with 800 ccs of fluid removed. Since his lactate went up, IV hydration was stopped. His UOP dropped to 60 cc/12 hrs, his Cr went up to 3.3, and his LFTs went up from AST of 344 to 2852, ALT of 402 to 1672 with a normal alk phos. His T. Bili went from 1.4 to 1.5. This picture was not consistent with acute cholecystitis or pancreatitis. The patient was then switched to diuresis with albumin. He was given a bolus of 80 mg of IV lasix and started on lasix drip. The patient's urine output picked up and he has put out 3680 cc of urine so far, net negative of about 1 L today. His lactate is down to 3.3. We think that his borderline troponin elevations reflected demand ischemia and not ACS. He is feeling better post diuresis. His AST is already starting to come down (it is 2325 on the latest labs). The case was discussed as length with Dr Barnes (pulmonary/critical care) who based on her POCUS evaluation, felt the etiology of the patient's presentation was CHF/biventricular failure. His LFT elevations and his elevated lipase could be due to passive congestion. It needs to be noted that the patient had a negative MRCP on his [facility] admission and the ultrasound read from his first admission of acute acalculous cholecystitis does not agree with the patient's clinical picture of worsening with IVF and improving with diuresis. The case was discussed with [facility] cardiology in consultation who felt that the patient would benefit from transfer to [facility] for further workup and management of his biventricular CHF as well as possible ischemic workup, unavailable at [facility]. The patient is agreeable with this plan. The bed is expected to become available today. He is hemodynamically stable for transfer and agrees to transfer. He did change his code status to DNR/DNI since admission, but would like to continue to receive aggressive care otherwise. As far as infection, his leucocytosis did not improve. He has been afebrile and normotensive. His blood cultures are still pending. His pleural fluid culture has no growth to date. Hepatitis studies are negative. HIV is pending. We appreciate the assistance of the [facility] cardiology team and wish the patient well. Critical Care Time including care for patient, time spent discussing the case with consultants, coordination of transfer, and completion of his transfer paperwork took additional 60 minutes. The list of medications below reflects his outpatient prescriptions. Please, look for MAR for the list of his current inpatient medications. Home Meds and New Rx's Prescriptions: No Action aspirin [Adult Aspirin Regimen] 81 mg tablet,delayed release (DR/EC) 81 mg PO DAILY ondansetron HCl 4 mg tablet 4 mg PO Q6H megestrol 400 mg/10 mL (10 mL) suspension 200 mg PO QID Qty: 1000 5RF Rx Instructions: 5mL by mouth four times a day Spiriva Respimat 2.5 mcg/actuation mist 2 puff inhalation DAILY Qty: 12 3RF simvastatin 20 MG tablet 20 mg PO DAILY mirtazapine 30 MG tablet 60 mg PO DAILY albuterol sulfate [Proventil HFA] 6.7 GM HFA aerosol inhaler 2 puff Inhalation PRN PRN multivitamin [Daily Multi-Vitamin] 1 EACH tablet 1 tab PO DAILY quetiapine [Seroquel] 50 MG tablet 100 mg PO HS omeprazole 20 MG capsule,delayed release(DR/EC) 40 mg PO DAILY metoprolol succinate [Toprol XL] 50 MG tablet extended release 24 hr 50 mg PO DAILY fluoxetine 40 mg capsule 40 mg PO DAILY magnesium oxide 400 mg (241.3 mg magnesium) tablet 200 mg PO DAILY tamsulosin 0.4 mg capsule 0.4 mg PO DAILY acetylcysteine 600 mg capsule 1,200 mg PO BID Bio-K plus 50 billion cell capsule,delayed release(DR/EC) 1 cap PO DAILY Qty: 60 0RF Rx Instructions: ok to substitute for what pt insurance company covers/pharmacy stock spironolactone 25 mg Tablet 25 mg PO DAILY Qty: 14 0RF furosemide 40 mg Tablet 40 mg PO DAILY Qty: 10 0RF bupropion HCl 300 MG tablet extended release 24 hr 300 mg PO DAILY Discharge Instructions Activity:: Activity as Tolerated Equipment/Supplies:: No Equipment Needed Diet:: clear liquid Discharge Orders Discharge Orders: Discharge Order (Routine); Ordered 08/18/22 Ordered By: Marnie Jansen DS: Summary Time Spent with Patient providing and/or coordinating discharge services: Greater than 30 minutes Status at Discharge Functional status at discharge: wheelchair bound Overall status at discharge: patient is not back to baseline Mental Status: mental status grossly normal Speech and Movement: speech and movement normal Mood: congruent mood Affect: blunted Exam Narrative Exam Narrative: General: pleasant but ill and weak appearing middle-aged male who is uncomfortable in bed HEENT: EOMI, MMM Cardiovascular: RRR, tachycardic, no m/r/g Lungs: Faint crackles 1/2 of the L lung, CTA on R. Gastrointestinal: soft, less tender in epigastrium and RUQ, nondistended, + BS Genitourinary: has a patel catheter Extremities: no edema BLEs, +1 pedal pulses B Psych Mental Status: mental status grossly normal Speech and Movement: speech and movement normal Mood: congruent mood Affect: blunted DS: Data Vitals/I&O Vitals and I&O: Vital Signs Temperature 36.6 C 08/18/22 15:11 Temperature Source Temporal Artery Scan 08/18/22 15:11 Pulse 107 H 08/18/22 15:11 Pulse 106 H 08/18/22 06:30 Respiratory Rate 16 08/18/22 15:11 Respiratory Effort Non-Labored 08/18/22 15:11 Respiratory Depth Normal 08/18/22 15:11 Respiratory Pattern Normal 08/18/22 15:11 Blood Pressure 132/86 08/18/22 15:11 Blood Pressure Mean 101 08/18/22 15:11 Blood Pressure Position Left Lateral 08/18/22 15:11 Pulse Oximetry 94 08/18/22 15:11 Oxygen Delivery Method Room Air 08/18/22 15:11 Oxygen Flow Rate 0 08/18/22 15:11 Pain Level 0 08/18/22 15:11 Comment RN notified 08/18/22 04:00 Intake & Output 08/17/22 08/18/22 08/18/22 23:59 11:59 23:59 Intake Total 100 / 300 2180.833 / 2330.833 150 / 2330.833 Output Total 30 30 680 / 1455 775 / 1455 Balance 70 / 270 1500.833 / 875.833 -625 / 875.833 Weight 58.9 kg 60.3 kg Intake: IV 100 / 100 1980.833 / 2029.83 50 Oral 200 / 300 100 / 300 Output: Urine 30 680 / 1455 775 / 1455 Other: Urine Color Dark Dawna Yellow Yellow Urine Appearance Clear Clear Clear Urine Odor None None Comment Patient on a lasix drip putting out sufficient amounts of yellow urine. Patient is putting out sufficient amounts of urine via a patel catheter and is on 10ml/hr of Furosemide. Voiding Methods Indwelling Catheter Indwelling Catheter Data Completed and Pending Completed studies during hospitalization [Text1]: CT chest/abdomen/pelvis 08/17/22: 1. Cardiomegaly.? Bilateral moderate size pleural effusions right slightly larger than left.? No pericardial effusion.? Bilateral upper lobe infiltrates.? Both infectious as well as pulmonary edema considerations here, possibly combination both. 2. There is moderate amount of ascites in the dependent aspect of the pelvis.? The gall bladder is difficult to assess because of abundant respiratory motion artifact but does not appear normal and may be the culprit for the free fluid.? Recommend gallbladder ultrasound.? Common hepatic duct is not obviously dilated.? There is no evidence of obvious pancreatitis 3. Sigmoid diverticulosis but no obvious acute diverticulitis. 4. Multiple healed left rib fractures as well as left pelvic iliac bone fracture. CXR 08/17/22: No evidence of pneumothorax status post thoracentesis.? Decrease in size of right pleural effusion.? Bilateral infiltrates.? Small left pleural effusion. CTA abdomen/pelvis 08/17/22: No findings to suggest mesenteric ischemia. Severe cardiac enlargement and heart failure. Bilateral pleural effusions. Ascites in pelvis. Severe stenosis right renal artery. Extremely patchy perfusion of the kidneys could represent early phase of enhancement. Pyelonephritis versus renal infarction be considered. Clinical correlation recommended. Venous doppler BLEs 08/18/22: Right: Negative for DVT Left: Negative for DVT CXR 08/18/22: Satisfactory placement of PICC line. MPI stress yoko 08/15/22: Stress ECG Conclusion 1. The resting electrocardiogram showed sinus tachycardia, left ventricular hypertrophy with repolarization abnormalities 2. Patient underwent testing using pharmacologic stress with regadenoson 3. Peak heart rate achieved was 78% of predicted for age 4. The electrocardiographic portion of the test was nondiagnostic MPI Conclusion Myocardial perfusion shows no evidence of ischemia or prior infarction EF is 17% with global hypokinesis Echo 08/08/22: Technically difficult study Normal left ventricular wall thickness and chamber size.? Ejection fraction is 40 to 45% with global hypokinesis Right ventricle appears grossly normal in size, mild right ventricular hypokinesis Both atria are moderately enlarged The aortic valve? is calcified.? There is no hemodynamically significant aortic stenosis.? There is trace aortic regurgitation Mitral l annular calcification with mild mitral regurgitation ?mild to moderate tricuspid regurgitation with estimated right ventricular systolic pressure of 38 mmHg Dilated ascending aorta measuring 4.24 cm MRCP 08/08/22: 1. There are prominent bilateral pleural effusions.? Left lower lobe volume loss/collapse noted, as evident on yesterday's CT scan. 2. There is some ascites evident in both sides of the upper abdomen.? Some fluid is also seen around the gallbladder.? No obvious gallstones in the gallbladder lumen nor in the nondilated CBD.? There is no dilatation of the biliary tree, both intra and extrahepatic. 3. If clinically indicated nuclear hepatobiliary imaging study (HIDA scan) can be performed to determine if there is acute acalculous cholecystitis. US abdomen 08/07/22: 1. Findings most suspicious for acute acalculous cholecystitis.? 2. Pleural effusions are present. 3. Abdominal ascites. Labs on day of discharge: Labs from last 24 hours 08/18/22 08/18/22 08/18/22 16:00 13:04 12:56 WBC RBC Hgb Hct MCV MCH MCHC RDW Plt Count MPV Immature Gran % Neutrophils % Lymphocytes % Monocytes % Eosinophils % Basophils % Nucleated RBC % Absolute Neutrophils Absolute Lymphocytes Absolute Monocytes Absolute Eosinophils Absolute Basophils PT INR VBG pH VBG pCO2 VBG pO2 VBG HCO3 VBG Total CO2 VBG O2 Saturation VBG Base Excess VBG Lactate 3.3 H* Sodium Pending Potassium Pending Chloride Pending Carbon Dioxide Pending Anion Gap Pending BUN Pending Creatinine Pending Est GFR (CKD-EPI 2020) Pending Glucose Pending Calcium Pending Magnesium Pending Iron TIBC Transferrin % Sat Ferritin Total Bilirubin Pending Conjugated Bilirubin Pending AST Pending ALT Pending Alkaline Phosphatase Pending [place] Creatine Kinase Troponin I C-Reactive Protein NT-Pro-B Natriuret Pep Total Protein Pending Albumin Pending Triglycerides Lipase CA 19-9 Antigen Vitamin B12 Folate Procalcitonin TSH Free T4 Cortisol Urine Color Urine Clarity Urine pH Ur Specific [place] Urine Protein Urine Ketones Urine Blood Urine Nitrite Urine Bilirubin Urine Urobilinogen Ur Leukocyte Esterase Urine RBC Urine WBC Ur Epithelial Cells Urine Crystals Urine Bacteria Urine Casts Urine Mucus Ur Culture Indicated? Ur Random Creatinine U Random Total Protein U [place] Prot/Creat Ratio Urine Urea Nitrogen Urine Glucose Urine Opiates Screen Urine Methadone Screen Ur Barbiturates Screen Ur Tricyclics Screen Ur Amphetamines Screen U Benzodiazepines Scrn Urine Cocaine Screen Ur THC Screen Hepatitis A IgM Ab Hep Bs Antigen Hep B Core Total Ab Hepatitis C Antibody HIV 1&2 Ag/Ab, 4th Gen Add-On Test Request DONE 08/18/22 08/18/22 08/18/22 10:00 08:17 07:50 WBC RBC Hgb Hct MCV MCH MCHC RDW Plt Count MPV Immature Gran % Neutrophils % Lymphocytes % Monocytes % Eosinophils % Basophils % Nucleated RBC % Absolute Neutrophils Absolute Lymphocytes Absolute Monocytes Absolute Eosinophils Absolute Basophils PT 18.5 H INR 1.8 H VBG pH VBG pCO2 VBG pO2 VBG HCO3 VBG Total CO2 VBG O2 Saturation VBG Base Excess VBG Lactate 4.7 H* Sodium Potassium Chloride Carbon Dioxide Anion Gap BUN Creatinine Est GFR (CKD-EPI 2020) Glucose Calcium Magnesium Iron TIBC Transferrin % Sat Ferritin Total Bilirubin Conjugated Bilirubin AST ALT Alkaline Phosphatase [place] Creatine Kinase Troponin I C-Reactive Protein NT-Pro-B Natriuret Pep Total Protein Albumin Triglycerides Lipase CA 19-9 Antigen Vitamin B12 Folate Procalcitonin TSH Free T4 Cortisol Urine Color Urine Clarity Urine pH Ur Specific [place] Urine Protein Urine Ketones Urine Blood Urine Nitrite Urine Bilirubin Urine Urobilinogen Ur Leukocyte Esterase Urine RBC Urine WBC Ur Epithelial Cells Urine Crystals Urine Bacteria Urine Casts Urine Mucus Ur Culture Indicated? Ur Random Creatinine U Random Total Protein U [place] Prot/Creat Ratio Urine Urea Nitrogen Urine Glucose Urine Opiates Screen Urine Methadone Screen Ur Barbiturates Screen Ur Tricyclics Screen Ur Amphetamines Screen U Benzodiazepines Scrn Urine Cocaine Screen Ur THC Screen Hepatitis A IgM Ab Hep Bs Antigen Hep B Core Total Ab Hepatitis C Antibody HIV 1&2 Ag/Ab, 4th Gen Add-On Test Request TNP 08/18/22 08/18/22 08/18/22 05:53 05:53 05:53 WBC RBC Hgb Hct MCV MCH MCHC RDW Plt Count MPV Immature Gran % Neutrophils % Lymphocytes % Monocytes % Eosinophils % Basophils % Nucleated RBC % Absolute Neutrophils Absolute Lymphocytes Absolute Monocytes Absolute Eosinophils Absolute Basophils PT INR VBG pH VBG pCO2 VBG pO2 VBG HCO3 VBG Total CO2 VBG O2 Saturation VBG Base Excess VBG Lactate Sodium Potassium Chloride Carbon Dioxide Anion Gap BUN Creatinine Est GFR (CKD-EPI 2020) Glucose Calcium Magnesium Iron TIBC Transferrin % Sat Ferritin Total Bilirubin Conjugated Bilirubin AST ALT Alkaline Phosphatase Ammonia 68 H Creatine Kinase Troponin I C-Reactive Protein NT-Pro-B Natriuret Pep Total Protein Albumin Triglycerides Lipase CA 19-9 Antigen Vitamin B12 > 2000 H Folate 19.1 Procalcitonin TSH Free T4 Cortisol Urine Color Urine Clarity Urine pH Ur Specific [place] Urine Protein Urine Ketones Urine Blood Urine Nitrite Urine Bilirubin Urine Urobilinogen Ur Leukocyte Esterase Urine RBC Urine WBC Ur Epithelial Cells Urine Crystals Urine Bacteria Urine Casts Urine Mucus Ur Culture Indicated? Ur Random Creatinine U Random Total Protein U [place] Prot/Creat Ratio Urine Urea Nitrogen Urine Glucose Urine Opiates Screen Urine Methadone Screen Ur Barbiturates Screen Ur Tricyclics Screen Ur Amphetamines Screen U Benzodiazepines Scrn Urine Cocaine Screen Ur THC Screen Hepatitis A IgM Ab Hep Bs Antigen Hep B Core Total Ab Hepatitis C Antibody HIV 1&2 Ag/Ab, 4th Gen Pending Add-On Test Request 08/18/22 08/18/22 08/18/22 05:53 05:53 05:53 WBC 12.55 H RBC 2.93 L Hgb 9.2 L D Hct 29.7 L MCV 101 H MCH 31.4 MCHC 31.0 L RDW 18.5 H Plt Count 315 MPV 10.3 Immature Gran % 0.9 Neutrophils % 85.8 Lymphocytes % 6.9 Monocytes % 6.1 Eosinophils % 0.0 Basophils % 0.3 Nucleated RBC % 0.3 Absolute Neutrophils 10.77 H Absolute Lymphocytes 0.87 L Absolute Monocytes 0.77 Absolute Eosinophils 0.00 Absolute Basophils 0.04 PT INR VBG pH VBG pCO2 VBG pO2 VBG HCO3 VBG Total CO2 VBG O2 Saturation VBG Base Excess VBG Lactate Sodium 138 Potassium 5.2 H Chloride 102 Carbon Dioxide 18.2 L Anion Gap 17.8 H BUN 43 H Creatinine 3.3 H Est GFR (CKD-EPI 2020) 20.56 Glucose 92 Calcium 8.8 Magnesium 1.6 L Iron TIBC Transferrin % Sat Ferritin > 2000 H Total Bilirubin 1.5 H Conjugated Bilirubin 0.8 H AST 2852 H ALT 1672 H Alkaline Phosphatase 106 [place] Creatine Kinase Troponin I 142 H* C-Reactive Protein 8.11 H NT-Pro-B Natriuret Pep Total Protein 6.0 L Albumin 3.1 L Triglycerides Lipase > 375 H CA 19-9 Antigen Vitamin B12 Folate Procalcitonin TSH Free T4 Cortisol Pending Urine Color Urine Clarity Urine pH Ur Specific [place] Urine Protein Urine Ketones Urine Blood Urine Nitrite Urine Bilirubin Urine Urobilinogen Ur Leukocyte Esterase Urine RBC Urine WBC Ur Epithelial Cells Urine Crystals Urine Bacteria Urine Casts Urine Mucus Ur Culture Indicated? Ur Random Creatinine U Random Total Protein U [place] Prot/Creat Ratio Urine Urea Nitrogen Urine Glucose Urine Opiates Screen Urine Methadone Screen Ur Barbiturates Screen Ur Tricyclics Screen Ur Amphetamines Screen U Benzodiazepines Scrn Urine Cocaine Screen Ur THC Screen Hepatitis A IgM Ab Hep Bs Antigen Hep B Core Total Ab Hepatitis C Antibody HIV 1&2 Ag/Ab, 4th Gen Add-On Test Request 08/18/22 08/18/22 08/18/22 05:53 05:53 05:35 WBC RBC Hgb Hct MCV MCH MCHC RDW Plt Count MPV Immature Gran % Neutrophils % Lymphocytes % Monocytes % Eosinophils % Basophils % Nucleated RBC % Absolute Neutrophils Absolute Lymphocytes Absolute Monocytes Absolute Eosinophils Absolute Basophils PT INR VBG pH VBG pCO2 VBG pO2 VBG HCO3 VBG Total CO2 VBG O2 Saturation VBG Base Excess VBG Lactate 7.4 H* Sodium Potassium Chloride Carbon Dioxide Anion Gap BUN Creatinine Est GFR (CKD-EPI 2020) Glucose Calcium Magnesium Iron 94 TIBC 194 L Transferrin % Sat 48 Ferritin Total Bilirubin Conjugated Bilirubin AST ALT Alkaline Phosphatase [place] Creatine Kinase Troponin I C-Reactive Protein NT-Pro-B Natriuret Pep Total Protein Albumin Triglycerides Lipase CA 19-9 Antigen Pending Vitamin B12 Folate Procalcitonin TSH Free T4 Cortisol Urine Color Urine Clarity Urine pH Ur Specific [place] Urine Protein Urine Ketones Urine Blood Urine Nitrite Urine Bilirubin Urine Urobilinogen Ur Leukocyte Esterase Urine RBC Urine WBC Ur Epithelial Cells Urine Crystals Urine Bacteria Urine Casts Urine Mucus Ur Culture Indicated? Ur Random Creatinine U Random Total Protein U [place] Prot/Creat Ratio Urine Urea Nitrogen Urine Glucose Urine Opiates Screen Urine Methadone Screen Ur Barbiturates Screen Ur Tricyclics Screen Ur Amphetamines Screen U Benzodiazepines Scrn Urine Cocaine Screen Ur THC Screen Hepatitis A IgM Ab Hep Bs Antigen Hep B Core Total Ab Hepatitis C Antibody HIV 1&2 Ag/Ab, 4th Gen Add-On Test Request 08/17/22 08/17/22 08/17/22 23:00 23:00 23:00 WBC RBC Hgb Hct MCV MCH MCHC RDW Plt Count MPV Immature Gran % Neutrophils % Lymphocytes % Monocytes % Eosinophils % Basophils % Nucleated RBC % Absolute Neutrophils Absolute Lymphocytes Absolute Monocytes Absolute Eosinophils Absolute Basophils PT INR VBG pH VBG pCO2 VBG pO2 VBG HCO3 VBG Total CO2 VBG O2 Saturation VBG Base Excess VBG Lactate Sodium Potassium Chloride Carbon Dioxide Anion Gap BUN Creatinine Est GFR (CKD-EPI 2020) Glucose Calcium Magnesium Iron TIBC Transferrin % Sat Ferritin Total Bilirubin Conjugated Bilirubin AST ALT Alkaline Phosphatase [place] Creatine Kinase Troponin I C-Reactive Protein NT-Pro-B Natriuret Pep Total Protein Albumin Triglycerides Lipase CA 19-9 Antigen Vitamin B12 Folate Procalcitonin TSH Free T4 Cortisol Urine Color Urine Clarity Urine pH Ur Specific [place] Urine Protein Urine Ketones Urine Blood Urine Nitrite Urine Bilirubin Urine Urobilinogen Ur Leukocyte Esterase Urine RBC Urine WBC Ur Epithelial Cells Urine Crystals Urine Bacteria Urine Casts Urine Mucus Ur Culture Indicated? Ur Random Creatinine 143.33 140.50 U Random Total Protein 183.4 U [place] Prot/Creat Ratio 1.27 Urine Urea Nitrogen Pending Urine Glucose Urine Opiates Screen Urine Methadone Screen Ur Barbiturates Screen Ur Tricyclics Screen Ur Amphetamines Screen U Benzodiazepines Scrn Urine Cocaine Screen Ur THC Screen Hepatitis A IgM Ab Hep Bs Antigen Hep B Core Total Ab Hepatitis C Antibody HIV 1&2 Ag/Ab, 4th Gen Add-On Test Request 08/17/22 08/17/22 08/17/22 23:00 21:19 21:15 WBC RBC Hgb Hct MCV MCH MCHC RDW Plt Count MPV Immature Gran % Neutrophils % Lymphocytes % Monocytes % Eosinophils % Basophils % Nucleated RBC % Absolute Neutrophils Absolute Lymphocytes Absolute Monocytes Absolute Eosinophils Absolute Basophils PT INR VBG pH VBG pCO2 VBG pO2 VBG HCO3 VBG Total CO2 VBG O2 Saturation VBG Base Excess VBG Lactate Sodium Potassium Chloride Carbon Dioxide Anion Gap BUN Creatinine Est GFR (CKD-EPI 2020) Glucose Calcium Magnesium Iron TIBC Transferrin % Sat Ferritin Total Bilirubin Conjugated Bilirubin AST ALT Alkaline Phosphatase [place] Creatine Kinase Troponin I C-Reactive Protein NT-Pro-B Natriuret Pep Total Protein Albumin Triglycerides 95 Lipase CA 19-9 Antigen Vitamin B12 Folate Procalcitonin TSH Free T4 Cortisol Urine Color Urine Clarity Urine pH Ur Specific [place] Urine Protein Urine Ketones Urine Blood Urine Nitrite Urine Bilirubin Urine Urobilinogen Ur Leukocyte Esterase Urine RBC Urine WBC Ur Epithelial Cells Urine Crystals Urine Bacteria Urine Casts Urine Mucus Ur Culture Indicated? Ur Random Creatinine U Random Total Protein U [place] Prot/Creat Ratio Urine Urea Nitrogen Urine Glucose Urine Opiates Screen Negative Urine Methadone Screen Negative Ur Barbiturates Screen Negative Ur Tricyclics Screen Positive A Ur Amphetamines Screen Negative U Benzodiazepines Scrn Negative Urine Cocaine Screen Negative Ur THC Screen Negative Hepatitis A IgM Ab Hep Bs Antigen Hep B Core Total Ab Hepatitis C Antibody HIV 1&2 Ag/Ab, 4th Gen Add-On Test Request TNP 08/17/22 08/17/22 08/17/22 21:15 21:15 18:37 WBC RBC Hgb Hct MCV MCH MCHC RDW Plt Count MPV Immature Gran % Neutrophils % Lymphocytes % Monocytes % Eosinophils % Basophils % Nucleated RBC % Absolute Neutrophils Absolute Lymphocytes Absolute Monocytes Absolute Eosinophils Absolute Basophils PT 16.1 H INR 1.6 H VBG pH VBG pCO2 VBG pO2 VBG HCO3 VBG Total CO2 VBG O2 Saturation VBG Base Excess VBG Lactate 13.7 H* Sodium Potassium Chloride Carbon Dioxide Anion Gap BUN Creatinine Est GFR (CKD-EPI 2020) Glucose Calcium Magnesium Iron TIBC Transferrin % Sat Ferritin Total Bilirubin Conjugated Bilirubin AST ALT Alkaline Phosphatase [place]mon[place] Creatine Kinase Troponin I C-Reactive Protein NT-Pro-B Natriuret Pep Total Protein Albumin Triglycerides Lipase CA 19-9 Antigen Vitamin B12 Folate Procalcitonin TSH Free T4 Cortisol Urine Color Yellow Urine Clarity Clear Urine pH 5.0 Ur Specific [place] >= 1.030 H Urine Protein 100 H Urine Ketones Negative Urine Blood Negative Urine Nitrite Negative Urine Bilirubin Small H Urine Urobilinogen 0.2 Ur Leukocyte Esterase Negative Urine RBC Negative Urine WBC Negative Ur Epithelial Cells Rare Urine Crystals Rare Amorphous Urine Bacteria Rare Urine Casts 0-2 Hyaline Urine Mucus Negative Ur Culture Indicated? No Ur Random Creatinine U Random Total Protein U [place] Prot/Creat Ratio Urine Urea Nitrogen Urine Glucose Negative Urine Opiates Screen Urine Methadone Screen Ur Barbiturates Screen Ur Tricyclics Screen Ur Amphetamines Screen U Benzodiazepines Scrn Urine Cocaine Screen Ur THC Screen Hepatitis A IgM Ab Hep Bs Antigen Hep B Core Total Ab Hepatitis C Antibody HIV 1&2 Ag/Ab, 4th Gen Add-On Test Request 08/17/22 08/17/22 08/17/22 17:57 17:57 17:57 WBC RBC Hgb Hct MCV MCH MCHC RDW Plt Count MPV Immature Gran % Neutrophils % Lymphocytes % Monocytes % Eosinophils % Basophils % Nucleated RBC % Absolute Neutrophils Absolute Lymphocytes Absolute Monocytes Absolute Eosinophils Absolute Basophils PT INR VBG pH 7.33 VBG pCO2 30 L VBG pO2 30 VBG HCO3 16 L VBG Total CO2 15 L VBG O2 Saturation 45 VBG Base Excess -10 L VBG Lactate 10.9 H* Sodium Potassium Chloride Carbon Dioxide Anion Gap BUN Creatinine Est GFR (CKD-EPI 2020) Glucose Calcium Magnesium Iron TIBC Transferrin % Sat Ferritin Total Bilirubin Conjugated Bilirubin AST ALT Alkaline Phosphatase [place] Creatine Kinase Troponin I C-Reactive Protein NT-Pro-B Natriuret Pep Total Protein Albumin Triglycerides Lipase CA 19-9 Antigen Vitamin B12 Folate Procalcitonin 0.4 TSH Free T4 Cortisol Urine Color Urine Clarity Urine pH Ur Specific [place] Urine Protein Urine Ketones Urine Blood Urine Nitrite Urine Bilirubin Urine Urobilinogen Ur Leukocyte Esterase Urine RBC Urine WBC Ur Epithelial Cells Urine Crystals Urine Bacteria Urine Casts Urine Mucus Ur Culture Indicated? Ur Random Creatinine U Random Total Protein U [place] Prot/Creat Ratio Urine Urea Nitrogen Urine Glucose Urine Opiates Screen Urine Methadone Screen Ur Barbiturates Screen Ur Tricyclics Screen Ur Amphetamines Screen U Benzodiazepines Scrn Urine Cocaine Screen Ur THC Screen Hepatitis A IgM Ab Hep Bs Antigen Hep B Core Total Ab Hepatitis C Antibody HIV 1&2 Ag/Ab, 4th Gen Add-On Test Request 08/17/22 08/17/22 08/17/22 17:03 16:15 16:15 WBC RBC Hgb Hct MCV MCH MCHC RDW Plt Count MPV Immature Gran % Neutrophils % Lymphocytes % Monocytes % Eosinophils % Basophils % Nucleated RBC % Absolute Neutrophils Absolute Lymphocytes Absolute Monocytes Absolute Eosinophils Absolute Basophils PT INR VBG pH VBG pCO2 VBG pO2 VBG HCO3 VBG Total CO2 VBG O2 Saturation VBG Base Excess VBG Lactate Sodium Potassium Chloride Carbon Dioxide Anion Gap BUN Creatinine Est GFR (CKD-EPI 2020) Glucose Calcium Magnesium Iron TIBC Transferrin % Sat Ferritin Total Bilirubin Conjugated Bilirubin AST ALT Alkaline Phosphatase [place] Creatine Kinase 126 Troponin I C-Reactive Protein 7.79 H NT-Pro-B Natriuret Pep Total Protein Albumin Triglycerides Lipase CA 19-9 Antigen Vitamin B12 Folate Procalcitonin TSH 10.83 H Free T4 1.28 Cortisol Urine Color Urine Clarity Urine pH Ur Specific [place] Urine Protein Urine Ketones Urine Blood Urine Nitrite Urine Bilirubin Urine Urobilinogen Ur Leukocyte Esterase Urine RBC Urine WBC Ur Epithelial Cells Urine Crystals Urine Bacteria Urine Casts Urine Mucus Ur Culture Indicated? Ur Random Creatinine U Random Total Protein U [place] Prot/Creat Ratio Urine Urea Nitrogen Urine Glucose Urine Opiates Screen Urine Methadone Screen Ur Barbiturates Screen Ur Tricyclics Screen Ur Amphetamines Screen U Benzodiazepines Scrn Urine Cocaine Screen Ur THC Screen Hepatitis A IgM Ab Hep Bs Antigen Hep B Core Total Ab Hepatitis C Antibody HIV 1&2 Ag/Ab, 4th Gen Add-On Test Request DONE DONE 08/17/22 08/17/22 08/17/22 16:15 16:15 13:14 WBC RBC Hgb Hct MCV MCH MCHC RDW Plt Count MPV Immature Gran % Neutrophils % Lymphocytes % Monocytes % Eosinophils % Basophils % Nucleated RBC % Absolute Neutrophils Absolute Lymphocytes Absolute Monocytes Absolute Eosinophils Absolute Basophils PT INR VBG pH VBG pCO2 VBG pO2 VBG HCO3 VBG Total CO2 VBG O2 Saturation VBG Base Excess VBG Lactate Sodium Potassium Chloride Carbon Dioxide Anion Gap BUN Creatinine Est GFR (CKD-EPI 2020) Glucose Calcium Magnesium Iron TIBC Transferrin % Sat Ferritin Total Bilirubin Conjugated Bilirubin AST ALT Alkaline Phosphatase [place] Creatine Kinase Troponin I 188 H* C-Reactive Protein NT-Pro-B Natriuret Pep > 83773 H Total Protein Albumin Triglycerides Lipase CA 19-9 Antigen Vitamin B12 Folate Procalcitonin TSH Free T4 Cortisol Urine Color Urine Clarity Urine pH Ur Specific [place] Urine Protein Urine Ketones Urine Blood Urine Nitrite Urine Bilirubin Urine Urobilinogen Ur Leukocyte Esterase Urine RBC Urine WBC Ur Epithelial Cells Urine Crystals Urine Bacteria Urine Casts Urine Mucus Ur Culture Indicated? Ur Random Creatinine U Random Total Protein U [place] Prot/Creat Ratio Urine Urea Nitrogen Urine Glucose Urine Opiates Screen Urine Methadone Screen Ur Barbiturates Screen Ur Tricyclics Screen Ur Amphetamines Screen U Benzodiazepines Scrn Urine Cocaine Screen Ur THC Screen Hepatitis A IgM Ab Negative Hep Bs Antigen Negative Hep B Core Total Ab Negative Hepatitis C Antibody Negative HIV 1&2 Ag/Ab, 4th Gen Add-On Test Request 08/17/22 23:00 Urine - Cath Not Specified Urine Culture - Pending 08/17/22 21:15 Blood Blood Culture - Pending 08/17/22 17:57 Blood Blood Culture - Pending Preliminary micro results at discharge 08/17/22 20:30 Body Fluid Culture - Preliminary Thoracentesis 08/17/22 23:00 Urine Culture - Pending Urine - Cath Not Specified 08/17/22 21:15 Blood Culture - Pending Blood 08/17/22 17:57 Blood Culture - Pending Blood PFSH All Active Problems (Updated 08/18/22 @ 19:31 by Marnie Jansen MD) PAD (peripheral artery disease) (Acute) Pneumonia (Acute) Multi-organ failure with heart failure (Acute) Acute liver failure (Acute) Biventricular heart failure (Acute) Leukocytosis (Acute) Renal artery stenosis (Acute) Elevated troponin (Acute) High anion gap metabolic acidosis (Acute) CHF exacerbation (Acute) Hyperkalemia (Acute) Proteinuria (Acute) Anasarca (Acute) Discharge planning issues (Acute) Bright red blood per rectum (Acute) DVT prophylaxis (Acute) Macrocytic anemia (Acute) Lactic acidosis (Acute) Transaminitis (Acute) Elevated TSH (Acute) Sepsis (Acute) Acute kidney injury superimposed on chronic kidney disease (Acute) Abdominal pain (Acute) Ascites (Acute) Chest pain (Acute) Pleural effusion (Acute) Elevated lipase (Acute) Cardiomyopathy (Chronic) Abdominal ascites (Acute) Pancreatitis (Acute) Cachexia (Acute) COPD (chronic obstructive pulmonary disease) (Chronic) Anxiety and depression (Chronic) Renal insufficiency (Chronic) GERD (gastroesophageal reflux disease) (Chronic) Anemia (Chronic) Chronic kidney disease, stage 3 (Acute) Aortic valve stenosis (Chronic) Poor nutrition (Acute) Sleep disturbance (Acute) Hiatal hernia (Chronic) Appetite impaired (Acute) Weight loss (Acute) Aortic valve disease (Acute) Conductive hearing loss, unilateral, right ear, with unrestricted hearing on the contralateral side (Acute) Central perforation of tympanic membrane, right ear (Acute) 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 (Acute) Abdominal pain (Acute) Arrhythmia (Acute) Constipation (Acute) PSVT (paroxysmal supraventricular tachycardia) (Acute) UTI (urinary tract infection) (Acute) Suicidal ideation (Acute) Depression (Acute) Medical History Alcohol abuse COPD (chronic obstructive pulmonary disease) Depression Dizziness Essential hypertension Hyperlipidemia SVT (supraventricular tachycardia) Syncope Surgical History No significant past surgical history Social History Smoking/Tobacco Use Status: Current every day Tobacco Type: cigarettes Years smoked: 30 Smoking risk assessment performed?: Yes Alcohol Intake: never Drug use: Occasionally Substance use type: marijuana Details: Pot calms his nerves and helps him sleep. 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 Time Spent with Patient Time Spent with Patient: 45-69 minutes Time was spent: preparing to see the patient(eg.review tests), obtaining and/or reviewing separately otained hiistory, ordering medications,tests, procedures, referring, communicating with other health medical care manager, indepentently interpreting results, counseling the patient and care coordination
[2022-08-18 18:23] LABS: Albumin 3.4 g/dL (3.4-5.0); Alkaline Phosphatase 99 U/L (46-116); Anion Gap 15.4 mmol/L (3-11); BUN 48 mg/dL (7-18); Bilirubin, Direct 0.8 mg/dL (0.0-0.2); Bilirubin, Total 1.5 mg/dL (0.2-1.0); CO2 23.6 mmol/L (21.0-32.0); CREATININE 3.3 mg/dL (0.70-1.30); Calcium 8.8 mg/dL (8.5-10.1); Chloride 101 mmol/L (98-107); Estimated GFR 20.56 (mL/min/1.73m2); Glucose 88 mg/dL (74-106); Magnesium 1.9 mg/dL (1.8-2.4); Potassium 3.9 mmol/L (3.5-5.1); Sodium 140 mmol/L (136-145); Total Protein 6.2 g/dL (6.4-8.2)
[2022-08-18 19:03] LABS: ALT 1675 U/L (16-63); AST 2325 U/L (15-37)
[2022-08-18] MEDS: Sucralfate 1 GM TAB PO ×2 (19:18)
[2022-08-18] MEDS: Acetaminophen 325 MG TAB PO (19:18)
[2022-08-18 19:40] LABS: Urea Nitrogen Random Urine 234 mg/dL (See Note)
[2022-08-19 09:38] LABS: HIV-1/2 Ag & Ab Screen Negative (Negative)
[2022-08-21 11:14] LABS: CA 19-9 31 U/mL (<35)
== END 2022-08-18 20:20 | disposition short-term general hospital (02) | DRG 291 ==
LOC: ER 21:29 → ICU 21:36
PROVIDERS: Surgery; Admitting Provider Internal Medicine; Emergency Provider Physician Assistant; PCP Nurse Practitioner Family; Visit Provider Internal Medicine
DX: I13.0 Hypertensive heart and chronic kidney disease with heart failure and stage 1 through stage 4 chronic kidney disease, or unspecified chronic kidney disease (principal); A41.9 Sepsis, unspecified organism; I50.23 Acute on chronic systolic (congestive) heart failure; K85.90 Acute pancreatitis without necrosis or infection, unspecified; R18.8 Other ascites; N17.9 Acute kidney failure, unspecified; J90 Pleural effusion, not elsewhere classified; R64 Cachexia; I47.1 Supraventricular tachycardia; I24.8 Other forms of acute ischemic heart disease; K62.5 Hemorrhage of anus and rectum; I42.9 Cardiomyopathy, unspecified; E78.5 Hyperlipidemia, unspecified; K21.9 Gastro-esophageal reflux disease without esophagitis; J44.9 Chronic obstructive pulmonary disease, unspecified; F10.11 Alcohol abuse, in remission; R00.1 Bradycardia, unspecified; F31.9 Bipolar disorder, unspecified; F17.210 Nicotine dependence, cigarettes, uncomplicated; D53.9 Nutritional anemia, unspecified; R74.01 Elevation of levels of liver transaminase levels; Z68.22 Body mass index [BMI] 22.0-22.9, adult; N18.30 Chronic kidney disease, stage 3 unspecified; F41.9 Anxiety disorder, unspecified; H21.9 Unspecified disorder of iris and ciliary body; I35.0 Nonrheumatic aortic (valve) stenosis; K44.9 Diaphragmatic hernia without obstruction or gangrene; K59.00 Constipation, unspecified; R11.2 Nausea with vomiting, unspecified; R19.7 Diarrhea, unspecified; R07.89 Other chest pain; I70.1 Atherosclerosis of renal artery; R80.9 Proteinuria, unspecified; E87.5 Hyperkalemia; I73.9 Peripheral vascular disease, unspecified
CPT/HCPCS: 32555; 36569; 71250; 80048; 80053; 80076; 80307; 82533; 82550; 82805; 83690; 84145; 86704; 86709; 86803; 87040; 87340; 87389; 87637; 93005; 93308; 94640; 96365; 96366; 96375; 99285; 71045; 74174; 74176; 80320; 80329; 81003; 81015; 82140; 82565; 82607; 82728; 82746; 83540; 83550; 83605; 83735; 83880; 84156; 84439; 84443; 84478; 84484; 84540; 85025; 85610; 86140; 86301; 87070; 87075; 87086; 87205; 93010; 93970; 94664; 94667; 99291; 99292; J0131; J1644; J1940; J2060; J2405; J2543; J3430; J3475; J3490